=== PATIENT | female | born 1940 | race Caucasian/White ===

== ENCOUNTER → 2017-10-18 13:21 | Outpatient (CLI) | payer MEDICARE, SELFPAY ==
[2017-10-18 15:47] LABS: Absolute Lymphocyte Count 1.57 X10^3/ul (0.83-4.51); Absolute Neutrophil Count 4.6 X10^3/uL (2.0-7.7); Basophil# 0.03 X10^3/uL; Basophil% 0.4 % (0-1); Eosinophil# 0.44 X10^3/uL; Eosinophils% 6.2 % (0-5); Hematocrit 34.7 % (37-47); Hemoglobin 10.8 g/dl (12.0-15.0); Lymphocyte # 1.57 X10^3/ul (4.0); Lymphocyte % 22.2 % (19-41); Mean Corp Hgb Conc 31.1 g/gl (32-36); Mean Corpuscular Hgb 29.8 pg (27.0-32.0); Mean Corpuscular Volume 95.6 fL (81-99); Mean Platelet Vol. 10.7 fl (6.2-12.0); Monocyte# 0.47 X10^3/uL; Monocyte% 6.6 % (0-10); Neutrophil # 4.55 X10^3/uL (2.7-7.7); Neutrophil % 64.5 % (47-70); Platelet Count 325 K/mm3 (150-450); RBC Distribution Width CV 14.5 % (11.6-14.6); RBC Distribution Width SD 48.4 fl (35.1-43.9); Red Blood Count 3.63 M/mm3 (4.2-5.4); White Blood Count 7.1 K/mm3 (4.4-11.0)
[2017-10-18 15:49] LABS: POSITIVE COUNT NO; POSITIVE DIFFERENTIAL NO; POSITIVE MORPHOLOGY NO
[2017-10-18 16:15] LABS: Anion Gap 8 (5-15); BUN 29 mg/dL (7-18); BUN/Creat Ratio 27.9 RATIO (10-20); Calcium,Total 9.3 mg/dL (8.5-10.1); Chloride 104 mmol/L (98-107); Creatinine, Serum 1.04 mg/dL (0.55-1.02); EST Glomerular Filtration Rate 55 mL/min (>60); Est Glom Filt Rate - Afr Amer 66 mL/min (>60); Glucose 129 mg/dL (74-106); Potassium 4.2 mmol/L (3.5-5.1); Sodium Level 141 mmol/L (136-145)
== END ==
PROVIDERS: Family Provider Family Medicine; PCP Family Medicine; Visit Provider Family Medicine
DX: I10 Essential (primary) hypertension (principal); D64.9 Anemia, unspecified
CPT/HCPCS: 36415; 80048; 85025

== ENCOUNTER → 2018-10-01 15:28 | Outpatient (CLI) | payer MEDICARE, SELFPAY ==
[2018-10-01 17:48] LABS: Anion Gap 10 (5-15); BUN 34 mg/dL (7-18); BUN/Creat Ratio 26.8 RATIO (10-20); Calcium,Total 9.2 mg/dL (8.5-10.1); Chloride 105 mmol/L (98-107); Creatinine, Serum 1.27 mg/dL (0.55-1.02); EST Glomerular Filtration Rate 43 mL/min (>60); Est Glom Filt Rate - Afr Amer 53 mL/min (>60); Ferritin 75 ng/mL (8-252); Glucose 204 mg/dL (74-106); Iron 85 ug/dL (50-170); Sodium Level 142 mmol/L (136-145); Thyroid Stim Hormone (TSH) 1.24 uIU/mL (0.358-3.74)
[2018-10-01 18:02] LABS: Absolute Lymphocyte Count 2.43 X10^3/ul (0.83-4.51); Absolute Neutrophil Count 6.2 X10^3/uL (2.0-7.7); Basophil# 0.03 X10^3/uL; Basophil% 0.3 % (0-1); Eosinophil# 0.28 X10^3/uL; Hemoglobin 10.5 g/dl (12.0-15.0); Lymphocyte # 2.43 X10^3/ul (4.0); Lymphocyte % 25.6 % (19-41); Mean Corp Hgb Conc 30.9 g/gl (32-36); Mean Corpuscular Hgb 30.3 pg (27.0-32.0); Mean Platelet Vol. 10.4 fl (6.2-12.0); Monocyte# 0.49 X10^3/uL; Monocyte% 5.2 % (0-10); Neutrophil # 6.23 X10^3/uL (2.7-7.7); Neutrophil % 65.6 % (47-70); Platelet Count 347 K/mm3 (150-450); RBC Distribution Width CV 14.5 % (11.6-14.6); RBC Distribution Width SD 49.3 fl (35.1-43.9); Red Blood Count 3.47 M/mm3 (4.2-5.4); White Blood Count 9.5 K/mm3 (4.4-11.0)
[2018-10-01 18:05] LABS: POSITIVE COUNT NO; POSITIVE DIFFERENTIAL NO; POSITIVE MORPHOLOGY NO
[2018-10-01 18:06] LABS: Vitamin B12 608 pg/mL (211-911)
== END ==
PROVIDERS: Family Provider Family Medicine; PCP Family Medicine; Visit Provider Family Medicine
DX: E11.9 Type 2 diabetes mellitus without complications (principal); E78.5 Hyperlipidemia, unspecified; D64.9 Anemia, unspecified
CPT/HCPCS: 36415; 80048; 82607; 82728; 83540; 84443; 85025

== ENCOUNTER → 2019-08-12 15:19 | Outpatient (CLI) | payer MEDICARE, SELFPAY ==
[2019-08-12 17:23] LABS: Absolute Lymphocyte Count 2.28 X10^3/uL (0.83-4.51); Absolute Neutrophil Count 4.2 X10^3/uL (2.0-7.7); Basophil# 0.03 X10^3/uL; Basophil% 0.4 % (0-1); Eosinophil# 0.38 X10^3/uL; Eosinophils% 5.2 % (0-5); Hematocrit 32.7 % (37-47); Hemoglobin 9.9 g/dL (12.0-15.0); Lymphocyte # 2.28 X10^3/ul (4.0); Lymphocyte % 31.2 % (19-41); Mean Corp Hgb Conc 30.3 g/dL (32-36); Mean Corpuscular Hgb 30.1 pg (27.0-32.0); Mean Corpuscular Volume 99.4 fL (81-99); Mean Platelet Vol. 10.1 fl (6.2-12.0); Monocyte# 0.41 X10^3/uL; Monocyte% 5.6 % (0-10); NRBC Flagged by Analyzer 0 % (0-5); Neutrophil # 4.19 X10^3/uL (2.7-7.7); Neutrophil % 57.3 % (47-70); Platelet Count 322 K/mm3 (150-450); RBC Distribution Width CV 13.9 % (11.6-14.6); RBC Distribution Width SD 50.8 fl (35.1-43.9); Red Blood Count 3.29 M/mm3 (4.2-5.4); White Blood Count 7.3 K/mm3 (4.4-11.0)
[2019-08-12 17:41] LABS: Anion Gap 5 (5-15); BUN 28 mg/dL (7-18); BUN/Creat Ratio 24.6 RATIO (10-20); Calcium,Total 9.4 mg/dL (8.5-10.1); Chloride 107 mmol/L (98-107); Creatinine, Serum 1.14 mg/dL (0.55-1.02); EST Glomerular Filtration Rate 49 mL/min (>60); Est Glom Filt Rate - Afr Amer 59 mL/min (>60); Glucose 95 mg/dL (74-106); Iron 72 ug/dL (50-170); Potassium 4.6 mmol/L (3.5-5.1); Sodium Level 140 mmol/L (136-145); Thyroid Stim Hormone (TSH) 1.52 uIU/mL (0.358-3.74)
== END ==
PROVIDERS: Family Provider Family Medicine; PCP Family Medicine; Visit Provider Family Medicine
DX: D64.9 Anemia, unspecified (principal); I10 Essential (primary) hypertension; E11.9 Type 2 diabetes mellitus without complications
CPT/HCPCS: 36415; 80048; 83540; 84443; 85025

== ENCOUNTER → 2020-09-22 14:05 | Outpatient (CLI) | payer MEDICARE, SELFPAY ==
[2020-09-22 17:04] LABS: Absolute Lymphocyte Count 2.52 X10^3/uL (0.83-4.51); Basophil# 0.06 X10^3/uL; Basophil% 0.8 % (0-1); Eosinophil# 0.51 X10^3/uL; Eosinophils% 6.6 % (0-5); Hemoglobin 10.5 g/dL (12.0-15.0); Lymphocyte # 2.52 X10^3/ul (4.0); Lymphocyte % 32.8 % (19-41); Mean Corp Hgb Conc 31.8 g/dL (32-36); Mean Corpuscular Hgb 30.4 pg (27.0-32.0); Mean Corpuscular Volume 95.7 fL (81-99); Mean Platelet Vol. 10.2 fl (6.2-12.0); Monocyte# 0.56 X10^3/uL; Monocyte% 7.3 % (0-10); NRBC Flagged by Analyzer 0 % (0-5); Neutrophil % 52.1 % (47-70); Platelet Count 339 K/mm3 (150-450); RBC Distribution Width CV 14.6 % (11.6-14.6); RBC Distribution Width SD 51.2 fl (35.1-43.9); Red Blood Count 3.45 M/mm3 (4.2-5.4); White Blood Count 7.7 K/mm3 (4.4-11.0)
[2020-09-22 17:31] LABS: Vitamin B12 1894 pg/mL (211-911)
[2020-09-22 17:36] LABS: ALB/GLOB Ratio 0.9 RATIO (0.9-2.4); AST(SGOT) 14 U/L (15-37); Alanine Aminotransfer ALT/SGPT 14 U/L (13-56); Albumin, Serum 3.7 g/dL (3.2-5.0); Alkaline Phosphatase 76 U/L (45-117); Anion Gap 7 (5-15); BUN 34 mg/dL (7-18); Calcium,Total 9.5 mg/dL (8.5-10.1); Chloride 105 mmol/L (98-107); Creatinine, Serum 1.79 mg/dL (0.55-1.02); EST Glomerular Filtration Rate 29 mL/min (>60); Est Glom Filt Rate - Afr Amer 35 mL/min (>60); Globulin 4.1 g/dL (2.2-4.2); Glucose 98 mg/dL (74-106); Iron 64 ug/dL (50-170); Potassium 4.4 mmol/L (3.5-5.1); Protein, Total 7.8 g/dL (6.4-8.2); Sodium Level 138 mmol/L (136-145); T4 Free Direct 1.17 ng/dL (0.76-1.46); Thyroid Stim Hormone (TSH) 1.59 uIU/mL (0.358-3.74)
== END ==
PROVIDERS: PCP Family Medicine; Visit Provider Family Medicine
DX: I10 Essential (primary) hypertension (principal); E11.9 Type 2 diabetes mellitus without complications; D64.9 Anemia, unspecified
CPT/HCPCS: 36415; 80053; 82607; 83540; 84439; 84443; 85025

== ENCOUNTER → 2020-10-07 13:17 | Outpatient (CLI) | payer MEDICARE, SELFPAY ==
[2020-10-07 15:25] LABS: Anion Gap 5 (5-15); BUN 38 mg/dL (7-18); BUN/Creat Ratio 26.2 RATIO (10-20); Calcium,Total 9.8 mg/dL (8.5-10.1); Chloride 107 mmol/L (98-107); Creatinine, Serum 1.45 mg/dL (0.55-1.02); EST Glomerular Filtration Rate 37 mL/min (>60); Est Glom Filt Rate - Afr Amer 45 mL/min (>60); Glucose 123 mg/dL (74-106); Potassium 4.7 mmol/L (3.5-5.1); Sodium Level 138 mmol/L (136-145)
== END ==
PROVIDERS: PCP Family Medicine; Visit Provider Family Medicine
DX: N18.30 Chronic kidney disease, stage 3 unspecified (principal)
CPT/HCPCS: 36415; 80048

== ENCOUNTER 2021-09-04 10:51 | Inpatient (IN) | payer MEDICARE, SELFPAY ==
[2021-09-04] VITALS (11 sets, daily range): BP systolic 118–174; BP diastolic 53–70; PULSE 71–116; RESP 16–28; TEMP 36.8–37.8; O2SAT 92–100; BMI 50.1; BMI 48.8
--- NOTE | 2021-09-04 11:03 | RAD_ITS ---
STUDY: X-RAY CHEST REASON FOR EXAM: Female, 80 years old. dyspnea TECHNIQUE: Single AP portable view of the chest. COMPARISON: None. FINDINGS: The lungs are clear and expanded. Elevated right hemidiaphragm. Normal size heart. Normal mediastinum and lisa. Normal visualized pulmonary arteries. Normal visualized aortic arch and descending thoracic aorta. Normal visualized thoracic spine. Normal visualized ribs, clavicles, and shoulders. There is no demonstrated abnormality of the visualized soft tissue structures of the upper abdomen. RAD/Chest 1 View (Portable) IMPRESSION: No active disease. Electronically Signed: Lex Luz MD at 11:31 EST Tel , Service support ,
--- NOTE | 2021-09-04 11:03 | EKG12_ITS ---
Test Reason : COUGH Blood Pressure : / mmHG Vent. Rate : 116 BPM Atrial Rate : 125 BPM P-R Int : 000 ms QRS Dur : 076 ms QT Int : 322 ms P-R-T Axes : 000 -56 065 degrees QTc Int : 447 ms Atrial fibrillation Left axis deviation Low voltage QRS Septal infarct , age undetermined Inferior infarct , age undetermined Abnormal ECG Confirmed by MIKE OSWALD, VIC ([id number]), editor dictionary REGIS MURILLO ([id number]) on 09/08/2021 10:02:01 AM Referred By: ROBERTO CARLOS/VIRAJ Confirmed By:VIC MCKEON MD
--- NOTE | 2021-09-04 11:04 | ED.VIS.DYS ---
HPI History of Present Illness Chief Complaint: Cough Detail of Chief Complaint: Cough and shortness of breath Informant: patient Narrative Narrative: Patient presents to the emergency department complaint of cough and shortness of breath. Patient states that she has been coughing for 6 months. Patient states 2 days ago started feeling increasingly short of breath. Coughing up white phlegm. She denies fever at home but was noted to have a temperature on arrival to the emergency department. She complains of some body aches. Patient did have a Covid vaccines but has not had a booster. She denies any chest pain. She denies recent travel or surgery. [facility] Medical History (Updated 09/04/21 @ 12:[address] Virginia Rodriguez, ) Diabetes Hypertension Home Medications aspirin 81 mg PO DAILY 09/04/21 [History Last Taken Unknown] hydrochlorothiazide 25 mg PO DAILY 09/04/21 [History Last Taken Unknown] lisinopril 10 mg PO DAILY 09/04/21 [History Last Taken Unknown] pioglitazone 30 mg PO DAILY 09/04/21 [History Last Taken Unknown] Allergy/AdvReac Type Severity Reaction Status Date / Time No Known Allergies Allergy Verified 09/04/21 10:58 Social History Smoking Status: Former smoker ROS ROS ED Constitutional Constitutional ED: Reports systems reviewed and no addt'l complaints, except as documented; Denies body ache(s), change in weight or chills Eyes Eyes: Denies acute decrease in peripheral vision, change in vision, double vision or loss of vision ENT ENT ED: Reports none; Denies ear pain, lip swelling, loss taste/smell, neck pain, otalgia or sore throat Cardiovascular Cardiovascular: Reports none; Denies abdominal pain, chest pain with activity, leg edema, lightheadedness, palpitations, rapid heart rate or syncope Respiratory/Chest Respiratory/Chest: Reports none, cough and dyspnea; Denies change in mental status, dry cough, hemoptysis, shortness of breath at rest or shortness of breath with exertion Gastrointestinal Gastrointestinal: Reports none; Denies abdominal pain, change in stool character, diarrhea, hematemesis, hematochezia, melena, rectal bleeding or vomiting Genitourinary Genitourinary ED: Reports none; Denies abdominal discomfort, anuria, dysuria, genital pain or polyuria Musculoskeletal Musculoskeletal: Reports none and myalgias; Denies arthralgias, back pain, difficulty walking, extremity pain or muscle weakness Integumentary Reports none; Denies abscess or rash Neurologic Neurologic: Reports none and weakness; Denies abnormal gait, confusion, focal weakness, frequent falls, headache(s), loss of vision, numbness, paresthesias, radicular pain or vertigo Psychiatric Psychiatric: Reports systems reviewed and no addt'l complaints, except as documented and none; Denies behavioral changes, confusion, difficulty concentrating, hallucinations, suicidal ideation, tactile hallucinations or visual hallucinations Endocrine Endocrinology: Denies none, cold intolerance, excessive sweating, fatigue or heat intolerance Hematologic/Lymphatic Hematologic/Lymphatic: Reports none; Denies anemia, easy bleeding or easy bruising Allergic/Immunologic Allergic/Immunologic ED: Denies as per HPI, none, lip swelling, mouth swelling, throat swelling, tongue swelling or hives EXAM Physical Exam Const Vital Signs: 09/04/21 10:52 09/04/21 10:58 09/04/21 12:29 Temperature 100.0 F H Temperature Source Oral Pulse Rate 116 H Respiratory Rate 28 H Respiratory Effort Normal Respiratory Depth Normal Respiratory Pattern Normal Blood Pressure 173/58 H Blood Pressure Mean 96 Pulse Ox 95 Oxygen Delivery Method Room Air Positive well nourished and well developed General Appearance ED: well developed and NAD HEENT Reports TM's clear and moist mucous membranes normocephalic and atraumatic; Negative for trauma or tenderness Tympanic Membrane ED: Yes TM's clear Eyes PERRL and EOMs intact bilaterally General Eye ED: Negative for pale conjunctiva or scleral icterus Neck no lymphadenopathy, supple and no JVD General: Negative for tenderness Chest Wall inspection of chest normal and palpation of chest normal Chest: Negative for tenderness Resp normal respiratory effort and clear to auscultation bilaterally Resp Narrative: Rales noted in the bases with few rhonchi bilaterally. Mild tachypnea. No accessory muscle use or retractions. Effort and Inspection: Negative for respiratory distress or pain with movement Auscultation: rales and rhonchi; Negative for wheezes or diminished lung sounds Cardio regular rate, regular rhythm, S1 normal heart sound, S2 normal heart sound and no murmurs Peripheral Pulses: pulses 2+ throughout GI normal to inspection, nondistended, normoactive bowel sounds, soft to palpation, non-tender, non-distended and no masses Back/Spine no CVA tenderness and no thoracic nor lumbar tenderness Extremity normal to inspection Extremity Narrative: +3 edema both lower extremities General Extremety ED: Yes edema General Extremity: edema Neuro oriented x3, CN's II-XII intact bilaterally, no sensory deficits noted and gait normal Sensorium / Orientation: awake, alert, oriented to person, oriented to place and oriented to time Motor Exam: strength 5/5 throughout and strength abnormal Psych mental status grossly normal Skin no rashes or lesions noted and no wounds MDM MDM MDM Narrative Medical decision making narrative: IV line established on arrival. Patient was given Cardizem 20 mg IV bolus and this slowed her rate down into the 90s. Patient was given Lasix 40 mg IV. Patient has new onset A. fib RVR. Patient I suspect has a component of CHF and is also anemic. Case will be discussed with hospitalist to evaluate patient for admission Lab Data Attestation: I reviewed the patient's lab results. Labs: Laboratory Results - last 24 hr 09/04/21 09/04/21 09/04/21 11:05 11:05 11:05 WBC 8.4 RBC 3.00 L Hgb 8.7 L Hct 27.1 L MCV 90.3 MCH 29.0 MCHC 32.1 RDW Std Deviation 51.4 H RDW Coeff of Karen 15.7 H Plt Count 345 MPV 9.4 Immature Gran % (Auto) 0.800 Neut % (Auto) 90.3 H Lymph % (Auto) 5.7 L [place] % (Auto) 3.0 Eos % (Auto) 0.0 Baso % (Auto) 0.2 Absolute Neuts (auto) 7.6 Absolute Lymphs (auto) 0.48 L Nucleated RBC % 0 D-Dimer Quant (PE/DVT) 1.77 H* Sodium 141 Potassium 3.8 Chloride 106 Carbon Dioxide 25.0 Anion Gap 10 BUN 19 H Creatinine 1.26 H Estim Creat Clear Calc 31.26 Est GFR (MDRD) Af Amer 53 L Est GFR (MDRD) Non-Af 43 L BUN/Creatinine Ratio 15.1 Glucose 157 H Lactic Acid Calcium 9.7 Troponin I High Sens 26 B-Natriuretic Peptide 09/04/21 09/04/21 11:05 11:05 WBC RBC Hgb Hct MCV MCH MCHC RDW Std Deviation RDW Coeff of Karen Plt Count MPV Immature Gran % (Auto) Neut % (Auto) Lymph % (Auto) [place] % (Auto) Eos % (Auto) Baso % (Auto) Absolute Neuts (auto) Absolute Lymphs (auto) Nucleated RBC % D-Dimer Quant (PE/DVT) Sodium Potassium Chloride Carbon Dioxide Anion Gap BUN Creatinine Estim Creat Clear Calc Est GFR (MDRD) Af Amer Est GFR (MDRD) Non-Af BUN/Creatinine Ratio Glucose Lactic Acid 2.5 H* Calcium Troponin I High Sens B-Natriuretic Peptide 424.2 H Radiography Diagnostic Testing: Clinical Impression(s) from Imaging Studies Chest X-Ray 09/04/21 11:03 IMPRESSION: No active disease. Electronically Signed: Lex Luz MD at 11:31 EST Tel , Service support , Chest CTA 09/04/21 11:50 IMPRESSION: 1. No CT evidence of pulmonary embolism. 2. Bilateral noncalcified pulmonary nodules and follow-up CT is recommended in 6 months document stability per Electronically Signed: Lex Luz MD at 12:32 EST Tel , Service support , 1 view chest creatinine interpreted by myself as no acute disease process. Radiology was in agreement. EKG Initial EKG: Attestation: I personally reviewed and interpreted this EKG as follows: Comments: Atrial fibrillation with a rate of 116 bpm with old septal infarct and old inferior infarct noted Prior EKG tracings: not available for review Discharge Plan Triage Chief Complaint: Cough ED Provider: Virginia Rodriguez Dx/Rx/DC Orders Clinical Impression: Atrial fibrillation with rapid ventricular response, CHF (congestive heart failure), Weakness, Exertional dyspnea, Anemia Prescriptions: No Action lisinopril 10 mg tablet 10 mg PO DAILY RF: 0 hydrochlorothiazide 25 mg tablet 25 mg PO DAILY RF: 0 pioglitazone 30 mg tablet 30 mg PO DAILY RF: 0 aspirin 81 mg Capsule 81 mg PO DAILY RF: 0 Primary Care Provider: Tim Cortez Referrals: Tim Cortez MD [Primary Care Provider] - Disposition Disposition: Acute Care Hospital [facility]
--- NOTE | 2021-09-04 11:07 | NURSING ---
NO OLD EKGS
[2021-09-04 11:22] LABS: Absolute Lymphocyte Count 0.48 X10^3/uL (0.83-4.51); Absolute Neutrophil Count 7.6 X10^3/uL (2.0-7.7); Basophil# 0.02 X10^3/uL; Basophil% 0.2 % (0-1); Hematocrit 27.1 % (37-47); Hemoglobin 8.7 g/dL (12.0-15.0); Lymphocyte # 0.48 X10^3/ul (0.83-4.51); Lymphocyte % 5.7 % (19-41); Mean Corp Hgb Conc 32.1 g/dL (32-36); Mean Corpuscular Volume 90.3 fL (81-99); Mean Platelet Vol. 9.4 fl (6.2-12.0); Monocyte# 0.25 X10^3/uL; NRBC Flagged by Analyzer 0 % (0-5); Neutrophil # 7.56 X10^3/uL (2.7-7.7); POSITIVE DIFFERENTIAL YES; Platelet Count 345 K/mm3 (150-450); RBC Distribution Width CV 15.7 % (11.6-14.6); RBC Distribution Width SD 51.4 fl (35.1-43.9); White Blood Count 8.4 K/mm3 (4.4-11.0)
[2021-09-04 11:24] LABS: Differential Indicated SCAN CRITERIA MET; Neutrophil % 90.3 % (47-70)
[2021-09-04 11:36] LABS: D-Dimer Quantitative (DVT/PE) 1.77 FEU/ug/m (0.27-0.49)
[2021-09-04 11:40] LABS: Anion Gap 10 (5-15); BUN 19 mg/dL (7-18); BUN/Creat Ratio 15.1 RATIO (10-20); Calcium,Total 9.7 mg/dL (8.5-10.1); Chloride 106 mmol/L (98-107); Creatinine, Serum 1.26 mg/dL (0.55-1.02); EST Glomerular Filtration Rate 43 mL/min (>60); Est Glom Filt Rate - Afr Amer 53 mL/min (>60); Estimated Creatinine Clearance 31.26 ml/min; Glucose 157 mg/dL (74-106); Potassium 3.8 mmol/L (3.5-5.1); Sodium Level 141 mmol/L (136-145); Troponin-I HS 26 pg/mL (3.0-54.0)
[2021-09-04 11:43] LABS: BNP,B-Type NATRIURETIC PEPTIDE 424.2 pg/mL (0-100)
--- NOTE | 2021-09-04 11:50 | CT_ITS ---
STUDY: CTA CHEST REASON FOR EXAM: Female, 80 years old. dyspnea, elevated d-dimer RADIATION DOSAGE (If Supplied By Facility): CTDIvol = ( 27.96 ) mGy, DLP = ( 698.47 ) mGycm TECHNIQUE: The examination was performed with the intravenous administration of IV 100mL Isovue-370. Post-processing of the angiographic images was performed, with multiplanar reformation and 3D reconstruction. Individualized dose optimization techniques were used for this CT. COMPARISON: X-ray earlier today FINDINGS: Normal enhancement of the main pulmonary artery and right and left pulmonary arteries. Normal enhancement of the bilateral peripheral pulmonary arteries. There is no demonstrated pulmonary embolism. Normal thoracic aorta and visualized great vessels. There is no demonstrated aortic dissection. Normal heart and pericardium. Small hiatal hernia. Normal mediastinum. Normal hilar regions. Normal visualized trachea and bronchi. The lungs are well expanded. 6 mm noncalcified nodule peripherally the right upper lobe the lungs on image 184. Another 6 mm noncalcified nodule the posterior right upper lobe the lungs on image 175. Another 6 mm noncalcified nodule peripherally the lingula left lung on image 126. Another 6 mm nodule in the left lower lobe the lungs on image 97. Some right lower lobe discoid atelectasis or scarring. Normal pleura. Normal chest wall structures. Normal osseous structures. Normal visualized upper abdomen. CT/CTA Chest W/WO Contrast IMPRESSION: 1. No CT evidence of pulmonary embolism. 2. Bilateral noncalcified pulmonary nodules and follow-up CT is recommended in 6 months document stability per Electronically Signed: Lex Luz MD at 12:32 EST Tel , Service support ,
[2021-09-04 11:59] LABS: Lactic Acid 2.5 mmol/L (0.4-1.9)
[2021-09-04] MEDS: dilTIAZem 25 MG/5 ML Vial 20 MG IV BOLUS (12:35)
[2021-09-04] MEDS: Ondansetron 4 MG/2 ML Vial IV (12:35)
--- NOTE | 2021-09-04 12:49 | NURSING ---
HOSPITALIST FOR DR LUCAS
[2021-09-04 12:58] LABS: Bacteria 0 SEEN /hpf (None Seen); Mucous, Urine 0 SEEN /hpf (<or=2+); Red Blood Cells-Urine 0 SEEN /hpf (0-5); Squamous Epithelial Cells - UA 0 SEEN /hpf (5-10); White Blood Cells 0 SEEN /hpf (0-5)
[2021-09-04 12:59] LABS: Color, Urine Yellow (Yellow); Glucose, Dipstick Normal (Normal); Ketone-Dipstick 5 mg/dl (Negative); Leukocyte Esterase-Dipstick Negative /ul (Negative); Nitrite-Dipstick Negative (Negative); Occult Blood-Urine Negative /ul (Negative); Protein-Dipstick 30 mg/dl (Negative); Urine Bilirubin Dipstick Negative (Negative); Urine Clarity Clear (Clear); Urine Urobilinogen 1 mg/dl (Normal)
--- NOTE | 2021-09-04 13:16 | NURSING ---
PCU SHAHID AFIB RVR, ANEMIA, DYSPNEA, CHF
[2021-09-04] MEDS: Furosemide 40 MG/4 ML Vial IV ×2 (13:39→17:45)
--- NOTE | 2021-09-04 13:43 | ECHOCS_ITS ---
Reason For Study: Afib/Flutter Procedure This was a 2D Doppler, Color Flow transthoracic echocardiogram. The study was technically difficult. Contrast injection was performed. Exam performed portable in patient room. Left Ventricle Normal LV size. Left ventricular systolic function is normal. The estimated ejection fraction is 55 %. Unable to assess diastolic dysfunction due to arrhythmia. No regional wall motion abnormalities noted. Right Ventricle Normal RV size. Normal systolic function. Atria Normal left atrium. Normal right atrium. Mitral Valve Normal mitral valve. Tricuspid Valve Normal tricuspid valve. Mild (1+) tricuspid valve insufficiency. Pulmonary artery systolic pressure is 44 mmHg. Aortic Valve Trisinus/trileaflet aortic valve. Pulmonic Valve Normal pulmonic valve. Great Vessels Normal aortic root. The pulmonary artery is normal size. Normal inferior vena cava. Pericardium/Pleural No pericardial effusion. Medication Diluted definity 3ml given slow IV push to enhance endocardial definition. MMode/2D Measurements & Calculations LVIDd: 4.8 cm IVSd: 1.1 cm LA dimension: 4.0 cm LVIDs: 3.0 cm LVPWd: 1.1 cm FS: 37.8 % LAV(MOD-bp): 62.6 ml LA A4 area: 21.1 cm2 RA A4 area: 19.7 cm2 LAV(MOD-bp) Indexed: 27.3 ml/m2 LAV(MOD-sp2): 58.6 ml LAV(MOD-sp4): 65.3 ml Time Measurements MV dec time: 0.21 sec Doppler Measurements & Calculations MV E max tracy: 150.9 cm/sec MV V2 max: 145.5 cm/sec MV P1/2t max tracy: 145.5 cm/sec MV A max tracy: 129.7 cm/sec MV max P.5 mmHg MV P1/2t: 66.9 msec MV E/A: 1.2 MV V2 mean: 82.4 cm/sec MV dec slope: 636.8 cm/sec2 MV mean P.2 mmHg MV V2 VTI: 39.3 cm MVA(P1/2t): 3.3 cm2 Ao V2 max: 163.7 cm/sec LV V1 max: 135.5 cm/sec PA V2 max: 88.8 cm/sec Ao max P.7 mmHg LV V1 max P.3 mmHg TR max tracy: 308.7 cm/sec TR max P.1 mmHg ECHO/Echo Complete W/ Contrast Interpretation Summary Normal LV size. Left ventricular systolic function is normal. The estimated ejection fraction is 55 %. Unable to assess diastolic dysfunction due to arrhythmia. Pulmonary artery systolic pressure is 44 mmHg. Ordering Physician: Timmy Solis Referring Physician: Tim Cortez Performed By: Jesus Guo RCS
--- NOTE | 2021-09-04 13:46 | HP.PCM.HOS_ITS ---
HPI - General HPI Narrative ANKUR AN, is a 80 F who presents for worsening cough and associated exertional dyspnea. She states she has a cough for 6 months but in the past 2 days she has coughed more excessively, coughing all day yesterday, with a white sputum at times. She denies fevers at home. The patient does not have any rece nt contacts with Covid or flu patients. She has worsening edema in the last several weeks and this week did try an [id number] Diurex from [employer] although it does not know that this really helped. She does not take Lasix and does not follow closely with her primary care provider, with her last appointment being in April 2021. She has no recent echo or knowledge of atrial fibrillation. She does live alone right beside her daughter, and ambulates with a walker. Moving around is difficult but she does not have any falls. Per daughter the patient has declined significantly in the last 4 months, and is weaker. Regarding her diabetes she does not check her sugars and is not sure how controlled her diabetes is. She does have constipation and strains sometimes and notices rectal bleeding with the straining. Had colonoscopy long time ago, and cannot remember if she had hemorrhoids described. Upon presentation to the ED the patient was noted to have a heart rate of 116- 120 and significant edema with pitting edema 3+ in her legs. SaO2 95% on RA without any hypoxia noted in ED work-up. BNP was elevated to 424 and her hemoglobin was 8.7, which is slightly down from a chronic anemia of 10. UA clear, no white count. Patient has CTA which was negative for embolism or signs of pneumonia. She was given diltiazem 20 mg and 40 mg IV Lasix. Troponin negative and EKG showed persistent atrial fibrillation. Flu and rapid covid negative. Vaccinated for covid. She does not smoke or drink EtOH. Distant h/o of rare cigarrete use. Family history: she states that her mom also had congestive heart failure [facility] Medical History (Updated 09/04/21 @ 12:[address] Virginia Rodriguez, ) Diabetes Hypertension Home Medications aspirin 81 mg PO DAILY 09/04/21 [History Last Taken Unknown] hydrochlorothiazide 25 mg PO DAILY 09/04/21 [History Last Taken Unknown] lisinopril 10 mg PO DAILY 09/04/21 [History Last Taken Unknown] pioglitazone 30 mg PO DAILY 09/04/21 [History Last Taken Unknown] Allergy/AdvReac Type Severity Reaction Status Date / Time No Known Allergies Allergy Verified 09/04/21 10:58 Social History Smoking Status: Former smoker ROS ROS Narrative No fevers, positive chills. No chest racing sensations or chest pain, positive cough with shortness of breath, no abdominal pain or diarrhea, but she does have constipation, Positive rectal bleeding likely due to hemorrhoids. No trouble seeing hearing or swallowing. Trouble with skin problems or joint issues but does have generalized muscle weakness. No seizures or headaches. Positive lower extremity edema Vital Signs Vital Signs Vital Signs: 09/04/21 10:52 09/04/21 10:58 09/04/21 12:29 Temperature 100.0 F H Temperature Source Oral Pulse Rate 116 H Respiratory Rate 28 H Respiratory Effort Normal Respiratory Depth Normal Respiratory Pattern Normal Blood Pressure 173/58 H Blood Pressure Mean 96 Pulse Ox 95 Oxygen Delivery Method Room Air 09/04/21 13:45 Temperature 98.5 F Temperature Source Oral Pulse Rate 110 H Respiratory Rate 21 H Respiratory Effort Respiratory Depth Respiratory Pattern Blood Pressure 132/53 H Blood Pressure Mean 79 Pulse Ox 95 Oxygen Delivery Method Room Air Weight Weight: 292 lb 5.327 oz Body Mass Index (BMI) 50.1 Physical Exam Const alert Constitutional Narrative: Pleasant and congenial and morbidly obese General Appearance: cooperative HEENT normocephalic, head/scalp atraumatic and moist oral mucous membranes Eyes PERRL and EOMs intact bilaterally Neck no lymphadenopathy Neck Narrative: There is positive mild JVD Resp normal respiratory effort Resp Narrative: Appreciate crackles in the right lower lobe, and the left lobe is clear and I do not hear wheezes Cardio S1 normal heart sound, S2 normal heart sound and no murmurs Cardio Narrative: Irregular rhythm, tachycardic GI normal to inspection, nondistended, normoactive bowel sounds, non-tender and non-distended Extremity Extremity Narrative: 3+ pitting edema to knees with venous stasis changes, increase fluid to thights, however not pitting here Skin no jaundice Neuro Sensorium / Orientation: awake and alert Speech: speech normal Psych affect normal Results Lab / Micro Data Result Diagrams: 09/04/21 11:05 09/04/21 11:05 Labs: Laboratory Results - last 24 hr 09/04/21 11:05: WBC 8.4, RBC 3.00 L, Hgb 8.7 L, Hct 27.1 L, MCV 90.3, MCH 29.0, MCHC 32.1, RDW Std Deviation 51.4 H, RDW Coeff of Karen 15.7 H, Plt Count 345, MPV 9.4, Immature Gran % (Auto) 0.800, Neut % (Auto) 90.3 H, Lymph % (Auto) 5.7 L, [place] % (Auto) 3.0, Eos % (Auto) 0.0, Baso % (Auto) 0.2, Absolute Neuts (auto) 7.6, Absolute Lymphs (auto) 0.48 L, Nucleated RBC % 0 09/04/21 11:05: D-Dimer Quant (PE/DVT) 1.77 H* 09/04/21 11:05: Sodium 141, Potassium 3.8, Chloride 106, Carbon Dioxide 25.0, Anion Gap 10, BUN 19 H, Creatinine 1.26 H, Estim Creat Clear Calc 31.26, Est GFR (MDRD) Af Amer 53 L, Est GFR (MDRD) Non-Af 43 L, BUN/Creatinine Ratio 15.1, Glucose 157 H, Calcium 9.7, Troponin I High Sens 26 09/04/21 11:05: Lactic Acid 2.5 H* 09/04/21 11:05: B-Natriuretic Peptide 424.2 H 09/04/21 12:50: Urine Color Yellow, Urine Clarity Clear, Urine pH 5.0, Ur Specific [place] 1.020, Urine Protein 30 H, Urine Glucose (UA) Normal, Urine Ketones 5 H, Urine Occult Blood Negative, Urine Nitrite Negative, Urine Bilirubin Negative, Urine Urobilinogen 1 H, Ur Leukocyte Esterase Negative, Urine RBC 0 SEEN, Urine WBC 0 SEEN, Ur Squamous Epith Cells 0 SEEN, Urine Bacteria 0 SEEN, Urine Mucus 0 SEEN Micro: Microbiology 09/04/21 10:55 Nasal Secretion SARS-CoV-2 Antigen (Rapid) - Final 09/04/21 11:10 Mucosa - Nasopharyngeal Influenza Types A,B Direct FA (ANGELICA) - Final Radiology Impression Chest X-Ray 09/04/21 11:03 IMPRESSION: No active disease. Electronically Signed: Lex Luz MD at 11:31 EST Tel , Service support , Chest CTA 09/04/21 11:50 IMPRESSION: 1. No CT evidence of pulmonary embolism. 2. Bilateral noncalcified pulmonary nodules and follow-up CT is recommended in 6 months document stability per Electronically Signed: Lex Luz MD at 12:32 EST Tel , Service support , Assessment & Plan Assessment/Plan (1) CHF (congestive heart failure): (2) Anemia: (3) Exertional dyspnea: (4) Atrial fibrillation with rapid ventricular response: (5) Weakness: PLAN: Congestive heart failure Atrial fibrillation, persistent -Symptoms of white sputum with ongoing cough and worsening edema make congestive heart failure the most likely etiology -Do not suspect infectious etiology at this time, normal WBC. Temp 100.0, not true fever. Follow blood cultures obtained in ED. -Continue strict I's and O's with fluid restriction of 1250 mils per day, daily weights, and low-sodium diet -40 IV Lasix given this morning in ED and will continue twice daily for intensive diuresis -2D echo check TSH and magnesium -We will check A1c and lipids given poor follow-up with the primary care provider -We will start Lopressor 12.5 mg twice daily for A. fib, and anticoagulate with twice daily full therapeutic Lovenox given concerns for bleeding and anemia. Will check iron studies/ferritin prior to decision on long-term Eliquis. -Physical therapy and Occupational Therapy -Consult nutrition, needs education on low-sodium/ fluid restriction Anemia, normocytic -Do iron studies and ferritin and monitor -This is likely anemia of chronic disease -On history the bleeding with straining is most likely due to hemorrhoids Exertional dyspnea -Will give albuterol as needed and diurese, incentive spirometry -Continue Robitussin for cough Essential HTN - Resume HCTZ, 10 mg lisinopril Diabetes type 2 Mild chronic kidney disease -Routine glucose checks with sliding scale insulin, and I will hold pioglitazone indefinitely given increased risk of heart failure -Does not check sugars at home -Continue carb consistent diet -Presume mild CKD is due to diabetes DVT prophylaxis with Lovenox, continue carb consistent low-sodium diet We did discuss CODE STATUS in detail and the patient would be DNR DNI per her wishes, and would do pressors and cardioversion but would not do CPR/mechanical invasive ventilation Timmy Solis MD Charges/Coding Visit Charges Inpatient E&M: 63969 Init Hosp L3
[2021-09-04 14:10] LABS: Iron 65 ug/dL (50-170)
[2021-09-04 14:13] LABS: Ferritin 17 ng/mL (8-252); Iron Binding Capacity,Total 391 ug/dL (250-450)
--- NOTE | 2021-09-04 14:49 | PCS.PANDOC ---
PANDEMIC DOCUMENTATION INITIATED: Date: 04/19/2021 Time: 190
[2021-09-04 14:54] LABS: Hemoglobin A1c 5.7 % (3.8-5.6)
[2021-09-04 15:13] LABS: Reflex Lactate? Y
[2021-09-04] MEDS: Metoprolol Tartrate 25 MG Tablet 12.5 MG PO ×2 (15:52→20:33)
[2021-09-04] MEDS: Lisinopril 10 MG Tablet PO (15:52)
[2021-09-04] MEDS: Aspirin 81 MG TAB.CHEW PO (15:52)
[2021-09-04] MEDS: hydroCHLOROthiazide 25 MG Tablet PO (15:52)
[2021-09-04] MEDS: guaiFENesin 10 ML UDC (200MG/10ML) PO (15:53)
[2021-09-04 15:56] LABS: Thyroid Stim Hormone (TSH) 1.14 uIU/mL (0.358-3.74)
[2021-09-04 16:06] LABS: Lactic Acid 1.6 mmol/L (0.4-1.9)
--- NOTE | 2021-09-04 16:22 | PCM.HOSP.N ---
Hospitalist Note Patient was examined with digital rectal exam for hemorrhoids. Does have external hemorrhoids and small internal hemorrhoid suspected, which are likely source of intermittent bleeding with constipation/straining that the patient gives on history. Iron studies have been normal, and ferritin not excessively elevated. We will check haptoglobin and LDH in the morning, and at this point start Eliquis 5 mg twice daily. GFR is noted to be 43. Give daily Metamucil for soft stools. Monitor for anemia and CBC or signs of bleeding and hold anticoagulation if indicated in future Timmy Solis MD
[2021-09-04 16:30] LABS: Bedside Glucose 157 mg/dL (70-110)
[2021-09-04] MEDS: Insulin Lispro 100 UNIT/ML INSULN.PEN SC (16:49)
[2021-09-04] MEDS: Acetaminophen 325 MG Tablet 650 MG PO (16:50)
[2021-09-04] MEDS: 0.9% Saline Lock 10 ML Syringe IV (17:44)
[2021-09-04] MEDS: Atorvastatin Calcium 40 MG Tablet PO (20:33)
[2021-09-04] MEDS: APIXABAN 5 MG TABLET PO (20:34)
[2021-09-04 20:50] LABS: Bedside Glucose 130 mg/dL (70-110)
[2021-09-05] VITALS (13 sets, daily range): BP systolic 118–162; BP diastolic 46–96; PULSE 62–77; RESP 16–20; TEMP 36.3–36.9; O2SAT 94–100
[2021-09-05 06:27] LABS: Absolute Lymphocyte Count 1.27 X10^3/uL (0.83-4.51); Absolute Neutrophil Count 3.9 X10^3/uL (2.0-7.7); Basophil# 0.03 X10^3/uL; Basophil% 0.5 % (0-1); Eosinophil# 0.14 X10^3/uL; Eosinophils% 2.2 % (0-5); Hematocrit 25.2 % (37-47); Hemoglobin 7.6 g/dL (12.0-15.0); Lymphocyte # 1.27 X10^3/ul (0.83-4.51); Lymphocyte % 20.4 % (19-41); Mean Corp Hgb Conc 30.2 g/dL (32-36); Mean Corpuscular Hgb 28.6 pg (27.0-32.0); Mean Corpuscular Volume 94.7 fL (81-99); Mean Platelet Vol. 9.7 fl (6.2-12.0); Monocyte# 0.79 X10^3/uL; Monocyte% 12.7 % (0-10); NRBC Flagged by Analyzer 0 % (0-5); Neutrophil # 3.94 X10^3/uL (2.7-7.7); Neutrophil % 63.2 % (47-70); Platelet Count 309 K/mm3 (150-450); RBC Distribution Width CV 16.2 % (11.6-14.6); RBC Distribution Width SD 56.3 fl (35.1-43.9); Red Blood Count 2.66 M/mm3 (4.2-5.4); White Blood Count 6.2 K/mm3 (4.4-11.0)
[2021-09-05 06:45] LABS: Bedside Glucose 94 mg/dL (70-110)
[2021-09-05 06:59] LABS: Anion Gap 7 (5-15); BUN 22 mg/dL (7-18); BUN/Creat Ratio 14.6 RATIO (10-20); Calcium,Total 9.3 mg/dL (8.5-10.1); Chloride 105 mmol/L (98-107); Creatinine, Serum 1.51 mg/dL (0.55-1.02); EST Glomerular Filtration Rate 35 mL/min (>60); Est Glom Filt Rate - Afr Amer 43 mL/min (>60); Estimated Creatinine Clearance 26.09 ml/min; Glucose 105 mg/dL (74-106); Potassium 3.9 mmol/L (3.5-5.1); Sodium Level 140 mmol/L (136-145); T4 Free Direct 1.25 ng/dL (0.76-1.46)
[2021-09-05 07:07] LABS: International Normalized Ratio 1.3; Prothrombin Time (Protime)PT. 15.8 SECONDS (11.7-14.9)
[2021-09-05 07:15] LABS: Cholesterol 101 mg/dL (200); High Density Lipoprotein 74 mg/dL; LDH 159 U/L (84-246); Triglycerides 71 mg/dL; Very Low Density Lipoprotein 14 mg/dL (5-40)
[2021-09-05] MEDS: Psyllium 1 PACKET PO (08:25)
[2021-09-05] MEDS: Metoprolol Tartrate 25 MG Tablet 12.5 MG PO ×2 (08:25→20:47)
[2021-09-05] MEDS: 0.9% Saline Lock 10 ML Syringe IV (08:25)
[2021-09-05] MEDS: Lisinopril 10 MG Tablet PO (08:25)
[2021-09-05] MEDS: Nystatin Powder 15gm Bottle 1 APPLIC TOPICAL ×2 (08:25→20:47)
[2021-09-05] MEDS: hydroCHLOROthiazide 25 MG Tablet PO (08:25)
[2021-09-05] MEDS: APIXABAN 5 MG TABLET PO (08:25)
[2021-09-05] MEDS: Aspirin 81 MG TAB.CHEW PO (08:25)
[2021-09-05] MEDS: Furosemide 40 MG/4 ML Vial IV ×2 (08:26→17:26)
[2021-09-05] MEDS: guaiFENesin 10 ML UDC (200MG/10ML) PO ×2 (08:33→16:23)
--- NOTE | 2021-09-05 10:54 | PN.HOSP_ITS ---
Documented by User: Kerry Brady NP-Kota 09/05/21 11:02 Subjective Subjective Patient seen and examined. Patient sitting in chair no distress noted. Patient states that her cough has improved from admission however she continues to have a cough whenever she is exertional. Patient otherwise denies complaints. Objective Data Objective Data Vital Signs: Vital Signs Temp Pulse Resp BP Pulse Ox 97.6 F L 77 16 141/65 H 98 09/05/21 08:24 09/05/21 08:25 09/05/21 08:24 09/05/21 08:24 09/05/21 08:24 Oxygen Delivery Method Room Air Weight: 288 lb 2.307 oz Body Mass Index (BMI) 48.8 Intake & Output: Intake and Output for Last 24 Hours 09/03/21 09/04/21 09/05/21 23:59 23:59 23:59 Intake Total 120 / 120 Output Total 575 / 575 Balance 120 / 120 -575 / -575 Lab / Micro Data Result Diagrams: 09/05/21 05:32 09/05/21 05:32 Labs: Laboratory Results - last 24 hr 09/04/21 11:00: Hemoglobin A1c 5.7 H 09/04/21 11:05: WBC 8.4, RBC 3.00 L, Hgb 8.7 L, Hct 27.1 L, MCV 90.3, MCH 29.0, MCHC 32.1, RDW Std Deviation 51.4 H, RDW Coeff of Karen 15.7 H, Plt Count 345, MPV 9.4, Immature Gran % (Auto) 0.800, Neut % (Auto) 90.3 H, Lymph % (Auto) 5.7 L, [place] % (Auto) 3.0, Eos % (Auto) 0.0, Baso % (Auto) 0.2, Absolute Neuts (auto) 7.6, Absolute Lymphs (auto) 0.48 L, Nucleated RBC % 0 09/04/21 11:05: D-Dimer Quant (PE/DVT) 1.77 H* 09/04/21 11:05: Sodium 141, Potassium 3.8, Chloride 106, Carbon Dioxide 25.0, Anion Gap 10, BUN 19 H, Creatinine 1.26 H, Estim Creat Clear Calc 31.26, Est GFR (MDRD) Af Amer 53 L, Est GFR (MDRD) Non-Af 43 L, BUN/Creatinine Ratio 15.1, Glucose 157 H, Calcium 9.7, Troponin I High Sens 26 09/04/21 11:05: Lactic Acid 2.5 H* 09/04/21 11:05: B-Natriuretic Peptide 424.2 H 09/04/21 11:05: Iron 65 09/04/21 11:05: TIBC 391, Ferritin 17 09/04/21 11:05: TSH 1.14 09/04/21 11:05: Folate 12.00 09/04/21 12:50: Urine Color Yellow, Urine Clarity Clear, Urine pH 5.0, Ur Specific [place] 1.020, Urine Protein 30 H, Urine Glucose (UA) Normal, Urine Ketones 5 H, Urine Occult Blood Negative, Urine Nitrite Negative, Urine Bilirubin Negative, Urine Urobilinogen 1 H, Ur Leukocyte Esterase Negative, Urine RBC 0 SEEN, Urine WBC 0 SEEN, Ur Squamous Epith Cells 0 SEEN, Urine Bacteria 0 SEEN, Urine Mucus 0 SEEN 09/04/21 15:30: Lactic Acid 1.6 09/04/21 16:25: POC Glucose 157 H 09/04/21 20:31: POC Glucose 130 H 09/05/21 05:32: WBC 6.2, RBC 2.66 L, Hgb 7.6 L, Hct 25.2 L, MCV 94.7, MCH 28.6, MCHC 30.2 L D, RDW Std Deviation 56.3 H, RDW Coeff of Karen 16.2 H, Plt Count 309, MPV 9.7, Immature Gran % (Auto) 1.000 H, Neut % (Auto) 63.2, Lymph % (Auto) 20.4, [place] % (Auto) 12.7 H, Eos % (Auto) 2.2, Baso % (Auto) 0.5, Absolute Neuts (auto) 3.9, Absolute Lymphs (auto) 1.27, Nucleated RBC % 0 09/05/21 05:32: Sodium 140, Potassium 3.9, Chloride 105, Carbon Dioxide 28.0, Anion Gap 7, BUN 22 H, Creatinine 1.51 H, Estim Creat Clear Calc 26.09, Est GFR (MDRD) Af Amer 43 L, Est GFR (MDRD) Non-Af 35 L, BUN/Creatinine Ratio 14.6, Glucose 105, Calcium 9.3, Magnesium 2.0, Free T4 1.25 09/05/21 05:32: Lactate Dehydrogenase 159, Triglycerides 71, Cholesterol 101, LDL Cholesterol 13, VLDL Cholesterol 14, HDL Cholesterol 74, Folate 10.60 09/05/21 05:32: PT 15.8 H, INR 1.3 09/05/21 06:36: POC Glucose 94 Micro: Microbiology 09/04/21 10:55 Nasal Secretion SARS-CoV-2 Antigen (Rapid) - Final 09/04/21 11:10 Mucosa - Nasopharyngeal Influenza Types A,B Direct FA (ANGELICA) - Final Radiography Diagnostic Testing: Radiology Impression Chest X-Ray 09/04/21 11:03 IMPRESSION: No active disease. Electronically Signed: Lex Luz MD at 11:31 EST Tel , Service support , Chest CTA 09/04/21 11:50 IMPRESSION: 1. No CT evidence of pulmonary embolism. 2. Bilateral noncalcified pulmonary nodules and follow-up CT is recommended in 6 months document stability per Electronically Signed: Lex Luz MD at 12:32 EST Tel , Service support , Physical Exam Const alert, oriented x3 and no apparent distress HEENT head/scalp atraumatic and moist oral mucous membranes Head and Scalp: normocephalic Eyes conjunctivae normal and no scleral icterus Neck full ROM and supple General: trachea midline Resp normal respiratory effort and normal air movement Effort and Inspection: able to speak in complete sentences and symmetric chest movement Auscultation: diminished lung sounds Cardio regular rate, regular rhythm, S1 normal heart sound and S2 normal heart sound GI normal to inspection, nondistended, normoactive bowel sounds, soft to palpation and non-tender Extremity normal to inspection and full ROM General Extremity: edema bilateral lower extremity Details: moderate Peripheral Pulses: Yes pulses 2+ throughout Neuro oriented x3, moves all extremities, no focal motor deficits and no sensory deficits noted Sensorium / Orientation: awake and alert Speech: speech normal Psych affect normal Assessment & Plan Assessment/Plan (1) Atrial fibrillation with rapid ventricular response: (2) Exertional dyspnea: PLAN: 1. Atrial fibrillation with rapid ventricular response -Patient currently sinus rhythm with first-degree AV block -Continue Eliquis and metoprolol -Continue cardiac monitoring -Echo ordered 2. Anemia -Iron studies within normal limits -Hemoglobin decreased from 8.7-7.6 -CBC ordered daily DVT prophylaxis-we will hold Lovenox at this time due to decreased hemoglobin This patient was seen by Kerry Brady, OSMIN-C under the supervision of Dr. Cantu. Documented by User: Dr. Tomás Cantu, 09/05/21 20:30 Objective Data Lab / Micro Data Result Diagrams: 09/05/21 05:32 09/05/21 05:32 Charges/Coding Addendum Addendum: Patient was seen and examined independently of Mireille Brady, patient converted to normal sinus rhythm from A. fib, there is no evidence for CHF on the patient's chest x-ray, she is on room air. Patient has marked lower leg edema. On examination she appeared in good health and spirits, she does not appear to be in any distress. Vital signs as documented. Skin warm and dry and without overt rashes. Neck without JVD, thyroid appears normal, trachea is midline, neck is supple. Lungs clear, normal air movement was noted. Heart exam notable for regular rhythm, normal sounds and absence of murmurs, rubs or gallops. Abdomen unremarkable and without evidence of organomegaly, masses, or abdominal aortic enlargement, bowel sounds are present in all 4 quadrants, no abdominal tenderness was noted. Extremities-Marked lower leg edema is noted bilaterally, no cyanosis was noted, no clubbing was noted. Neuro: Cranial nerves II through XII are grossly intact, no focal motor deficits were noted, sensation to light touch and pinprick is intact, motor exam 5/5 throughout. Psych: Patient is alert and oriented x3, she does not appear anxious or depressed, she does not appear agitated. Assessment #1 new onset atrial fibrillation with rapid ventricular response- patient was placed on rate limiting medications, she converted to sinus rhythm, she was placed on anticoagulation with Eliquis, she will need an echocardiogram performed. #2 anasarca-patient will be placed on IV Lasix, electrolytes will need monitored #3 essential hypertension-patient will remain on her current medications #4 anemia-etiology unclear, blood counts will be monitored, I will transfuse the patient 1 unit of packed red blood cells today #5 chronic kidney disease stage IIIb probably secondary to type 2 diabetes-labs will need to be monitored, blood sugars need to be under tight control to prevent further kidney damage #6 type 2 diabetes-patient is on pioglitazone as an outpatient, blood sugars will be monitored, sliding scale insulin will be used if needed I do not believe the patient has congestive heart failure I have reviewed Mireille Brady's history and physical including her medical assessment and plan of care and with the above additions endorse it. Visit Charges Inpatient E&M: 83293 Subs Hosp L2
[2021-09-05 11:30] LABS: Bedside Glucose 117 mg/dL (70-110)
[2021-09-05] MEDS: Acetaminophen 325 MG Tablet 650 MG PO (13:16)
[2021-09-05 16:26] LABS: Bedside Glucose 105 mg/dL (70-110)
[2021-09-05] MEDS: Ondansetron 4 MG/2 ML Vial IV (17:26)
[2021-09-05] MEDS: Atorvastatin Calcium 40 MG Tablet PO (20:47)
[2021-09-05 22:11] LABS: Bedside Glucose 106 mg/dL (70-110)
[2021-09-06] VITALS (13 sets, daily range): BP systolic 101–173; BP diastolic 64–99; PULSE 66–95; RESP 16–20; TEMP 36–36.6; O2SAT 95–100
[2021-09-06 06:17] LABS: Absolute Lymphocyte Count 1.34 X10^3/uL (0.83-4.51); Absolute Neutrophil Count 4.7 X10^3/uL (2.0-7.7); Basophil# 0.03 X10^3/uL; Basophil% 0.4 % (0-1); Eosinophil# 0.47 X10^3/uL; Eosinophils% 6.3 % (0-5); Hematocrit 26.9 % (37-47); Hemoglobin 8.5 g/dL (12.0-15.0); Lymphocyte # 1.34 X10^3/ul (0.83-4.51); Lymphocyte % 18.1 % (19-41); Mean Corp Hgb Conc 31.6 g/dL (32-36); Mean Corpuscular Hgb 29.3 pg (27.0-32.0); Mean Corpuscular Volume 92.8 fL (81-99); Mean Platelet Vol. 9.5 fl (6.2-12.0); Monocyte# 0.83 X10^3/uL; Monocyte% 11.2 % (0-10); NRBC Flagged by Analyzer 0 % (0-5); Neutrophil # 4.68 X10^3/uL (2.7-7.7); Neutrophil % 63.2 % (47-70); Platelet Count 290 K/mm3 (150-450); RBC Distribution Width CV 16.1 % (11.6-14.6); RBC Distribution Width SD 54.8 fl (35.1-43.9); White Blood Count 7.4 K/mm3 (4.4-11.0)
[2021-09-06 06:43] LABS: Anion Gap 9 (5-15); BUN 28 mg/dL (7-18); BUN/Creat Ratio 18.1 RATIO (10-20); Calcium,Total 9.6 mg/dL (8.5-10.1); Chloride 104 mmol/L (98-107); Creatinine, Serum 1.55 mg/dL (0.55-1.02); EST Glomerular Filtration Rate 34 mL/min (>60); Est Glom Filt Rate - Afr Amer 41 mL/min (>60); Estimated Creatinine Clearance 25.41 ml/min; Glucose 89 mg/dL (74-106); Magnesium 2.2 mg/dL (1.6-2.6); Potassium 3.4 mmol/L (3.5-5.1); Sodium Level 140 mmol/L (136-145)
[2021-09-06 07:01] LABS: Bedside Glucose 88 mg/dL (70-110)
[2021-09-06] MEDS: Aspirin 81 MG TAB.CHEW PO (07:57)
[2021-09-06] MEDS: hydroCHLOROthiazide 25 MG Tablet PO (07:57)
[2021-09-06] MEDS: Furosemide 40 MG/4 ML Vial IV ×2 (07:57→18:09)
[2021-09-06] MEDS: Nystatin Powder 15gm Bottle 1 APPLIC TOPICAL ×2 (07:57→22:05)
[2021-09-06] MEDS: Metoprolol Tartrate 25 MG Tablet 12.5 MG PO ×2 (07:57→22:06)
[2021-09-06] MEDS: Lisinopril 10 MG Tablet PO (07:57)
[2021-09-06] MEDS: 0.9% Saline Lock 10 ML Syringe IV ×2 (07:58→18:09)
[2021-09-06 09:09] LABS: Vitamin B12 1841 pg/mL (211-911)
[2021-09-06 11:00] LABS: Bedside Glucose 116 mg/dL (70-110)
--- NOTE | 2021-09-06 11:40 | PN.HOSP_ITS ---
Subjective Subjective Well, her hemoglobin did drop overnight was given a unit of blood. This morning at 8.5. She has had some issues with sneezing and coughing up blood. The previous team had talked to her about potentially needing endoscopy which she has refused Objective Data Objective Data Vital Signs: Vital Signs Temp Pulse Resp BP Pulse Ox 97.8 F 74 16 142/75 H 96 09/06/21 09:00 09/06/21 11:00 09/06/21 09:00 09/06/21 09:00 09/06/21 09:00 Oxygen Delivery Method Room Air Weight: 288 lb 2.307 oz Body Mass Index (BMI) 48.8 Intake & Output: Intake and Output for Last 24 Hours 09/05/21 09/06/21 09/07/21 03:59 03:59 03:59 Intake Total 120 / 120 840 / 840 0 / 0 Output Total 575 / 575 650 / 650 Balance 120 / 120 265 / 265 -650 / -650 Lab / Micro Data Result Diagrams: 09/06/21 05:22 09/06/21 05:22 Labs: Laboratory Results - last 24 hr 09/05/21 05:32: Vitamin B12 1841 H 09/05/21 16:19: POC Glucose 105 09/05/21 20:45: POC Glucose 106 09/05/21 21:36: Blood Type O NEGATIVE, Antibody Screen NEGATIVE, Crossmatch See Detail 09/06/21 05:22: WBC 7.4, RBC 2.90 L, Hgb 8.5 L, Hct 26.9 L, MCV 92.8, MCH 29.3, MCHC 31.6 L, RDW Std Deviation 54.8 H, RDW Coeff of Karen 16.1 H, Plt Count 290, MPV 9.5, Immature Gran % (Auto) 0.800, Neut % (Auto) 63.2, Lymph % (Auto) 18.1 L , [place] % (Auto) 11.2 H, Eos % (Auto) 6.3 H, Baso % (Auto) 0.4, Absolute Neuts (auto) 4.7, Absolute Lymphs (auto) 1.34, Nucleated RBC % 0 09/06/21 05:22: Sodium 140, Potassium 3.4 L, Chloride 104, Carbon Dioxide 27.0, Anion Gap 9, BUN 28 H, Creatinine 1.55 H, Estim Creat Clear Calc 25.41, Est GFR (MDRD) Af Amer 41 L, Est GFR (MDRD) Non-Af 34 L, BUN/Creatinine Ratio 18.1, Glucose 89, Calcium 9.6, Magnesium 2.2 09/06/21 06:58: POC Glucose 88 09/06/21 10:57: POC Glucose 116 H Micro: Microbiology 09/04/21 11:26 Blood Culture (Wb) - Anticubital Right Blood Culture - Preliminary No growth in 48 hours. 09/04/21 11:05 Blood Culture (Wb) - Anticubital Left Blood Culture - Preliminary No growth in 48 hours. 09/04/21 10:55 Nasal Secretion SARS-CoV-2 Antigen (Rapid) - Final 09/04/21 11:10 Mucosa - Nasopharyngeal Influenza Types A,B Direct FA (ANGELICA) - Final Radiography Diagnostic Testing: Radiology Impression Echocardiogram 09/04/21 13:43 Interpretation Summary Normal LV size. Left ventricular systolic function is normal. The estimated ejection fraction is 55 %. Unable to assess diastolic dysfunction due to arrhythmia. Pulmonary artery systolic pressure is 44 mmHg. Ordering Physician: Timmy Solis Referring Physician: Tim Cortez Performed By: Jesus Guo RCS Physical Exam Const alert, oriented x3 and no apparent distress General Appearance: cooperative HEENT normocephalic and moist oral mucous membranes Eyes PERRL, EOMs intact bilaterally and conjunctivae normal Neck supple and no JVD Resp normal respiratory effort, no retractions and no use of accessory muscles Auscultation: diminished lung sounds; Negative for crackles, rales, rhonchi or wheezes Cardio regular rate, regular rhythm, S1 normal heart sound, S2 normal heart sound and no murmurs GI soft to palpation, non-tender and non-distended; Negative for hepatosplenomegaly Extremity General Extremity: edema; Negative for clubbing or cyanosis Skin Skin Narrative: Chronic venous stasis changes Neuro no focal motor deficits and no sensory deficits noted Psych affect normal Appearance: appropriate Assessment & Plan Assessment/Plan (1) Atrial fibrillation with rapid ventricular response: (2) Exertional dyspnea: PLAN: 1. Atrial fibrillation with rapid ventricular response/CKD 3B/HTN/HLD/morbid obesity -Patient currently sinus rhythm with first-degree AV block -We will Eliquis secondary to anemia -Continue cardiac monitoring -Echo with an EF of 55% and a pulmonary artery systolic pressure of 44 mmHg ?Continue with IV Lasix and monitor renal function ?Continue with Lipitor, will discontinue her hydrochlorothiazide given her renal function and continue with her lisinopril and her metoprolol 2. DM2 ?Hold Actos and given her edema may likely need to discontinue this ?Continue with sliding scale insulin Accu-Cheks AC at bedtime ?We will make adjustments as necessary 3. Anemia possibly of chronic disease versus bleed -Iron studies within normal limits -Hemoglobin decreased from 8.7 to 7.6, she was transfused and is currently 8.5 ?She has refused endoscopy, currently awaiting fecal occult testing -CBC ordered daily DVT: SCDs Charges/Coding Visit Charges Inpatient E&M: 49907 Subs Hosp L2
--- NOTE | 2021-09-06 12:16 | WOUNDNOTE ---
skin photo: bilateral lower legs
--- NOTE | 2021-09-06 12:45 | CASEMGMT ---
RN CM Face to Face with patient for initial transition planning/care coordination assessment. RN CM introduced self and role at [facility]. Patient lying in bed, alert and oriented, daughter at bedside. Patient willing to participate in assessment and is able to answer all questions appropriately. Care providers, pharmacy, and demographics verified. Patient wishes to discharge home with possible HHC, but willing to go to SNF if needed. Patient states she has no further needs or concerns at this time. CM to follow for discharge planning needs that may arise. PCP: Dana Specialists: none Preferred Pharmacy: [facility] Insurance: [employer] Prescription Benefit: yes Living Will/HPOA: yes, daughter Sharon Negron LNOK: daughter Living Arrangements: Patient lives with daughter in a 2 story home with patient staying on main level of home. No steps to enter the home. Patient states she was independent prior Transportation: daughter DME/HHC: Patient states she has shower chair, raised toilet, rollator, lift chair, and grab bars at home. Patient denies previous HHC or SNF. Disposition Plan: SNF vs HHC pending progress with therapy. Yojana SY, RN, CM
--- NOTE | 2021-09-06 12:59 | WOUNDNOTE ---
Was asked to see patient for redness to bilateral lower legs. there are no open areas noted. there are two patchy reddened areas noted. moderate edema. patient states that she had applied some lotion at home and felt she may have been allergic to it. patient denies much itching at this time. denies pain in the legs. patient states she prefers this nurse not wrap legs in case it irritates them more. washed legs and feet with soap and water. pat dry. will monitor. see skin photo.
--- NOTE | 2021-09-06 13:44 | CASEMGMT ---
Patient was provided a list of HHC and SNF providers including quality and resource use data and consistent with the patient?s preferred geographic region, medical needs, and insurance network. Pt also provided with list of private duty. Gia SO CM
--- NOTE | 2021-09-06 13:58 | CASEMGMT ---
Social Work Consult: snf placement Referral source: Dr. Rangel/RN CM Met with patient and patient daughter, Sharon in room. Introduced self and socially responsible investment adviser role. Patient agreeable to speak with this socially responsible investment adviser and provided verbal permission for this socially responsible investment adviser to speak openly with Sharon present. This socially responsible investment adviser broached topic of care home placement. Patient provided with list of in-network fdc facilities that are local to patient geographical region. Patient request for referral to be sent to [facility]. Telephone call to [facility], [place]. Able to accept patient. Updated Dr. Rangel on above information. Transfer to extended care form initiated. PLAN: [facility] when medically cleared. Will continue to follow. Cherrie MONTANEZ, DREAS
[2021-09-06] MEDS: guaiFENesin 10 ML UDC (200MG/10ML) PO (14:52)
[2021-09-06 16:36] LABS: Bedside Glucose 123 mg/dL (70-110)
[2021-09-06] MEDS: Atorvastatin Calcium 40 MG Tablet PO (22:06)
[2021-09-06 22:10] LABS: Bedside Glucose 104 mg/dL (70-110)
[2021-09-07] VITALS (10 sets, daily range): BP systolic 95–154; BP diastolic 63–82; PULSE 60–93; RESP 16–18; TEMP 36.8–37; O2SAT 94–97
[2021-09-07 06:26] LABS: Absolute Lymphocyte Count 1.46 X10^3/uL (0.83-4.51); Absolute Neutrophil Count 5.6 X10^3/uL (2.0-7.7); Basophil# 0.04 X10^3/uL; Basophil% 0.4 % (0-1); Eosinophil# 0.74 X10^3/uL; Eosinophils% 8.3 % (0-5); Hematocrit 28.1 % (37-47); Lymphocyte # 1.46 X10^3/ul (0.83-4.51); Lymphocyte % 16.3 % (19-41); Mean Corpuscular Hgb 29.7 pg (27.0-32.0); Mean Corpuscular Volume 92.7 fL (81-99); Mean Platelet Vol. 9.5 fl (6.2-12.0); Monocyte# 1.02 X10^3/uL; Monocyte% 11.4 % (0-10); NRBC Flagged by Analyzer 0 % (0-5); Neutrophil # 5.61 X10^3/uL (2.7-7.7); Neutrophil % 62.9 % (47-70); Platelet Count 322 K/mm3 (150-450); RBC Distribution Width CV 16.1 % (11.6-14.6); RBC Distribution Width SD 54.4 fl (35.1-43.9); Red Blood Count 3.03 M/mm3 (4.2-5.4); White Blood Count 8.9 K/mm3 (4.4-11.0)
[2021-09-07 06:57] LABS: Anion Gap 8 (5-15); BUN 31 mg/dL (7-18); BUN/Creat Ratio 18.8 RATIO (10-20); Calcium,Total 9.5 mg/dL (8.5-10.1); Chloride 103 mmol/L (98-107); Creatinine, Serum 1.65 mg/dL (0.55-1.02); EST Glomerular Filtration Rate 32 mL/min (>60); Est Glom Filt Rate - Afr Amer 39 mL/min (>60); Estimated Creatinine Clearance 23.87 ml/min; Glucose 79 mg/dL (74-106); Magnesium 2.2 mg/dL (1.6-2.6); Potassium 3.5 mmol/L (3.5-5.1); Sodium Level 140 mmol/L (136-145)
[2021-09-07 07:01] LABS: Bedside Glucose 91 mg/dL (70-110)
[2021-09-07] MEDS: Aspirin 81 MG TAB.CHEW PO (09:51)
[2021-09-07] MEDS: Nystatin Powder 15gm Bottle 1 APPLIC TOPICAL (09:53)
[2021-09-07] MEDS: Metoprolol Tartrate 25 MG Tablet 12.5 MG PO (11:18)
[2021-09-07] MEDS: Lisinopril 10 MG Tablet PO (11:18)
[2021-09-07 12:06] LABS: Bedside Glucose 132 mg/dL (70-110)
--- NOTE | 2021-09-07 13:37 | PCM.TXEXTCAR ---
Diet 09/04/21 14:37 Diet: Cardiac - Heart Healthy Food consistency:: Regular Liquid Consistency:: Regular/Thin Dietary Modifications:: No Added Salt Consistent Carbohydrate Fluid restriction:: 1250 mL Routine Orders/Code Status Routine Lab Work: CBC and BMP Code Status: DNRCC-A Therapies Physical Therapy: Eval and Treat Occupational Therapy: Eval and Treat Problem/Diagnosis (1) Atrial fibrillation with rapid ventricular response: Status: Acute (2) Exertional dyspnea: Status: Acute Allergies/Procedures Done in Hospital Allergies No Known Allergies Allergy (Verified 09/04/21 10:58) Procedures: 2-D Echocardiogram Type of Care/Length of Stay Estimated LOS: Convalescent Care Less Than 30 days Type of Care Needed: Skilled Rehab Potential: Good Prognosis: Good Additional Orders/Day of Discharge Day of Discharge: 09/07/21 Dietary and Speech Recommendations Dietitian Recommendations/Changes: Rec continue diet as ordered - consider liberalize fluid restriction as fluid status improves (ie 1500 ml/day) Discharge Plan Admission Admit Date/Time: 09/04/21 13:28 Attending Provider: Alfonzo Rangel Primary Care Provider: Tim Cortez Discharge Orders/Prescriptions Prescriptions: New atorvastatin 40 mg Tablet 40 mg PO QHS Qty: 30 RF: 0 metoprolol tartrate 25 mg Tablet 12.5 mg PO BID Qty: 0 RF: 0 furosemide [Lasix] 20 mg tablet 20 mg PO DAILY Qty: 30 RF: 0 Continued lisinopril 10 mg tablet 10 mg PO DAILY RF: 0 pioglitazone 30 mg tablet 30 mg PO DAILY RF: 0 aspirin 81 mg Capsule 81 mg PO DAILY RF: 0 Discontinued hydrochlorothiazide 25 mg tablet 25 mg PO DAILY RF: 0 Referrals / Follow Up: Tim Cortez MD [Primary Care Provider] - Within 1 Month Disposition Disposition (needs filled in before D/C Order can be placed): [facility]
--- NOTE | 2021-09-07 13:41 | PCM.DC.SUM ---
Providers Date of Admission: 09/04/21 Primary Care Physician: Dr. 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: Reason for Consult:: venous stasis problems & skin disruption legs Reason For Visit: CONGESTIVE HEART FAILURE Diagnosis Discharge Diagnosis (1) Atrial fibrillation with rapid ventricular response: Status: Acute Code(s): I48.91 - Unspecified atrial fibrillation (2) Exertional dyspnea: Status: Acute Code(s): R06.00 - Dyspnea, unspecified Medications at Discharge Home Medications aspirin 81 mg PO DAILY 09/04/21 lisinopril 10 mg PO DAILY 09/04/21 pioglitazone 30 mg PO DAILY 09/04/21 atorvastatin 40 mg PO QHS #30 tab 09/07/21 furosemide [Lasix] 20 mg PO DAILY #30 tab 09/07/21 metoprolol tartrate 12.5 mg PO BID #0 tab 09/07/21 Hospital Course Operations None Procedures 2-D Echocardiogram Summary of Care Provided Minutes Spent on Discharge: 41 Hospital Course: Per HPI: ANKUR AN, is a 80 F who presents for worsening cough and associated exertional dyspnea. She states she has a cough for 6 months but in the past 2 days she has coughed more excessively, coughing all day yesterday, with a white sputum at times. She denies fevers at home. The patient does not have any recent contacts with Covid or flu patients. She has worsening edema in the last several weeks and this week did try an [id number] Diurex from [employer] although it does not know that this really helped. She does not take Lasix and does not follow closely with her primary care provider, with her last appointment being in April 2021. She has no recent echo or knowledge of atrial fibrillation. She does live alone right beside her daughter, and ambulates with a walker. Moving around is difficult but she does not have any falls. Per daughter the patient has declined significantly in the last 4 months, and is weaker. Regarding her diabetes she does not check her sugars and is not sure how controlled her diabetes is. She does have constipation and strains sometimes and notices rectal bleeding with the straining. Had colonoscopy long time ago, and cannot remember if she had hemorrhoids described. Upon presentation to the ED the patient was noted to have a heart rate of 116-120 and significant edema with pitting edema 3+ in her legs. SaO2 95% on RA without any hypoxia noted in ED work-up. BNP was elevated to 424 and her hemoglobin was 8.7, which is slightly down from a chronic anemia of 10. UA clear, no white count. Patient has CTA which was negative for embolism or signs of pneumonia. She was given diltiazem 20 mg and 40 mg IV Lasix. Troponin negative and EKG showed persistent atrial fibrillation. Flu and rapid covid negative. Vaccinated for covid. She does not smoke or drink EtOH. Distant h/o of rare cigarrete use. Family history: she states that her mom also had congestive heart failure Hospital Course: 1. Atrial fibrillation with rapid ventricular response/CKD 3B/HTN/HLD/morbid obesity -Patient currently sinus rhythm with first-degree AV block -We will Eliquis secondary to anemia -Continue cardiac monitoring -Echo with an EF of 55% and a pulmonary artery systolic pressure of 44 mmHg ?Continue with IV Lasix and monitor renal function ?Continue with Lipitor, will discontinue her hydrochlorothiazide given her renal function and continue with her lisinopril and her metoprolol 09/07/2021: Doing well today, she did have an increase in her renal function so we will plan for discharge today with outpatient follow-up of her renal function at the assisted. I did discontinue her hydrochlorothiazide, and I did discharge her on Lasix 20 mg p.o. daily secondary to her pulmonary hypertension as evidenced on her echo. I do recommend starting her Lasix in 2 to 3 days from now after rechecking her BMP in the SNF. I do also recommend having a fluid restriction of around 1500cc and monitoring her weight as well as edema. I discussed with her the plan for discharge and she expressed understanding the risk and benefits of going to the assisted and would like to go today. 2. DM2 ?Hold Actos and given her edema may likely need to discontinue this ?Continue with sliding scale insulin Accu-Cheks AC at bedtime ?We will make adjustments as necessary 3. Anemia possibly of chronic disease versus bleed -Iron studies within normal limits -Hemoglobin decreased from 8.7 to 7.6, she was transfused and went from 8.5 yesterday to 9.0 today ?She is denying any bleeding from her nares the day of discharge ?She has refused endoscopy, currently awaiting fecal occult testing -CBC ordered daily Physical Exam Const alert, oriented x3 and no apparent distress General Appearance: cooperative HEENT normocephalic and moist oral mucous membranes Eyes PERRL, EOMs intact bilaterally and conjunctivae normal Neck supple and no JVD Resp normal respiratory effort, no retractions and no use of accessory muscles Auscultation: diminished lung sounds; Negative for crackles, rales, rhonchi or wheezes Cardio regular rate, regular rhythm, S1 normal heart sound, S2 normal heart sound and no murmurs GI soft to palpation, non-tender and non-distended; Negative for hepatosplenomegaly Extremity General Extremity: edema bilateral lower extremity Details: moderate; Negative for clubbing or cyanosis Skin Skin Narrative: Chronic venous stasis changes Neuro no focal motor deficits and no sensory deficits noted Psych affect normal Appearance: appropriate Weight / BMI Weight Weight: 279 lb 1.683 oz Body Mass Index (BMI) 48.8 ABG / Lab / Microbiology Data Result Diagrams: 09/07/21 05:08 09/07/21 05:08 Laboratory: Laboratory Results - last 24 hr 09/06/21 16:26: POC Glucose 123 H 09/06/21 22:04: POC Glucose 104 09/07/21 05:08: WBC 8.9, RBC 3.03 L, Hgb 9.0 L, Hct 28.1 L, MCV 92.7, MCH 29.7, MCHC 32.0, RDW Std Deviation 54.4 H, RDW Coeff of Karen 16.1 H, Plt Count 322, MPV 9.5, Immature Gran % (Auto) 0.700, Neut % (Auto) 62.9, Lymph % (Auto) 16.3 L, Hinds % (Auto) 11.4 H, Eos % (Auto) 8.3 H, Baso % (Auto) 0.4, Absolute Neuts (auto) 5.6, Absolute Lymphs (auto) 1.46, Nucleated RBC % 0 09/07/21 05:08: Sodium 140, Potassium 3.5, Chloride 103, Carbon Dioxide 29.0, Anion Gap 8, BUN 31 H, Creatinine 1.65 H, Estim Creat Clear Calc 23.87, Est GFR (MDRD) Af Amer 39 L, Est GFR (MDRD) Non-Af 32 L, BUN/Creatinine Ratio 18.8, Glucose 79, Calcium 9.5, Magnesium 2.2 09/07/21 06:53: POC Glucose 91 09/07/21 11:20: POC Glucose 132 H Microbiology: Microbiology 09/04/21 11:26 Blood Culture (Wb) - Anticubital Right Blood Culture - Preliminary No growth in 48 hours. 09/04/21 11:05 Blood Culture (Wb) - Anticubital Left Blood Culture - Preliminary No growth in 48 hours. 09/04/21 10:55 Nasal Secretion SARS-CoV-2 Antigen (Rapid) - Final 09/04/21 11:10 Mucosa - Nasopharyngeal Influenza Types A,B Direct FA (ANGELICA) - Final Meaningful Use Info Meaningful Use Diagnoses (Choose all that apply): None applicable Discharge Plan Admission Admit Date/Time: 09/04/21 13:28 Attending Provider: Alfonzo Rangel Primary Care Provider: Tim Cortez Instructions Additional Instructions / Restrictions: Fluid restriction of 1500 cc daily Discharge Orders/Prescriptions Prescriptions: New atorvastatin 40 mg Tablet 40 mg PO QHS Qty: 30 RF: 0 metoprolol tartrate 25 mg Tablet 12.5 mg PO BID Qty: 0 RF: 0 furosemide [Lasix] 20 mg tablet 20 mg PO DAILY Qty: 30 RF: 0 Continued lisinopril 10 mg tablet 10 mg PO DAILY RF: 0 pioglitazone 30 mg tablet 30 mg PO DAILY RF: 0 aspirin 81 mg Capsule 81 mg PO DAILY RF: 0 Discontinued hydrochlorothiazide 25 mg tablet 25 mg PO DAILY RF: 0 Referrals / Follow Up: Tim Cortez MD [Primary Care Provider] - Within 1 Month Disposition Disposition (needs filled in before D/C Order can be placed): Long-Term Facility Charges/Coding Visit Charges Inpatient E&M: 22273 Disch Hosp
--- NOTE | 2021-09-07 15:33 | CASEMGMT ---
Patient is ready for discharge to [facility] TCU. SW spoke with patient and she is aware. SW offered to call her daughter, but patient declined stating patient will be at [facility] a little after 4p. Plan: d/c to [facility] TCU Triny GARCIA
--- NOTE | 2021-09-07 15:41 | NURSING ---
Report called TCU to nurse Childers. Pt going to room 22.
[2021-09-07 15:55] LABS: Bedside Glucose 114 mg/dL (70-110)
[2021-09-07 17:56] LABS: Haptoglobin 120 mg/dL (42-346)
== END 2021-09-07 16:21 | disposition skilled nursing facility (03) | DRG 309 ==
LOC: ED 13:17 → PCU 13:56
PROVIDERS: Admitting Provider Hospitalist; Emergency Provider Emergency Medicine; PCP Family Medicine; Visit Provider Family Medicine
DX: I48.19 Other persistent atrial fibrillation (principal); R04.2 Hemoptysis; Z68.43 Body mass index [BMI] 50.0-59.9, adult; R06.09 Other forms of dyspnea; D64.9 Anemia, unspecified; E11.22 Type 2 diabetes mellitus with diabetic chronic kidney disease; R05.9 Cough, unspecified; K64.4 Residual hemorrhoidal skin tags; K64.8 Other hemorrhoids; I44.0 Atrioventricular block, first degree; N18.32 Chronic kidney disease, stage 3b; E66.01 Morbid (severe) obesity due to excess calories; I27.20 Pulmonary hypertension, unspecified; Z87.891 Personal history of nicotine dependence; Z82.49 Family history of ischemic heart disease and other diseases of the circulatory system; I12.9 Hypertensive chronic kidney disease with stage 1 through stage 4 chronic kidney disease, or unspecified chronic kidney disease; K59.00 Constipation, unspecified; I25.2 Old myocardial infarction; Z66 Do not resuscitate; Z79.01 Long term (current) use of anticoagulants; Z79.84 Long term (current) use of oral hypoglycemic drugs; Z83.3 Family history of diabetes mellitus
CPT/HCPCS: 36415; 71045; 71275; 80048; 80061; 81001; 82607; 82728; 82746; 82962; 83010; 83036; 83540; 83550; 83605; 83615; 83735; 83880; 84439; 84443; 84484; 85025; 85379; 85610; 86644; 86850; 86900; 86901; 86920; 86922; 87040; 87426; 87804; 93005; 93306; 97110; 97162; 97166; 97530; 97535; 97802; 99285; J7040; P9016; Q9957; Q9967; A4216; C8929; J1940; J2405

== ENCOUNTER 2021-09-07 16:25 | Inpatient (IN) | payer MEDICARE, SELFPAY ==
[2021-09-07 16:34] VITALS: BP 166/64; PULSE 84; RESP 18; TEMP 36.7; O2SAT 94
[2021-09-07 16:36] VITALS: BMI 47.4
--- NOTE | 2021-09-07 19:00 | HP.PCM_ITS ---
HPI - General General Date of Admission: 09/07/21 HPI Narrative 09/04/2021 ANKUR AN, is a 80 Female who presents to [facility] Emergency Department with cough, shortness of breath. Coughing x 6 months, increasing shortness of breath x 2 days, coughing white sputum. Fever, body aches, CTA chest negative pulmonary embolus. Cardizem IV given for atrial fibrillation with rapid ventricular response, Troponin negative. Lasix IV for congestive heart failure. 09/04/2021 Admit to Hospital. Lasix 40mg IV twice daily for congestive heart failure. Lopressor 12.5mg bid, Lovenox bid for atrial fibrillation with rapid ventricular response. Check iron studies for anemia. 09/04/2021 Eliquis 5mg twice daily for atrial fibrillation. 09/04/2021 Echo Normal LV size. LVSF normal. EF 55%. PASP 44mm Hg. 09/05/2021 Cough improved, sitting in chair. Atrial fibrillation converted to normal sinus rhythm. Transfuse 1 unit PRBC for hemoglobin 7.6. 09/06/2021 Refused colonoscopy. Consider holding pioglitazone due to edema. Hemoglobin 8.5. 09/07/2021 Hemoglobin 9.0. 09/07/2021 Admit to TCU with debility, here for rehabilitation, strengthening, prior to discharge home with daughter. [facility] Medical History (Updated 09/07/21 @ 19:[address] Erasmo El MD) Diabetes Hypertension Home Medications aspirin 81 mg PO DAILY 09/04/21 [History Last Taken 09/03/21] lisinopril 10 mg PO DAILY 09/04/21 [History Last Taken 09/03/21] pioglitazone 30 mg PO DAILY 09/04/21 [History Last Taken 09/03/21] atorvastatin 40 mg PO QHS 09/07/21 [History Last Taken Unknown] furosemide [Lasix] 20 mg PO DAILY 09/07/21 [History Last Taken Unknown] metoprolol tartrate 12.5 mg PO BID 09/07/21 [History Last Taken Unknown] Allergy/AdvReac Type Severity Reaction Status Date / Time No Known Allergies Allergy Verified 09/04/21 10:58 Surgical History (Updated 09/07/21 @ 19:[address] Erasmo El MD) History of cystoscopy Social History (Updated 01/04/22 @ 19:[address] Erasmo El MD) household members: children Smoking Status: Former smoker alcohol intake: never substance use type: does not use ROS Constitutional Constitutional: Denies chills, fever(s) or weight gain ENT HEENT: Denies headache(s), nasal congestion or nasal discharge Cardiovascular Cardiovascular: Denies chest pain or palpitations Respiratory/Chest Respiratory/Chest: Reports cough and shortness of breath with exertion; Denies excessive phlegm production Gastrointestinal Gastrointestinal: Denies abdominal pain, nausea or vomiting Genitourinary Genitourinary: Denies dysuria Musculoskeletal Musculoskeletal: Denies joint pain or joint swelling Integumentary Integumentary: Denies rash or wounds Neurologic Neurologic: Denies focal weakness, numbness or tingling Psychiatric Psychiatric: Denies anxiety, auditory hallucinations, depression, homicidal ideation or suicidal ideation Vital Signs Vital Signs Vital Signs: Weight Weight: 125.328 kg Body Mass Index (BMI) 47.4 Physical Exam Const alert and oriented x3 General Appearance: cooperative HEENT normocephalic Eyes PERRL and EOMs intact bilaterally Neck supple, no JVD and no carotid bruits Resp normal respiratory effort, normal air movement and clear to auscultation bilater ally Cardio regular rate and regular rhythm GI normal to inspection, nondistended, normoactive bowel sounds, non-tender and non-distended Extremity normal capillary refill General Extremity: Negative for edema Skin no rashes or lesions noted General Skin Exam: no breakdown Psych affect normal Appearance: appropriate Assessment & Plan Assessment/Plan (1) Debility: (2) Shortness of breath: (3) Atrial fibrillation with rapid ventricular response: (4) Anemia: (5) Acute diastolic congestive heart failure: (6) Diabetes mellitus: (7) Hypertension: PLAN: 80 year old female with below past medical history hospitalized for shortness of breath secondary to acute diastolic congestive heart failure, atrial fibrillation with rapid ventricular response, anemia, admitted to TCU with debility, here for rehabilitation, strengthening, prior to discharge home with daughter. * Debility - PT/OT. * Pain - Tylenol 1000mg q6h prn pain (1-10). * Bowel - Miralax 17gm daily, senna/colace 1 tablet bid, Dulcolax 10mg daily prn. * Adult immunization - Administer prevnar 13, pneumovax 23, fluzone, covid19 az ccine as appropriate. * DVT prophylaxis - Hold, anemia. * CV prophylaxis - Aspirin 81mg daily. * Hyperlipidemia - Atorvastatin 40mg qhs. * Acute diastolic heart failure - Metoprolol 12.5mg bid, Lisinopril 10mg daily, Lasix 20mg daily if kidney function stable. * Acute kidney injury - Cr 1.65, monitor BMP. * Cough - needs PFT, probable asthma/copd, Medrol dosepak, Duoneb 3ml [id number]. * Diabetes Mellitus II - Pioglitazone 30mg daily, insulin as needed with addition of steroid. * Anemia - resident declined colonoscopy, monitor.
[2021-09-07] MEDS: Ipratropium/Albuterol Sulfate 3 ML AMPUL.NEB INHALATION (19:52)
[2021-09-07 19:54] VITALS: PULSE 96; RESP 18; O2SAT 92
[2021-09-07 21:31] VITALS: BP 166/64; PULSE 84
[2021-09-07] MEDS: Metoprolol Tartrate 25 MG Tablet 12.5 MG PO (21:31)
[2021-09-07] MEDS: Atorvastatin Calcium 40 MG Tablet PO (21:31)
[2021-09-07] MEDS: Senna/Docusate Sodium 1 Tablet PO (21:32)
[2021-09-07] MEDS: MethylPREDNISolone DosePak 4 MG BOX PO (22:27)
[2021-09-08 05:52] LABS: Absolute Lymphocyte Count 0.99 X10^3/uL (0.83-4.51); Absolute Neutrophil Count 5.4 X10^3/uL (2.0-7.7); Basophil# 0.01 X10^3/uL; Basophil% 0.2 % (0-1); Eosinophil# 0.02 X10^3/uL; Eosinophils% 0.3 % (0-5); Hematocrit 29.9 % (37-47); Hemoglobin 9.3 g/dL (12.0-15.0); Lymphocyte # 0.99 X10^3/ul (0.83-4.51); Lymphocyte % 15.2 % (19-41); Mean Corp Hgb Conc 31.1 g/dL (32-36); Mean Corpuscular Hgb 29.2 pg (27.0-32.0); Mean Corpuscular Volume 93.7 fL (81-99); Mean Platelet Vol. 9.6 fl (6.2-12.0); Monocyte# 0.09 X10^3/uL; Monocyte% 1.4 % (0-10); NRBC Flagged by Analyzer 0 % (0-5); Neutrophil # 5.36 X10^3/uL (2.7-7.7); Neutrophil % 82.4 % (47-70); POSITIVE MORPHOLOGY YES; Platelet Count 335 K/mm3 (150-450); RBC Distribution Width CV 15.9 % (11.6-14.6); RBC Distribution Width SD 54.7 fl (35.1-43.9); Red Blood Count 3.19 M/mm3 (4.2-5.4); White Blood Count 6.5 K/mm3 (4.4-11.0)
[2021-09-08 05:54] LABS: Differential Indicated SCAN CRITERIA MET
[2021-09-08 06:07] LABS: Anisocytosis RARE; Differential Comment SCANNED; Hypochromasia 1+; Macrocytosis RARE
[2021-09-08 06:15] LABS: Anion Gap 9 (5-15); BUN 31 mg/dL (7-18); BUN/Creat Ratio 19.1 RATIO (10-20); Calcium,Total 9.4 mg/dL (8.5-10.1); Chloride 100 mmol/L (98-107); Creatinine, Serum 1.62 mg/dL (0.55-1.02); EST Glomerular Filtration Rate 33 mL/min (>60); Est Glom Filt Rate - Afr Amer 39 mL/min (>60); Estimated Creatinine Clearance 24.32 ml/min; Glucose 125 mg/dL (74-106); Potassium 4.3 mmol/L (3.5-5.1); Sodium Level 139 mmol/L (136-145)
[2021-09-08 06:22] VITALS: BP 147/55; PULSE 78
[2021-09-08] MEDS: Senna/Docusate Sodium 1 Tablet PO ×2 (06:22→17:28)
[2021-09-08] MEDS: Pioglitazone Hydrochloride 30 MG Tablet PO (06:22)
[2021-09-08] MEDS: Metoprolol Tartrate 25 MG Tablet 12.5 MG PO ×2 (06:22→17:27)
[2021-09-08] MEDS: Lisinopril 10 MG Tablet PO (06:22)
[2021-09-08 06:44] VITALS: PULSE 75; RESP 16; O2SAT 94
[2021-09-08] MEDS: Ipratropium/Albuterol Sulfate 3 ML AMPUL.NEB INHALATION ×3 (06:44→20:00)
[2021-09-08] MEDS: Aspirin 81 MG TAB.CHEW PO (08:18)
[2021-09-08] MEDS: MethylPREDNISolone DosePak 4 MG BOX PO ×4 (08:18→20:47)
[2021-09-08 12:05] VITALS: PULSE 77; RESP 16
[2021-09-08] MEDS: Tuberculin,Purif.prot.deriv. 50 TU/ML Vial 0.1 ML ID (12:05)
--- NOTE | 2021-09-08 12:08 | NURSING ---
Lt AC puncture site from previous IV. Area with bruising but no redness or pus noted at this time. Area appears to be drying and scabbing over. Will continue to monitor. Bandaide in place. States she is diet controlled diabetes but does not check her blood sugar at home. Informed her because she was on Medrol dose pack her blood sugars might increase. She states 'I will probably be ok.
--- NOTE | 2021-09-08 14:19 | NURSING ---
Resident notified of three staff members testing positive for COVID. Daughter, Sharon, does not have a voicemail that is set up.
[2021-09-08 14:22] VITALS: BP 147/67; PULSE 94; RESP 18; TEMP 36.3; O2SAT 18
--- NOTE | 2021-09-08 15:22 | PCM.PN.RX ---
Progress Note - Pharmacy Subjective: TCU Admission Objective: Allergies No Known Allergies Allergy (Verified 09/04/21 10:58) Current Medications Generic Name Dose Route Start Last Admin Trade Name Freq PRN Reason Stop Dose Admin Acetaminophen 1,000 mg 09/07/21 19:15 Acetaminophen 500 Mg Tablet PO Q6H PRN PRN Pain Score 1-10 Albuterol/Ipratropium 3 ml 09/07/21 17:30 09/08/21 12:05 Ipratropium/Albuterol Sulfate 3 Ml Ampul.Neb INHALATION 3 ml Q6HWA.RT JOAN Administration Aspirin 81 mg 09/08/21 08:00 09/08/21 08:18 Aspirin 81 Mg Tab.Chew PO 81 mg DAILYCM JOAN Administration Atorvastatin Calcium 40 mg 09/07/21 22:00 09/07/21 21:31 Atorvastatin Calcium 40 Mg Tablet PO 40 mg QHS JOAN Administration Bisacodyl 10 mg 09/07/21 19:15 Bisacodyl 5 Mg Tablet PO DAILY PRN Constipation Lisinopril 10 mg 09/08/21 06:00 09/08/21 06:22 Lisinopril 10 Mg Tablet PO 10 mg DAILY JOAN Administration Methylprednisolone 4 mg 09/07/21 22:00 09/08/21 12:06 Methylprednisolone Dosepak 4 Mg Box PO 09/12/21 08:59 4 mg 0800,1200,1700 JOAN Administration Taper Metoprolol Tartrate 12.5 mg 09/07/21 18:00 09/08/21 06:22 Metoprolol Tartrate 25 Mg Tablet PO 12.5 mg BID JOAN Administration Pioglitazone HCl 30 mg 09/08/21 06:00 09/08/21 06:22 Pioglitazone Hydrochloride 30 Mg Tablet PO 30 mg DAILY JOAN Administration Polyethylene Glycol 17 gm 09/08/21 06:00 09/08/21 06:22 Polyethylene Glycol 3350 17 Gm Packet PO Not Given DAILY JOAN Senna/Docusate Sodium 1 tablet 09/07/21 19:30 09/08/21 06:22 Senna/Docusate Sodium 1 Tablet PO 1 tablet BID JOAN Administration Tuberculin PPD 0.1 ml 09/15/21 10:00 Tuberculin,Purif.Prot.Deriv. 50 Tu/Ml Vial ID 09/15/21 10:01 X1 ONE Problem List (Last Reviewed 09/07/21 @ 19:[address] Erasmo El MD) Hypertension (Chronic) Diabetes mellitus (Acute) Acute diastolic congestive heart failure (Acute) Shortness of breath (Acute) Debility (Acute) Atrial fibrillation with rapid ventricular response (Acute) Anemia (Acute) Vital Signs Temp Pulse Resp BP Pulse Ox 97.3 F L 94 18 147/67 H 18 09/08/21 14:22 09/08/21 14:22 09/08/21 14:22 09/08/21 14:22 09/08/21 14:22 Oxygen Flow Rate (L/min) 94 Oxygen Delivery Method Room Air Weight: 125.872 kg Body Mass Index (BMI) 47.4 Sodium 139 mmol/L (136-145) 09/08/21 05:20 Potassium 4.3 mmol/L (3.5-5.1) 09/08/21 05:20 Chloride 100 mmol/L (98-107) 09/08/21 05:20 Carbon Dioxide 30.0 mmol/L (21.0-32.0) 09/08/21 05:20 Anion Gap 9 (5-15) 09/08/21 05:20 BUN 31 mg/dL (7-18) H 09/08/21 05:20 Creatinine 1.62 mg/dL (0.55-1.02) H 09/08/21 05:20 Est GFR (MDRD) Af Amer 39 mL/min (>60) L 09/08/21 05:20 Est GFR (MDRD) Non-Af 33 mL/min (>60) L 09/08/21 05:20 BUN/Creatinine Ratio 19.1 RATIO (10-20) 09/08/21 05:20 Glucose 125 mg/dL (74-106) H 09/08/21 05:20 Assessment/Plan: 1. Pain: acetaminophen 1000mg PO Q6H PRN pain 1-06/13. Please continue to monitor for pain and PRN usage. 2. CV prophylaxis: aspirin 81mg PO DALYCM. Please continue to monitor for S/S of bleeding and hemoglobin (last 9.3g/dL). 3. Acute diastolic heart failure: metoprolol tartrate 12.5mg PO BID and lisinopril 10mg PO daily. Please continue to monitor BP (last 147/67), HR (last 94), renal function, potassium (last 4.3mmol/L) and cough. 4. Hyperlipidemia: atorvastatin 40mg PO QHS. Please continue to monitor lipid panel (last 09/05/21) and muscle pain. *5. Diabetes mellitus II: pioglitazone 30mg PO daily. Pioglitazone has a blackbox warning and is on the BEERs list for heart failure exacerbations. Please consider using an alternative agent for diabetes to prevent fluid retention when pioglitazone is used in heart failure patients. Thanks. Please continue to monitor hemoglobin A1c (last 5.7% 09/04/21) and glucose (last 125mg/dL). 6. Cough: Duoneb 3mL inhalation Q6HWA.RT and Medrol dose pack. Please continue to monitor for increased hunger, insomnia, upset stomach, glucose and HR. Psychotropic Medications: None Unnecessary Medications: None Bowel Regimen: Miralax 17gm PO daily, senna/docusate 1T PO BID and bisacodyl 10mg PO daily PRN constipation. Please continue to monitor for constipation and PRN usage. Date of Note:: 09/08/21
[2021-09-08 17:27] VITALS: PULSE 94
[2021-09-08 20:00] VITALS: PULSE 75; RESP 18
[2021-09-08] MEDS: Atorvastatin Calcium 40 MG Tablet PO (20:48)
[2021-09-09 06:16] VITALS: BP 128/59; PULSE 79
[2021-09-09] MEDS: Senna/Docusate Sodium 1 Tablet PO ×2 (06:16→18:29)
[2021-09-09] MEDS: Metoprolol Tartrate 25 MG Tablet 12.5 MG PO ×2 (06:16→18:28)
[2021-09-09] MEDS: Lisinopril 10 MG Tablet PO (06:16)
[2021-09-09] MEDS: Nystatin Powder 15gm Bottle 1 APPLIC TOPICAL ×2 (06:17→18:29)
[2021-09-09] MEDS: Pioglitazone Hydrochloride 30 MG Tablet PO (06:17)
[2021-09-09 06:34] VITALS: PULSE 72; RESP 16; O2SAT 95
[2021-09-09] MEDS: Ipratropium/Albuterol Sulfate 3 ML AMPUL.NEB INHALATION (06:34)
[2021-09-09 06:35] LABS: Bedside Glucose 172 mg/dL (70-110)
[2021-09-09] MEDS: MethylPREDNISolone DosePak 4 MG BOX PO ×4 (07:58→22:12)
[2021-09-09] MEDS: Aspirin 81 MG TAB.CHEW PO (07:58)
[2021-09-09 08:01] VITALS: RESP 18
--- NOTE | 2021-09-09 13:55 | CASEMGMT ---
Social Work Met with pt for psychosocial assessment. Discussed code status and MOLST form. Pt wishes to be DNR-CCA, no intubation. MOLST form communicated to dr and placed in chart. Explained [facility] insurance and continued stay is not guaranteed with each review date. The goal is for pt to return home with MIL suite connected to dtr's home. Dtr does work. Pt has 1 step to main set up. Pt was independent prior. SW to continue to follow for DC planning. Silvia Lizama, MATERIAL PREPARATION WORKER COMMAND AND CONTROL SYSTEMS INTEGRATOR
--- NOTE | 2021-09-09 15:02 | NURSING ---
Small area to L knee was draining clear fluid (+2 Pitted) ABD applied wrapped with kerlix. You wraps applied to bilat lower legs and encouraged to elevate legs. Pt was reluctant to elevate stating my feet and legs are getting better and I dont like to have them up) Skin discolored to bilat LE
[2021-09-09 15:17] VITALS: BP 148/75; PULSE 80; RESP 16; TEMP 36.7; O2SAT 98
[2021-09-09 18:28] VITALS: PULSE 80
[2021-09-09] MEDS: Atorvastatin Calcium 40 MG Tablet PO (22:13)
[2021-09-09] MEDS: Acetaminophen 500 MG Tablet 1000 MG PO (22:13)
[2021-09-09] MEDS: Bisacodyl 5 MG Tablet 10 MG PO (22:17)
[2021-09-10 04:29] VITALS: BP 149/66; PULSE 77
[2021-09-10] MEDS: Polyethylene Glycol 3350 17 GM PACKET PO (04:29)
[2021-09-10] MEDS: Senna/Docusate Sodium 1 Tablet PO ×2 (04:29→18:24)
[2021-09-10] MEDS: Lisinopril 10 MG Tablet PO ×2 (04:29)
[2021-09-10] MEDS: Metoprolol Tartrate 25 MG Tablet 12.5 MG PO ×2 (04:29→18:23)
[2021-09-10] MEDS: Nystatin Powder 15gm Bottle 1 APPLIC TOPICAL (04:30)
[2021-09-10] MEDS: Pioglitazone Hydrochloride 30 MG Tablet PO (04:30)
--- NOTE | 2021-09-10 04:35 | NURSING ---
Addendum entered by Shara Alfaro 09/10/21 06:10: Patient states she had a decent size bowel movement at this time. Patient flushed toiled before staff could see. Original Note: Patient is day 6 no BM. She was given One Dulcolax at HS last night (09/09/2021) Patient was also given Miralax and Senna this morning with Medications. Patient does not want any aggressive measures done. I am too old for that. Message left for Dr. El
[2021-09-10 06:20] LABS: Bedside Glucose 183 mg/dL (70-110)
[2021-09-10] MEDS: MethylPREDNISolone DosePak 4 MG BOX PO ×3 (08:40→20:37)
[2021-09-10] MEDS: Aspirin 81 MG TAB.CHEW PO (08:40)
[2021-09-10] MEDS: Magnesium Citrate 300 ML 150 ML PO (08:55)
--- NOTE | 2021-09-10 09:39 | NURSING ---
Bright red blood noted to be in toilet , pt states it happens often, no pain or concerns voiced
--- NOTE | 2021-09-10 12:34 | NURSING ---
Resident notified of a resident testing positive for COVID on the unit. Daughter, Sharon does not have a voicemail.
--- NOTE | 2021-09-10 13:09 | NURSING ---
Pt Bladder scanned post void d/t c/o of not voiding. Bladder scanned for 590mlof urine. Dr. El updated new order to insert Gutierres and Start Tamsulosin 0.4mg daily and remove Gutierres on Monday09/13/21. Gutierres Cath Inserted using Sterile Technique no c/o of pain or discomfort upon insertion. Balloon inflated with 10ml of sterile water. Gutierres draining Clear Elizabeth colored urine normal odor noted Emptied 450ml. Will continue to monitor call light within reach.
[2021-09-10 14:57] VITALS: BP 144/55; PULSE 79; RESP 16; TEMP 36.3; O2SAT 93
[2021-09-10 18:23] VITALS: BP 144/55; PULSE 79
[2021-09-10] MEDS: Tamsulosin HCl 0.4 MG Capsule PO (18:25)
[2021-09-10] MEDS: Atorvastatin Calcium 40 MG Tablet PO (20:34)
[2021-09-10 20:42] VITALS: PULSE 76; RESP 16
[2021-09-11 06:19] VITALS: BP 133/82; PULSE 76
[2021-09-11] MEDS: Nystatin Powder 15gm Bottle 1 APPLIC TOPICAL ×2 (06:19→17:37)
[2021-09-11] MEDS: Metoprolol Tartrate 25 MG Tablet 12.5 MG PO ×2 (06:19→17:37)
[2021-09-11] MEDS: Pioglitazone Hydrochloride 30 MG Tablet PO (06:20)
[2021-09-11] MEDS: MethylPREDNISolone DosePak 4 MG BOX PO ×2 (07:30→19:51)
[2021-09-11] MEDS: Aspirin 81 MG TAB.CHEW PO (07:30)
[2021-09-11 14:13] VITALS: BP 142/62; PULSE 65; TEMP 35.7; O2SAT 98
[2021-09-11 17:37] VITALS: PULSE 65
[2021-09-11] MEDS: Senna/Docusate Sodium 1 Tablet PO (17:37)
[2021-09-11] MEDS: Tamsulosin HCl 0.4 MG Capsule PO (17:37)
[2021-09-11] MEDS: Atorvastatin Calcium 40 MG Tablet PO (19:50)
--- NOTE | 2021-09-11 21:09 | NURSING ---
Patient has dark red urine in pearson bag, some clots present. Updated Dr. El, order for UA and culture.
[2021-09-11 22:48] VITALS: PULSE 78; RESP 14
[2021-09-12] MEDS: Polyethylene Glycol 3350 17 GM PACKET PO (05:04)
[2021-09-12] MEDS: Senna/Docusate Sodium 1 Tablet PO ×2 (05:04→18:24)
[2021-09-12] MEDS: Pioglitazone Hydrochloride 30 MG Tablet PO (05:04)
[2021-09-12 05:05] VITALS: BP 164/78; PULSE 82
[2021-09-12] MEDS: Metoprolol Tartrate 25 MG Tablet 12.5 MG PO ×2 (05:05→18:24)
[2021-09-12] MEDS: Nystatin Powder 15gm Bottle 1 APPLIC TOPICAL (05:11)
[2021-09-12] MEDS: Lisinopril 10 MG Tablet PO (05:12)
[2021-09-12 07:15] LABS: Bedside Glucose 117 mg/dL (70-110)
[2021-09-12 07:26] LABS: Bacteria 0 SEEN /hpf (None Seen); Mucous, Urine 0 SEEN /hpf (<or=2+); Squamous Epithelial Cells - UA 0 SEEN /hpf (5-10)
[2021-09-12 07:31] LABS: Color, Urine Yellow (Yellow); Glucose, Dipstick Normal (Normal); Ketone-Dipstick Negative (Negative); Leukocyte Esterase-Dipstick 25 /ul (Negative); Nitrite-Dipstick Negative (Negative); Occult Blood-Urine 250 /ul (Negative); Protein-Dipstick 30 mg/dl (Negative); Specific Gravity, Urine 1.015 (1.002-1.030); Urine Bilirubin Dipstick Negative (Negative); Urine Clarity Sl. Cloudy (Clear); Urine Urobilinogen Normal (Normal)
[2021-09-12 07:49] LABS: Red Blood Cells-Urine > 100 SEEN /hpf (0-5); White Blood Cells 0-5 SEEN /hpf (0-5)
[2021-09-12] MEDS: Aspirin 81 MG TAB.CHEW PO (08:22)
[2021-09-12] MEDS: MethylPREDNISolone DosePak 4 MG BOX PO (08:22)
[2021-09-12 12:21] VITALS: PULSE 73; RESP 18
[2021-09-12 15:32] VITALS: BP 130/57; PULSE 76; RESP 18; TEMP 36.7; O2SAT 93
[2021-09-12 18:24] VITALS: BP 130/57; PULSE 76
[2021-09-12] MEDS: Tamsulosin HCl 0.4 MG Capsule PO (18:24)
[2021-09-12] MEDS: Acetaminophen 500 MG Tablet 1000 MG PO (20:30)
[2021-09-12] MEDS: Atorvastatin Calcium 40 MG Tablet PO (20:30)
[2021-09-13 06:31] LABS: Bedside Glucose 112 mg/dL (70-110)
[2021-09-13] MEDS: Polyethylene Glycol 3350 17 GM PACKET PO (06:33)
[2021-09-13] MEDS: Nystatin Powder 15gm Bottle 1 APPLIC TOPICAL ×2 (06:33→21:08)
[2021-09-13] MEDS: Senna/Docusate Sodium 1 Tablet PO ×2 (06:33→18:07)
[2021-09-13] MEDS: Pioglitazone Hydrochloride 30 MG Tablet PO (06:33)
[2021-09-13 06:35] VITALS: BP 128/41; PULSE 76
[2021-09-13] MEDS: Aspirin 81 MG TAB.CHEW PO (08:48)
[2021-09-13 14:03] VITALS: BP 125/52; PULSE 81; RESP 18; TEMP 36.8; O2SAT 96
[2021-09-13 16:34] VITALS: BP 144/47; PULSE 85
[2021-09-13] MEDS: Acetaminophen 500 MG Tablet 1000 MG PO (16:39)
[2021-09-13 18:06] VITALS: BP 142/49; PULSE 85
[2021-09-13] MEDS: Metoprolol Tartrate 25 MG Tablet 12.5 MG PO (18:06)
[2021-09-13] MEDS: Tamsulosin HCl 0.4 MG Capsule PO (18:06)
[2021-09-13] MEDS: Atorvastatin Calcium 40 MG Tablet PO (21:08)
[2021-09-14] MEDS: Polyethylene Glycol 3350 17 GM PACKET PO (05:39)
[2021-09-14] MEDS: Pioglitazone Hydrochloride 30 MG Tablet PO (05:40)
[2021-09-14] MEDS: Lisinopril 10 MG Tablet PO (05:40)
[2021-09-14] MEDS: Senna/Docusate Sodium 1 Tablet PO ×2 (05:40→16:42)
[2021-09-14 05:41] VITALS: BP 114/41; PULSE 79
[2021-09-14] MEDS: Metoprolol Tartrate 25 MG Tablet 12.5 MG PO ×2 (05:41→16:42)
[2021-09-14] MEDS: Nystatin Powder 15gm Bottle 1 APPLIC TOPICAL ×2 (05:42→20:28)
[2021-09-14 06:56] LABS: Bedside Glucose 96 mg/dL (70-110)
[2021-09-14] MEDS: Aspirin 81 MG TAB.CHEW PO (08:29)
[2021-09-14 08:37] VITALS: PULSE 77; RESP 16; O2SAT 98
--- NOTE | 2021-09-14 08:45 | NURSING ---
Offered patient PRN dulcolax x3 attempts due to last recorded BM 09/10/21, patient declined at this time despite education, stating I think I'm going to move my bowels later this morning, I can feel it, if not I might take it later. Pt. encouraged to accept PRN Dulcolax if no BM this AM.
--- NOTE | 2021-09-14 12:49 | NURSING ---
Resident and daughter, Sharon, notified of staff member testing positive for COVID.
[2021-09-14 14:23] VITALS: BP 138/57; PULSE 73; RESP 16; TEMP 36.4; O2SAT 98
[2021-09-14] MEDS: COVID-19 VACC, MRNA(PFIZER)/PF 30 MCG/0.3 ML SYRINGE IM (14:47)
[2021-09-14 16:42] VITALS: PULSE 73
[2021-09-14] MEDS: Tamsulosin HCl 0.4 MG Capsule PO (16:42)
[2021-09-14] MEDS: Bisacodyl 5 MG Tablet 10 MG PO (16:44)
[2021-09-14] MEDS: Atorvastatin Calcium 40 MG Tablet PO (20:22)
--- NOTE | 2021-09-15 03:29 | NURSING ---
Patient voiding without difficulty, last bladder scan result 81mL post-void. Patient denies dysuria or feeling of urinary retention. No BM at this time.
[2021-09-15] MEDS: Polyethylene Glycol 3350 17 GM PACKET PO (05:08)
[2021-09-15 05:09] VITALS: BP 133/50; PULSE 99
[2021-09-15] MEDS: Pioglitazone Hydrochloride 30 MG Tablet PO (05:09)
[2021-09-15] MEDS: Senna/Docusate Sodium 1 Tablet PO ×2 (05:09→17:20)
[2021-09-15] MEDS: Lisinopril 10 MG Tablet PO (05:09)
[2021-09-15] MEDS: Metoprolol Tartrate 25 MG Tablet 12.5 MG PO ×2 (05:09→17:20)
[2021-09-15 05:56] LABS: Absolute Lymphocyte Count 1.59 X10^3/uL (0.83-4.51); Basophil# 0.03 X10^3/uL; Basophil% 0.3 % (0-1); Eosinophil# 0.77 X10^3/uL; Eosinophils% 8.1 % (0-5); Hematocrit 25.4 % (37-47); Hemoglobin 7.7 g/dL (12.0-15.0); Lymphocyte # 1.59 X10^3/ul (0.83-4.51); Lymphocyte % 16.8 % (19-41); Mean Corp Hgb Conc 30.3 g/dL (32-36); Mean Corpuscular Hgb 28.7 pg (27.0-32.0); Mean Corpuscular Volume 94.8 fL (81-99); Mean Platelet Vol. 9.7 fl (6.2-12.0); Monocyte# 0.98 X10^3/uL; Monocyte% 10.4 % (0-10); NRBC Flagged by Analyzer 0 % (0-5); Neutrophil % 63.4 % (47-70); Platelet Count 324 K/mm3 (150-450); RBC Distribution Width CV 15.9 % (11.6-14.6); RBC Distribution Width SD 55.1 fl (35.1-43.9); Red Blood Count 2.68 M/mm3 (4.2-5.4); White Blood Count 9.5 K/mm3 (4.4-11.0)
[2021-09-15 06:32] LABS: Anion Gap 8 (5-15); BUN 38 mg/dL (7-18); BUN/Creat Ratio 27.5 RATIO (10-20); Calcium,Total 9.1 mg/dL (8.5-10.1); Chloride 103 mmol/L (98-107); Creatinine, Serum 1.38 mg/dL (0.55-1.02); EST Glomerular Filtration Rate 39 mL/min (>60); Est Glom Filt Rate - Afr Amer 47 mL/min (>60); Estimated Creatinine Clearance 28.54 ml/min; Glucose 111 mg/dL (74-106); Potassium 3.9 mmol/L (3.5-5.1); Sodium Level 142 mmol/L (136-145)
[2021-09-15 06:41] LABS: Bedside Glucose 133 mg/dL (70-110)
[2021-09-15] MEDS: Aspirin 81 MG TAB.CHEW PO (08:11)
[2021-09-15] MEDS: Iron Polysaccharide Complex 150 MG CAPSULE PO (11:41)
[2021-09-15] MEDS: Tuberculin,Purif.prot.deriv. 50 TU/ML Vial 0.1 ML ID (13:14)
--- NOTE | 2021-09-15 13:17 | NURSING ---
Resident reports having a large BM this AM and no longer has a need for the enema.
--- NOTE | 2021-09-15 15:34 | CASEMGMT ---
Social Work IDT met with patient and dtr for care plan meeting. Discussed patient's progress in PT/OT and nursing. [facility] and EDC 09/20 - provided care plan. Pt needs to be independent with toileting, ambulation and transfers to return home to MIL suite with dtr. Dtr works and pt is essentially alone. Pt requesting [facility] PT/OT/SN and a referral to [facility] at [place]. to coordinate. Will continue to follow. Silvia Lizama ,SECURITY ROVER SIGN PAINTER APPRENTICE
[2021-09-15 15:40] VITALS: BP 133/49; PULSE 59; RESP 16; TEMP 36.4; O2SAT 96
[2021-09-15 17:20] VITALS: PULSE 84
[2021-09-15] MEDS: Nystatin Powder 15gm Bottle 1 APPLIC TOPICAL (17:20)
[2021-09-15] MEDS: Tamsulosin HCl 0.4 MG Capsule PO (17:20)
[2021-09-15] MEDS: Albuterol Sulfate 8 gm Inhaler (60 puffs) 2 PUFF INHALATION (17:23)
[2021-09-15] MEDS: Benzonatate 100 MG Capsule PO ×2 (18:43→23:07)
[2021-09-15 20:00] VITALS: BP 126/57; PULSE 72; RESP 20; TEMP 37.2; O2SAT 97
[2021-09-15] MEDS: Ammonium Lactate 225 gm Bottle 1 APPLIC TOPICAL (20:26)
[2021-09-15] MEDS: Acetaminophen 500 MG Tablet 1000 MG PO (20:26)
[2021-09-15] MEDS: Atorvastatin Calcium 40 MG Tablet PO (20:28)
[2021-09-16 05:40] LABS: Hematocrit 22.1 % (37-47); Hemoglobin 6.8 g/dL (12.0-15.0)
[2021-09-16 06:31] LABS: Bedside Glucose 111 mg/dL (70-110)
[2021-09-16 06:44] VITALS: BP 143/52; PULSE 81
[2021-09-16 06:48] VITALS: BP 143/52; PULSE 81
[2021-09-16] MEDS: Pioglitazone Hydrochloride 30 MG Tablet PO (06:48)
[2021-09-16] MEDS: Metoprolol Tartrate 25 MG Tablet 12.5 MG PO ×2 (06:48→17:59)
[2021-09-16] MEDS: Senna/Docusate Sodium 1 Tablet PO ×2 (06:49→17:55)
[2021-09-16] MEDS: Benzonatate 100 MG Capsule PO ×3 (06:50→20:55)
[2021-09-16] MEDS: Nystatin Powder 15gm Bottle 1 APPLIC TOPICAL ×2 (06:50→17:55)
[2021-09-16] MEDS: Lisinopril 10 MG Tablet PO (06:50)
[2021-09-16] MEDS: Ammonium Lactate 225 gm Bottle 1 APPLIC TOPICAL ×2 (06:51→17:59)
[2021-09-16] MEDS: Aspirin 81 MG TAB.CHEW PO (08:00)
[2021-09-16] MEDS: Iron Polysaccharide Complex 150 MG CAPSULE PO (08:00)
[2021-09-16 16:01] VITALS: BP 107/55; PULSE 82; RESP 18; TEMP 36.6; O2SAT 90
[2021-09-16 16:02] VITALS: PULSE 82; RESP 18; O2SAT 90
[2021-09-16] MEDS: Albuterol Sulfate 8 gm Inhaler (60 puffs) 2 PUFF INHALATION (17:53)
[2021-09-16] MEDS: Tamsulosin HCl 0.4 MG Capsule PO (17:54)
[2021-09-16 17:59] VITALS: BP 147/68; PULSE 98
[2021-09-16] MEDS: Atorvastatin Calcium 40 MG Tablet PO (20:55)
[2021-09-16 21:00] VITALS: PULSE 85; RESP 22; O2SAT 94
[2021-09-16] MEDS: Acetaminophen 500 MG Tablet 1000 MG PO (22:08)
--- NOTE | 2021-09-16 23:19 | NURSING ---
2200 pt had been coughing and requested to have a breathing tx or some oxygen. unable to given MDI d/t it wasn't time, 02 at 2l/m placed on for comfort and pt reports that this was better. pt given tylenol for chest and abd discomfort from coughing . rn aware of 02 being placed on pt for comfort. 2320 pt resting quietly at this time, 02 remains intact and SPO2 is 99%
--- NOTE | 2021-09-17 04:05 | NURSING ---
Addendum entered by Chana Newman 09/17/21 11:45: overnight trending pulse ox reading order. RN aware. Original Note: pt up to the br and returned to bed. foreign banknote teller states the pt became winded upon returning the bed. staff to check pt and had O2 and resting quietly. pt reports i actually slept and feel so much better in this morning . coughing not noted during hs , lungs sound cta and spo2 was 99% on the 2l/m. bp was 110\44 pulse was 83, with respirations were at 20. pt was very pleased on how she felt this am. pt informed that she would probably be weaned off today and encouraged to use her IS as well. rn made aware of pt statement.
[2021-09-17 04:54] VITALS: BP 110/44; PULSE 88; RESP 20; TEMP 36.8; O2SAT 99
[2021-09-17] MEDS: Ammonium Lactate 225 gm Bottle 1 APPLIC TOPICAL ×2 (05:33→17:18)
[2021-09-17] MEDS: Nystatin Powder 15gm Bottle 1 APPLIC TOPICAL ×2 (05:33→17:16)
[2021-09-17 05:34] VITALS: BP 110/44; PULSE 83
[2021-09-17] MEDS: Metoprolol Tartrate 25 MG Tablet 12.5 MG PO ×2 (05:34→17:16)
[2021-09-17] MEDS: Lisinopril 10 MG Tablet PO (05:34)
[2021-09-17] MEDS: Benzonatate 100 MG Capsule PO ×3 (05:34→21:33)
[2021-09-17] MEDS: Pioglitazone Hydrochloride 30 MG Tablet PO (05:35)
[2021-09-17 06:15] LABS: Bedside Glucose 95 mg/dL (70-110)
[2021-09-17] MEDS: Aspirin 81 MG TAB.CHEW PO (07:44)
[2021-09-17] MEDS: Iron Polysaccharide Complex 150 MG CAPSULE PO (07:44)
[2021-09-17 10:00] VITALS: PULSE 89; O2SAT 98
--- NOTE | 2021-09-17 11:46 | NURSING ---
Addendum entered by Chana Newman 09/17/21 14:48: pt returned to unit from transfusion at 14:48pm. BP 139/59 RT FA HR irreg. at 86 Spo2 at 98% room air. Temp 98.7. resting in bed at this time. Original Note: Pt off unit for blood transfusion at 0850 am.
--- NOTE | 2021-09-17 14:01 | CASEMGMT ---
Social Work Insurance issued LCD 09/19, DC 09/20. Pt is at blood transfusion and not on the floor. Spoke with dtr about DC date and inquired about plan. Dtr requesting [facility] referral and [facility] PT/OT/SN. Referrals made. Pt did use O2 last night which is new. Order entered for overnight trending pulse ox to determine need for O2. SW to follow up if O2 is needed ordered through [facility]. No other DME needs. Dtr to transport after work. Plan: DC home 09/20, [facility] PT/OT/SN Silvia Lizama, TARIK SWEENEYW
--- NOTE | 2021-09-17 14:18 | DS.PCM_ITS ---
Providers Date of Admission: 09/07/21 Primary Care Physician: Dr. Tim Cortez MD Reason For Visit: CONGESTIVE HEART FAILURE Diagnosis Discharge Diagnosis (1) Debility: Status: Acute Code(s): R53.81 - Other malaise (2) Shortness of breath: Status: Acute Code(s): R06.02 - Shortness of breath (3) Atrial fibrillation with rapid ventricular response: Code(s): I48.91 - Unspecified atrial fibrillation (4) Anemia: Code(s): D64.9 - Anemia, unspecified (5) Acute diastolic congestive heart failure: Status: Acute Code(s): I50.31 - Acute diastolic (congestive) heart failure (6) Diabetes mellitus: Status: Acute Code(s): E11.9 - Type 2 diabetes mellitus without complications (7) Hypertension: Status: Chronic Code(s): I10 - Essential (primary) hypertension Medications at Discharge Home Medications aspirin 81 mg PO DAILY 09/04/21 lisinopril 10 mg PO DAILY 09/04/21 pioglitazone 30 mg PO DAILY 09/04/21 albuterol sulfate [Ventolin HFA] 2 puff INHALATION Q6H PRN PRN 30 Days #16 g 09/17/21 atorvastatin 40 mg PO QHS 30 Days #30 tab 09/17/21 metoprolol tartrate 12.5 mg PO BID 30 Days #60 tab 09/17/21 polysaccharide iron complex [Ferrex 150] 150 mg PO DAILYCM 30 Days #30 cap 09/17/21 tamsulosin 0.4 mg PO DAILY@1730 30 Days #30 cap 09/17/21 Hospital Course Operations None Procedures None Summary of Care Provided Minutes Spent on Discharge: 35 Hospital Course: 80 year old female with below past medical history hospita liz for shortness of breath secondary to acute diastolic congestive heart failure, atrial fibrillation with rapid ventricular response, anemia, admitted to TCU with debility, here for rehabilitation, strengthening, prior to discharge home with daughter. Discharge home with daughter 09/20/2021, [facility] PT/OT/SN, [facility]. Physical Exam Const alert and oriented x3 General Appearance: cooperative HEENT normocephalic Eyes PERRL and EOMs intact bilaterally Neck supple, no JVD and no carotid bruits Resp normal respiratory effort, normal air movement and clear to auscultation bilat erally Cardio regular rate and regular rhythm GI normal to inspection, nondistended, normoactive bowel sounds, non-tender and non-distended Extremity normal capillary refill General Extremity: Negative for edema Skin no rashes or lesions noted General Skin Exam: no breakdown Psych affect normal Appearance: appropriate Weight / BMI Weight Weight: 124.965 kg Body Mass Index (BMI) 47.4 ABG / Lab / Microbiology Data Result Diagrams: 09/16/21 05:15 09/15/21 05:20 Laboratory: Laboratory Results - last 24 hr 09/16/21 08:18: Blood Type Cancelled, Antibody Screen Cancelled, Crossmatch See Detail 09/17/21 06:11: POC Glucose 95 Microbiology: Microbiology 09/16/21 16:05 Nasal Secretion SARS-CoV-2 Antigen (Rapid) - Final 09/12/21 01:45 Urine Catheter - Gutierres Urine Culture - Final Culture exhibits no growth. 09/09/21 10:46 Nasal Secretion SARS-CoV-2 Antigen (Rapid) - Final D/C Instructions Discharge Diet: No restrictions Discharge Activity: Return to Normal Activity, May Shower and Use Walker Weight Bearing Status: Weight bearing as tolerated Call your doctor if you observe: Fever of 101 or Higher, Inability to urinate, Inability to have a bowel movement, Shortness of breath, Dizziness, Fainting spells, Swelling in the ankles, Chest pain and Uncontrolled pain Additional Instructions: Discharge home with daughter 09/20/2021, [facility] PT/OT/SN. Please Follow Up With: Tim Cortez MD When: 1 week. Meaningful Use Info Meaningful Use Diagnoses (Choose all that apply): CHF CHF MAHOGANY/ARB ordered at discharge?: Yes Documented LVEF (%): 55 Discharge Plan Admission Admit Date/Time: 09/07/21 16:25 Primary Reason for Your Visit: Debility. Attending Provider: Erasmo El Chi Primary Care Provider: Tim Cortez Instructions Additional Instructions / Restrictions: Discharge home with daughter 09/20/2021, [facility] PT/OT/SN, [facility]. Discharge Orders/Prescriptions Prescriptions: New albuterol sulfate [Ventolin HFA] 90 mcg/actuation Hfa Aerosol Inhaler 2 puff inhalation Q6H PRN PRN (Reason: Wheezing) 30 Days Qty: 16 RF: 0 polysaccharide iron complex [Ferrex 150] 150 mg iron Capsule 150 mg PO DAILYCM 30 Days Qty: 30 RF: 0 tamsulosin 0.4 mg Capsule 0.4 mg PO DAILY@1730 30 Days Qty: 30 RF: 0 Continued lisinopril 10 mg tablet 10 mg PO DAILY RF: 0 pioglitazone 30 mg tablet 30 mg PO DAILY RF: 0 aspirin 81 mg Capsule 81 mg PO DAILY RF: 0 atorvastatin 40 mg tablet 40 mg PO QHS 30 Days Qty: 30 RF: 0 metoprolol tartrate 25 mg tablet 12.5 mg PO BID 30 Days Qty: 60 RF: 0 Discontinued furosemide [Lasix] 20 mg tablet 20 mg PO DAILY RF: 0 Referrals / Follow Up: Tim Cortez MD [Primary Care Provider] - Disposition Disposition (needs filled in before D/C Order can be placed): Home Health Service
[2021-09-17 15:45] VITALS: BP 139/59; PULSE 89; RESP 18; TEMP 37.1; O2SAT 98
--- NOTE | 2021-09-17 15:57 | NURSING ---
Pt states she updated family.
[2021-09-17] MEDS: Tamsulosin HCl 0.4 MG Capsule PO (17:15)
[2021-09-17 17:16] VITALS: BP 138/53; PULSE 78
[2021-09-17] MEDS: Atorvastatin Calcium 40 MG Tablet PO (21:34)
[2021-09-17 21:51] VITALS: PULSE 67; O2SAT 95
[2021-09-18 06:22] LABS: Hematocrit 29.3 % (37-47); Hemoglobin 9.2 g/dL (12.0-15.0)
[2021-09-18 06:56] LABS: Bedside Glucose 80 mg/dL (70-110)
[2021-09-18] MEDS: Pioglitazone Hydrochloride 30 MG Tablet PO (07:13)
[2021-09-18] MEDS: Benzonatate 100 MG Capsule PO ×3 (07:13→21:37)
[2021-09-18] MEDS: Ammonium Lactate 225 gm Bottle 1 APPLIC TOPICAL ×2 (07:15→21:41)
[2021-09-18 07:17] VITALS: BP 113/39; PULSE 76
[2021-09-18] MEDS: Nystatin Powder 15gm Bottle 1 APPLIC TOPICAL (07:18)
[2021-09-18] MEDS: Iron Polysaccharide Complex 150 MG CAPSULE PO (08:29)
[2021-09-18] MEDS: Aspirin 81 MG TAB.CHEW PO (08:29)
[2021-09-18 14:55] VITALS: BP 104/47; PULSE 64; RESP 18; TEMP 36.3; O2SAT 95
[2021-09-18 17:23] VITALS: PULSE 64
[2021-09-18] MEDS: Metoprolol Tartrate 25 MG Tablet 12.5 MG PO (17:23)
[2021-09-18] MEDS: Tamsulosin HCl 0.4 MG Capsule PO (17:23)
[2021-09-18] MEDS: Atorvastatin Calcium 40 MG Tablet PO (21:37)
[2021-09-18] MEDS: 0.9% Saline Lock 10 ML Syringe IV (21:57)
[2021-09-19] MEDS: Ammonium Lactate 225 gm Bottle 1 APPLIC TOPICAL ×2 (05:14→16:42)
[2021-09-19] MEDS: Benzonatate 100 MG Capsule PO ×3 (05:17→20:58)
[2021-09-19] MEDS: Senna/Docusate Sodium 1 Tablet PO (05:17)
--- NOTE | 2021-09-19 07:39 | NURSING ---
Monique held this am d/t pt being fasting and Zestril held d/t low bp.
[2021-09-19 07:41] VITALS: BP 112/42; PULSE 91
[2021-09-19] MEDS: Iron Polysaccharide Complex 150 MG CAPSULE PO (08:45)
[2021-09-19] MEDS: Aspirin 81 MG TAB.CHEW PO (08:45)
[2021-09-19 08:46] VITALS: BP 127/46; PULSE 85
[2021-09-19] MEDS: Pioglitazone Hydrochloride 30 MG Tablet PO (08:49)
[2021-09-19 14:10] VITALS: O2SAT 96
[2021-09-19 14:46] VITALS: BP 119/38; PULSE 72; RESP 17; TEMP 35.9; O2SAT 99
[2021-09-19] MEDS: Bisacodyl 5 MG Tablet 10 MG PO (14:53)
[2021-09-19 15:50] LABS: Bedside Glucose 82 mg/dL (70-110)
[2021-09-19] MEDS: Tamsulosin HCl 0.4 MG Capsule PO (16:43)
[2021-09-19 16:45] VITALS: BP 116/47; PULSE 76
[2021-09-19] MEDS: Metoprolol Tartrate 25 MG Tablet 12.5 MG PO (16:45)
[2021-09-19 20:45] VITALS: O2SAT 97
[2021-09-19] MEDS: Atorvastatin Calcium 40 MG Tablet PO (20:58)
--- NOTE | 2021-09-19 21:50 | NURSING ---
notified via telephone of patient c/o drowsiness and stuffy nose and questioning if new order for Flomax related. New order to discontinue Flomax
[2021-09-20 05:52] VITALS: BP 128/56; PULSE 89
[2021-09-20] MEDS: Benzonatate 100 MG Capsule PO ×2 (05:52→15:09)
[2021-09-20] MEDS: Metoprolol Tartrate 25 MG Tablet 12.5 MG PO (05:52)
[2021-09-20] MEDS: Lisinopril 10 MG Tablet PO (05:52)
[2021-09-20] MEDS: Ammonium Lactate 225 gm Bottle 1 APPLIC TOPICAL (05:54)
--- NOTE | 2021-09-20 05:54 | NURSING ---
AM dose of Actos held at this time as pt's blood sugar level has not been checked.
[2021-09-20 06:31] LABS: Bedside Glucose 84 mg/dL (70-110)
[2021-09-20] MEDS: Aspirin 81 MG TAB.CHEW PO (08:20)
[2021-09-20] MEDS: Iron Polysaccharide Complex 150 MG CAPSULE PO (08:20)
[2021-09-20] MEDS: Pioglitazone Hydrochloride 30 MG Tablet PO (08:23)
--- NOTE | 2021-09-20 09:17 | MDS.RN ---
Information for the mds was obtained from review of the clinical record, interview of resident, staff, and direct observation of resident's care.
--- NOTE | 2021-09-20 09:25 | CASEMGMT ---
Social Work Overnight trending pulse ox completed over the weekend and showed pt needs O2 at night. [place] and [place] [facility] Rosa from [facility] stated they do not have any portable O2 tanks currently, but they do have concentrators. Instructed pt to call [facility] once she arrives at [place] for them to deliver the concentrator. Pt expressed understanding. Silvia Lizama, IMPLEMENTATION LEAD AUDIO TAPE LIBRARIAN
[2021-09-20 10:00] VITALS: PULSE 66; RESP 16; O2SAT 99
[2021-09-20 13:31] VITALS: BP 131/55; PULSE 88; RESP 18; TEMP 36.4; O2SAT 98
== END 2021-09-20 16:15 | disposition home health service (06) | DRG 291 ==
PROVIDERS: Admitting Provider Family Medicine Geriatric Medicine; PCP Family Medicine; Visit Provider Family Medicine Geriatric Medicine
DX: I11.0 Hypertensive heart disease with heart failure (principal); I50.31 Acute diastolic (congestive) heart failure; D64.9 Anemia, unspecified; E11.9 Type 2 diabetes mellitus without complications; I48.91 Unspecified atrial fibrillation; E78.5 Hyperlipidemia, unspecified; Z79.82 Long term (current) use of aspirin; Z87.891 Personal history of nicotine dependence; Z79.84 Long term (current) use of oral hypoglycemic drugs; Z79.899 Other long term (current) drug therapy; Z23 Encounter for immunization
CPT/HCPCS: 0004A; 36415; 80048; 81001; 82962; 85014; 85018; 85025; 86850; 86900; 86901; 86920; 86922; 87086; 87426; 91300; 94640; 94762; 97110; 97116; 97162; 97166; 97530; 97535; 97802; G0009; 90670; A4216

== ENCOUNTER 2021-09-17 09:02 | Outpatient (CLI) | payer MEDICARE, SELFPAY ==
[2021-09-17] VITALS (8 sets, daily range): BP systolic 115–137; BP diastolic 36–59; PULSE 77–92; RESP 16–18; TEMP 36.3–37.1; O2SAT 95–100; BMI 46.8
[2021-09-17] MEDS: 0.9% NaCl Peripheral Flush Adult/Peds IV (09:14)
[2021-09-17] MEDS: Furosemide 20 MG/2 ML VIAL IV (11:57)
== END 2021-09-17 23:59 | disposition short-term general hospital (02) ==
PROVIDERS: PCP Family Medicine; Referring Provider Family Medicine Geriatric Medicine; Visit Provider Family Medicine Geriatric Medicine
DX: D64.9 Anemia, unspecified (principal)
CPT/HCPCS: 36415; 36430; 86850; 86900; 86901; 86920; 86922; J7040; P9016; A4216; J1940

== ENCOUNTER 2021-10-02 08:53 | Emergency (ER) | payer MEDICARE, SELFPAY ==
--- NOTE | 2021-10-02 09:28 | EKG12_ITS ---
Test Reason : CP Blood Pressure : / mmHG Vent. Rate : 082 BPM Atrial Rate : 082 BPM P-R Int : 220 ms QRS Dur : 084 ms QT Int : 370 ms P-R-T Axes : -02 -32 029 degrees QTc Int : 432 ms Sinus rhythm with 1st degree A-V block with Premature atrial complexes Left axis deviation Low voltage QRS Inferior infarct , age undetermined Abnormal ECG Confirmed by VAIBHAV OSWALD, TANGELA ([id number]), legal editor DELVIS CASTLE ([id number]) on 10/04/2021 10:17:17 AM Referred By: RADHA Confirmed By:TANGELA ESPOSITO MD
--- NOTE | 2021-10-02 09:30 | RAD_ITS ---
STUDY: X-RAY CHEST REASON FOR EXAM: Female, 80 years old. BILATERAL LOWER LEG EDEMA, CHEST PAIN TECHNIQUE: Single AP portable view of the chest. COMPARISON: 09/04/2021. FINDINGS: Mild elevation of the right hemidiaphragm. No focal infiltrate is seen. There is no demonstrated pleural abnormality. Normal size heart. Normal mediastinum and lisa. Prominence of the pulmonary vasculature. There is atherosclerotic calcification of the aortic arch with tortuosity. Stable osseous structures. There is no demonstrated abnormality of the visualized soft tissue structures of the upper abdomen. RAD/Chest 1 View (Portable) IMPRESSION: Mild pulmonary venous congestion. Electronically Signed: Fidel Levin, at 9:54 EST ,
--- NOTE | 2021-10-02 11:55 | EDS_ITS ---
DATE OF SERVICE 10/02/21 CHIEF COMPLAINT: Leg pain and swelling. HISTORY OF PRESENT ILLNESS: The patient is a 80-year-old female with a history of CHF. She complains of bilateral leg swelling, left greater than right times the past several weeks. She was seen by her PCP yesterday and was to increase her Lasix today. The patient is concerned because she feels like she has decreased urine output and she is afraid that it was backing up. She was afraid to change her Lasix dose. She does report having some intermittent chest pain last evening in the left axilla. She denies any chest pain currently. PHYSICAL EXAMINATION: GENERAL: The patient is an obese female sitting upright in bed in no acute distress. She is speaking in full sentences. VITAL SIGNS: Blood pressure 153/57, temperature 98.4, heart rate 91, respiratory rate 17, pulse ox 100% on room air. HEENT: Unremarkable. NECK: Unremarkable. LUNGS: Clear. HEART: Regular rate and rhythm. ABDOMEN: Soft and nontender. EXTREMITIES: Lower extremity examination shows 3-4+ bilateral lower extremity edema. No wounds noted. DIAGNOSTIC DATA: EKG is sinus at 82 with no acute ischemia. CBC and chemistry studies are significantly only for a platelet count of 135,000. BUN 45, creatinine 1.69. Urinalysis shows infection with positive nitrite, greater than 100 white cells, 2+ bacteria. Troponin is normal at 16. Chest x-ray reveals chronic changes with poor inspiration. Mild pulmonary vascular congestion noted. EMERGENCY DEPARTMENT COURSE AND MEDICAL DECISION MAKING: The test results were discussed with the patient and daughter at bedside. The patient will be treated with a course of Macrobid, first dose given here. I did reassure her that it was safe to increase her Lasix dose. You wraps will be applied to her legs today. She was instructed on proper leg elevation. IMPRESSION: Congestive heart failure. Lower extremity edema. DISPOSITION: Discharge.
[2021-10-02 20:06] LABS: Mucous, Urine 0 SEEN /hpf (<or=2+); Red Blood Cells-Urine 0 SEEN /hpf (0-5); Squamous Epithelial Cells - UA 0 SEEN /hpf (5-10)
[2021-10-02 23:23] LABS: Absolute Lymphocyte Count 0.73 X10^3/uL (0.83-4.51); Absolute Neutrophil Count 2.9 X10^3/uL (2.0-7.7); Basophil# 0.02 X10^3/uL; Basophil% 0.4 % (0-1); Differential Indicated SCAN CRITERIA MET; Eosinophil# 0.48 X10^3/uL; Eosinophils% 10.8 % (0-5); Hematocrit 50.7 % (37-47); Hemoglobin 16.1 g/dL (12.0-15.0); Lymphocyte # 0.73 X10^3/ul (0.83-4.51); Lymphocyte % 16.4 % (19-41); Mean Corp Hgb Conc 31.8 g/dL (32-36); Mean Corpuscular Hgb 29.7 pg (27.0-32.0); Mean Corpuscular Volume 93.5 fL (81-99); Mean Platelet Vol. 9.9 fl (6.2-12.0); Monocyte# 0.29 X10^3/uL; Monocyte% 6.5 % (0-10); NRBC Flagged by Analyzer 0 % (0-5); Neutrophil # 2.91 X10^3/uL (2.7-7.7); Neutrophil % 65.5 % (47-70); POSITIVE COUNT YES; Platelet Count 135 K/mm3 (150-450); RBC Distribution Width CV 17.7 % (11.6-14.6); Red Blood Count 5.42 M/mm3 (4.2-5.4); White Blood Count 4.5 K/mm3 (4.4-11.0)
[2021-10-02 23:24] LABS: Differential Comment SCANNED
[2021-10-03 00:58] LABS: Anion Gap 7 (5-15); BUN 45 mg/dL (7-18); BUN/Creat Ratio 26.6 RATIO (10-20); Calcium,Total 9.2 mg/dL (8.5-10.1); Chloride 104 mmol/L (98-107); Creatinine, Serum 1.69 mg/dL (0.55-1.02); EST Glomerular Filtration Rate 31 mL/min (>60); Est Glom Filt Rate - Afr Amer 37 mL/min (>60); Glucose 106 mg/dL (74-106); Potassium 4.8 mmol/L (3.5-5.1); Sodium Level 138 mmol/L (136-145); Troponin-I HS 16 pg/mL (3.0-54.0)
[2021-10-03 09:07] LABS: Bacteria 2+ /hpf (None Seen); Color, Urine Yellow (Yellow); Glucose, Dipstick NEGATIVE (Normal); Ketone-Dipstick Negative (Negative); Leukocyte Esterase-Dipstick 500 /ul (Negative); Nitrite-Dipstick Positive (Negative); Occult Blood-Urine 50 /ul (Negative); Protein-Dipstick 30 mg/dl (Negative); Specific Gravity, Urine 1.015 (1.002-1.030); Urine Bilirubin Dipstick Negative (Negative); Urine Clarity Cloudy (Clear); Urine Urobilinogen Normal (Normal); White Blood Cells >100 SEEN /hpf (0-5)
== END 2021-10-02 12:07 | disposition home or self-care (01) ==
LOC: ED 10-04 13:50
PROVIDERS: Emergency Provider Emergency Medicine; PCP Family Medicine; Visit Provider Emergency Medicine
DX: I50.9 Heart failure, unspecified (principal); E66.9 Obesity, unspecified; R60.0 Localized edema
CPT/HCPCS: 71045; 80048; 81001; 84484; 85025; 93005; 99285

== ENCOUNTER 2021-10-05 17:58 | Outpatient (RCR) | payer MEDICARE, SELFPAY ==
[2021-10-05 18:28] LABS: ALB/GLOB Ratio 0.7 RATIO (0.9-2.4); AST(SGOT) 22 U/L (15-37); Alanine Aminotransfer ALT/SGPT 16 U/L (13-56); Alkaline Phosphatase 133 U/L (45-117); Anion Gap 7 (5-15); BUN 45 mg/dL (7-18); BUN/Creat Ratio 26.3 RATIO (10-20); Calcium,Total 9.2 mg/dL (8.5-10.1); Chloride 104 mmol/L (98-107); Creatinine, Serum 1.71 mg/dL (0.55-1.02); EST Glomerular Filtration Rate 31 mL/min (>60); Est Glom Filt Rate - Afr Amer 37 mL/min (>60); Globulin 4.1 g/dL (2.2-4.2); Glucose 122 mg/dL (74-106); Potassium 4.8 mmol/L (3.5-5.1); Protein, Total 7.1 g/dL (6.4-8.2); Sodium Level 137 mmol/L (136-145)
== END 2021-11-01 23:59 | disposition home or self-care (01) ==
LOC: HHLAB 17:58
PROVIDERS: PCP Family Medicine; Visit Provider Family Medicine
DX: I13.0 Hypertensive heart and chronic kidney disease with heart failure and stage 1 through stage 4 chronic kidney disease, or unspecified chronic kidney disease (principal); I50.31 Acute diastolic (congestive) heart failure; E11.22 Type 2 diabetes mellitus with diabetic chronic kidney disease; N18.9 Chronic kidney disease, unspecified
CPT/HCPCS: 80053

== ENCOUNTER 2021-10-14 14:14 | Outpatient (CLI) | payer MEDICARE, SELFPAY ==
[2021-10-14 15:09] LABS: Color, Urine Yellow (Yellow); Glucose, Dipstick Normal (Normal); Ketone-Dipstick 5 mg/dl (Negative); Leukocyte Esterase-Dipstick 500 /ul (Negative); Nitrite-Dipstick Negative (Negative); Occult Blood-Urine 25 /ul (Negative); Protein-Dipstick 30 mg/dl (Negative); Specific Gravity, Urine 1.015 (1.002-1.030); Urine Bilirubin Dipstick Negative (Negative); Urine Clarity Cloudy (Clear); Urine Urobilinogen Normal (Normal)
== END 2021-10-14 23:59 | disposition home or self-care (01) ==
LOC: LABSPEC 14:15
PROVIDERS: PCP Family Medicine; Visit Provider Family Medicine
DX: R82.90 Unspecified abnormal findings in urine (principal)
CPT/HCPCS: 81002; 87077; 87086; 87088; 87186

== ENCOUNTER 2021-12-20 13:03 | Outpatient (CLI) | payer MEDICARE, SELFPAY ==
[2021-12-20 14:06] LABS: Anion Gap 9 (5-15); BUN 54 mg/dL (7-18); BUN/Creat Ratio 18.6 RATIO (10-20); Calcium,Total 10.1 mg/dL (8.5-10.1); Chloride 97 mmol/L (98-107); Creatinine, Serum 2.91 mg/dL (0.55-1.02); EST Glomerular Filtration Rate 17 mL/min (>60); Est Glom Filt Rate - Afr Amer 20 mL/min (>60); Glucose 95 mg/dL (74-106); Potassium 4.9 mmol/L (3.5-5.1); Sodium Level 135 mmol/L (136-145)
== END 2021-12-20 23:59 | disposition home or self-care (01) ==
LOC: LAB 13:04
PROVIDERS: PCP Family Medicine; Referring Provider Physician Assistant Medical; Visit Provider Physician Assistant Medical
DX: I50.30 Unspecified diastolic (congestive) heart failure (principal)
CPT/HCPCS: 36415; 80048

== ENCOUNTER → 2021-12-27 | Outpatient (CLI) | payer MEDICARE, SELFPAY ==
[2021-12-27 16:09] LABS: Anion Gap 8 (5-15); BUN 51 mg/dL (7-18); BUN/Creat Ratio 18.7 RATIO (10-20); Calcium,Total 10.4 mg/dL (8.5-10.1); Chloride 103 mmol/L (98-107); Creatinine, Serum 2.73 mg/dL (0.55-1.02); EST Glomerular Filtration Rate 18 mL/min (>60); Est Glom Filt Rate - Afr Amer 22 mL/min (>60); Glucose 87 mg/dL (74-106); Potassium 5.1 mmol/L (3.5-5.1); Sodium Level 137 mmol/L (136-145)
== END | disposition home or self-care (01) ==
LOC: LAB 14:55
PROVIDERS: PCP Family Medicine; Visit Provider Physician Assistant Medical
DX: N18.30 Chronic kidney disease, stage 3 unspecified (principal)
CPT/HCPCS: 36415; 80048

== ENCOUNTER → 2022-02-05 | Outpatient (CLI) | payer MEDICARE, SELFPAY ==
[2022-02-05 10:30] LABS: Absolute Lymphocyte Count 2.38 X10^3/uL (0.83-4.51); Absolute Neutrophil Count 2.6 X10^3/uL (2.0-7.7); Basophil# 0.04 X10^3/uL; Basophil% 0.6 % (0-1); Eosinophil# 0.64 X10^3/uL; Eosinophils% 10.1 % (0-5); Hematocrit 29.2 % (37-47); Hemoglobin 9.4 g/dL (12.0-15.0); Lymphocyte # 2.38 X10^3/ul (0.83-4.51); Lymphocyte % 37.5 % (19-41); Mean Corp Hgb Conc 32.2 g/dL (32-36); Mean Corpuscular Hgb 30.5 pg (27.0-32.0); Mean Corpuscular Volume 94.8 fL (81-99); Mean Platelet Vol. 9.3 fl (6.2-12.0); Monocyte# 0.66 X10^3/uL; Monocyte% 10.4 % (0-10); NRBC Flagged by Analyzer 0 % (0-5); Neutrophil # 2.62 X10^3/uL (2.7-7.7); Neutrophil % 41.2 % (47-70); Platelet Count 289 K/mm3 (150-450); RBC Distribution Width CV 13.2 % (11.6-14.6); RBC Distribution Width SD 45.3 fl (35.1-43.9); Red Blood Count 3.08 M/mm3 (4.2-5.4); White Blood Count 6.4 K/mm3 (4.4-11.0)
--- NOTE | 2022-02-05 10:34 | RAD_ITS ---
STUDY: X-RAY - PELVIS REASON FOR EXAM: Female, 81 years old. L HIP PAIN TECHNIQUE: One view of the pelvis was obtained. COMPARISON: None. FINDINGS: There is a non-specific bowel gas pattern. Normal visualized soft tissue structures. There is narrowing with cortical sclerosis and osteophyte formation of the sacroiliac joint consistent with degenerative osteoarthritic changes. Normal visualized bilateral superior and inferior pubic rami. Normal pubic symphysis. Normal ischial tuberosities. Normal visualized right femoral head. Normal right acetabulum. There is mild articular joint space narrowing of the right hip. There is a osteopenic appearance of the left greater than right femoral neck. Normal left acetabulum. There is mild articular joint space narrowing of the left hip. RAD/Pelvis 1 or 2 Views IMPRESSION: Degenerative change. No visualized acute fracture. Electronically Signed: Sharon Reddy MD at 11:49 EDT ,
--- NOTE | 2022-02-05 10:34 | RAD_ITS ---
STUDY: X-RAY - LEFT FEMUR REASON FOR STUDY: Female, 81 years old. L HIP PAIN TECHNIQUE: 5 view(s) of the femur. COMPARISON: Left pelvis x-ray FINDINGS: There is diffuse demineralization of the femur. The visualized vascular calcifications of the left lower extremity. RAD/Femur Min 2 Views IMPRESSION: Bony osteopenia. No visualized acute fracture. Electronically Signed: Sharon Reddy MD at 11:50 EDT ,
[2022-02-05 11:05] LABS: Anion Gap 6 (5-15); BUN 57 mg/dL (7-18); BUN/Creat Ratio 25.1 RATIO (10-20); Calcium,Total 10.8 mg/dL (8.5-10.1); Chloride 101 mmol/L (98-107); Creatinine, Serum 2.27 mg/dL (0.55-1.02); EST Glomerular Filtration Rate 22 mL/min (>60); Est Glom Filt Rate - Afr Amer 27 mL/min (>60); Ferritin 94 ng/mL (8-252); Glucose 126 mg/dL (74-106); Iron 42 ug/dL (50-170); Potassium 4.6 mmol/L (3.5-5.1); Sodium Level 135 mmol/L (136-145)
== END | disposition home or self-care (01) ==
LOC: RAD 09:53
PROVIDERS: PCP Family Medicine; Referring Provider Family Medicine; Visit Provider Family Medicine
DX: M25.562 Pain in left knee (principal); I50.30 Unspecified diastolic (congestive) heart failure; N18.30 Chronic kidney disease, stage 3 unspecified; D50.9 Iron deficiency anemia, unspecified
CPT/HCPCS: 36415; 72170; 73552; 80048; 82728; 83540; 85025

== ENCOUNTER → 2022-04-11 | Outpatient (CLI) | payer MEDICARE, SELFPAY ==
[2022-04-11 16:59] LABS: Absolute Lymphocyte Count 2.59 X10^3/uL (0.83-4.51); Absolute Neutrophil Count 4.6 X10^3/uL (2.0-7.7); Basophil# 0.08 X10^3/uL; Basophil% 0.9 % (0-1); Eosinophil# 0.67 X10^3/uL; Eosinophils% 7.7 % (0-5); Hematocrit 35.6 % (37-47); Hemoglobin 11.4 g/dL (12.0-15.0); Lymphocyte # 2.59 X10^3/ul (0.83-4.51); Lymphocyte % 29.7 % (19-41); Mean Corpuscular Hgb 29.8 pg (27.0-32.0); Mean Corpuscular Volume 93.2 fL (81-99); Mean Platelet Vol. 9.5 fl (6.2-12.0); Monocyte# 0.74 X10^3/uL; Monocyte% 8.5 % (0-10); NRBC Flagged by Analyzer 0 % (0-5); Neutrophil # 4.61 X10^3/uL (2.7-7.7); Neutrophil % 52.9 % (47-70); Platelet Count 320 K/mm3 (150-450); RBC Distribution Width CV 13.6 % (11.6-14.6); RBC Distribution Width SD 46.4 fl (35.1-43.9); Red Blood Count 3.82 M/mm3 (4.2-5.4); White Blood Count 8.7 K/mm3 (4.4-11.0)
[2022-04-11 17:17] LABS: Anion Gap 5 (5-15); BUN 41 mg/dL (7-18); BUN/Creat Ratio 17.7 RATIO (10-20); Calcium,Total 12.1 mg/dL (8.5-10.1); Chloride 102 mmol/L (98-107); Creatinine, Serum 2.32 mg/dL (0.55-1.02); EST Glomerular Filtration Rate 21 mL/min (>60); Est Glom Filt Rate - Afr Amer 26 mL/min (>60); Glucose 106 mg/dL (74-106); Sodium Level 138 mmol/L (136-145)
== END | disposition home or self-care (01) ==
LOC: LAB 16:46
PROVIDERS: PCP Family Medicine; Referring Provider Nurse Practitioner Gerontology; Visit Provider Nurse Practitioner Gerontology
DX: R53.83 Other fatigue (principal); R42 Dizziness and giddiness
CPT/HCPCS: 36415; 80048; 85025

== ENCOUNTER → 2022-04-29 | Outpatient (CLI) | payer MEDICARE, SELFPAY ==
[2022-04-29 17:25] LABS: Absolute Lymphocyte Count 2.33 X10^3/uL (0.83-4.51); Absolute Neutrophil Count 3.5 X10^3/uL (2.0-7.7); Basophil# 0.04 X10^3/uL; Basophil% 0.6 % (0-1); Eosinophil# 0.59 X10^3/uL; Eosinophils% 8.1 % (0-5); Hematocrit 32.6 % (37-47); Hemoglobin 10.8 g/dL (12.0-15.0); Lymphocyte # 2.33 X10^3/ul (0.83-4.51); Lymphocyte % 32.2 % (19-41); Mean Corp Hgb Conc 33.1 g/dL (32-36); Mean Corpuscular Hgb 31.1 pg (27.0-32.0); Mean Corpuscular Volume 93.9 fL (81-99); Mean Platelet Vol. 10.5 fl (6.2-12.0); Monocyte# 0.72 X10^3/uL; Monocyte% 9.9 % (0-10); NRBC Flagged by Analyzer 0 % (0-5); Neutrophil # 3.53 X10^3/uL (2.7-7.7); Neutrophil % 48.8 % (47-70); Platelet Count 322 K/mm3 (150-450); RBC Distribution Width CV 13.4 % (11.6-14.6); RBC Distribution Width SD 46.1 fl (35.1-43.9); Red Blood Count 3.47 M/mm3 (4.2-5.4); White Blood Count 7.2 K/mm3 (4.4-11.0)
== END | disposition home or self-care (01) ==
LOC: LAB 16:20
PROVIDERS: PCP Family Medicine; Referring Provider Nurse Practitioner Gerontology; Visit Provider Nurse Practitioner Gerontology
DX: I48.0 Paroxysmal atrial fibrillation (principal)
CPT/HCPCS: 36415; 85025

== ENCOUNTER → 2023-02-04 | Outpatient (CLI) | payer MEDICARE, SELFPAY ==
[2023-02-04 11:17] LABS: Absolute Lymphocyte Count 3.13 X10^3/uL (0.83-4.51); Absolute Neutrophil Count 4.2 X10^3/uL (2.0-7.7); Basophil# 0.04 X10^3/uL; Basophil% 0.5 % (0-1); Eosinophil# 0.66 X10^3/uL; Eosinophils% 7.6 % (0-5); Hematocrit 31.7 % (37-47); Hemoglobin 10.1 g/dL (12.0-15.0); Lymphocyte # 3.13 X10^3/ul (0.83-4.51); Lymphocyte % 36.2 % (19-41); Mean Corp Hgb Conc 31.9 g/dL (32-36); Mean Corpuscular Volume 94.1 fL (81-99); Mean Platelet Vol. 10.6 fl (6.2-12.0); Monocyte# 0.63 X10^3/uL; Monocyte% 7.3 % (0-10); NRBC Flagged by Analyzer 0 % (0-5); Neutrophil # 4.18 X10^3/uL (2.7-7.7); Neutrophil % 48.3 % (47-70); Platelet Count 260 K/mm3 (150-450); RBC Distribution Width CV 13.2 % (11.6-14.6); RBC Distribution Width SD 45.5 fl (35.1-43.9); Red Blood Count 3.37 M/mm3 (4.2-5.4); White Blood Count 8.7 K/mm3 (4.4-11.0)
[2023-02-04 11:46] LABS: AST(SGOT) 22 U/L (15-37); Alanine Aminotransfer ALT/SGPT 15 U/L (13-56); Albumin, Serum 3.3 g/dL (3.2-5.0); Alkaline Phosphatase 92 U/L (45-117); Anion Gap 6 (5-15); BUN 28 mg/dL (7-18); BUN/Creat Ratio 20.9 RATIO (10-20); Bilirubin, Direct 0.18 mg/dL (0.00-0.30); Calcium,Total 9.7 mg/dL (8.5-10.1); Chloride 105 mmol/L (98-107); Cholesterol 106 mg/dL (200); Creatinine, Serum 1.34 mg/dL (0.55-1.02); EST Glomerular Filtration Rate 40 mL/min (>60); Est Glom Filt Rate - Afr Amer 49 mL/min (>60); Globulin 3.7 g/dL (2.2-4.2); Glucose 89 mg/dL (74-106); High Density Lipoprotein 74 mg/dL; Potassium 4.1 mmol/L (3.5-5.1); Sodium Level 141 mmol/L (136-145); Triglycerides 106 mg/dL; Very Low Density Lipoprotein 21 mg/dL (5-40)
== END | disposition home or self-care (01) ==
LOC: LAB 10:29
PROVIDERS: Referring Provider Nurse Practitioner Gerontology; Visit Provider Nurse Practitioner Gerontology
DX: E78.5 Hyperlipidemia, unspecified (principal); R53.83 Other fatigue
CPT/HCPCS: 36415; 80048; 80061; 80076; 85025

== ENCOUNTER → 2023-05-03 | Outpatient (CLI) | payer MEDICARE, SELFPAY ==
[2023-05-03 15:54] LABS: Basophil# 0.05 X10^3/uL; Basophil% 0.6 % (0-1); Eosinophil# 0.49 X10^3/uL; Eosinophils% 5.8 % (0-5); Hematocrit 32.8 % (37-47); Hemoglobin 10.6 g/dL (12.0-15.0); Lymphocyte % 38.2 % (19-41); Mean Corp Hgb Conc 32.3 g/dL (32-36); Mean Corpuscular Hgb 30.4 pg (27.0-32.0); Mean Platelet Vol. 10.5 fl (6.2-12.0); Monocyte# 0.62 X10^3/uL; Monocyte% 7.4 % (0-10); NRBC Flagged by Analyzer 0 % (0-5); Neutrophil % 47.8 % (47-70); Platelet Count 281 K/mm3 (150-450); RBC Distribution Width CV 12.9 % (11.6-14.6); RBC Distribution Width SD 44.4 fl (35.1-43.9); Red Blood Count 3.49 M/mm3 (4.2-5.4); White Blood Count 8.4 K/mm3 (4.4-11.0)
[2023-05-03 16:29] LABS: Iron 71 ug/dL (50-170); Thyroid Stim Hormone (TSH) 1.16 uIU/mL (0.358-3.74)
== END | disposition home or self-care (01) ==
LOC: LAB 15:14
PROVIDERS: PCP Nurse Practitioner Family; Referring Provider Nurse Practitioner Gerontology; Visit Provider Nurse Practitioner Gerontology
DX: R53.83 Other fatigue (principal); E11.9 Type 2 diabetes mellitus without complications
CPT/HCPCS: 36415; 83540; 84443; 85025

== ENCOUNTER 2023-06-16 14:30 | Emergency (ER) | payer MEDICARE, SELFPAY ==
[2023-06-16 14:33] VITALS: PULSE 80; TEMP 36.6; O2SAT 100
[2023-06-16 14:39] VITALS: BP 183/68
[2023-06-16 14:49] VITALS: BMI 34.4
--- NOTE | 2023-06-16 15:11 | RAD_ITS ---
STUDY: X-RAY - RIGHT KNEE REASON FOR EXAM: Female, 82 years old. Injury/Pain TECHNIQUE: 4 view(s) of the knee. COMPARISON: None. FINDINGS: There is demineralization of the visualized distal femur. There is demineralization of the tibia and fibula. Normal proximal tibiofibular articulation. There is no demonstrated fracture. There is moderate degenerative arthrosis of the medial femorotibial compartment with moderate joint space narrowing. Normal lateral femorotibial compartment. There is severe degenerative arthrosis of the patellofemoral articulation. There is no demonstrated joint effusion. The soft tissue structures are unremarkable. RAD/Knee 4 or More Views IMPRESSION: Degenerative arthrosis. Electronically Signed: Antonio Burns MD at 15:36 EDT ,
[2023-06-16] MEDS: HYDROcodone Bitartrate/Apap 5/325 Tablet PO (15:17)
--- NOTE | 2023-06-16 15:23 | EX.ED.DYSGE1 ---
HPI History of Present Illness Chief Complaint: General Illness Detail of Chief Complaint: Initially right leg pain now complains of knee pain and thigh pain Informant: patient and family Onset/Context/Timing Onset: Days Context: Sudden Onset Timing: Continuous and Waxes and wanes Quality: Pain Location: Initially anterior right leg. Presently right knee and intermittently late Current Severity: Mild Maximum Severity: Moderate Worsened by: Movement and weightbearing Relieved by: Nothing Associated Symptoms Associated Symptoms: Nothing Narrative Narrative: Patient is an 82-year-old woman with history of paroxysmal atrial fibrillation on long-term anticoagulant, diastolic congestive heart failure, secondary pulmonary arterial hypertension, essential primary hypertension, hyperlipidemia, chronic kidney disease (stage III) and diabetes mellitus. [facility] Medical History Anemia Atrial fibrillation with rapid ventricular response (09/04/21) Chronic kidney disease, stage 3 Debility Diabetes Diastolic congestive heart failure Hyperlipidemia Hypertension Morbid obesity Osteoarthritis Paroxysmal atrial fibrillation Secondary pulmonary arterial hypertension Weakness Home Medications albuterol sulfate 90 mcg/actuation aerosol inhaler (Ventolin HFA) 2 puff inhalation Q6H PRN PRN Wheezing 30 days #16 grams 09/17/21 [Rx Last Taken Unknown] atorvastatin 40 mg tablet 40 mg PO QHS Cholesterol 30 days #30 tabs 09/17/21 [Rx Last Taken Unknown] metoprolol tartrate 25 mg tablet 12.5 mg (1/2 x 25 mg) PO BID blood pressure 30 days #60 tabs 09/17/21 [Rx Last Taken Unknown] multivitamin 1 tab PO DAILY 12/09/21 [History Last Taken Unknown] polysaccharide iron complex 150 mg iron capsule (iFerex 150) 150 mg PO DAILY 12/09/21 [History Last Taken Unknown] tamsulosin 0.4 mg capsule 0.4 mg PO DAILY 12/09/21 [History Last Taken Unknown] apixaban 2.5 mg tablet (Eliquis) 2.5 mg PO BID #180 tabs 12/19/22 [Rx Last Taken Unknown] furosemide 40 mg tablet 40 mg PO DAILY #90 tabs 12/19/22 [Rx Last Taken Unknown] hydrocodone-acetaminophen 5-325mg 5mg-325mg 1 tab PO Q6H PRN PRN Pain 3 days #10 TABLETS 06/16/23 [Rx Last Taken Unknown] Allergy/AdvReac Type Severity Reaction Status Date / Time No Known Allergies Allergy Verified 05/03/23 14:51 Family History Mother Diabetes Father Diabetes CAD (coronary artery disease) Sister Diabetes Surgical History History of cystoscopy (2004) Social History household members: children Smoking Status: Former smoker how long ago did patient quit smokin alcohol intake: never substance use type: does not use caffeine: Yes Type: carbonated beverages Number of servings: 1 ROS ROS ED Constitutional Constitutional ED: Reports fever(s) and subjective; Denies chills, sweats or weight loss Eyes Eyes: Denies blurry vision, change in vision or diplopia ENT ENT ED: Denies ear pain, rhinorrhea or sore throat Cardiovascular Cardiovascular: Denies chest pain, palpitations or racing heartbeat Respiratory/Chest Respiratory/Chest: Denies cough, dyspnea or dyspnea on exertion Gastrointestinal Gastrointestinal: Denies nausea or vomiting Musculoskeletal Musculoskeletal: Reports other Details: HPI narrative otherwise negative Integumentary Denies Abrasions or rash Neurologic Neurologic: Denies headache(s), paresthesias or weakness Endocrine Endocrinology: Denies cold intolerance or heat intolerance EXAM Physical Exam Const Vital Signs: 06/16/23 14:33 06/16/23 14:39 06/16/23 14:49 Temperature 97.8 F Temperature Source Temporal Pulse Rate 80 Respiratory Pattern Normal Blood Pressure 183/68 H Blood Pressure Mean 106 Pulse Ox 100 Oxygen Delivery Method Room Air Positive well nourished, well developed and obese General Appearance ED: well developed and NAD; Negative for cyanotic, diaphoretic or pallor Nutritional Appearance: obese HEENT Reports moist mucous membranes HEENT Narrative: Is atraumatic and normocephalic. Pupils are equal round reactive to light. Extraocular muscles are intact. There is no nystagmus. Conjunctive is pink. Mucosa is moist. Posterior pharynx is normal. Eyes PERRL and EOMs intact bilaterally General Eye ED: Negative for pale conjunctiva or scleral icterus Chest Wall inspection of chest normal and palpation of chest normal Resp normal respiratory effort and clear to auscultation bilaterally Cardio regular rate, regular rhythm, S1 normal heart sound, S2 normal heart sound and no murmurs GI normal to inspection, nondistended, normoactive bowel sounds, non-tender, non-distended and no masses; Negative for hepatosplenomegaly Back/Spine no CVA tenderness Extremity Extremity Narrative: No asymmetry, discoloration or leg vein distention. There is no palpable cords or tenderness on the distribution deep venous system. The patella is not ballotable and there is no effusion. Patient is able to extend to 180 degrees and flex to approximately 90 degrees. There is no pain or mass noted in the popliteal fossa. Varus valgus stress testing causes discomfort medially. There is no laxity. Prem's test was negative but limited due to body habitus. Modified Lee's test was negative. There are no skin lesions noted. Patient does have a palpable PT pulse. The pulses symmetric. Neuro oriented x3, CN's II-XII intact bilaterally and no sensory deficits noted Sensorium / Orientation: alert Motor Exam: strength 5/5 throughout Psych mental status grossly normal Skin no rashes or lesions noted, no wounds and skin turgor normal General Skin Exam: Negative for jaundice or pallor MDM MDM MDM Narrative Medical decision making narrative: Attic pain need to consider pyogenic versus crystal induced arthritis versus osteoarthritis. X-rays were obtained which revealed asymmetric joint with arthritic changes consistent with osteoarthritis. White count is elevated with normal differential. ESR was normal. Patient was told she has osteoarthritis and this is a chronic condition Lab Data Attestation: I reviewed the patient's lab results. Lab results narrative: Platelet elevated with no shift. H&H is 10.9 and 34.7 with normal indices. Patient has chronic Yuliya. Basic metabolic panel reveals a BUN and creatinine at 21 and 1.37 which is patient's baseline. GFR is 39 ESR is normal. Labs: Laboratory Results - last 24 hr 06/16/23 15:22 WBC 11.3 H RBC 3.67 L Hgb 10.9 L Hct 34.7 L MCV 94.6 MCH 29.7 MCHC 31.4 L RDW Std Deviation 46.9 H RDW Coeff of Karen 13.3 Plt Count 301 MPV 10.3 Immature Gran % (Auto) 0.400 Neut % (Auto) 65.5 Lymph % (Auto) 25.7 [place]ecos % (Auto) 7.3 Eos % (Auto) 0.7 Baso % (Auto) 0.4 Absolute Neuts (auto) 7.4 Absolute Lymphs (auto) 2.91 Nucleated RBC % 0 ESR 4 Sodium 142 Potassium 4.2 Chloride 108 H Carbon Dioxide 30.0 Anion Gap 4 L BUN 21 H Creatinine 1.37 H Estim Creat Clear Calc 27.81 Est GFR (MDRD) Af Amer 48 L Est GFR (MDRD) Non-Af 39 L BUN/Creatinine Ratio 15.3 Glucose 102 Calcium 10.1 Total Bilirubin 0.80 AST 20 ALT 15 Alkaline Phosphatase 65 Total Protein 7.3 Albumin 3.6 Globulin 3.7 Albumin/Globulin Ratio 1.0 Radiography Chest X-Ray - ED: Read by ED Physician (4 view x-ray of the knee reveals asymmetry with mild degenerative changes. There is no effusion. There is no fracture, subluxation or dislocation. There is independent reviewed interpreted by me at 1526) Diagnostic Testing: Clinical Impression(s) from Imaging Studies Knee X-Ray 06/16/23 15:11 IMPRESSION: Degenerative arthrosis. Electronically Signed: Antonio Burns MD at 15:36 EDT Reading Location ID and State: [facility] / [place] , Service support , Treatment and Re-Evaluation :: Was reassessed at 1611. She does report improvement. Patient was informed her pain is due to osteoarthritis. Discharge Plan Triage Chief Complaint: General Illness ED Provider: Jack Nunez Dx/Rx/DC Orders Clinical Impression: Osteoarthritis of right knee, Diabetes mellitus, Chronic kidney disease, stage 3, Essential (primary) hypertension, Pain in right thigh, Anterior leg pain Instructions: ED Osteoarthritis Prescriptions: New hydrocodone-acetaminophen [hydrocodone-acetaminophen] 5-325 mg tablet 1 tab PO Q6H PRN PRN (Reason: Pain) 3 Days Qty: 10 0RF No Action polysaccharide iron complex [iFerex 150] 150 mg iron capsule 150 mg PO DAILY tamsulosin 0.4 mg capsule 0.4 mg PO DAILY multivitamin Tablet 1 tab PO DAILY albuterol sulfate [Ventolin HFA] 90 mcg/actuation Hfa Aerosol Inhaler 2 puff inhalation Q6H PRN PRN (Reason: Wheezing) 30 Days Qty: 16 0RF atorvastatin 40 mg tablet 40 mg PO QHS 30 Days Qty: 30 0RF metoprolol tartrate 25 mg tablet 12.5 mg PO BID 30 Days Qty: 60 0RF Eliquis 2.5 mg tablet 2.5 mg PO BID Qty: 180 3RF furosemide 40 mg tablet 40 mg PO DAILY Qty: 90 3RF Primary Care Provider: Diann Bethea Referrals: Diann Bethea, [facility] [Primary Care Provider] - 1-2 Weeks Activity Restrictions/Additional Instructions: You have stage III kidney disease you should not take ibuprofen. This may result in worsening of your renal failure. Disposition Disposition: Home, Self Care
[2023-06-16 15:45] LABS: Absolute Lymphocyte Count 2.91 X10^3/uL (0.83-4.51); Absolute Neutrophil Count 7.4 X10^3/uL (2.0-7.7); Basophil# 0.05 X10^3/uL; Basophil% 0.4 % (0-1); Eosinophil# 0.08 X10^3/uL; Eosinophils% 0.7 % (0-5); Hematocrit 34.7 % (37-47); Hemoglobin 10.9 g/dL (12.0-15.0); Lymphocyte # 2.91 X10^3/ul (0.83-4.51); Lymphocyte % 25.7 % (19-41); Mean Corp Hgb Conc 31.4 g/dL (32-36); Mean Corpuscular Hgb 29.7 pg (27.0-32.0); Mean Corpuscular Volume 94.6 fL (81-99); Mean Platelet Vol. 10.3 fl (6.2-12.0); Monocyte# 0.82 X10^3/uL; Monocyte% 7.3 % (0-10); NRBC Flagged by Analyzer 0 % (0-5); Neutrophil # 7.41 X10^3/uL (2.7-7.7); Neutrophil % 65.5 % (47-70); Platelet Count 301 K/mm3 (150-450); RBC Distribution Width CV 13.3 % (11.6-14.6); RBC Distribution Width SD 46.9 fl (35.1-43.9); Red Blood Count 3.67 M/mm3 (4.2-5.4); White Blood Count 11.3 K/mm3 (4.4-11.0)
[2023-06-16 15:59] LABS: AST(SGOT) 20 U/L (15-37); Alanine Aminotransfer ALT/SGPT 15 U/L (13-56); Albumin, Serum 3.6 g/dL (3.2-5.0); Alkaline Phosphatase 65 U/L (45-117); Anion Gap 4 (5-15); BUN 21 mg/dL (7-18); BUN/Creat Ratio 15.3 RATIO (10-20); Calcium,Total 10.1 mg/dL (8.5-10.1); Chloride 108 mmol/L (98-107); Creatinine, Serum 1.37 mg/dL (0.55-1.02); EST Glomerular Filtration Rate 39 mL/min (>60); Est Glom Filt Rate - Afr Amer 48 mL/min (>60); Estimated Creatinine Clearance 27.81 ml/min; Globulin 3.7 g/dL (2.2-4.2); Glucose 102 mg/dL (74-106); Potassium 4.2 mmol/L (3.5-5.1); Protein, Total 7.3 g/dL (6.4-8.2); Sodium Level 142 mmol/L (136-145)
[2023-06-16 16:08] LABS: Erythrocyte Sedimentation Rate 4 mm/hr (0-30)
== END 2023-06-16 16:34 | disposition home or self-care (01) ==
PROVIDERS: Emergency Provider Emergency Medicine; PCP Nurse Practitioner Family; Visit Provider Emergency Medicine
DX: M17.11 Unilateral primary osteoarthritis, right knee (principal); I13.0 Hypertensive heart and chronic kidney disease with heart failure and stage 1 through stage 4 chronic kidney disease, or unspecified chronic kidney disease; I50.32 Chronic diastolic (congestive) heart failure; E11.22 Type 2 diabetes mellitus with diabetic chronic kidney disease; I48.0 Paroxysmal atrial fibrillation; N18.30 Chronic kidney disease, stage 3 unspecified; M79.651 Pain in right thigh; E78.5 Hyperlipidemia, unspecified; Z87.891 Personal history of nicotine dependence; M79.604 Pain in right leg; Z79.01 Long term (current) use of anticoagulants; Z79.899 Other long term (current) drug therapy
CPT/HCPCS: 73564; 80053; 85025; 85652; 99282

== ENCOUNTER → 2023-06-23 | Outpatient (CLI) | payer MEDICARE, SELFPAY ==
[2023-06-23 15:08] LABS: Absolute Lymphocyte Count 2.67 X10^3/uL (0.83-4.51); Absolute Neutrophil Count 9.8 X10^3/uL (2.0-7.7); Basophil# 0.05 X10^3/uL; Basophil% 0.4 % (0-1); Eosinophil# 0.04 X10^3/uL; Eosinophils% 0.3 % (0-5); Hematocrit 35.2 % (37-47); Hemoglobin 11.1 g/dL (12.0-15.0); Lymphocyte # 2.67 X10^3/ul (0.83-4.51); Lymphocyte % 20.3 % (19-41); Mean Corp Hgb Conc 31.5 g/dL (32-36); Mean Corpuscular Volume 95.1 fL (81-99); Mean Platelet Vol. 10.5 fl (6.2-12.0); Monocyte# 0.54 X10^3/uL; Monocyte% 4.1 % (0-10); NRBC Flagged by Analyzer 0 % (0-5); Neutrophil # 9.75 X10^3/uL (2.7-7.7); Neutrophil % 74.3 % (47-70); Platelet Count 383 K/mm3 (150-450); RBC Distribution Width CV 15.1 % (11.6-14.6); RBC Distribution Width SD 51.8 fl (35.1-43.9); White Blood Count 13.1 K/mm3 (4.4-11.0)
[2023-06-23 16:36] LABS: ALB/GLOB Ratio 0.9 RATIO (0.9-2.4); AST(SGOT) 26 U/L (15-37); Alanine Aminotransfer ALT/SGPT 28 U/L (13-56); Albumin, Serum 3.5 g/dL (3.2-5.0); Alkaline Phosphatase 70 U/L (45-117); Anion Gap 14 (5-15); BUN 48 mg/dL (7-18); BUN/Creat Ratio 20.9 RATIO (10-20); Calcium,Total 9.5 mg/dL (8.5-10.1); Chloride 105 mmol/L (98-107); EST Glomerular Filtration Rate 22 mL/min (>60); Est Glom Filt Rate - Afr Amer 26 mL/min (>60); Globulin 3.7 g/dL (2.2-4.2); Glucose 108 mg/dL (74-106); Potassium 3.9 mmol/L (3.5-5.1); Protein, Total 7.2 g/dL (6.4-8.2); Sodium Level 139 mmol/L (136-145)
[2023-06-23 17:58] LABS: Hemoglobin A1c 5.4 % (3.8-5.6)
[2023-06-23 18:01] LABS: Microalbumin,Random Urine 31.1 mg/L (NO RANGE EST.); Microalbumin:Creatinine Ratio 25.3 mg/g CRE (<30 mg/g CRE)
== END | disposition home or self-care (01) ==
LOC: BFHLAB 12:11
PROVIDERS: PCP Nurse Practitioner Family; Visit Provider Nurse Practitioner Family
DX: I12.9 Hypertensive chronic kidney disease with stage 1 through stage 4 chronic kidney disease, or unspecified chronic kidney disease (principal); E11.22 Type 2 diabetes mellitus with diabetic chronic kidney disease; N18.4 Chronic kidney disease, stage 4 (severe)
CPT/HCPCS: 36415; 80053; 82043; 82570; 83036; 85025

== ENCOUNTER 2023-06-24 02:45 | Observation (INO) | payer MEDICARE, SELFPAY ==
[2023-06-24] VITALS (10 sets, daily range): BP systolic 104–153; BP diastolic 51–70; PULSE 73–85; RESP 16–18; TEMP 35.8–36.9; O2SAT 96–100; BMI 36.5; BMI 32.1
--- NOTE | 2023-06-24 03:21 | RAD_ITS ---
INDICATION: pain EXAMINATION/TECHNIQUE: X-RAY - RIGHT XR Knee 3 Views 3 VIEWS COMPARISON: No relevant prior comparison study available FINDINGS: SOFT TISSUES: No soft tissue swelling or gas. No radiopaque foreign body. Vascular calcifications are present. BONES/JOINTS: No acute fracture or subluxation.. Normal alignment. There is moderate to severe medial compartment joint space narrowing. Tricompartmental marginal osteophytes. No joint effusion.. No sclerotic or destructive changes observed. RAD/Knee 3 Views IMPRESSION: No fracture or malalignment. Moderate tricompartmental degenerative changes. Electronically Signed: Raymond Ray MD at 4:15 EDT ,
--- NOTE | 2023-06-24 03:21 | RAD_ITS ---
INDICATION: pain EXAMINATION/TECHNIQUE: X-RAY - XR Hip Unilateral with Pelvis when performed; 2-3 Views COMPARISON: No relevant prior comparison study available FINDINGS: There is no fracture or dislocation. The hips are well aligned. Mild degenerative changes of the hips with subchondral sclerosis. The pelvic rim is intact. The sacroiliac joints and pubic symphysis are intact. Normal bowel gas pattern. Vascular calcifications noted. RAD/HIP, UNI W/ Pelvis 2-3 Views IMPRESSION: No evidence of displaced pelvic or hip fracture. Mild degenerative changes. Electronically Signed: Raymond Ray MD at 4:16 EDT ,
--- NOTE | 2023-06-24 03:21 | CT_ITS ---
INDICATION: head injury EXAMINATION: CT BRAIN - CT Head or Brain W/O Contrast Injection TECHNIQUE: Multiple axial images were obtained of the head without intravenous contrast. A radiation dose optimization technique was used for this scan. IV Contrast dosage and agent: None. RADIATION DOSAGE (If Supplied By Facility): CTDIvol = ( 44.99 ) mGy, DLP = ( 796.11 ) mGycm COMPARISON: No relevant prior comparison study available FINDINGS: BRAIN PARENCHYMA: No intra- or extra-axial hemorrhage. No evidence of acute infarct. No intracranial mass or mass effect. There is preservation of the greene/white matter interface. Posterior fossa structures are unremarkable. Patchy periventricular and deep white matter hypoattenuation is consistent with mild small vessel ischemic change. CSF SPACES: Proportional prominence of the ventricles and sulcal spaces is consistent with mild cerebral volume loss. No hydrocephalus. Basal cisterns are patent. CALVARIUM, SKULL BASE, PARANASAL SINUSES AND MASTOID AIR CELLS: The mastoid air cells and visualized paranasal sinuses are well aerated. The calvarium is intact. No discrete lytic or blastic abnormalities. ORBITS: Both globes, extraocular muscles, optic nerves and retrobulbar fat appear unremarkable. CT/Brain/Head without Contrast IMPRESSION: No acute intracranial finding. Electronically Signed: Raymond Ray MD at 4:36 EDT ,
--- NOTE | 2023-06-24 03:55 | RAD_ITS ---
INDICATION: pain EXAMINATION/TECHNIQUE: X-RAY - XR Spine Thoracic 3 Views COMPARISON: Prior study dated: CT from 09/04/2021 FINDINGS: VERTEBRAE: Preserved vertebral body height. No fracture. No spondylolisthesis. Preservation of the normal thoracic kyphosis. Mild facet arthropathy throughout. DISCS: Disc spaces are narrowed throughout with endplate osteophytes present.. INCLUDED CHEST/ABDOMEN: No acute abnormalities. RAD/Thoracic Spine 3 Views IMPRESSION: No evidence of thoracic spinal fracture or spondylolisthesis. Mild to moderate degenerative change throughout the thoracic spine, similar to prior CT . Electronically Signed: Raymond Ray MD at 4:24 EDT ,
[2023-06-24] MEDS: 0.9% Normal Saline (500mL Bag) 500 ML 999 ML IV (04:12)
[2023-06-24] MEDS: Ondansetron ODT 4 MG Tablet PO (04:12)
[2023-06-24] MEDS: fentaNYL 100 MCG/2 ML Ampul 25 MCG IM (04:13)
--- NOTE | 2023-06-24 05:27 | EDS_ITS ---
HPI History of Present Illness Chief Complaint: Fall Informant: patient and family Narrative Narrative: Patient is an 82-year-old female with past medical history of paroxysmal atrial fibrillation currently on Eliquis as well as chronic kidney disease hypertension hyperlipidemia and diabetes. She states she walks with a rollator. She states this evening around 2 AM she had gotten up to go to the bathroom and after doing so was walking back to her bed with a rollator when she lost her balance and fell. She states she landed on her right side and she denies striking her head or any loss of consciousness. She lives with her daughter and daughter heard the fall and was trying to help her up but was unable to do so and secondary to this EMS was called. Patient reports pain in her right knee and right hip at this time. [facility] Medical History Anemia Atrial fibrillation with rapid ventricular response (09/04/21) Chronic kidney disease, stage 3 Debility Diabetes Diastolic congestive heart failure Hyperlipidemia Hypertension Morbid obesity Osteoarthritis Paroxysmal atrial fibrillation Secondary pulmonary arterial hypertension Weakness Home Medications albuterol sulfate 90 mcg/actuation aerosol inhaler (Ventolin HFA) 2 puff inhalation Q6H PRN PRN Wheezing 30 days #16 grams 09/17/21 [Rx Last Taken Unknown] atorvastatin 40 mg tablet 40 mg PO QHS Cholesterol 30 days #30 tabs 09/17/21 [Rx Last Taken Unknown] metoprolol tartrate 25 mg tablet 12.5 mg (1/2 x 25 mg) PO BID blood pressure 30 days #60 tabs 09/17/21 [Rx Last Taken Unknown] multivitamin 1 tab PO DAILY 12/09/21 [History Last Taken Unknown] polysaccharide iron complex 150 mg iron capsule (iFerex 150) 150 mg PO DAILY 12/09/21 [History Last Taken Unknown] tamsulosin 0.4 mg capsule 0.4 mg PO DAILY 12/09/21 [History Last Taken Unknown] apixaban 2.5 mg tablet (Eliquis) 2.5 mg PO BID #180 tabs 12/19/22 [Rx Last Taken Unknown] furosemide 40 mg tablet 40 mg PO DAILY #90 tabs 12/19/22 [Rx Last Taken Unknown] hydrocodone-acetaminophen 5-325mg 5mg-325mg 1 tab PO Q6H PRN PRN Pain 3 days #10 TABLETS 06/16/23 [Rx Last Taken Unknown] Allergy/AdvReac Type Severity Reaction Status Date / Time No Known Allergies Allergy Verified 06/24/23 02:52 Family History Mother Diabetes Father Diabetes CAD (coronary artery disease) Sister Diabetes Surgical History History of cystoscopy (2004) Social History household members: children Smoking Status: Former smoker how long ago did patient quit smokin alcohol intake: never substance use type: does not use caffeine: Yes Type: carbonated beverages Number of servings: 1 ROS ROS ED Constitutional Constitutional ED: Denies chills or fever(s) Eyes Eyes: Denies change in vision ENT ENT ED: Denies sore throat Cardiovascular Cardiovascular: Denies chest pain Respiratory/Chest Respiratory/Chest: Denies cough or dyspnea Gastrointestinal Gastrointestinal: Denies abdominal pain, diarrhea, nausea or vomiting Genitourinary Genitourinary ED: Denies dysuria Musculoskeletal Musculoskeletal: Reports arthralgias, back pain and other Details: Positive right hip and right knee pain Integumentary Denies rash Neurologic Neurologic: Reports weakness; Denies headache(s) Hematologic/Lymphatic Hematologic/Lymphatic: Reports easy bleeding and easy bruising EXAM Physical Exam Const Vital Signs: 06/24/23 02:46 06/24/23 03:45 Temperature 96.5 F L Temperature Source Temporal Pulse Rate 73 Respiratory Rate 18 Respiratory Effort Normal Respiratory Depth Normal Respiratory Pattern Normal Blood Pressure 153/57 H Blood Pressure Mean 89 Pulse Ox 100 Oxygen Delivery Method Room Air Positive well nourished, well developed and obese General Appearance ED: well developed Nutritional Appearance: obese HEENT HEENT Narrative: No signs of depressed or basilar skull fracture Mucous membranes are dry and tacky without secondary changes to suggest infection Eyes PERRL and EOMs intact bilaterally Neck supple Neck Narrative: No bony deformity or step-off of the cervical spine Patient is able to move her neck in all directions without pain Chest Wall palpation of chest normal Chest Narrative: No bony deformity or crepitus noted Resp normal respiratory effort and clear to auscultation bilaterally Resp Narrative: Breath sounds are diminished throughout but overall clear to auscultation without signs of respiratory distress Cardio regular rate and regular rhythm Rate: other Other Details: Radial and carotid pulses are equal and symmetric GI normal to inspection, nondistended, normoactive bowel sounds, non-tender, non- distended and no masses GI Narrative: No voluntary guarding or rigidity No pulsatile mass or fluid wave Auscultation: normoactive bowel sounds Palpation: soft Back/Spine Back/Spine Narrative: No bony deformity or step-off of the thoracic or lumbar spine but there is upper midline thoracic pain with palpation Extremity Extremity Narrative: Pelvis is stable there is no shortening or external rotation of either lower extremity There is pain on palpation of the right hip near the greater trochanter. There is also pain on palpation of the right knee. However there is no obvious bony deformity or joint effusion and the patellar tendon is intact and knee ligaments are stable. Neuro oriented x3 and CN's II-XII intact bilaterally Sensorium / Orientation: alert Psych mental status grossly normal Skin no rashes or lesions noted MDM MDM MDM Narrative Medical decision making narrative: Patient reported a mechanical fall so I felt no need for cardiac or syncope work-up. She also reported she had outpatient labs done June 23 and as these were done in the last 24 hours I felt no need for repeat laboratory studies. Imaging studies were obtained secondary to report of fall. As she is on a blood thinner and there is concern for potential subdural or epidural hematoma. There is also concern for hip fracture versus contusion versus thoracic spine fracture. X-rays revealed no clinically significant findings and CT scan revealed no underlying trauma or bleed. Reviewing her outpatient laboratory value shows acute on chronic kidney injury with a creatinine elevated from 1.37- 2.3. Secondary to this she was given 500 mL of normal saline. She was given fentanyl for pain and had improvement of her pain but is still not ambulate in the ER. Secondary to this medicine was contacted who does agree to accept the patient for further work-up and potential long-term placement. Patient states she is agreeable to placement if it is necessary. History & Record Review Discussion w/independent historian: Patient and Family Radiography Diagnostic Testing: Clinical Impression(s) from Imaging Studies Brain CT 06/24/23 03:21 IMPRESSION: No acute intracranial finding. Electronically Signed: Raymond Ray MD at 4:36 EDT , Hip/Pelvis X-Ray 06/24/23 03:21 IMPRESSION: No evidence of displaced pelvic or hip fracture. Mild degenerative changes. Electronically Signed: Raymond Ray MD at 4:16 EDT , Knee X-Ray 06/24/23 03:21 IMPRESSION: No fracture or malalignment. Moderate tricompartmental degenerative changes. Electronically Signed: Raymond Ray MD at 4:15 EDT , Thoracic Spine X-Ray 06/24/23 03:55 IMPRESSION: No evidence of thoracic spinal fracture or spondylolisthesis. Mild to moderate degenerative change throughout the thoracic spine, similar to prior CT . Electronically Signed: Raymond Ray MD at 4:24 EDT , X-ray of the right hip with 1 view pelvis as interpreted by the emergency medicine physician reveals osteoarthritic/degenerative changes without acute fracture or dislocation X-ray of the right knee as interpreted by the emergency medicine physician reveals osteoarthritic changes without fracture dislocation or joint effusion X-ray of the thoracic spine as interpreted by the emergency medicine physician reveals no acute fracture or spondylolisthesis Management Discussion w/another healthcare provider: Hospitalist Discharge Plan Dx/Rx/DC Orders Clinical Impression: Chronic kidney disease, stage 3, Generalized weakness, Current use of correction anticoagulation, Essential (primary) hypertension, Paroxysmal atrial fibrillation, Inability to walk Disposition Disposition: [facility]
[2023-06-24 05:47] LABS: Absolute Lymphocyte Count 2.46 X10^3/uL (0.83-4.51); Absolute Neutrophil Count 9.1 X10^3/uL (2.0-7.7); Basophil# 0.05 X10^3/uL; Basophil% 0.4 % (0-1); Eosinophil# 0.15 X10^3/uL; Eosinophils% 1.2 % (0-5); Hematocrit 31.3 % (37-47); Hemoglobin 10.1 g/dL (12.0-15.0); Lymphocyte # 2.46 X10^3/ul (0.83-4.51); Lymphocyte % 19.6 % (19-41); Mean Corp Hgb Conc 32.3 g/dL (32-36); Mean Corpuscular Hgb 30.3 pg (27.0-32.0); Monocyte# 0.77 X10^3/uL; Monocyte% 6.1 % (0-10); NRBC Flagged by Analyzer 0 % (0-5); Neutrophil # 9.05 X10^3/uL (2.7-7.7); Neutrophil % 72.2 % (47-70); Platelet Count 331 K/mm3 (150-450); RBC Distribution Width SD 50.6 fl (35.1-43.9); Red Blood Count 3.33 M/mm3 (4.2-5.4); White Blood Count 12.5 K/mm3 (4.4-11.0)
--- NOTE | 2023-06-24 05:53 | PCM.HP.STD ---
HPI - General General Date of Admission: 06/24/23 Date of Service: 06/24/23 Chief Complaint: Lost balance and fell down on wheeled walker. HPI Narrative ANKUR AN, is a 82 F with history of severe degenerative arthritis and restricted mobility on wheeled walker was brought to ED by EMS after she had fall in the bathroom. She said she got out of the bed to go to bathroom on wheeled walker in clinical trial head today. As she was walking, wheeled walker went off and she forgot to put brake thereafter she lost balance and fell down. She states she landed on her left side but has more severe right hip to right knee pain. She also had left hip pain as per EMS but has improved probably after fentanyl given in the ED. No loss of consciousness. Fall seems mechanical. Denies chest pain shortness of breath or arrhythmia. She went to see her PCP for arthritis and joint pain and had labs which shows increased creatinine, 2.3 from her baseline 1.37. Patient had normal send 500 mL in ED. [facility] Medical History Anemia Atrial fibrillation with rapid ventricular response (09/04/21) Chronic kidney disease, stage 3 Debility Diabetes Diastolic congestive heart failure Hyperlipidemia Hypertension Morbid obesity Osteoarthritis Paroxysmal atrial fibrillation Secondary pulmonary arterial hypertension Weakness Home Medications albuterol sulfate 90 mcg/actuation aerosol inhaler (Ventolin HFA) 2 puff inhalation Q6H PRN PRN Wheezing 30 days #16 grams 09/17/21 [Rx Last Taken Unknown] atorvastatin 40 mg tablet 40 mg PO QHS Cholesterol 30 days #30 tabs 09/17/21 [Rx Last Taken Unknown] metoprolol tartrate 25 mg tablet 12.5 mg (1/2 x 25 mg) PO BID blood pressure 30 days #60 tabs 09/17/21 [Rx Last Taken Unknown] multivitamin 1 tab PO DAILY 12/09/21 [History Last Taken Unknown] polysaccharide iron complex 150 mg iron capsule (iFerex 150) 150 mg PO DAILY 12/09/21 [History Last Taken Unknown] tamsulosin 0.4 mg capsule 0.4 mg PO DAILY 12/09/21 [History Last Taken Unknown] apixaban 2.5 mg tablet (Eliquis) 2.5 mg PO BID #180 tabs 12/19/22 [Rx Last Taken Unknown] furosemide 40 mg tablet 40 mg PO DAILY #90 tabs 12/19/22 [Rx Last Taken Unknown] hydrocodone-acetaminophen 5-325mg 5mg-325mg 1 tab PO Q6H PRN PRN Pain 3 days #10 TABLETS 06/16/23 [Rx Last Taken Unknown] Allergy/AdvReac Type Severity Reaction Status Date / Time No Known Allergies Allergy Verified 06/24/23 02:52 Family History Mother Diabetes Father Diabetes CAD (coronary artery disease) Sister Diabetes Surgical History History of cystoscopy (2004) Social History household members: children Smoking Status: Former smoker how long ago did patient quit smokin alcohol intake: never substance use type: does not use caffeine: Yes Type: carbonated beverages Number of servings: 1 ROS ROS Narrative Constitutional: Reports fatigue and weakness. No fever. HEENT: Reports systems reviewed and no addt'l complaints, except as documented Respiratory/Chest: No acute shortness of breath or respiratory distress or wheezing. CVS: No chest pressure or tightness. Gastrointestinal: Not taking [place] as this makes her nauseous. Denies coffee ground emesis, hematemesis or vomiting Genitourinary: Denies burning urination or new urinary tract symptoms Musculoskeletal: As described in HPI. Neurologic: Denies seizure-like symptoms. No strokelike symptoms. skin: No ulcer. No rash Endocrinology: Reports systems reviewed and no addt'l complaints, except as documented Hematologic/Lymphatic: Reports systems reviewed and no addt'l complaints, except as documented Rest 14 ROS are negative except as mentioned in HPI Vital Signs Vital Signs Vital Signs: 06/24/23 02:46 06/24/23 03:45 Temperature 96.5 F L Temperature Source Temporal Pulse Rate 73 Respiratory Rate 18 Respiratory Effort Normal Respiratory Depth Normal Respiratory Pattern Normal Blood Pressure 153/57 H Blood Pressure Mean 89 Pulse Ox 100 Oxygen Delivery Method Room Air Weight Weight: 212 lb 11.937 oz Body Mass Index (BMI) 36.5 Physical Exam Narrative General: Alert, Oriented x3, Cooperative HEENT: Atraumatic, PERRLA, EOMI, Normocephalic Oral: Oral mucosa dry. No Gingival or Mucosal Lesions/ Ulcerations Neck: Supple, No JVD, Negative Carotid Bruits Lungs: Air entry equal in bilateral lung bases. No crepitation/rhonchi. No hypoxia or tachypnea. Cardiovascular: Regular rate, Regular Rhythm, Normal S1, Normal S2, No murmurs Abdomen: Bowel Sounds Present, Soft, Non Tender, Non-Distended : No renal angle tenderness. No suprapubic tenderness. Extremities: No edema, Capillary Refill Less than 3 Seconds Skin: No rashes, No breakdown Musculoskeletal: Tenderness over right hip more than left hip. Bilateral degenerative hips and knee arthritis with restricted ROM hip joints. Neurological: Cranial nerves II-XII grossly intact, DTR 2+/4. No acute focal neurological deficit. Muscle strength 4+/5 at hips, right worse than left hip due to arthritis Psych/Mental Status: Normal Affect, Appropriate. Results Lab / Micro Data 06/24/23 05:42 06/24/23 05:42 Labs: Laboratory Results - last 24 hr 06/24/23 05:42: WBC 12.5 H, RBC 3.33 L, Hgb 10.1 L, Hct 31.3 L, MCV 94.0, MCH 30.3, MCHC 32.3, RDW Std Deviation 50.6 H, RDW Coeff of Karen 15.0 H, Plt Count 331, MPV 10.0, Immature Gran % (Auto) 0.500, Neut % (Auto) 72.2 H, Lymph % (Auto) 19.6, [place] % (Auto) 6.1, Eos % (Auto) 1.2, Baso % (Auto) 0.4, Absolute Neuts (auto) 9.1 H, Absolute Lymphs (auto) 2.46, Nucleated RBC % [address] 06/24/23 03:21 IMPRESSION: No acute intracranial finding. Electronically Signed: Raymond Ray MD at 4:36 EDT , Hip/Pelvis X-Ray 06/24/23 03:21 IMPRESSION: No evidence of displaced pelvic or hip fracture. Mild degenerative changes. Electronically Signed: Raymond Ray MD at 4:16 EDT , Knee X-Ray 06/24/23 03:21 IMPRESSION: No fracture or malalignment. Moderate tricompartmental degenerative changes. Electronically Signed: Raymond Ray MD at 4:15 EDT , Thoracic Spine X-Ray 06/24/23 03:55 IMPRESSION: No evidence of thoracic spinal fracture or spondylolisthesis. Mild to moderate degenerative change throughout the thoracic spine, similar to prior CT . Electronically Signed: Raymond Ray MD at 4:24 EDT , Assessment & Plan Assessment/Plan (1) Fall: QUALIFIERS: Encounter type: initial encounter Qualified Code(s): W19.XXXA - Unspecified fall, initial encounter PLAN: Plan 1. Fall mainly mechanical due to loss of balance and impaired ADL, failure to thrive: Patient is being admitted to [facility] floor. PT and OT ordered. Pain has improved after fentanyl given in ED. Patient also has constipation therefore we will try to avoid opioids. Ice bag and nonpharmacological measures for pain control. Patient also given gabapentin by PCP yesterday. Patient had multiple x-rays including hip and pelvis x-ray knee x-ray which did not show fracture or dislocation or malalignment but degenerative arthritis more severe on the right hip. CT brain showed no acute intracranial finding. 2. URMILA on CKD stage IIIb mainly prerenal: Patient baseline creatinine about 1.37 with BUN 21. It is increased to 48/2.3 on 06/23/2023. Repeat lab today ordered. IV fluid Ringer lactate 100 mL/h for 2 L. Low bicarb 20, anion gap 14 with normal sodium and potassium. Hold Lasix. Patient was not taking Lasix at home as she felt it was too many medications for her. 3. Chronic cardiac conditions: Chronic HFpEF, paroxysmal A-fib: Patient had last echo on 09/04/2021 reported EF 55% with normal atrial size. Currently in regular rhythm on the monitor. She had last office visit on 05/03/2023. [id number] score is 5. Heart rate is controlled on metoprolol 12.5 mg daily, continue Eliquis 2.5 mg daily. 4. Hypertension, dyslipidemia and chronic fatigue: Fasting profile on 02/04/2023 shows HDL 74 LDL 11 triglycerides 106. Continue atorvastatin 40 mg daily. 5. Diabetes mellitus type 2: Last A1c 5.4 on 06/23/2023. Glucose 101 and 120. She is not on oral hypoglycemic agent or metformin. 1800 ADA diet recommended. Living will/advanced directive/end of life care: Patient does have living will or advanced directive. Her daughter next to her ED is the power of tool profiling machine set up operator for health. Patient lives with her daughter in the same house. After discussion of benefits/risks procedures involved with full code, DNR CC arrest and DNR CC, the patient and her daughter opted for DNRCC arrest with no intubation . Patient doesn't want artificial life support including intubation, tube feed, ventilator and/chest compression, central venous catheter, vasopressor and DC shock if needed Total time spent in [id number] encounter in discussion of advanced directive 17 minutes. Clinical Impression(s) from Imaging Studies Brain CT 06/24/23 03:21 IMPRESSION: No acute intracranial finding. Hip/Pelvis X-Ray 06/24/23 03:21 IMPRESSION: No evidence of displaced pelvic or hip fracture. Mild degenerative changes. Knee X-Ray 06/24/23 03:21 IMPRESSION: No fracture or malalignment. Moderate tricompartmental degenerative changes. Thoracic Spine X-Ray 06/24/23 03:55 IMPRESSION: No evidence of thoracic spinal fracture or spondylolisthesis. Mild to moderate degenerative change throughout the thoracic spine, similar to prior CT . Charges/Coding Visit Charges Inpatient E&M: 34680 Init Hosp L3 Procedures Hospitalists Procedures: 18010 Advncd Care Plan 30 Min
[2023-06-24 06:05] LABS: Anion Gap 10 (5-15); BUN 49 mg/dL (7-18); BUN/Creat Ratio 23.9 RATIO (10-20); Calcium,Total 9.3 mg/dL (8.5-10.1); Chloride 109 mmol/L (98-107); Creatinine, Serum 2.05 mg/dL (0.55-1.02); EST Glomerular Filtration Rate 25 mL/min (>60); Est Glom Filt Rate - Afr Amer 30 mL/min (>60); Estimated Creatinine Clearance 18.59 ml/min; Glucose 120 mg/dL (74-106); Magnesium 2.3 mg/dL (1.6-2.6); Potassium 3.7 mmol/L (3.5-5.1); Sodium Level 142 mmol/L (136-145)
[2023-06-24] MEDS: Lactated Ringers 1,000 ML 100 ML IV ×2 (08:37→17:42)
[2023-06-24] MEDS: Senna/Docusate Sodium 1 Tablet 2 TABLET PO ×2 (10:21→23:02)
[2023-06-24] MEDS: Multivitamins,Therapeutic Tablet 1 TABLET PO (10:21)
[2023-06-24] MEDS: APIXABAN 2.5 MG TABLET (WCH) PO ×2 (10:24→23:01)
[2023-06-24] MEDS: Tamsulosin HCl 0.4 MG Capsule PO (10:24)
[2023-06-24] MEDS: Metoprolol Tartrate 25 MG Tablet 12.5 MG PO ×2 (10:24→23:01)
--- NOTE | 2023-06-24 11:06 | PCM.HOSP.N ---
Hospitalist Note Seen and examined briefly today, I talked with her and her daughter about discharge planning, she stated that she would not be against going to an extended care facility for short-term rehab services if she needed to. Patient was placed in observation status today for acute on chronic debility. Patient's chronic medical problems include essential hypertension, paroxysmal atrial fibrillation, and stage IIIb chronic kidney disease. Patient will be seen by PT and OT.
--- NOTE | 2023-06-24 14:22 | CASEMGMT ---
JUDAH CM in to discuss CURTIS form with patient. RN CM explained CURTIS form, patient voiced understanding. Pt signed form and filed in chart. Pt provided with a copy of signed CURTIS form. Patient had no further questions or concerns at this time.
--- NOTE | 2023-06-24 14:23 | CASEMGMT ---
JUDAH CASTELLANO into pt room, pt states she lives with her dtr but her dtr lives upstairs. She states her dtr works and is unable to really assist taking care of. She states she is active with [facility]. She ambulates with a walker but states she is too weak to do so now. Pt states she feels she will likely need to go to a SNF. Therapy evals pending at this time. JUDAH CASTELLANO to follow.
[2023-06-24] MEDS: Acetaminophen 325 MG Tablet 650 MG PO (15:02)
[2023-06-24] MEDS: oxyCODONE 5 MG Tablet PO (23:00)
[2023-06-24] MEDS: Atorvastatin Calcium 40 MG Tablet PO (23:01)
[2023-06-25] VITALS (7 sets, daily range): BP systolic 128–146; BP diastolic 56–93; PULSE 75–83; RESP 16–18; TEMP 36.7–36.8; O2SAT 95–98
[2023-06-25] MEDS: oxyCODONE 5 MG Tablet PO ×3 (07:38→20:22)
--- NOTE | 2023-06-25 08:41 | PCM.PN.HOSP ---
Reason for Visit Reason for Visit: Diagnoses Unspecified fall, initial encounter (06/24/23) Subjective Subjective Patient was seen and examined today, I talked with her about discharge planning today, she has agreed that it is probably a good idea for her to go to TCU for short-term rehab services. PT and OT will continue for now here Objective Data Objective Data Vital Signs: Vital Signs Temp Pulse Resp BP Pulse Ox O2 Del Method 98.2 F 81 16 128/62 H 96 Room Air 06/25/23 03:00 06/25/23 03:00 06/25/23 03:00 06/25/23 03:00 06/25/23 08:09 06/25/23 08:09 Oxygen Delivery Method Room Air Weight: 85 kg Body Mass Index (BMI) 32.1 Intake & Output: Intake and Output for Last 24 Hours 06/23/23 06/24/23 06/25/23 23:59 23:59 23:59 Intake Total 2208.33 / 2458.33 1203.33 / 1203.33 Output Total 300 / 300 100 / 100 Balance 1908.33 / 2158.33 1103.33 / 1103.33 Lab / Micro Data 06/24/23 05:42 06/24/23 05:42 Physical Exam Const alert, oriented x3 and no apparent distress General Appearance: cooperative, well kempt and well developed Orientation / Consciousness: awake, oriented to person, oriented to place and oriented to time HEENT normocephalic and moist oral mucous membranes Eyes PERRL, EOMs intact bilaterally and conjunctivae normal Neck supple, no JVD, thyroid normal and no carotid bruits General: trachea midline Resp normal respiratory effort and clear to auscultation bilaterally Auscultation: Negative for rales, rhonchi or wheezes Cardio regular rate, regular rhythm, S1 normal heart sound, S2 normal heart sound, no murmurs, no rub and no gallops GI normal to inspection, nondistended, normoactive bowel sounds, soft to palpation, non-tender and non-distended Extremity no clubbing, cyanosis or edema Skin no rashes or lesions noted General Skin Exam: no breakdown Neuro oriented x3, CN's II-XII intact bilaterally, moves all extremities, no focal motor deficits and no sensory deficits noted Sensorium / Orientation: awake and alert Speech: speech normal Psych affect normal Assessment & Plan Assessment/Plan (1) Inability to walk: PLAN: Plan 1. Acute on chronic debility-patient will continue to see PT and OT, she will need temporary placement in TCU for short-term prison services #2 paroxysmal [id number] will remain on her current medications for rate control-metoprolol, she will remain on Eliquis for anticoagulation #3 hypercoagulable state secondary to paroxysmal I-dii-[id number] is on Eliquis #4 essential hypertension-patient will remain on metoprolol #5 type 2 diabetes-patient is diet controlled #6 hyperlipidemia-patient is on Lipitor #7 chronic iron deficiency anemia-patient is on oral iron #8 acute kidney injury on a backdrop of chronic kidney disease stage IIIb-patient's renal functions will be rechecked today Total clinical time spent by myself addressing the patient's medical issues, reviewing all of her data, and collaborating with patient's care team: 25 minutes Charges/Coding Visit Charges Inpatient E&M: 73481 Subs Hosp L1
[2023-06-25] MEDS: Tamsulosin HCl 0.4 MG Capsule PO (08:52)
[2023-06-25] MEDS: Metoprolol Tartrate 25 MG Tablet 12.5 MG PO ×2 (08:52→21:32)
[2023-06-25] MEDS: APIXABAN 2.5 MG TABLET (WCH) PO ×2 (08:52→21:32)
[2023-06-25] MEDS: Multivitamins,Therapeutic Tablet 1 TABLET PO (08:52)
[2023-06-25] MEDS: Senna/Docusate Sodium 1 Tablet 2 TABLET PO ×2 (08:52→21:32)
[2023-06-25 09:51] LABS: Anion Gap 6 (5-15); BUN 46 mg/dL (7-18); BUN/Creat Ratio 31.9 RATIO (10-20); Chloride 110 mmol/L (98-107); Creatinine, Serum 1.44 mg/dL (0.55-1.02); EST Glomerular Filtration Rate 37 mL/min (>60); Est Glom Filt Rate - Afr Amer 45 mL/min (>60); Estimated Creatinine Clearance 26.46 ml/min; Glucose 176 mg/dL (74-106); Potassium 3.5 mmol/L (3.5-5.1); Sodium Level 141 mmol/L (136-145)
[2023-06-25] MEDS: Acetaminophen 325 MG Tablet 650 MG PO (12:00)
[2023-06-25] MEDS: Atorvastatin Calcium 40 MG Tablet PO (21:32)
[2023-06-26] VITALS (9 sets, daily range): BP systolic 142–174; BP diastolic 44–65; PULSE 75–92; RESP 16–18; TEMP 36.7–36.9; O2SAT 96–98
[2023-06-26] MEDS: oxyCODONE 5 MG Tablet PO (07:46)
[2023-06-26] MEDS: Multivitamins,Therapeutic Tablet 1 TABLET PO (07:47)
[2023-06-26] MEDS: Tamsulosin HCl 0.4 MG Capsule PO (07:47)
[2023-06-26] MEDS: APIXABAN 2.5 MG TABLET (WCH) PO ×2 (07:47→21:55)
[2023-06-26] MEDS: Metoprolol Tartrate 25 MG Tablet 12.5 MG PO ×2 (07:47→21:55)
[2023-06-26] MEDS: Acetaminophen 325 MG Tablet 650 MG PO ×2 (07:47→21:56)
[2023-06-26] MEDS: Senna/Docusate Sodium 1 Tablet 2 TABLET PO ×2 (07:48→21:56)
--- NOTE | 2023-06-26 08:54 | PCM.PN.HOSP ---
Reason for Visit Reason for Visit: Diagnoses Difficulty in walking, not elsewhere classified (06/24/23) Unspecified fall, initial encounter (06/24/23) Subjective Subjective Denies complaints. Objective Data Objective Data Vital Signs: Vital Signs Temp Pulse Resp BP Pulse Ox O2 Del Method 36.7 C 75 18 150/65 H 98 Room Air 06/26/23 07:45 06/26/23 07:47 06/26/23 07:45 06/26/23 07:47 06/26/23 07:45 06/26/23 07:45 Oxygen Delivery Method Room Air Weight: 85 kg Body Mass Index (BMI) 32.1 Intake & Output: Intake and Output for Last 24 Hours 06/24/23 06/25/23 06/26/23 23:59 23:59 23:59 Intake Total 2208.33 / 2458.33 2002.33 / 3.33 60 / 60 Output Total 300 / 300 700 / 850 450 / 450 Balance 1908.33 / 2158.33 1303.33 / 1213.33 -390 / -390 Lab / Micro Data 06/24/23 05:42 06/25/23 09:23 Labs: Laboratory Results - last 24 hr 06/25/23 09:23: Sodium 141, Potassium 3.5, Chloride 110 H, Carbon Dioxide 25.0, Anion Gap 6, BUN 46 H, Creatinine 1.44 H, Estim Creat Clear Calc 26.46, Est GFR (MDRD) Af Amer 45 L, Est GFR (MDRD) Non-Af 37 L, BUN/Creatinine Ratio 31.9 H, Glucose 176 H, Calcium 9.0 Physical Exam Const alert and no apparent distress HEENT head/scalp atraumatic and moist oral mucous membranes Resp normal respiratory effort, no retractions, no use of accessory muscles and clear to auscultation bilaterally Cardio regular rate, regular rhythm, S1 normal heart sound and S2 normal heart sound GI normal to inspection, nondistended, normoactive bowel sounds, soft to palpation, non-tender and non-distended Extremity normal to inspection and full ROM Neuro Sensorium / Orientation: awake and alert Assessment & Plan Assessment/Plan (1) Inability to walk: PLAN: Acute on chronic debility-patient will continue to see PT and OT, she will need temporary placement in TCU for short-term alf services (2) URMILA (acute kidney injury): PLAN: POA. Creatinine was 2.3 on admission, improved to 1.44 on 06/25. Furosemide held. (3) Confusion: PLAN: reported. dc oxycodone PLAN: Plan Chronic conditions: paroxysmal [id number] will remain on her current medications for rate control-metoprolol, she will remain on Eliquis for anticoagulation essential hypertension-patient will remain on metoprolol type 2 diabetes-patient is diet controlled hyperlipidemia-patient is on Lipitor chronic iron deficiency anemia-patient is on oral iron VTE prophylaxis: not indicated as already on apixaban. Disposition: plan for TCU. Charges/Coding Visit Charges Inpatient E&M: 22970 Subs Hosp L2
--- NOTE | 2023-06-26 09:02 | CASEMGMT ---
SW reviewed chart and noted patient needs SNF placement per therapy's recommendations. SW also noted physician's noted mentioned patient is interested in TCU. SW met with patient. Introduced self and role at [facility]. Patient confirmed she was interested in TCU. Patient declined a list of facilities. Patient seemed somewhat confused. Patient showed SW a text message patient was trying to type. Text message was gibberish with a few actual words. SW will check in with patient's daughter on d/c plan just to make sure another family member is aware of plan. SW made a referral to [facility] in TCU and they can accept patient. Triny Du AIR TRAFFIC SUPERVISOR JOSE
--- NOTE | 2023-06-26 09:53 | CASEMGMT ---
SW called patient's daughter, Sharon and she was in agreement with patient going to TCU for rehab. SW explained situation with cell phone and text message. Sharon said that is not normal for patient. SW will say something to the physician. Triny Du MSW JOSE
[2023-06-26] MEDS: Atorvastatin Calcium 40 MG Tablet PO (21:56)
[2023-06-27] VITALS (9 sets, daily range): BP systolic 141–154; BP diastolic 55–69; PULSE 76–88; RESP 16–18; TEMP 36.6–36.9; O2SAT 97–100
[2023-06-27] MEDS: Acetaminophen 325 MG Tablet 650 MG PO (03:56)
--- NOTE | 2023-06-27 08:11 | PN.HOSP_ITS ---
Reason for Visit Reason for Visit: Diagnoses Acute kidney failure, unspecified (06/24/23) Difficulty in walking, not elsewhere classified (06/24/23) Disorientation, unspecified (06/24/23) Unspecified fall, initial encounter (06/24/23) Subjective Subjective Denies complaints. Objective Data Objective Data Vital Signs: Vital Signs Temp Pulse Resp BP Pulse Ox O2 Del Method O2 Flow Rate 36.9 C 84 18 153/62 H 98 Room Air 98 06/27/23 03:51 06/27/23 03:51 06/27/23 03:51 06/27/23 03:51 06/27/23 03:51 06/27/23 07:50 06/26/23 10:29 Oxygen Flow Rate (L/min) 98 Oxygen Delivery Method Room Air Weight: 85 kg Body Mass Index (BMI) 32.1 Intake & Output: Intake and Output for Last 24 Hours 06/25/23 06/26/23 06/27/23 23:59 23:59 23:59 Intake Total 2002.33 / 2062.33 300 / 300 60 / 60 Output Total 700 / 850 850 / 850 100 / 100 Balance 1303.33 / 1213.33 -550 / -550 -40 / -40 Lab / Micro Data 06/24/23 05:42 06/25/23 09:23 Physical Exam Const alert and no apparent distress HEENT head/scalp atraumatic and moist oral mucous membranes Resp normal respiratory effort, no retractions, no use of accessory muscles and clear to auscultation bilaterally Cardio regular rate, regular rhythm, S1 normal heart sound, S2 normal heart sound and no murmurs GI normal to inspection, nondistended, normoactive bowel sounds, soft to palpation, non-tender and non-distended Assessment & Plan Assessment/Plan (1) Inability to walk: PLAN: Acute on chronic debility-patient will continue to see PT and OT, she will need temporary placement in TCU for short-term residential services (2) URMILA (acute kidney injury): PLAN: POA. Creatinine was 2.3 on admission, improved to 1.44 on 06/25. Furosemide held. (3) Confusion: PLAN: reported. dc oxycodone PLAN: Plan Chronic conditions: * paroxysmal [id number]-[id number] will remain on her current medications for rate control-metoprolol, she will remain on Eliquis for anticoagulation * essential hypertension-patient will remain on metoprolol * type 2 diabetes-patient is diet controlled * hyperlipidemia-patient is on Lipitor * chronic iron deficiency anemia-patient is on oral iron VTE prophylaxis: not indicated as already on apixaban. Disposition: plan for TCU. Charges/Coding Visit Charges Inpatient E&M: 27420 Subs Hosp L2
[2023-06-27] MEDS: Senna/Docusate Sodium 1 Tablet 2 TABLET PO ×2 (08:32→20:27)
[2023-06-27] MEDS: Metoprolol Tartrate 25 MG Tablet 12.5 MG PO ×2 (08:32→20:27)
[2023-06-27] MEDS: Multivitamins,Therapeutic Tablet 1 TABLET PO (08:32)
[2023-06-27] MEDS: Tamsulosin HCl 0.4 MG Capsule PO (08:32)
[2023-06-27] MEDS: APIXABAN 2.5 MG TABLET (WCH) PO ×2 (08:32→20:27)
--- NOTE | 2023-06-27 14:26 | TREXTCAR_ITS ---
Diet Diet Order/Speech Therapy: 06/24/23 06:09 Diet: Cardiac: Calorie-Controlled Food consistency:: Regular Liquid Consistency:: Regular/Thin Dietary Modifications:: Consistent Carbohydrate Sodium Restricted Diet Comments: 4oz vanilla milk shake BID with lunch and dinner How many daily calories?: 1800 calorie Routine Orders/Code Status Code Status: Full Code Therapies Weight Bearing: Full weight bearing Physical Therapy: Eval and Treat Occupational Therapy: Eval and Treat Problem/Diagnosis (1) Inability to walk: Status: Acute Code(s): R26.2 - Difficulty in walking, not elsewhere classified Plan: Acute on chronic debility-patient will continue to see PT and OT, she will need temporary placement in TCU for short-term intermediate services (2) URMILA (acute kidney injury): Status: Acute Code(s): N17.9 - Acute kidney failure, unspecified Plan: POA. Creatinine was 2.3 on admission, improved to 1.44 on 06/25. Furosemide held. (3) Confusion: Status: Acute Code(s): R41.0 - Disorientation, unspecified Plan: reported. dc oxycodone Plan Chronic conditions: * paroxysmal Z-oln-vuzpstf will remain on her current medications for rate control-metoprolol, she will remain on Eliquis for anticoagulation * essential hypertension-patient will remain on metoprolol * type 2 diabetes-patient is diet controlled * hyperlipidemia-patient is on Lipitor * chronic iron deficiency anemia-patient is on oral iron VTE prophylaxis: not indicated as already on apixaban. Disposition: plan for TCU. Allergies/Procedures Done in Hospital Allergies No Known Allergies Allergy (Verified 06/24/23 02:52) Procedures: None Type of Care/Length of Stay Estimated LOS: Convalescent Care Less Than 30 days Type of Care Needed: Skilled Rehab Potential: Fair Prognosis: Good Additional Orders/Day of Discharge Day of Discharge: 06/27/23 Dietary and Speech Recommendations Dietitian Recommendations/Changes: Will continue 1800 calorie/consistent carbohydrate; cardiac/sodium-restricted diet. Fluid restriction as indicated per physician. Will d/c glucena shake w/ medpass due to pt refusal. Will add 4oz vanilla milkshake BID w/ lunch and dinner per pt request. Discharge Plan Admission Admit Date/Time: 06/24/23 05:26 Primary Reason for Your Visit: Debility Attending Provider: Nicolás Nixon Primary Care Provider: Diann Bethea Consulting Providers: Tony Terry; Tomás Cantu Discharge Orders/Prescriptions Prescriptions: New acetaminophen 325 mg Tablet 650 mg PO Q6H PRN PRN (Reason: Pain 1-10 Or Fever >100.7) Qty: 0 0RF polysaccharide iron complex [Ferrex 150] 150 mg iron Capsule 150 mg PO DAILY Qty: 30 0RF Continued tamsulosin 0.4 mg capsule 0.4 mg PO DAILY multivitamin Tablet 1 tab PO DAILY albuterol sulfate [Ventolin HFA] 90 mcg/actuation Hfa Aerosol Inhaler 2 puff inhalation Q6H PRN PRN (Reason: Wheezing) 30 Days Qty: 16 0RF atorvastatin 40 mg tablet 40 mg PO QHS 30 Days Qty: 30 0RF metoprolol tartrate 25 mg tablet 12.5 mg PO BID 30 Days Qty: 60 0RF ondansetron HCl 4 mg tablet 4 mg PO TID PRN (Reason: nausea and vomiting) Eliquis 2.5 mg tablet 2.5 mg PO BID Qty: 180 3RF Discontinued gabapentin 100 mg capsule 100 mg PO Q8H furosemide 40 mg tablet 40 mg PO DAILY Qty: 90 3RF Referrals / Follow Up: Diann Bethea, STITCH BONDER MACHINE OPERATOR HELPER-C [Primary Care Provider] - Within 2 Weeks Disposition Disposition (needs filled in before D/C Order can be placed): [facility]
[2023-06-27] MEDS: Atorvastatin Calcium 40 MG Tablet PO (20:27)
[2023-06-28] VITALS (7 sets, daily range): BP systolic 150–159; BP diastolic 61–88; PULSE 63–90; RESP 12–18; TEMP 36.6–36.9; O2SAT 97–100
[2023-06-28] MEDS: Acetaminophen 325 MG Tablet 650 MG PO ×2 (02:38→20:55)
[2023-06-28] MEDS: Lidocaine 5% Patch 1 PATCH TOPICAL (06:31)
--- NOTE | 2023-06-28 08:07 | PN.HOSP_ITS ---
Reason for Visit Reason for Visit: Diagnoses Acute kidney failure, unspecified (06/24/23) Difficulty in walking, not elsewhere classified (06/24/23) Disorientation, unspecified (06/24/23) Unspecified fall, initial encounter (06/24/23) Subjective Subjective No new events. Objective Data Objective Data Vital Signs: Vital Signs Temp Pulse Resp BP Pulse Ox O2 Del Method O2 Flow Rate 36.8 C 63 18 159/77 H 99 Room Air 98 06/28/23 02:43 06/28/23 02:43 06/28/23 02:43 06/28/23 02:43 06/28/23 02:43 06/28/23 02:43 06/26/23 10:29 Oxygen Flow Rate (L/min) 98 Oxygen Delivery Method Room Air Weight: 85 kg Body Mass Index (BMI) 32.1 Intake & Output: Intake and Output for Last 24 Hours 06/26/23 06/27/23 06/28/23 23:59 23:59 23:59 Intake Total 300 / 300 910 / 1150 240 / 240 Output Total 850 / 850 650 / 650 300 / 300 Balance -550 / -550 260 / 500 -60 / -60 Lab / Micro Data 06/24/23 05:42 06/25/23 09:23 Physical Exam Const alert and no apparent distress HEENT head/scalp atraumatic and moist oral mucous membranes Extremity normal to inspection Neuro oriented x3 Assessment & Plan Assessment/Plan (1) Inability to walk: PLAN: Acute on chronic debility-patient will continue to see PT and OT, she will need temporary placement in TCU for short-term fpc services (2) URMILA (acute kidney injury): PLAN: POA. Creatinine was 2.3 on admission, improved to 1.44 on 06/25. Furosemide held. (3) Confusion: PLAN: reported. dc oxycodone PLAN: Plan Chronic conditions: * paroxysmal O-jqr-njicnlb will remain on her current medications for rate control-metoprolol, she will remain on Eliquis for anticoagulation * essential hypertension-patient will remain on metoprolol * type 2 diabetes-patient is diet controlled * hyperlipidemia-patient is on Lipitor * chronic iron deficiency anemia-patient is on oral iron VTE prophylaxis: not indicated as already on apixaban. Disposition: plan for [place] pending insurance authorization. Charges/Coding Visit Charges Inpatient E&M: 33189 Subs Hosp L1
[2023-06-28] MEDS: Multivitamins,Therapeutic Tablet 1 TABLET PO (08:31)
[2023-06-28] MEDS: Tamsulosin HCl 0.4 MG Capsule PO (08:31)
[2023-06-28] MEDS: Metoprolol Tartrate 25 MG Tablet 12.5 MG PO ×2 (08:32→21:01)
[2023-06-28] MEDS: Senna/Docusate Sodium 1 Tablet 2 TABLET PO ×2 (08:32→22:42)
[2023-06-28] MEDS: APIXABAN 2.5 MG TABLET (WCH) PO ×2 (08:32→21:01)
[2023-06-28] MEDS: 0.9% Saline Lock 10 ML Syringe IV (08:34)
--- NOTE | 2023-06-28 13:24 | CASEMGMT ---
Discharge Planning A list of SNF providers including quality and resource use data and consistent with the patient's preferred geographic region, medical needs, and insurance network was created in [facility] Guide.? This list was provided to the SW. Cindy Spencer Discharge Planning Asst.
--- NOTE | 2023-06-28 13:38 | CASEMGMT ---
TCU is not going to have a bed for patient. SW went to patient's room and talked with patient letting her know TCU will not have a bed. SW had a list of care home facility providers including quality and resource use data and consistent with patient?s preferred geographic region, medical needs, and insurance network were provided from the [facility] Guide. SW attempted to go over the list with patient, however patient said she does not know. Patient was okay with social work talking to her daughter. SW called patient's daughter Sharon and explained situation. SW went over the nursing homes on the list and patient's daughter's choice was [facility]. REESE asked Cindy d/c director of planning to please send a referral to [facility]. Triny Du PRECISION DANCER JOSE
--- NOTE | 2023-06-28 14:24 | CASEMGMT ---
[facility] is able to take patient and will start the pre-cert process. Plan: d/c to [facility] pending insurance approval. Triny GARCIA
[2023-06-28] MEDS: Atorvastatin Calcium 40 MG Tablet PO (21:01)
[2023-06-29 03:00] VITALS: BP 135/55; PULSE 85; RESP 16; TEMP 36.8; O2SAT 100
[2023-06-29 08:21] VITALS: BP 147/63; PULSE 90; RESP 16; TEMP 36.8; O2SAT 100
[2023-06-29] MEDS: Iron Polysaccharide Complex 150 MG CAPSULE PO (08:24)
[2023-06-29] MEDS: APIXABAN 2.5 MG TABLET (WCH) PO (08:24)
[2023-06-29 08:25] VITALS: PULSE 90
[2023-06-29] MEDS: Metoprolol Tartrate 25 MG Tablet 12.5 MG PO (08:25)
[2023-06-29] MEDS: Multivitamins,Therapeutic Tablet 1 TABLET PO (08:25)
[2023-06-29] MEDS: Tamsulosin HCl 0.4 MG Capsule PO (08:25)
[2023-06-29] MEDS: Lidocaine 5% Patch 1 PATCH TOPICAL (08:30)
[2023-06-29] MEDS: Acetaminophen 325 MG Tablet 650 MG PO (08:31)
[2023-06-29] MEDS: 0.9% Saline Lock 10 ML Syringe IV (08:31)
--- NOTE | 2023-06-29 10:26 | PCM.PN.HOSP ---
Reason for Visit Reason for Visit: Diagnoses Acute kidney failure, unspecified (06/24/23) Difficulty in walking, not elsewhere classified (06/24/23) Disorientation, unspecified (06/24/23) Unspecified fall, initial encounter (06/24/23) Subjective Subjective Feels well. No events. Objective Data Objective Data Vital Signs: Vital Signs Temp Pulse Resp BP Pulse Ox O2 Del Method O2 Flow Rate 36.8 C 90 16 147/63 H 100 Room Air 98 06/29/23 08:21 06/29/23 08:25 06/29/23 08:21 06/29/23 08:21 06/29/23 08:21 06/29/23 08:21 06/26/23 10:29 Oxygen Flow Rate (L/min) 98 Oxygen Delivery Method Room Air Weight: 85 kg Body Mass Index (BMI) 32.1 Intake & Output: Intake and Output for Last 24 Hours 06/27/23 06/28/23 06/29/23 23:59 23:59 23:59 Intake Total 910 / 1150 360 / 360 120 / 120 Output Total 650 / 650 300 / 300 150 / 150 Balance 260 / 500 60 / 60 -30 / -30 Lab / Micro Data 06/24/23 05:42 06/25/23 09:23 Physical Exam Const alert and no apparent distress HEENT head/scalp atraumatic and moist oral mucous membranes Neuro Sensorium / Orientation: awake and alert Psych affect normal Assessment & Plan Assessment/Plan (1) Inability to walk: PLAN: Acute on chronic debility-patient will continue to see PT and OT, she will need temporary placement in TCU for short-term alf services (2) URMILA (acute kidney injury): PLAN: POA. Creatinine was 2.3 on admission, improved to 1.44 on 06/25. Furosemide held. (3) Confusion: PLAN: reported. dc oxycodone PLAN: Plan Chronic conditions: paroxysmal Y-imv-fpdrslf will remain on her current medications for rate control-metoprolol, she will remain on Eliquis for anticoagulation essential hypertension-patient will remain on metoprolol type 2 diabetes-patient is diet controlled hyperlipidemia-patient is on Lipitor chronic iron deficiency anemia-patient is on oral iron VTE prophylaxis: not indicated as already on apixaban. Disposition: plan for [place] pending insurance authorization.
--- NOTE | 2023-06-29 11:10 | CASEMGMT ---
Patient was approved for [facility]. SW notified physician and patient will go today. SW completed a PASRR in [facility] as patient is observation status. Plan: d/c to [facility] under skilled level of care. Physicians will transport patient via wheelchair. Triny GARCIA
--- NOTE | 2023-06-29 11:12 | PCM.DC.SUM ---
Providers Date of Admission: 06/24/23 Primary Care Physician: KIYA Martínez Reason For Visit: FALL, COULDNT AMBULATE Diagnosis Discharge Diagnosis (1) Inability to walk: Status: Acute Code(s): R26.2 - Difficulty in walking, not elsewhere classified Plan: Acute on chronic debility-patient will continue to see PT and OT, she will need temporary placement in TCU for short-term group home services (2) URMILA (acute kidney injury): Status: Acute Code(s): N17.9 - Acute kidney failure, unspecified Plan: POA. Creatinine was 2.3 on admission, improved to 1.44 on 06/25. Furosemide held. (3) Confusion: Status: Acute Code(s): R41.0 - Disorientation, unspecified Plan: reported. dc oxycodone Plan Chronic conditions: paroxysmal A-mya-dwjcbat will remain on her current medications for rate control-metoprolol, she will remain on Eliquis for anticoagulation essential hypertension-patient will remain on metoprolol type 2 diabetes-patient is diet controlled hyperlipidemia-patient is on Lipitor chronic iron deficiency anemia-patient is on oral iron VTE prophylaxis: not indicated as already on apixaban. Disposition: plan for [place] pending insurance authorization. Medications at Discharge Home Medications albuterol sulfate 90 mcg/actuation aerosol inhaler (Ventolin HFA) 2 puff inhalation Q6H PRN PRN Wheezing 30 days #16 grams 09/17/21 atorvastatin 40 mg tablet 40 mg PO QHS Cholesterol 30 days #30 tabs 09/17/21 metoprolol tartrate 25 mg tablet 12.5 mg (1/2 x 25 mg) PO BID blood pressure 30 days #60 tabs 09/17/21 multivitamin 1 tab PO DAILY 12/09/21 tamsulosin 0.4 mg capsule 0.4 mg PO DAILY 12/09/21 apixaban 2.5 mg tablet (Eliquis) 2.5 mg PO BID #180 tabs 12/19/22 ondansetron HCl 4 mg tablet 4 mg PO TID PRN nausea and vomiting 06/24/23 acetaminophen 325 mg tablet 650 mg (2 x 325 mg) PO Q6H PRN PRN Pain 1-10 Or Fever >100.7 #0 tabs 06/27/23 polysaccharide iron complex 150 mg iron capsule (Ferrex) 150 mg PO DAILY #30 caps 06/27/23 Hospital Course Operations None Procedures None Summary of Care Provided Minutes Spent on Discharge: 28 Weight / BMI Weight Weight: 85 kg Body Mass Index (BMI) 32.1 ABG / Lab / Microbiology Data 06/24/23 05:42 06/25/23 09:23 D/C Instructions Discharge Diet: No restrictions Meaningful Use Info Meaningful Use Diagnoses (Choose all that apply): None applicable Discharge Plan Admission Admit Date/Time: 06/24/23 05:26 Primary Reason for Your Visit: Debility Attending Provider: Nicolás Nixon Primary Care Provider: Diann Bethea Consulting Providers: Tony Terry; Tomás Cantu Discharge Orders/Prescriptions Prescriptions: New acetaminophen 325 mg Tablet 650 mg PO Q6H PRN PRN (Reason: Pain 1-10 Or Fever >100.7) Qty: 0 0RF polysaccharide iron complex [Ferrex 150] 150 mg iron Capsule 150 mg PO DAILY Qty: 30 0RF Continued tamsulosin 0.4 mg capsule 0.4 mg PO DAILY multivitamin Tablet 1 tab PO DAILY albuterol sulfate [Ventolin HFA] 90 mcg/actuation Hfa Aerosol Inhaler 2 puff inhalation Q6H PRN PRN (Reason: Wheezing) 30 Days Qty: 16 0RF atorvastatin 40 mg tablet 40 mg PO QHS 30 Days Qty: 30 0RF metoprolol tartrate 25 mg tablet 12.5 mg PO BID 30 Days Qty: 60 0RF ondansetron HCl 4 mg tablet 4 mg PO TID PRN (Reason: nausea and vomiting) Eliquis 2.5 mg tablet 2.5 mg PO BID Qty: 180 3RF Discontinued gabapentin 100 mg capsule 100 mg PO Q8H furosemide 40 mg tablet 40 mg PO DAILY Qty: 90 3RF Referrals / Follow Up: Diann Bethea, CHECKER-C [Primary Care Provider] - Within 2 Weeks Disposition Disposition (needs filled in before D/C Order can be placed): Residential Facility Charges/Coding Visit Charges Inpatient E&M: 18222 Disch Hosp
--- NOTE | 2023-06-29 11:28 | CASEMGMT ---
Discharge Planning Discharge orders, signed med list, and transport time sent to [facility] via [facility]. [facility] will transport patient by wheelchair at 12:30. Nursing, SW, and patient updated. left for patients daughter. Cindy Spencer, Discharge Planning Asst.
--- NOTE | 2023-06-29 12:29 | CASEMGMT ---
Discharge Planning Covid results sent to [facility] via [employer]. Cindy Spencer, Discharge Planning Asst.
== END 2023-06-29 11:12 | disposition skilled nursing facility (03) ==
LOC: ED 05:27 → PCU 05:40
PROVIDERS: Internal Medicine; Admitting Provider Internal Medicine; Emergency Provider Emergency Medicine; PCP Nurse Practitioner Family
DX: R26.2 Difficulty in walking, not elsewhere classified (principal); N17.9 Acute kidney failure, unspecified; I13.0 Hypertensive heart and chronic kidney disease with heart failure and stage 1 through stage 4 chronic kidney disease, or unspecified chronic kidney disease; I50.32 Chronic diastolic (congestive) heart failure; I27.21 Secondary pulmonary arterial hypertension; E11.22 Type 2 diabetes mellitus with diabetic chronic kidney disease; I48.0 Paroxysmal atrial fibrillation; E66.01 Morbid (severe) obesity due to excess calories; D68.69 Other thrombophilia; N18.32 Chronic kidney disease, stage 3b; E78.5 Hyperlipidemia, unspecified; Z87.891 Personal history of nicotine dependence; M25.552 Pain in left hip; Z79.01 Long term (current) use of anticoagulants; R53.1 Weakness; Z79.899 Other long term (current) drug therapy; Z68.36 Body mass index [BMI] 36.0-36.9, adult; R41.0 Disorientation, unspecified; D50.9 Iron deficiency anemia, unspecified
CPT/HCPCS: 36415; 70450; 72072; 73502; 73562; 80048; 83735; 85025; 87426; 94668; 96360; 96361; 96372; 97110; 97162; 97166; 97530; 97535; 97802; 99221; 99252; 99285; J7040; J7120; A4216; G0378; G0463

== ENCOUNTER 2023-08-02 11:21 | Emergency (ER) | payer MEDICARE, SELFPAY ==
[2023-08-02 11:22] VITALS: BP 123/93; PULSE 90; RESP 16; TEMP 36.2; O2SAT 99; BMI 36.3
[2023-08-02 11:26] VITALS: O2SAT 97
--- NOTE | 2023-08-02 11:53 | EKG12_ITS ---
Test Reason : FALL Blood Pressure : / mmHG Vent. Rate : 098 BPM Atrial Rate : 000 BPM P-R Int : 000 ms QRS Dur : 086 ms QT Int : 350 ms P-R-T Axes : 000 -76 081 degrees QTc Int : 446 ms Atrial fibrillation Left axis deviation Septal infarct , age undetermined Inferior infarct , age undetermined Abnormal ECG Confirmed by VAIBHAV OSWALD, TANGELA ([id number]), food expeditor DELVIS CASTLE ([id number]) on 08/03/2023 10:48:41 AM Referred By: ISABEL Confirmed By:TANGELA ESPOSITO MD
--- NOTE | 2023-08-02 11:58 | EX.ED.DYSGE1 ---
HPI <KIYA Limon - Last Filed: 08/02/23 15:37> History of Present Illness Chief Complaint: Fall Narrative Narrative: Patient is an 82-year-old female with history of obesity, atrial fibrillation on Eliquis, hypertension, diabetes who presents to the emergency department after mechanical fall. Patient was trying to open the door for the physical therapist who comes in to help her walk. She turned wrong fell and heard a loud pop in her leg. She could not get up and EMS had to be called. She denies any head or neck injury. Most of patient's pain is throughout the right leg. She does have deformity to the lower right leg just below the knee. She has significant pain, is here for evaluation. Patient is alert and orient x4. Per the family, she is acting appropriate. [facility] <KIYA Limon - Last Filed: 08/02/23 15:37> [facility] Medical History Anemia Atrial fibrillation with rapid ventricular response (09/04/21) Chronic kidney disease, stage 3 Debility Diabetes Diastolic congestive heart failure Hyperlipidemia Hypertension Morbid obesity Osteoarthritis Paroxysmal atrial fibrillation Secondary pulmonary arterial hypertension Weakness Home Medications albuterol sulfate 90 mcg/actuation aerosol inhaler (Ventolin HFA) 2 puff inhalation Q6H PRN PRN Wheezing 30 days #16 grams 09/17/21 [Rx Last Taken Unknown] atorvastatin 40 mg tablet 40 mg PO QHS Cholesterol 30 days #30 tabs 09/17/21 [Rx Last Taken Unknown] metoprolol tartrate 25 mg tablet 12.5 mg (1/2 x 25 mg) PO BID blood pressure 30 days #60 tabs 09/17/21 [Rx Last Taken Unknown] multivitamin 1 tab PO DAILY 12/09/21 [History Last Taken Unknown] tamsulosin 0.4 mg capsule 0.4 mg PO DAILY 12/09/21 [History Last Taken Unknown] apixaban 2.5 mg tablet (Eliquis) 2.5 mg PO BID #180 tabs 12/19/22 [Rx Last Taken Unknown] ondansetron HCl 4 mg tablet 4 mg PO TID PRN nausea and vomiting 06/24/23 [History Last Taken Unknown] acetaminophen 325 mg tablet 650 mg (2 x 325 mg) PO Q6H PRN PRN Pain 1-10 Or Fever >100.7 #0 tabs 06/27/23 [Rx Last Taken Unknown] polysaccharide iron complex 150 mg iron capsule (Ferrex) 150 mg PO DAILY #30 caps 06/27/23 [Rx Last Taken Unknown] tramadol 50 mg tablet 50 mg PO Q6H PRN pain #14 tabs 07/11/23 [Rx Last Taken Unknown] Allergy/AdvReac Type Severity Reaction Status Date / Time No Known Allergies Allergy Verified 08/02/23 11:25 Family History Mother Diabetes Father Diabetes CAD (coronary artery disease) Sister Diabetes Surgical History History of cystoscopy (2004) Social History household members: children Smoking Status: Former smoker how long ago did patient quit smokin alcohol intake: never substance use type: does not use caffeine: Yes Type: carbonated beverages Number of servings: 1 ROS <KIYA Limon - Last Filed: 08/02/23 15:37> ROS ED ROS Narrative Constitutional: Negative for fever, chills, weight loss, weakness Eyes: Negative for vision loss, vision change, double vision ENT: Negative for any sore throat, ear pain, congestion Cardiovascular: Negative for any chest pain, tightness, palpitations Respiratory: Negative for any cough, sputum production, hemoptysis, dyspnea, dyspnea on exertion, orthopnea Gastrointestinal: Negative for any abdominal pain, nausea, vomiting, diarrhea, constipation, blood in stool, blood in vomit : Negative for any urinary frequency, dysuria, retention, blood in urine Muscle skeletal: Negative for any myalgias, arthralgias, neck pain, back pain. Positive for right hip, right lower extremity pain Neurological: Negative for any headache, syncope, numbness or tingling, dizziness Skin: Negative for any rashes, lumps, itching, abrasions, lacerations Psychiatric: Negative for any depression, anxiety, stress, suicidal ideation, homicidal ideation Hematologic: Negative for any easy bruising, excessive bruising, easy bleeding Allergies: Negative for any eczema, hives, rash EXAM <KIYA Limon - Last Filed: 08/02/23 15:37> Physical Exam Narrative Exam Narrative: Vital signs reviewed. HEET: Head normocephalic atraumatic, TMs clear bilaterally. Posterior pharynx is clear, moist mucous membranes. Nares clear bilaterally. Pupils are equal round reactive to light. Negative for any hemotympanum, never septal hematoma. Neck: Supple with no lymphadenopathy or tenderness. No signs of meningismus. Cardiac: Regular rate and rhythm no murmurs gallops or rubs, equal peripheral pulses bilaterally. Respiratory: Lungs clear to auscultation bilaterally. No chest tenderness. Abdomen: Soft, nontender, nondistended. No abdominal bruit or pulsatile masses. No hepatosplenomegaly Extremities: Patient's pain is mostly located into the right lower extremity. Patient's pain on palpation of the lateral hip. Patient's knee has pain on palpation, patient does have deformity, significant edema inferiorly to the proximal tibia-fibula area. +2 pedal pulse. Patient is able to dorsiflex, plantarflex the right foot. I was unable to perform any flexion or extension of the right hip secondary to significant pain to the lower right extremity. Neuro: Cranial nerves II through XII intact, no focal neurological deficits. Skin: Clean dry and intact with no rash, purpura, petechiae, vesicles or pustules. Backs/flank: No CVA tenderness, no midline spinal tenderness, no deformity. Psych: Normal mood and affect. No SI, HI or acute psychosis. Const Vital Signs: 08/02/23 11:22 08/02/23 11:08/02/23 14:42 Temperature 97.1 F L Temperature Source Temporal Pulse Rate 90 Respiratory Rate 16 18 Respiratory Effort Normal Non-Labored Respiratory Depth Normal Respiratory Pattern Normal Blood Pressure 123/93 H Blood Pressure Mean 103 Pulse Ox 99 97 Oxygen Delivery Method Room Air Nasal Cannula Room Air <Dr. Miquel lBankenship DO - Last Filed: 08/07/23 23:27> Physical Exam Const Vital Signs: 08/02/23 11:22 08/02/23 11:26 08/02/23 14:42 Temperature 97.1 F L Temperature Source Temporal Pulse Rate 90 Respiratory Rate 16 18 Respiratory Effort Normal Non-Labored Respiratory Depth Normal Respiratory Pattern Normal Blood Pressure 123/93 H Blood Pressure Mean 103 Pulse Ox 99 97 Oxygen Delivery Method Room Air Nasal Cannula Room Air [facility] <Pipo CooperKIYA camara - Last Filed: 08/02/23 15:37> [facility] Lab Data Labs: Laboratory Results - last 24 hr 08/02/23 08/02/23 08/02/23 11:33 12:07 12:56 WBC 11.9 H RBC 3.18 L Hgb 9.9 L Hct 31.9 L MCV 100.3 H MCH 31.1 MCHC 31.0 L RDW Std Deviation 63.3 H RDW Coeff of Karen 17.2 H Plt Count 315 MPV 10.3 Immature Gran % (Auto) 0.500 Neut % (Auto) 64.0 Lymph % (Auto) 26.2 Kimball % (Auto) 5.3 Eos % (Auto) 3.6 Baso % (Auto) 0.4 Absolute Neuts (auto) 7.6 Absolute Lymphs (auto) 3.12 Nucleated RBC % 0 PT 16.3 H INR 1.3 Sodium 141 Potassium 4.1 Chloride 111 H Carbon Dioxide 25.0 Anion Gap 5 BUN 30 H Creatinine 1.65 H Estim Creat Clear Calc 23.09 Est GFR (MDRD) Af Amer 38 L Est GFR (MDRD) Non-Af 32 L BUN/Creatinine Ratio 18.2 Glucose 102 Calcium 9.3 Urine Color Yellow Urine Clarity Sl. Cloudy Urine pH 7.0 Ur Specific [place] 1.010 Urine Protein 30 H Urine Glucose (UA) Normal Urine Ketones Negative Urine Occult Blood 50 H Urine Nitrite Negative Urine Bilirubin Negative Urine Urobilinogen Normal Ur Leukocyte Esterase 500 H Urine RBC 0-5 SEEN Urine WBC 25-50 SEEN Ur Squamous Epith Cells 0-5 SEEN Urine Bacteria 3+ Urine Mucus 0 SEEN Blood Type O NEGATIVE Antibody Screen NEGATIVE Radiography Diagnostic Testing: Clinical Impression(s) from Imaging Studies Chest X-Ray 08/02/23 12:30 IMPRESSION: Stable chest with no acute or active cardiopulmonary disease. Electronically Signed: Kaleb Bruner MD at 12:56 EST , Femur X-Ray 08/02/23 12:30 IMPRESSION: Osteopenia with moderate tricompartmental arthrosis of the knee. No other abnormality. Electronically Signed: Kaleb Bruner MD at 13:09 EST , Pelvis X-Ray 08/02/23 12:30 IMPRESSION: Osteopenia with mild arthrosis of both hips. No other abnormality. Electronically Signed: Kaleb Bruner MD at 13:07 EST , Tibia/Fibula X-Ray 08/02/23 12:30 IMPRESSION: Osteopenia with proximal tibial and fibular fractures with marked focal soft tissue swelling at the fracture sites as described. Electronically Signed: Kaleb Bruner MD at 13:10 EST , EKG A-fib: Comments: Atrial fibrillation, rate 98 bpm, QRS duration 86 ms, no acute ST elevation, no acute infarct noted. Treatment and Re-Evaluation :: Patient appears generally well, patient appears nontoxic, vital signs are stable. Presenting to the emergency department after mechanical fall and was brought in by EMS. Differential diagnosis includes right hip fracture, right hip contusion, tibia-fibula fracture, knee strain. Upon initial evaluation, I am concerned for fracture, deformity of the tibia and fibula. Patient received multiple x-rays of the right hip, femur, knee, tibia-fibula as well as ankle. All radiologic examinations were read, reviewed by the emergency department attending. From these reads, a plan of care will be put in place. Patient has no headache, no evidence of any head trauma, patient not think she hit her head, CT scan of brain will not be added at this time. Basic laboratory values will be drawn as well as type and screen concerning for possible surgery. Upon initial evaluation, I do believe patient needs to be admitted to the hospital, we did discuss this. Patient be given IV Zofran, IV morphine. Patient's laboratory values showed a slight leukocytosis white blood count 11.9, hemoglobin is 9.9, this seems baseline for the patient over the last 2 to 3 months. Patient's chemistries show renal sufficiency with a creatinine of 1.6, this is elevated, patient was 0.94 on 10 July. However patient has been as high as 2.3 in June. Patient's x-rays of the chest were unremarkable, femur, knee, hips were grossly unremarkable, did show chronic changes, arthritis. Tibia-fibula showed osteopenia with proximal tibial and fibular fractures with marked focal soft tissue swelling. I will reach out to orthopedics to ensure that this can stay at this facility. Patient was placed in a long knee immobilizer for comfort. Patient responded well to pain medicine. Gutierres was placed. Orthopedics here in [place], declined the patient. Patient will need to be transferred to [facility] as a trauma. I spoke speak to both the transfer line as well as the ER attending. <Dr. Miquel Blankenship, DO - Last Filed: 08/07/23 23:27> [facility] Lab Data Attestation: I reviewed the patient's lab results. Labs: Laboratory Results - last 24 hr 08/02/23 08/02/23 08/02/23 11:33 12:07 12:56 WBC 11.9 H RBC 3.18 L Hgb 9.9 L Hct 31.9 L MCV 100.3 H MCH 31.1 MCHC 31.0 L RDW Std Deviation 63.3 H RDW Coeff of Karen 17.2 H Plt Count 315 MPV 10.3 Immature Gran % (Auto) 0.500 Neut % (Auto) 64.0 Lymph % (Auto) 26.2 Kimball % (Auto) 5.3 Eos % (Auto) 3.6 Baso % (Auto) 0.4 Absolute Neuts (auto) 7.6 Absolute Lymphs (auto) 3.12 Nucleated RBC % 0 PT 16.3 H INR 1.3 Sodium 141 Potassium 4.1 Chloride 111 H Carbon Dioxide 25.0 Anion Gap 5 BUN 30 H Creatinine 1.65 H Estim Creat Clear Calc 23.09 Est GFR (MDRD) Af Amer 38 L Est GFR (MDRD) Non-Af 32 L BUN/Creatinine Ratio 18.2 Glucose 102 Calcium 9.3 Urine Color Yellow Urine Clarity Sl. Cloudy Urine pH 7.0 Ur Specific [place] 1.010 Urine Protein 30 H Urine Glucose (UA) Normal Urine Ketones Negative Urine Occult Blood 50 H Urine Nitrite Negative Urine Bilirubin Negative Urine Urobilinogen Normal Ur Leukocyte Esterase 500 H Urine RBC 0-5 SEEN Urine WBC 25-50 SEEN Ur Squamous Epith Cells 0-5 SEEN Urine Bacteria 3+ Urine Mucus 0 SEEN Blood Type O NEGATIVE Antibody Screen NEGATIVE Radiography Diagnostic Testing: Clinical Impression(s) from Imaging Studies Chest X-Ray 08/02/23 12:30 IMPRESSION: Stable chest with no acute or active cardiopulmonary disease. Electronically Signed: Kaleb Bruner MD at 12:56 EST , Femur X-Ray 08/02/23 12:30 IMPRESSION: Osteopenia with moderate tricompartmental arthrosis of the knee. No other abnormality. Electronically Signed: Kaleb Bruner MD at 13:09 EST , Pelvis X-Ray 08/02/23 12:30 IMPRESSION: Osteopenia with mild arthrosis of both hips. No other abnormality. Electronically Signed: Kaleb Bruner MD at 13:07 EST , Tibia/Fibula X-Ray 08/02/23 12:30 IMPRESSION: Osteopenia with proximal tibial and fibular fractures with marked focal soft tissue swelling at the fracture sites as described. Electronically Signed: Kaleb Bruner MD at 13:10 EST , Treatment and Re-Evaluation :: Patient appears generally well, patient appears nontoxic, vital signs are stable. Presenting to the emergency department after mechanical fall and was brought in by EMS. Differential diagnosis includes right hip fracture, right hip contusion, tibia-fibula fracture, knee strain. Upon initial evaluation, I am concerned for fracture, deformity of the tibia and fibula. Patient received multiple x-rays of the right hip, femur, knee, tibia-fibula as well as ankle. All radiologic examinations were read, reviewed by the emergency department attending. From these reads, a plan of care will be put in place. Patient has no headache, no evidence of any head trauma, patient not think she hit her head, CT scan of brain will not be added at this time. Basic laboratory values will be drawn as well as type and screen concerning for possible surgery. Upon initial evaluation, I do believe patient needs to be admitted to the hospital, we did discuss this. Patient be given IV Zofran, IV morphine. Patient's laboratory values showed a slight leukocytosis white blood count 11.9, hemoglobin is 9.9, this seems baseline for the patient over the last 2 to 3 months. Patient's chemistries show renal sufficiency with a creatinine of 1.6, this is elevated, patient was 0.94 on 10 July. However patient has been as high as 2.3 in June. Patient's x-rays of the chest were unremarkable, femur, knee, hips were grossly unremarkable, did show chronic changes, arthritis. Tibia-fibula showed osteopenia with proximal tibial and fibular fractures with marked focal soft tissue swelling. I will reach out to orthopedics to ensure that this can stay at this facility. Patient was placed in a long knee immobilizer for comfort. Patient responded well to pain medicine. Gutierres was placed. Attending note: Patient seen and evaluated with operating room nurse. I perform my own lqnt-hy-rlic evaluation. I agree with the plan of work-up. Mechanical fall at home brought by EMS in a vacuum splint. No head injuries. Patient on Eliquis for history of atrial fibrillation. No headaches. Pain in right lower leg. Patient does not follow an orthopedist. Pain in upper leg primary lower leg on the right side. No chest or back pain. Exam in a vacuum splint, mild pain of the distal femur however or pain proximal tib-fib with swelling. Skin is intact. Soft compartments. Neuro vas intact. Patient treated for pain medicines, x-ray 1 view pelvis, 2 views femur, 2 views tib-fib,Interpreted by myself and read by radiology proximal tib-fib fracture. She is placed in a knee immobilizer. 1 view preop chest x-ray interpreted myself shows no acute process. EKG with rate controlled A-fib. We discussed with on-call orthopedist Dr. Meléndez who recommended transfer to a trauma center with her age and comorbidities. In addition did speak with additional orthopedic group who has the same recommendations at this time. Discussed with family. Will work on transferring to a larger hospital for further management. Patient's pain controlled with immobilizer at this time. Discharge Plan Triage Chief Complaint: Fall ED Midlevel Provider: Pipo Prabhakar ED Provider: Miquel Blankenship Dx/Rx/DC Orders Clinical Impression: Closed fracture of right lower leg, A-fib, Chronic anticoagulation, Fall, Fracture of proximal end of right tibia, Fracture of fibula, proximal Prescriptions: No Action tamsulosin 0.4 mg capsule 0.4 mg PO DAILY multivitamin Tablet 1 tab PO DAILY albuterol sulfate [Ventolin HFA] 90 mcg/actuation Hfa Aerosol Inhaler 2 puff inhalation Q6H PRN PRN (Reason: Wheezing) 30 Days Qty: 16 0RF atorvastatin 40 mg tablet 40 mg PO QHS 30 Days Qty: 30 0RF metoprolol tartrate 25 mg tablet 12.5 mg PO BID 30 Days Qty: 60 0RF ondansetron HCl 4 mg tablet 4 mg PO TID PRN (Reason: nausea and vomiting) acetaminophen 325 mg Tablet 650 mg PO Q6H PRN PRN (Reason: Pain 1-10 Or Fever >100.7) Qty: 0 0RF polysaccharide iron complex [Ferrex 150] 150 mg iron Capsule 150 mg PO DAILY Qty: 30 0RF Eliquis 2.5 mg tablet 2.5 mg PO BID Qty: 180 3RF tramadol 50 mg tablet 50 mg PO Q6H PRN (Reason: pain) Qty: 14 0RF Primary Care Provider: Diann Bethea Referrals: Diann Bethea, MEDICAL CHIEF TECHNICIAN-C [Primary Care Provider] - Disposition Disposition: Acute Care Hospital Discharge Location: [facility] Discharge Date/Time: 08/02/23 16:35
[2023-08-02 12:01] LABS: Absolute Lymphocyte Count 3.12 X10^3/uL (0.83-4.51); Absolute Neutrophil Count 7.6 X10^3/uL (2.0-7.7); Basophil# 0.05 X10^3/uL; Basophil% 0.4 % (0-1); Eosinophil# 0.43 X10^3/uL; Eosinophils% 3.6 % (0-5); Hematocrit 31.9 % (37-47); Hemoglobin 9.9 g/dL (12.0-15.0); Lymphocyte # 3.12 X10^3/ul (0.83-4.51); Lymphocyte % 26.2 % (19-41); Mean Corpuscular Hgb 31.1 pg (27.0-32.0); Mean Corpuscular Volume 100.3 fL (81-99); Mean Platelet Vol. 10.3 fl (6.2-12.0); Monocyte# 0.63 X10^3/uL; Monocyte% 5.3 % (0-10); NRBC Flagged by Analyzer 0 % (0-5); Platelet Count 315 K/mm3 (150-450); RBC Distribution Width CV 17.2 % (11.6-14.6); RBC Distribution Width SD 63.3 fl (35.1-43.9); Red Blood Count 3.18 M/mm3 (4.2-5.4); White Blood Count 11.9 K/mm3 (4.4-11.0)
[2023-08-02 12:10] LABS: International Normalized Ratio 1.3; Prothrombin Time (Protime)PT. 16.3 SECONDS (11.7-14.9)
[2023-08-02 12:11] LABS: Mucous, Urine 0 SEEN /hpf (<or=2+)
[2023-08-02] MEDS: Ondansetron 4 MG/2 ML Vial IV ×2 (12:11→16:18)
[2023-08-02] MEDS: Morphine 4 MG/ML Syringe IV ×2 (12:11→16:18)
[2023-08-02 12:13] LABS: Color, Urine Yellow (Yellow); Glucose, Dipstick Normal (Normal); Ketone-Dipstick Negative (Negative); Leukocyte Esterase-Dipstick 500 /ul (Negative); Nitrite-Dipstick Negative (Negative); Occult Blood-Urine 50 /ul (Negative); Protein-Dipstick 30 mg/dl (Negative); Urine Bilirubin Dipstick Negative (Negative); Urine Clarity Sl. Cloudy (Clear); Urine Urobilinogen Normal (Normal)
[2023-08-02 12:16] LABS: Anion Gap 5 (5-15); BUN 30 mg/dL (7-18); BUN/Creat Ratio 18.2 RATIO (10-20); Calcium,Total 9.3 mg/dL (8.5-10.1); Chloride 111 mmol/L (98-107); Creatinine, Serum 1.65 mg/dL (0.55-1.02); EST Glomerular Filtration Rate 32 mL/min (>60); Est Glom Filt Rate - Afr Amer 38 mL/min (>60); Estimated Creatinine Clearance 23.09 ml/min; Glucose 102 mg/dL (74-106); Potassium 4.1 mmol/L (3.5-5.1); Sodium Level 141 mmol/L (136-145)
--- NOTE | 2023-08-02 12:30 | RAD_ITS ---
STUDY: X-RAY CHEST REASON FOR EXAM: Female, 82 years old. Cough. TECHNIQUE: Single frontal view of the chest. COMPARISON: September 2021 FINDINGS: Cardiomegaly, aortic tortuosity, prominent central pulmonary arteries, elevation of both hemidiaphragms and bibasilar atelectasis, right greater than left, with mild diffuse interstitial pattern, unchanged. No abnormality of the visualized soft tissue structures of the upper abdomen. RAD/Chest 1 View (Portable) IMPRESSION: Stable chest with no acute or active cardiopulmonary disease. Electronically Signed: Kaleb Bruner MD at 12:56 EST ,
--- NOTE | 2023-08-02 12:30 | RAD_ITS ---
STUDY: X-RAY - RIGHT TIBIA AND FIBULA REASON FOR EXAM: Female, 82 years old. Fall. Pain. TECHNIQUE: 2 view(s) of the tibia and fibula were obtained on 4 images. COMPARISON: None. FINDINGS: Osteopenia. Comminuted oblique fractures of the proximal tibial and proximal fibula with slight impaction at the fracture site and slight anterior displacement of both distal fragments. Marked soft tissue swelling about the fracture site. Arthrosis of the ankle. RAD/Tibia & Fibula 2 Views IMPRESSION: Osteopenia with proximal tibial and fibular fractures with marked focal soft tissue swelling at the fracture sites as described. Electronically Signed: Kaleb Bruner MD at 13:10 EST ,
--- NOTE | 2023-08-02 12:30 | RAD_ITS ---
STUDY: X-RAY - RIGHT FEMUR REASON FOR STUDY: Female, 82 years old. Fall. Pain. TECHNIQUE: 4 view(s) of the femur. COMPARISON: None. FINDINGS: Osteopenia. Moderate tricompartmental arthrosis of the knee. Normal visualized femur. Normal soft tissues. RAD/Femur Min 2 Views IMPRESSION: Osteopenia with moderate tricompartmental arthrosis of the knee. No other abnormality. Electronically Signed: Kaleb Bruner MD at 13:09 EST ,
--- NOTE | 2023-08-02 12:30 | RAD_ITS ---
STUDY: X-RAY - PELVIS REASON FOR EXAM: Female, 82 years old. Fall. Pain. TECHNIQUE: One view of the pelvis was obtained. COMPARISON: None. FINDINGS: There is a non-specific bowel gas pattern phleboliths.. Normal visualized soft tissue structures. Osteopenia. Normal bilateral iliac wings, sacroiliac joints and visualized sacrum. Normal visualized bilateral superior and inferior pubic rami. Normal pubic symphysis. Normal ischial tuberosities. Mild arthrosis of both hips. RAD/Pelvis 1 or 2 Views IMPRESSION: Osteopenia with mild arthrosis of both hips. No other abnormality. Electronically Signed: Kaleb Bruner MD at 13:07 EST ,
[2023-08-02 12:31] LABS: Bacteria 3+ /hpf (None Seen); Red Blood Cells-Urine 0-5 SEEN /hpf (0-5); Squamous Epithelial Cells - UA 0-5 SEEN /hpf (5-10); White Blood Cells 25-50 SEEN /hpf (0-5)
[2023-08-02] MEDS: Ceftriaxone 1 GM/50 ML BAG IV (13:46)
[2023-08-02 14:42] VITALS: RESP 18
--- NOTE | 2023-08-02 15:16 | NURSING ---
CALLED [facility]ASHA[facility] KEENAN FOR TRANSFER
[2023-08-02 16:24] VITALS: BP 139/95; PULSE 87; RESP 18; TEMP 36.2; O2SAT 94
== END 2023-08-02 16:35 | disposition short-term general hospital (02) ==
PROVIDERS: Nurse Practitioner; Emergency Provider Emergency Medicine; PCP Nurse Practitioner Family; Visit Provider Emergency Medicine
DX: S82.101A Unspecified fracture of upper end of right tibia, initial encounter for closed fracture (principal); I50.32 Chronic diastolic (congestive) heart failure; I13.0 Hypertensive heart and chronic kidney disease with heart failure and stage 1 through stage 4 chronic kidney disease, or unspecified chronic kidney disease; E11.22 Type 2 diabetes mellitus with diabetic chronic kidney disease; I48.0 Paroxysmal atrial fibrillation; N18.30 Chronic kidney disease, stage 3 unspecified; Z79.01 Long term (current) use of anticoagulants; E66.9 Obesity, unspecified; Z87.891 Personal history of nicotine dependence; E78.5 Hyperlipidemia, unspecified; W18.39XA Other fall on same level, initial encounter; Y93.89 Activity, other specified; Z79.899 Other long term (current) drug therapy; S82.839A Other fracture of upper and lower end of unspecified fibula, initial encounter for closed fracture
CPT/HCPCS: 51702; 71045; 72170; 73552; 73590; 80048; 81001; 85025; 85610; 86850; 86900; 86901; 87086; 87088; 87186; 93005; 96365; 96366; 96375; 96376; 99285; A4216; J2405

== ENCOUNTER 2023-08-18 13:28 | Inpatient (IN) | payer MEDICARE, SELFPAY ==
[2023-08-18] VITALS (9 sets, daily range): BP systolic 106–129; BP diastolic 44–71; PULSE 74–89; RESP 12–18; TEMP 36.1–37.1; O2SAT 94–100; BMI 32.9; BMI 31.7
[2023-08-18] MEDS: 0.9% Normal Saline (1000mL) 1,000 ML 1000 ML IV (14:00)
[2023-08-18 14:02] LABS: Absolute Lymphocyte Count 2.57 X10^3/uL (0.83-4.51); Absolute Neutrophil Count 41.5 X10^3/uL (2.0-7.7); Basophil# 0.02 X10^3/uL; Eosinophil# 0.06 X10^3/uL; Eosinophils% 0.1 % (0-5); Hematocrit 31.6 % (37-47); Hemoglobin 10.4 g/dL (12.0-15.0); Lymphocyte # 2.57 X10^3/ul (0.83-4.51); Lymphocyte % 5.4 % (19-41); Mean Corp Hgb Conc 32.9 g/dL (32-36); Mean Corpuscular Hgb 31.3 pg (27.0-32.0); Mean Corpuscular Volume 95.2 fL (81-99); Mean Platelet Vol. 9.1 fl (6.2-12.0); Monocyte# 1.68 X10^3/uL; Monocyte% 3.5 % (0-10); NRBC Flagged by Analyzer 0 % (0-5); Neutrophil # 41.48 X10^3/uL (2.7-7.7); Neutrophil % 87.2 % (47-70); POSITIVE COUNT YES; POSITIVE DIFFERENTIAL YES; POSITIVE MORPHOLOGY YES; Platelet Count 676 K/mm3 (150-450); RBC Distribution Width CV 15.9 % (11.6-14.6); RBC Distribution Width SD 55.5 fl (35.1-43.9); Red Blood Count 3.32 M/mm3 (4.2-5.4); White Blood Count 47.6 K/mm3 (4.4-11.0)
[2023-08-18 14:05] LABS: Differential Indicated SCAN CRITERIA MET
[2023-08-18 14:16] LABS: AST(SGOT) 23 U/L (15-37); Alanine Aminotransfer ALT/SGPT 14 U/L (13-56); Albumin, Serum 1.9 g/dL (3.2-5.0); Alkaline Phosphatase 190 U/L (45-117); Anion Gap 8 (5-15); BUN 100 mg/dL (7-18); BUN/Creat Ratio 37.2 RATIO (10-20); Bilirubin, Direct 0.54 mg/dL (0.00-0.30); Calcium,Total 8.6 mg/dL (8.5-10.1); Chloride 105 mmol/L (98-107); Creatinine, Serum 2.69 mg/dL (0.55-1.02); EST Glomerular Filtration Rate 18 mL/min (>60); Est Glom Filt Rate - Afr Amer 22 mL/min (>60); Estimated Creatinine Clearance 14.16 ml/min; Globulin 3.8 g/dL (2.2-4.2); Glucose 117 mg/dL (74-106); Potassium 4.1 mmol/L (3.5-5.1); Protein, Total 5.7 g/dL (6.4-8.2); Sodium Level 137 mmol/L (136-145)
--- NOTE | 2023-08-18 15:18 | CT_ITS ---
EXAM: CT ABDOMEN AND PELVIS WITHOUT INTRAVENOUS CONTRAST CLINICAL INDICATION: abdominal pain with diarrhea TECHNIQUE: Helically acquired images were obtained of the abdomen and pelvis without intravenous contrast. This CT exam was performed using one or more of the following dose reduction techniques: automated exposure control, adjustment of the mA and/or kV according to patient size, and/or use of iterative reconstruction technique. RADIATION DOSE: CTDIvol = 15.47 mGy, DLP = 857.82 mGy-cm COMPARISON: No relevant prior studies available. FINDINGS: LOWER THORAX: Coronary artery calcifications. Subsegmental atelectasis right lung base. No cardiomegaly. No significant pericardial effusion. ABDOMEN: LIVER: Unremarkable. Homogeneous. GALLBLADDER AND BILE DUCTS: Gallbladder is distended measuring 4.5 cm in diameter. No radiopaque stones identified. No intra- or extrahepatic biliary ductal dilation. PANCREAS: Unremarkable. No focal cystic mass. SPLEEN: Calcified granulomas in the spleen. ADRENALS: Unremarkable. No nodules. KIDNEYS AND URETERS: Unremarkable. Normal renal size and position. No hydronephrosis. STOMACH AND BOWEL: Wall thickening of the sigmoid and rectum with moderate perirectal fat stranding. Rectal wall is indistinct. No stomach or bowel distention. PELVIS: APPENDIX: Normal appendix. BLADDER: Unremarkable. REPRODUCTIVE: Unremarkable as visualized. No mass. ABDOMEN and PELVIS: INTRAPERITONEAL SPACE: Unremarkable. No ascites or other fluid collection. No free air. BONES/JOINTS: Unremarkable. No suspicious lytic or blastic abnormality. SOFT TISSUES: See above. VASCULATURE: See above. LYMPH NODES: Unremarkable. No enlarged lymph nodes. CT/Abdomen/Pelvis without Cont IMPRESSION: 1. Proctocolitis involving the sigmoid and rectum. Recommend follow-up to exclude rectal mass. 2. Coronary artery disease. 3. Gallbladder is distended measuring 4.5 cm in diameter. No radiopaque stones identified. Consider ultrasound for further evaluation if clinically indicated. Electronically Signed: Philippe Fields MD at 16:52 EST ,
[2023-08-18] MEDS: 0.9% Normal Saline (1000mL) 1,000 ML 250 ML IV (15:25)
--- NOTE | 2023-08-18 16:42 | EX.ED.GENINJ ---
HPI History of Present Illness Chief Complaint: Other, Pain/Inj Informant: patient and family Narrative Narrative: 82-year-old female presenting to the emergency room with chief complaints. Dehydration. On 02 August the patient was transferred to [facility] with a right leg fracture. She underwent surgery and was subsequently discharged to rehab facility. 2 days ago developed diarrhea and tested positive for C. difficile. She is on oral vancomycin. Blood work today shows acute renal failure and significantly elevated BUN. White count around 44,000. The patient was noted to have some confusion. long term unable to start an IV for IV fluids. Family notes that change in mental status. She has not had fever. [facility] Medical History Anemia Atrial fibrillation with rapid ventricular response (09/04/21) Chronic kidney disease, stage 3 Current use of [employer] anticoagulation Debility Diabetes Diastolic congestive heart failure Essential (primary) hypertension Hyperlipidemia Hypertension Morbid obesity Osteoarthritis Paroxysmal atrial fibrillation Secondary pulmonary arterial hypertension Weakness Home Medications albuterol sulfate 90 mcg/actuation aerosol inhaler (Ventolin HFA) 2 puff inhalation Q6H PRN PRN Wheezing 30 days #16 grams 09/17/21 [Rx Last Taken Unknown] atorvastatin 40 mg tablet 40 mg PO QHS Cholesterol 30 days #30 tabs 09/17/21 [Rx Last Taken Unknown] metoprolol tartrate 25 mg tablet 12.5 mg (1/2 x 25 mg) PO BID blood pressure 30 days #60 tabs 09/17/21 [Rx Last Taken Unknown] multivitamin 1 tab PO DAILY 12/09/21 [History Last Taken Unknown] tamsulosin 0.4 mg capsule 0.4 mg PO DAILY 12/09/21 [History Last Taken Unknown] apixaban 2.5 mg tablet (Eliquis) 2.5 mg PO BID #180 tabs 12/19/22 [Rx Last Taken Unknown] ondansetron HCl 4 mg tablet 4 mg PO TID PRN nausea and vomiting 06/24/23 [History Last Taken Unknown] acetaminophen 325 mg tablet 650 mg (2 x 325 mg) PO Q6H PRN PRN Pain 1-10 Or Fever >100.7 #0 tabs 06/27/23 [Rx Last Taken Unknown] polysaccharide iron complex 150 mg iron capsule (Ferrex) 150 mg PO DAILY #30 caps 06/27/23 [Rx Last Taken Unknown] tramadol 50 mg tablet 50 mg PO Q6H PRN pain #14 tabs 07/11/23 [Rx Last Taken Unknown] Allergy/AdvReac Type Severity Reaction Status Date / Time No Known Allergies Allergy Verified 08/02/23 11:25 Family History Mother Diabetes Father Diabetes CAD (coronary artery disease) Sister Diabetes Surgical History History of cystoscopy (2004) Social History household members: children Smoking Status: Former smoker how long ago did patient quit smokin alcohol intake: never substance use type: does not use caffeine: Yes Type: carbonated beverages Number of servings: 1 ROS ROS ED ROS Narrative Altered mental status Generalized weakness Constitutional Constitutional ED: Denies chills or weight loss Eyes Eyes: Denies change in vision or diplopia ENT ENT ED: Denies ear pain, rhinorrhea or sore throat Cardiovascular Cardiovascular: Denies chest pain, orthopnea, palpitations or racing heartbeat Respiratory/Chest Respiratory/Chest: Denies cough, dyspnea or orthopnea Gastrointestinal Gastrointestinal: Reports diarrhea; Denies abdominal pain, nausea or vomiting Genitourinary Genitourinary ED: Denies dysuria, hematuria or urinary frequency Musculoskeletal Musculoskeletal: Reports other Details: Status post right leg surgery ; Denies arthralgias or myalgias Integumentary Denies abscess or rash Neurologic Neurologic: Denies headache(s) or weakness Psychiatric Psychiatric: Denies anxiety, depression, suicidal ideation or suicidal thoughts Endocrine Endocrinology: Denies polydipsia, polyphagia or polyuria Allergic/Immunologic Allergic/Immunologic ED: Denies mouth swelling, tongue swelling or urticaria EXAM Physical Exam Const Vital Signs: 08/18/23 13:31 08/18/23 13:34 08/18/23 13:37 Temperature 97.3 F L 97.3 F L Temperature Source Temporal Temporal Pulse Rate 86 89 Respiratory Rate 15 16 Respiratory Effort Normal Non-Labored Respiratory Pattern Normal Blood Pressure 106/71 106/71 Blood Pressure Mean 82 82 Pulse Ox 100 100 Oxygen Delivery Method Room Air Room Air 08/18/23 15:03 Temperature 97 F L Temperature Source Temporal Pulse Rate 79 Respiratory Rate 16 Respiratory Effort Respiratory Pattern Blood Pressure 115/59 L Blood Pressure Mean 77 Pulse Ox 99 Oxygen Delivery Method Room Air Positive well nourished and well developed General Appearance ED: well developed HEENT Reports normocephalic and head/scalp atraumatic HEENT Narrative: Dry mucous membranes Eyes PERRL and EOMs intact bilaterally Neck no lymphadenopathy, supple and no JVD Resp normal respiratory effort and clear to auscultation bilaterally Cardio S1 normal heart sound and no murmurs Rhythm: abnormal rhythm irregularly irregular GI normal to inspection, nondistended, normoactive bowel sounds and non-tender Palpation: soft Back/Spine no CVA tenderness and normal ROM Extremity Extremity Narrative: Right leg postop changes/surgical dressing swelling distally. Nontender calf. General Extremety ED: Yes other findings General Extremity: other findings Neuro CN's II-XII intact bilaterally Delgado Coma Scale: document GCS findings Spontaneous Obeys Commands Confused 14 Sensorium / Orientation: alert Motor Exam: strength 5/5 throughout Psych mental status grossly normal Mood & Affect: Negative for depressed or tearful Skin no rashes or lesions noted and no wounds MDM MDM MDM Narrative Medical decision making narrative: IV was established and the patient received hydration. White count 47.6. Platelet count of 676 and hemoglobin 10.4. Creatinine 2.69 with a BUN of 100. Sodium potassium negative. Glucose 117. CO2 was 24 and anion gap of 8. CT of the abdomen pelvis was obtained. This demonstrated some inflammatory changes in the rectosigmoid region. Distended gallbladder but the patient's not tender in the right upper quadrant. At this point plan will be admission for IV hydration. I think the elevated white count is a result of dehydration and the C. difficile. History & Record Review Discussion w/independent historian: Patient and Family Additional record(s) reviewed:: Prior ED visit and Prior labs Lab Data Attestation: I reviewed the patient's lab results. Labs: Laboratory Results - last 24 hr 08/18/23 13:35 WBC 47.6 H* RBC 3.32 L Hgb 10.4 L Hct 31.6 L MCV 95.2 MCH 31.3 MCHC 32.9 RDW Std Deviation 55.5 H RDW Coeff of Karen 15.9 H Plt Count 676 H MPV 9.1 Immature Gran % (Auto) 3.800 H Neut % (Auto) 87.2 H Lymph % (Auto) 5.4 L [place] % (Auto) 3.5 Eos % (Auto) 0.1 Baso % (Auto) 0.0 Absolute Neuts (auto) 41.5 H Absolute Lymphs (auto) 2.57 Nucleated RBC % 0 Diff Path Review May foll Sodium 137 Potassium 4.1 Chloride 105 Carbon Dioxide 24.0 Anion Gap 8 BUN 100 H Creatinine 2.69 H Estim Creat Clear Calc 14.16 Est GFR (MDRD) Af Amer 22 L Est GFR (MDRD) Non-Af 18 L BUN/Creatinine Ratio 37.2 H Glucose 117 H Calcium 8.6 Total Bilirubin 0.90 Direct Bilirubin 0.54 H AST 23 ALT 14 Alkaline Phosphatase 190 H Total Protein 5.7 L Albumin 1.9 L Globulin 3.8 Radiography Diagnostic Testing: Clinical Impression(s) from Imaging Studies Abdomen/Pelvis CT 08/18/23 15:18 IMPRESSION: 1. Proctocolitis involving the sigmoid and rectum. Recommend follow-up to exclude rectal mass. 2. Coronary artery disease. 3. Gallbladder is distended measuring 4.5 cm in diameter. No radiopaque stones identified. Consider ultrasound for further evaluation if clinically indicated. Electronically Signed: Philippe Fields MD at 16:52 EST , Management Discussion w/another healthcare provider: Hospitalist Discharge Plan Dx/Rx/DC Orders Clinical Impression: C. difficile diarrhea, Diastolic congestive heart failure, Acute uremia, Acute renal failure, Anticoagulated Disposition Disposition: Acute Care Hospital [facility]
--- NOTE | 2023-08-18 17:02 | PCM.HP.STD ---
HPI - General General Date of Admission: 08/18/23 Date of Service: 08/18/23 Chief Complaint: Cdiff colitis and dehydration HPI Narrative ANKUR AN, is an 82 y/o female w/ hx HFpEF, DM, afib, HTN who presented to ED 08/18/23 from [facility] for IV access for IV access for fluids and antibiotics. Patient reportedly broke her right leg 2 weeks ago and went to [facility] for surgery and was discharged. Developed diarrhea and tested positive for C. difficile 2 days ago and has been on vancomycin however has been confused and doing poorly overall. They were unable to get IV access at outlying facility prompting patient to come to the ED. In the ED patient pleasantly confused, vitally stable but white blood cell count found to be 47.6 patient with a BUN of 100 and a creatinine of 2.69 up from 1.65 2 weeks ago. Reviewing records it appears patient also had UA suggestive of UTI and urine culture grew pansensitive E. coli. Given the above hospitalist contacted for admission. Patient evaluated at bedside with daughter present however patient unable to contribute any meaningful history and will answer questions confidently but often within appropriate context. History available as above. [facility] Medical History (Updated 08/18/23 @ 17:[address] Ro Hoang MD) Anemia Atrial fibrillation with rapid ventricular response (09/04/21) Chronic kidney disease, stage 3 Current use of senior living anticoagulation Debility Diabetes Diastolic congestive heart failure Essential (primary) hypertension Hyperlipidemia Hypertension Morbid obesity Osteoarthritis Paroxysmal atrial fibrillation Secondary pulmonary arterial hypertension Weakness Home Medications albuterol sulfate 90 mcg/actuation aerosol inhaler (Ventolin HFA) 2 puff inhalation Q6H PRN PRN Wheezing 30 days #16 grams 09/17/21 [Rx Last Taken Unknown] atorvastatin 40 mg tablet 40 mg PO QHS Cholesterol 30 days #30 tabs 09/17/21 [Rx Last Taken Unknown] metoprolol tartrate 25 mg tablet 12.5 mg (1/2 x 25 mg) PO BID blood pressure 30 days #60 tabs 09/17/21 [Rx Last Taken Unknown] multivitamin 1 tab PO DAILY 12/09/21 [History Last Taken Unknown] tamsulosin 0.4 mg capsule 0.4 mg PO DAILY 12/09/21 [History Last Taken Unknown] apixaban 2.5 mg tablet (Eliquis) 2.5 mg PO BID #180 tabs 12/19/22 [Rx Last Taken Unknown] ondansetron HCl 4 mg tablet 4 mg PO TID PRN nausea and vomiting 06/24/23 [History Last Taken Unknown] acetaminophen 325 mg tablet 650 mg (2 x 325 mg) PO Q6H PRN PRN Pain 1-10 Or Fever >100.7 #0 tabs 06/27/23 [Rx Last Taken Unknown] polysaccharide iron complex 150 mg iron capsule (Ferrex) 150 mg PO DAILY #30 caps 06/27/23 [Rx Last Taken Unknown] tramadol 50 mg tablet 50 mg PO Q6H PRN pain #14 tabs 07/11/23 [Rx Last Taken Unknown] Allergy/AdvReac Type Severity Reaction Status Date / Time No Known Allergies Allergy Verified 08/02/23 11:25 Family History Mother Diabetes Father Diabetes CAD (coronary artery disease) Sister Diabetes Surgical History History of cystoscopy (2004) Social History household members: children Smoking Status: Former smoker how long ago did patient quit smokin alcohol intake: never substance use type: does not use caffeine: Yes Type: carbonated beverages Number of servings: 1 ROS ROS Narrative Unable to obtain ROS secondary to mental status Vital Signs Vital Signs Vital Signs: 08/18/23 13:31 08/18/23 13:34 08/18/23 13:37 Temperature 97.3 F L 97.3 F L Temperature Source Temporal Temporal Pulse Rate 86 89 Respiratory Rate 15 16 Respiratory Effort Normal Non-Labored Respiratory Pattern Normal Blood Pressure 106/71 106/71 Blood Pressure Mean 82 82 Pulse Ox 100 100 Oxygen Delivery Method Room Air Room Air 08/18/23 15:03 Temperature 97 F L Temperature Source Temporal Pulse Rate 79 Respiratory Rate 16 Respiratory Effort Respiratory Pattern Blood Pressure 115/59 L Blood Pressure Mean 77 Pulse Ox 99 Oxygen Delivery Method Room Air Weight Weight: 87.1 kg Body Mass Index (BMI) 32.9 Physical Exam Narrative General: Alert, no apparent distress HEENT: Atraumatic, normocephalic Eyes: Anicteric Neck: Supple Respiratory: Clear to auscultation bilaterally, normal respiratory effort Cardiovascular: Regular rate GI: Soft, no significant tenderness, no rebound, guarding, rigidity, nondistended Extremities: No edema Musculoskeletal: Moving all extremities however right lower extremity status post surgery and left ankle with bruising Neuro: No overt focal neurological deficits Psych: Cooperative Results Lab / Micro Data 08/18/23 13:35 08/18/23 13:35 Labs: Laboratory Results - last 24 hr 08/18/23 13:35: WBC 47.6 H*, RBC 3.32 L, Hgb 10.4 L, Hct 31.6 L, MCV 95.2, MCH 31.3, MCHC 32.9, RDW Std Deviation 55.5 H, RDW Coeff of Karen 15.9 H, Plt Count 676 H, MPV 9.1, Immature Gran % (Auto) 3.800 H, Neut % (Auto) 87.2 H, Lymph % (Auto) 5.4 L, [place] % (Auto) 3.5, Eos % (Auto) 0.1, Baso % (Auto) 0.0, Absolute Neuts (auto) 41.5 H, Absolute Lymphs (auto) 2.57, Nucleated RBC % 0, Diff Path Review May , Sodium 137, Potassium 4.1, Chloride 105, Carbon Dioxide 24.0, Anion Gap 8, BUN 100 H, Creatinine 2.69 H, Estim Creat Clear Calc 14.16, Est GFR (MDRD) Af Amer 22 L, Est GFR (MDRD) Non-Af 18 L, BUN/Creatinine Ratio 37.2 H, Glucose 117 H, Calcium 8.6, Total Bilirubin 0.90, Direct Bilirubin 0.54 H, AST 23, ALT 14, Alkaline Phosphatase 190 H, Total Protein 5.7 L, Albumin 1.9 L, Globulin 3.8 Imagaing Radiology Impression Abdomen/Pelvis CT 08/18/23 15:18 IMPRESSION: 1. Proctocolitis involving the sigmoid and rectum. Recommend follow-up to exclude rectal mass. 2. Coronary artery disease. 3. Gallbladder is distended measuring 4.5 cm in diameter. No radiopaque stones identified. Consider ultrasound for further evaluation if clinically indicated. Electronically Signed: Philippe Fields MD at 16:52 EST , Assessment & Plan Assessment/Plan (1) Acute renal failure: (2) Acute uremia: (3) C. difficile diarrhea: (4) Diabetes mellitus: (5) Diastolic congestive heart failure: (6) Right leg injury: (7) Paroxysmal atrial fibrillation: PLAN: Plan #Acute cdiff infection -Positive on 08/16/2023 at [facility] -CT abdomen in ED with proctocolitis involving sigmoid and rectum, no megacolon noted -White blood cell count 47 but patient hemodynamically stable -Given this in addition to her kidney failure do feel it is reasonable to treat patient aggressively and will give her vancomycin 500 4 times daily as well as metronidazole IV -Suspect presentation is C. difficile related however will treat underlying UTI and also obtain blood cultures # Acute metabolic encephalopathy -Likely multifactorial due to uremia in addition to active infection -Treat underlying etiologies #Concern for UTI -Reviewing records it appears patient also had UA suggestive of UTI and urine culture grew pansensitive E. coli so Rocephin will be added to regimen -Gallbladder was distended with no stones identified, will obtain ultrasound especially when slight increase in bili and alk phos -Cultures obtained #Acute Kidney Failure on suspected CKD -Secondary to underlying illness and possibly component of dehydration given her diarrhea -Will start fluids but given her history of heart failure with preserved ejection fraction will do so with caution, recieved fluids in ED and on floor will have 75cc/hr for 1.5 L and can reevaluate #Recent R leg break -s/p surgery at [place] [facility] -PT/OT consulted -Also has swelling and bruising of left ankle which daughter reports was noted after her hospitalization, will obtain x-ray #hx afib -Continue eliquis and metoprolol #Hx HFpEF -Daily weights, I's and O's -Monitor carefully while on IV fluids #DVT ppx: Shimon Hoang MD Time spent in the patient's overall evaluation,decision-making process, review of diagnostic data, adjustment of management, discussion with other providers, nursing nursing and ancillary staff involved in patient's care documentation, 55 minutes Charges/Coding Visit Charges Inpatient E&M: 79041 Init Hosp L2
--- NOTE | 2023-08-18 17:41 | RAD_ITS ---
EXAM: XR LEFT ANKLE COMPLETE, 3 OR MORE VIEWS CLINICAL INDICATION: left ankle bruising TECHNIQUE: Frontal, lateral and oblique views of the left ankle. COMPARISON: No relevant prior studies available. FINDINGS: BONES/JOINTS: The bones are diffusely osteopenic. No acute fracture. No subluxation. Normal alignment. Preservation of the joint space. No sclerotic or destructive changes observed. SOFT TISSUES: Diffuse soft tissue swelling. No radiopaque foreign body. VASCULATURE: Diffuse vascular calcifications. RAD/Ankle min 3 Views IMPRESSION: 1. Diffuse soft tissue swelling. 2. The bones are diffusely osteopenic. No acute fracture. 3. Diffuse vascular calcifications. Electronically Signed: Philippe Fields MD at 17:53 EST ,
[2023-08-18] MEDS: 0.9% Saline Lock 10 ML Syringe IV (19:48)
[2023-08-18] MEDS: 0.9% Normal Saline (1000mL) 1,000 ML 75 ML IV (19:48)
[2023-08-18] MEDS: Ceftriaxone 1 GM/50 ML BAG IV (21:30)
[2023-08-18] MEDS: Vancomycin HCl 250 MG Capsule 500 MG PO (21:30)
[2023-08-18] MEDS: APIXABAN 2.5 MG TABLET (WCH) PO (21:30)
[2023-08-18] MEDS: Metoprolol Tartrate 25 MG Tablet 12.5 MG PO (21:30)
[2023-08-18] MEDS: Atorvastatin Calcium 40 MG Tablet PO (21:30)
[2023-08-18 21:59] LABS: Bedside Glucose 113 mg/dL (74-106)
[2023-08-18] MEDS: MELATONIN 3 MG TABLET PO (22:12)
[2023-08-18] MEDS: Mirtazapine 15 MG Tablet 7.5 MG PO (22:12)
[2023-08-18 23:57] LABS: Bacteria 0 SEEN /hpf (None Seen); Mucous, Urine 0 SEEN /hpf (<or=2+); Red Blood Cells-Urine 0 SEEN /hpf (0-5); White Blood Cells 0 SEEN /hpf (0-5)
[2023-08-18 23:58] LABS: Color, Urine Yellow (Yellow); Glucose, Dipstick Normal (Normal); Ketone-Dipstick Negative (Negative); Leukocyte Esterase-Dipstick Negative /ul (Negative); Nitrite-Dipstick Negative (Negative); Occult Blood-Urine Negative /ul (Negative); Protein-Dipstick Negative (Negative); Specific Gravity, Urine 1.015 (1.002-1.030); Urine Bilirubin Dipstick Negative (Negative); Urine Clarity Clear (Clear); Urine Urobilinogen Normal (Normal)
[2023-08-19] VITALS (7 sets, daily range): BP systolic 125–148; BP diastolic 48–88; PULSE 79–92; RESP 16–18; TEMP 36.3–37.1; O2SAT 98–100; BMI 32.3
[2023-08-19 00:05] LABS: Squamous Epithelial Cells - UA 0-5 SEEN /hpf (5-10)
[2023-08-19] MEDS: Vancomycin HCl 250 MG Capsule 500 MG PO ×5 (01:01→23:12)
--- NOTE | 2023-08-19 07:00 | US_ITS ---
PROCEDURE: ABDOMINAL ULTRASOUND, RIGHT UPPER QUADRANT COMPARISONS: CT abdomen and pelvis 08/18/2023. CLINICAL INDICATION: Distended gallbladder TECHNIQUE: Real-time greene-scale abdominal ultrasound. Limited color Doppler evaluation is performed. FINDINGS: Liver: Normal in size and echogenicity. Appropriate hepatopetal flow is present in the main portal vein. Gallbladder: Normal wall thickness. No gallstones. Sonographic Garay''s sign is absent. No pericholecystic fluid is present. Biliary Tree: Nondilated. Common bile duct measures 5 mm. Pancreas: Limited evaluation of the head and body is unremarkable. Right kidney: Normal in size and echogenicity. No hydronephrosis or stones. The right kidney measures 9.6 cm in long axis. No free fluid. Inferior vena cava: Unremarkable. US/Liver IMPRESSION: No acute findings in the right upper quadrant. Electronically Signed: Sedrick León MD at 16:03 EST ,
[2023-08-19 07:15] LABS: Bedside Glucose 85 mg/dL (74-106)
[2023-08-19 08:36] LABS: Absolute Lymphocyte Count 2.52 X10^3/uL (0.83-4.51); Absolute Neutrophil Count 26.8 X10^3/uL (2.0-7.7); Basophil% 0.3 % (0-1); Eosinophil# 0.24 X10^3/uL; Eosinophils% 0.7 % (0-5); Hematocrit 26.1 % (37-47); Hemoglobin 8.4 g/dL (12.0-15.0); Lymphocyte # 2.52 X10^3/ul (0.83-4.51); Lymphocyte % 7.8 % (19-41); Mean Corp Hgb Conc 32.2 g/dL (32-36); Mean Corpuscular Hgb 30.9 pg (27.0-32.0); Mean Platelet Vol. 9.3 fl (6.2-12.0); NRBC Flagged by Analyzer 0 % (0-5); Neutrophil % 82.8 % (47-70); POSITIVE COUNT YES; POSITIVE DIFFERENTIAL YES; Platelet Count 563 K/mm3 (150-450); RBC Distribution Width CV 15.9 % (11.6-14.6); RBC Distribution Width SD 55.4 fl (35.1-43.9); Red Blood Count 2.72 M/mm3 (4.2-5.4)
[2023-08-19 08:58] LABS: Differential Indicated SCAN CRITERIA MET; White Blood Count 32.4 K/mm3 (4.4-11.0)
[2023-08-19 09:09] LABS: ALB/GLOB Ratio 0.5 RATIO (0.9-2.4); AST(SGOT) 40 U/L (15-37); Alanine Aminotransfer ALT/SGPT 13 U/L (13-56); Albumin, Serum 1.5 g/dL (3.2-5.0); Alkaline Phosphatase 149 U/L (45-117); Anion Gap 9 (5-15); BUN 85 mg/dL (7-18); BUN/Creat Ratio 44.5 RATIO (10-20); Calcium,Total 7.9 mg/dL (8.5-10.1); Chloride 112 mmol/L (98-107); Creatinine, Serum 1.91 mg/dL (0.55-1.02); EST Glomerular Filtration Rate 27 mL/min (>60); Est Glom Filt Rate - Afr Amer 32 mL/min (>60); Estimated Creatinine Clearance 19.95 ml/min; Globulin 3.2 g/dL (2.2-4.2); Glucose 81 mg/dL (74-106); Potassium 3.8 mmol/L (3.5-5.1); Protein, Total 4.7 g/dL (6.4-8.2); Sodium Level 141 mmol/L (136-145); Thyroid Stim Hormone (TSH) 1.79 uIU/mL (0.358-3.74)
[2023-08-19] MEDS: 0.9% Normal Saline (1000mL) 1,000 ML 75 ML IV ×3 (09:42→21:01)
[2023-08-19] MEDS: Ceftriaxone 1 GM/50 ML BAG IV (09:43)
[2023-08-19] MEDS: Metoprolol Tartrate 25 MG Tablet 12.5 MG PO ×2 (09:44→21:02)
[2023-08-19] MEDS: APIXABAN 2.5 MG TABLET (WCH) PO ×2 (09:44→21:02)
--- NOTE | 2023-08-19 11:36 | CASEMGMT ---
Social Work SW reviewed chart, pt is here from [facility]. SW called daughter, message left to call SW back. SW called [facility], spoke w/Neris. She looked up pt's information, it seems the goal is for pt to return home from there and pt is there under [employer]--so will need a precert to return. SW will continue to follow. CHARLES Elizalde
[2023-08-19] MEDS: Menthol/Lanolin/Calamine/Znox 113 GM Tube 1 APPLIC TOPICAL ×2 (11:52→21:03)
[2023-08-19 11:57] LABS: Differential Comment SCANNED
[2023-08-19 12:38] LABS: Bedside Glucose 99 mg/dL (74-106)
--- NOTE | 2023-08-19 13:56 | PCM.PN.HOSP ---
Reason for Visit Reason for Visit: C. difficile colitis/dehydration Subjective Subjective Ms. Amaral is an 82-year-old female who presented from [facility] on 08/18/2023 due to difficult IV access for IV fluids and antibiotics. She developed diarrhea after hospitalization where she was admitted at [facility] due to a broken right leg. She was discharged about 2 weeks ago and developed diarrhea. She tested for C. difficile colitis 2 days ago and had been started on oral vancomycin however she was confused and doing poorly overall. They felt she needed IV fluids and sent her to the emergency department as they were unable to get IV access there. The plan was to bring her in the emergency department to obtain IV access and start IV fluids and continue her oral vancomycin at the nursing facility. Her daughter was at the bedside upon evaluation of the hospitalist however she was really unable to confidently contribute to any history. Evidently she had been more confused at the longterm. The patient was unable to contribute to her history at all at this time. Vital signs were overtly unremarkable in the emergency department however her CBC revealed a markedly elevated white count of 47.6 and a left shift as well as a BUN of 100 and a serum creatinine of 2.69 up from 1.652 weeks ago. It also appears that she had a UA that was suggestive of a urinary tract infection and her urine culture grew pansensitive E. coli. We are unclear if this was treated or not. She was admitted to the telemetry floor and placed on IV fluids, given oral vancomycin 504 times daily for now and IV metronidazole until we can get her infection under control and dosed with IV Rocephin for urinary tract infection. States she is feeling much better overall. Was alert and oriented x 3 at the time of my exam. Plan is to now transition to the deep TCU at discharge rather than back to the skilled facility at which she was residing. I told her that I thought she would probably be ready early to mid of next week. Objective Data Objective Data Vital Signs: Vital Signs Temp Pulse Resp BP Pulse Ox O2 Del Method 97.4 F L 90 16 127/85 H 98 Room Air 08/19/23 09:38 08/19/23 09:44 08/19/23 09:38 08/19/23 09:44 08/19/23 09:38 08/19/23 09:38 Oxygen Delivery Method Room Air Weight: 85.3 kg Body Mass Index (BMI) 32.3 Intake & Output: Intake and Output for Last 24 Hours 08/17/23 08/18/23 08/19/23 23:59 23:59 23:59 Intake Total 2200 / 2250 1350 / 1350 Output Total 200 / 200 Balance 2200 / 2250 1150 / 1150 Lab / Micro Data 08/19/23 08:08 08/19/23 08:08 Labs: Laboratory Results - last 24 hr 08/18/23 13:35: WBC 47.6 H*, RBC 3.32 L, Hgb 10.4 L, Hct 31.6 L, MCV 95.2, MCH 31.3, MCHC 32.9, RDW Std Deviation 55.5 H, RDW Coeff of Karen 15.9 H, Plt Count 676 H, MPV 9.1, Immature Gran % (Auto) 3.800 H, Neut % (Auto) 87.2 H, Lymph % (Auto) 5.4 L, Kingfisher % (Auto) 3.5, Eos % (Auto) 0.1, Baso % (Auto) 0.0, Absolute Neuts (auto) 41.5 H, Absolute Lymphs (auto) 2.57, Nucleated RBC % 0, Diff Path Review January, Sodium 137, Potassium 4.1, Chloride 105, Carbon Dioxide 24.0, Anion Gap 8, BUN 100 H, Creatinine 2.69 H, Estim Creat Clear Calc 14.16, Est GFR (MDRD) Af Amer 22 L, Est GFR (MDRD) Non-Af 18 L, BUN/Creatinine Ratio 37.2 H, Glucose 117 H, Calcium 8.6, Total Bilirubin 0.90, Direct Bilirubin 0.54 H, AST 23, ALT 14, Alkaline Phosphatase 190 H, Total Protein 5.7 L, Albumin 1.9 L, Globulin 3.8 08/18/23 18:00: Urine Color Yellow, Urine Clarity Clear, Urine pH 5.0, Ur Specific Nancy 1.015, Urine Protein Negative, Urine Glucose (UA) Normal, Urine Ketones Negative, Urine Occult Blood Negative, Urine Nitrite Negative, Urine Bilirubin Negative, Urine Urobilinogen Normal, Ur Leukocyte Esterase Negative, Urine RBC 0 SEEN, Urine WBC 0 SEEN, Ur Squamous Epith Cells 0-5 SEEN, Urine Bacteria 0 SEEN, Urine Mucus 0 SEEN 08/18/23 21:29: POC Glucose 113 H 08/19/23 06:56: POC Glucose 85 08/19/23 08:08: WBC 32.4 H*, RBC 2.72 L, Hgb 8.4 L, Hct 26.1 L, MCV 96.0, MCH 30.9, MCHC 32.2, RDW Std Deviation 55.4 H, RDW Coeff of Karen 15.9 H, Plt Count 563 H, MPV 9.3, Immature Gran % (Auto) 4.400 H, Neut % (Auto) 82.8 H, Lymph % (Auto) 7.8 L, Kingfisher % (Auto) 4.0, Eos % (Auto) 0.7, Baso % (Auto) 0.3, Absolute Neuts (auto) 26.8 H, Absolute Lymphs (auto) 2.52, Nucleated RBC % 0, Differential Comment SCANNED, Diff Path Review January, Sodium 141, Potassium 3.8, Chloride 112 H, Carbon Dioxide 20.0 L, Anion Gap 9, BUN 85 H, Creatinine 1.91 H, Estim Creat Clear Calc 19.95, Est GFR (MDRD) Af Amer 32 L, Est GFR (MDRD) Non-Af 27 L, BUN/Creatinine Ratio 44.5 H, Glucose 81, Calcium 7.9 L, Total Bilirubin 0.60, AST 40 H, ALT 13, Alkaline Phosphatase 149 H, Total Protein 4.7 L, Albumin 1.5 L, Globulin 3.2, Albumin/Globulin Ratio 0.5 L, TSH 1.79 08/19/23 11:50: POC Glucose 99 Micro: Microbiology 08/18/23 18:00 Urine, Catheterized Urine Culture - Preliminary Culture exhibits no growth. Radiography Diagnostic Testing: Radiology Impression Abdomen/Pelvis CT 08/18/23 15:18 IMPRESSION: 1. Proctocolitis involving the sigmoid and rectum. Recommend follow-up to exclude rectal mass. 2. Coronary artery disease. 3. Gallbladder is distended measuring 4.5 cm in diameter. No radiopaque stones identified. Consider ultrasound for further evaluation if clinically indicated. Electronically Signed: Philippe Fields MD at 16:52 EST , Ankle X-Ray 08/18/23 17:41 IMPRESSION: 1. Diffuse soft tissue swelling. 2. The bones are diffusely osteopenic. No acute fracture. 3. Diffuse vascular calcifications. Electronically Signed: Philippe Fields MD at 17:53 EST Reading Location ID and State: [id number] Tel , Service support , Physical Exam Const alert, oriented x3 and no apparent distress Constitutional Narrative: Obese, elderly, white female, sitting up in bed reading on her cell phone and watching television, appears comfortable and nontoxic, looks chronically ill HEENT head/scalp atraumatic and moist oral mucous membranes HEENT Narrative: Dentition is fair, Mallampati is 2, no thrush Head and Scalp: normocephalic Resp normal respiratory effort, no retractions, no use of accessory muscles and clear to auscultation bilaterally Auscultation: Negative for rales, rhonchi or wheezes Cardio regular rate, regular rhythm, S1 normal heart sound, S2 normal heart sound, no murmurs, no rub, no gallops and no clicks GI normal to inspection, nondistended, normoactive bowel sounds, soft to palpation and non-tender Extremity no clubbing, cyanosis or edema Extremity Narrative: 1+ bilateral lower extremity pitting edema comment decreased lean muscle mass Skin Skin Narrative: Right lower extremity dressing is clean dry and intact on lateral distal right upper leg Neuro oriented x3 and no focal motor deficits Neuro Narrative: Limited movement of right lower extremity due to pain with recent fracture but no focal deficits Speech: speech normal Psych affect normal Psych Narrative: Very pleasant, eye contact is good, patient interacts appropriately Assessment & Plan Assessment/Plan (1) Acute renal failure: (2) Acute uremia: (3) C. difficile diarrhea: (4) Leukocytosis: (5) Right leg injury: (6) Toxic metabolic encephalopathy: (7) Inability to walk: (8) Severe malnutrition: (9) Thrombocytosis: PLAN: Plan Acute C. difficile colitis -Positive on 08/16/2023 at [facility] -CT of the abdomen pelvis in the emergency department with proctocolitis involving the sigmoid colon and rectum but no megacolon identified -Leukocytosis is improving and I suspect the marked elevation was due to acute dehydration in conjunction with her C. difficile infection/UTI -Continue oral vancomycin as ordered with plans to taper to 125 mg 4 times daily for total of 14 days treatment at discharge -Continue IV metronidazole for now URMILA on CKD stage IIIb -Baseline serum creatinine appears to run around 1.65 -On presentation serum creatinine was 2.69 and now down to 1.91 today -Will continue the fluids and restart at 75 cc/h and repeat lab in a.m. -Avoid nephro to oxygen as -Hold home Lasix -Appears markedly dehydrated Possible urinary tract infection -Recent culture positive for E. coli at the end of July -Blood and urine cultures are currently pending -Current urine culture is exhibiting no growth -Await blood cultures to discontinue ceftriaxone Anemia -Baseline hemoglobin appears to be running between 9 and 10 -Hemoglobin 8.4 this morning -Suspect dilutional with IV fluids -Repeat lab in a.m. -No signs of obvious bleeding Thrombocytosis -Likely acute phase reactant -Would expect to trend down with treatment of infections -Continue to monitor Toxic/metabolic encephalopathy -Anticipate due to uremia and acute colitis -Continue to monitor clinically Distended gallbladder on CT -Right upper quadrant ultrasound is pending -Alk phos is still mildly elevated but trending down -Bilirubin normal -Do not anticipate that this is any acute problem Recent right leg fracture -Status post surgical intervention [facility] -X-ray was unremarkable -PT/OT consulted -Suspect lower extremity is swollen due to third spacing as albumin is extremely low -Pain medication as ordered Suspect severe malnutrition -Add supplements -Dietitian consultation -Add Estuardo to assist with wound healing -Continue mirtazapine for appetite similar History of atrial fibrillation -Continue Eliquis at 2.5 mg p.o. twice daily -Continue home metoprolol History of heart failure with preserved ejection fraction -Currently compensated and actually dehydrated -Continue daily weights -Continue I's and O's -On IV fluids for dehydration but will monitor closely Hypertension -Continue home metoprolol 12.5 mg p.o. twice daily DVT prophylaxis -Continue full anticoagulation with Eliquis CODE STATUS -DNR CCA with no intubation as verified on admission Charges/Coding Visit Charges Inpatient E&M: 16035 Subs Hosp L2
--- NOTE | 2023-08-19 15:10 | CASEMGMT ---
Social Work Daughter and son in law here, SW spoke w/them in room in regard to discharge plan. Daughter confirmed pt is skilled at [facility], but they don't really want pt to return there. They would prefer pt go to TCU here. Daughter is also looking ahead to possible skilled nursing care, [facility] at [facility]. SW did provide to daughter a list of detention facilities via [employer] in network w/pt's insurance, in pt's preferred geographic area and complete w/quality and resource use data, in the event TCU cannot take pt. SW then spoke w/daughter outside of the room. She states pt has been having memory issues since she fell 2 weeks ago. She states today pt is better than she's been in two weeks, but this SW did note some confusion still. Daughter is hopeful that her mom will be able to return home, but is trying to prepare if she is not. Support given to daughter. SW left a message for Liseth in TCU with referral. SW to follow up on Monday. CHARLES Elizalde
--- NOTE | 2023-08-19 15:16 | CASEMGMT ---
Social Work Daughter brought in LW/POA, SW copied and placed copies on chart, gave originals back to daughter. Daughter Sharon is is Healthcare POA. CHARLES Elizalde
[2023-08-19] MEDS: Ondansetron 4 MG/2 ML Vial IV (16:09)
[2023-08-19 16:36] LABS: Bedside Glucose 165 mg/dL (74-106)
[2023-08-19] MEDS: Atorvastatin Calcium 40 MG Tablet PO (21:02)
[2023-08-19] MEDS: MELATONIN 3 MG TABLET PO (21:02)
[2023-08-19] MEDS: Mirtazapine 15 MG Tablet 7.5 MG PO (21:02)
[2023-08-19 22:32] LABS: Bedside Glucose 186 mg/dL (74-106)
[2023-08-20] VITALS (8 sets, daily range): BP systolic 125–139; BP diastolic 42–68; PULSE 74–117; RESP 18; TEMP 36.4–36.6; O2SAT 96–99; BMI 32.1
--- NOTE | 2023-08-20 00:06 | PCM.HOSP.N ---
Hospitalist Note Patient with stool with occasional bright blood streaked in the stool with hemorrhoids of note. She is on eliquis for PAF. She currently has cdiff. Will monitor Hgb and if decreases further would hold eliquis.
[2023-08-20 04:55] LABS: Hematocrit 31.7 % (37-47); Hemoglobin 9.4 g/dL (12.0-15.0); Mean Corp Hgb Conc 29.7 g/dL (32-36); Mean Corpuscular Hgb 29.9 pg (27.0-32.0); Mean Platelet Vol. 8.9 fl (6.2-12.0); POSITIVE COUNT YES; POSITIVE MORPHOLOGY YES; Platelet Count 505 K/mm3 (150-450); RBC Distribution Width CV 16.1 % (11.6-14.6); RBC Distribution Width SD 59.5 fl (35.1-43.9); Red Blood Count 3.14 M/mm3 (4.2-5.4); White Blood Count 22.6 K/mm3 (4.4-11.0)
[2023-08-20 05:23] LABS: Anion Gap 9 (5-15); BUN 72 mg/dL (7-18); BUN/Creat Ratio 45.9 RATIO (10-20); Calcium,Total 7.9 mg/dL (8.5-10.1); Chloride 114 mmol/L (98-107); Creatinine, Serum 1.57 mg/dL (0.55-1.02); EST Glomerular Filtration Rate 34 mL/min (>60); Est Glom Filt Rate - Afr Amer 41 mL/min (>60); Estimated Creatinine Clearance 24.27 ml/min; Glucose 142 mg/dL (74-106); Magnesium 2.2 mg/dL (1.6-2.6); Sodium Level 142 mmol/L (136-145)
[2023-08-20 05:32] LABS: Differential Indicated MANUAL DIFF
[2023-08-20] MEDS: Vancomycin HCl 250 MG Capsule 500 MG PO ×4 (06:18→22:47)
[2023-08-20 08:52] LABS: Eosinophil 1 % (0-5); Lymphocyte 7 % (19-41); Metamyelocyte 2 % (0-1); Monocyte 3 % (0-10); Myelocyte 1 % (0-0); Neutrophil-Band 2 % (0-5); Neutrophil-Segmented 84 % (47-70); Total Cells Counted 100 (MANUAL DIFF)
[2023-08-20 08:53] LABS: Absolute Neutrophil Count 19.4 X10^3/uL (2.0-7.7); Platelet Estimate ADEQUATE (ADEQ); Red Cell Morphology NORM C+C NORMAL (NORM C&C)
[2023-08-20 08:54] LABS: Absolute Lymphocyte Count 1.58 X10^3/uL (0.83-4.51)
[2023-08-20] MEDS: Ceftriaxone 1 GM/50 ML BAG IV (09:48)
[2023-08-20] MEDS: Metoprolol Tartrate 25 MG Tablet 12.5 MG PO ×2 (09:48→21:31)
[2023-08-20] MEDS: APIXABAN 2.5 MG TABLET (WCH) PO ×2 (09:49→21:30)
[2023-08-20] MEDS: Menthol/Lanolin/Calamine/Znox 113 GM Tube 1 APPLIC TOPICAL ×2 (09:49→21:31)
--- NOTE | 2023-08-20 10:52 | PCM.PN.HOSP ---
Reason for Visit Reason for Visit: C. difficile colitis/dehydration Subjective Subjective No significant issues overnight other than some blood-streaked stool was noted. She is on Eliquis but hemoglobin is stable. Patient states she is just from fatigued from all the diarrhea. Patient with 3 bowel movements yesterday and 2 overnight. Stool output seems to be slowing but still present. Patient states she has not intermittent bowel cramping with her bowel movements but no specific pain and overall abdomen is benign. Objective Data Objective Data Vital Signs: Vital Signs Temp Pulse Resp BP Pulse Ox O2 Del Method 97.9 F 74 18 139/62 H 99 Room Air 08/20/23 09:45 08/20/23 09:48 08/20/23 09:45 08/20/23 09:48 08/20/23 09:50 08/20/23 09:50 Oxygen Delivery Method Room Air Weight: 85 kg Body Mass Index (BMI) 32.1 Intake & Output: Intake and Output for Last 24 Hours 08/18/23 08/19/23 08/20/23 23:59 23:59 23:59 Intake Total 2200 / 2250 3107.50 / 3107.50 1077.50 / 1077.50 Output Total 200 / 200 Balance 2200 / 2250 2907.50 / 2907.50 1077.50 / 1077.50 Lab / Micro Data 08/20/23 04:10 08/20/23 04:10 Labs: Laboratory Results - last 24 hr 08/19/23 08:08: Differential Comment SCANNED, Diff Path Review January08/19/23 11:50: POC Glucose 99 08/19/23 16:08: POC Glucose 165 H 08/19/23 20:58: POC Glucose 186 H 08/20/23 04:10: WBC 22.6 H, RBC 3.14 L, Hgb 9.4 L, Hct 31.7 L, MCV 101.0 H D, MCH 29.9, MCHC 29.7 L D, RDW Std Deviation 59.5 H, RDW Coeff of Karen 16.1 H, Plt Count 505 H, MPV 8.9, Neut % (Auto) Not Reportable, Absolute Neuts (auto) 19.4 H, Absolute Lymphs (auto) 1.58, Total Counted 100, Neutrophils % (Manual) 84 H, Band Neutrophils % 2, Lymphocytes % (Manual) 7 L, Monocytes % (Manual) 3, Eosinophils % (Manual) 1, Metamyelocytes % 2 H, Myelocytes % 1 H, Diff Path Review May foll, Platelet Estimate ADEQUATE, RBC Morphology NORM C+C, Sodium 142, Potassium 3.0 L, Chloride 114 H, Carbon Dioxide 19.0 L, Anion Gap 9, BUN 72 H, Creatinine 1.57 H, Estim Creat Clear Calc 24.27, Est GFR (MDRD) Af Amer 41 L, Est GFR (MDRD) Non-Af 34 L, BUN/Creatinine Ratio 45.9 H, Glucose 142 H, Calcium 7.9 L, Phosphorus 2.0 L, Magnesium 2.2 Micro: Microbiology 08/18/23 18:00 Urine, Catheterized Urine Culture - Preliminary Culture exhibits no growth. Radiography Diagnostic Testing: Radiology Impression Liver Ultrasound 08/19/23 07:00 IMPRESSION: No acute findings in the right upper quadrant. Electronically Signed: Sedrick León MD at 16:03 EST , Physical Exam Const alert, oriented x3 and no apparent distress Constitutional Narrative: Obese, elderly, white female, lying in bed sleeping but awakens easily and appropriate upon awakening, appears comfortable and nontoxic, looks chronically ill HEENT head/scalp atraumatic and moist oral mucous membranes HEENT Narrative: Mallampati is 2-3, no thrush Resp normal respiratory effort, no retractions, no use of accessory muscles and clear to auscultation bilaterally Auscultation: Negative for rales, rhonchi or wheezes Cardio regular rate, regular rhythm, S1 normal heart sound, S2 normal heart sound, no murmurs, no rub, no gallops and no clicks GI soft to palpation and non-tender GI Narrative: Bowel sounds are hyperactive with no specific abdominal tenderness Extremity no clubbing, cyanosis or edema Extremity Narrative: 1+ bilateral lower extremity pitting edema comment decreased lean muscle mass Skin Skin Narrative: Right lower extremity dressing is clean dry and intact on lateral distal right upper leg Neuro oriented x3 and no focal motor deficits Neuro Narrative: Limited movement of right lower extremity due to pain with recent fracture but no focal deficits Speech: speech normal Psych affect normal Psych Narrative: Very pleasant, eye contact is good, patient interacts appropriately Assessment & Plan Assessment/Plan (1) Acute renal failure: (2) Acute uremia: (3) C. difficile diarrhea: (4) Leukocytosis: (5) Right leg injury: (6) Toxic metabolic encephalopathy: (7) Inability to walk: (8) Severe malnutrition: (9) Thrombocytosis: (10) Hypophosphatemia: (11) Hypokalemia: (12) Hematochezia: PLAN: Plan Acute C. difficile colitis -Positive on 08/16/2023 at [facility] -CT of the abdomen pelvis in the emergency department with proctocolitis involving the sigmoid colon and rectum but no megacolon identified -Leukocytosis is improving and I suspect the marked elevation was due to acute dehydration in conjunction with her C. difficile infection/UTI -Continue oral vancomycin as ordered with plans to taper to 125 mg 4 times daily for total of 14 days treatment at discharge -Continue IV metronidazole for now and plan to discontinue at discharge -P.o. intake has been good so we will discontinue IV fluids URMILA on CKD stage IIIb -Baseline serum creatinine appears to run around 1.65 -On presentation serum creatinine was 2.69 and now down to 1.57 -Discontinue IV fluids and continue to monitor renal function with improving creatinine -Patient states she is taking p.o. liquids without any difficulty -Avoid nephro to oxygen as -Will continue to hold home Lasix for now and monitor renal function as well as volume status -Appears markedly dehydrated Blood in stool -Likely related to irritation as it was only strict -Hemoglobin is stable -Still on Eliquis -Continue to monitor Hypokalemia -P.o. potassium supplementation -Repeat in a.m. Hypophosphatemia -IV sodium Phos supplementation -Repeat in a.m. Possible urinary tract infection -Urine culture is negative and my suspicion for systemic infection is low -Discontinue IV antibiotics Anemia -Baseline hemoglobin appears to be running between 9 and 10 -Hemoglobin 8.4 this morning -Suspect dilutional with IV fluids -Repeat lab in a.m. -No signs of obvious bleeding Thrombocytosis -Likely acute phase reactant -Trending down Toxic/metabolic encephalopathy -Resolved -Patient is now alert and oriented x [address] -Ultrasound is unremarkable -Acute gallbladder pathology ruled out at this time Recent right leg fracture -Status post surgical intervention [facility] -X-ray was unremarkable -PT/OT following -Suspect lower extremity is swollen due to third spacing as albumin is extremely low -Pain medication as ordered -Plan for discharge as TCU per discussion with correctional case records supervisor/social work yesterday Suspect severe malnutrition -Per documentation from dietitian no evidence of malnutrition exists -Continue oral diet as ordered and p.o. supplements History of atrial fibrillation -Continue Eliquis at 2.5 mg p.o. twice daily -Continue home metoprolol History of heart failure with preserved ejection fraction -Currently compensated and actually dehydrated -Continue daily weights -Continue I's and O's -Discontinue IV fluids but still hold home Lasix and reevaluate fluid status tomorrow Hypertension -Continue home metoprolol 12.5 mg p.o. twice daily DVT prophylaxis -Continue full anticoagulation with Eliquis CODE STATUS -DNR CCA with no intubation as verified on admission Charges/Coding Visit Charges Inpatient E&M: 01544 Subs Hosp L2
[2023-08-20] MEDS: 0.9% Saline Lock 10 ML Syringe IV ×3 (11:12→21:31)
[2023-08-20] MEDS: Potassium Chloride Oral Tablet 20 MEQ 40 MEQ PO ×2 (11:12→16:29)
[2023-08-20] MEDS: Sodium Phosphate/Na Biphos 30 MMOL in 0.9% Normal Saline (250mL Bag) 250 ML 62.5 MMOL IV (11:16)
[2023-08-20] MEDS: Insulin Lispro 100 UNIT/ML INSULN.PEN SC ×2 (11:25→16:22)
[2023-08-20 12:05] LABS: Bedside Glucose 176 mg/dL (74-106)
[2023-08-20] MEDS: Juven (unflavored) Packet 1 PACKET PO (16:28)
[2023-08-20 16:40] LABS: Bedside Glucose 150 mg/dL (74-106)
[2023-08-20] MEDS: MELATONIN 3 MG TABLET PO (21:31)
[2023-08-20] MEDS: Atorvastatin Calcium 40 MG Tablet PO (21:31)
[2023-08-20] MEDS: Mirtazapine 15 MG Tablet 7.5 MG PO (21:31)
[2023-08-20 22:41] LABS: Bedside Glucose 157 mg/dL (74-106)
[2023-08-21 01:47] VITALS: BMI 33.5
[2023-08-21 03:15] VITALS: BP 124/56; PULSE 84; RESP 18; TEMP 36.6; O2SAT 99
[2023-08-21 05:35] LABS: Hematocrit 26.9 % (37-47); Hemoglobin 8.3 g/dL (12.0-15.0); Mean Corp Hgb Conc 30.9 g/dL (32-36); Mean Corpuscular Volume 97.1 fL (81-99); POSITIVE COUNT YES; POSITIVE MORPHOLOGY YES; Platelet Count 445 K/mm3 (150-450); RBC Distribution Width CV 16.1 % (11.6-14.6); RBC Distribution Width SD 57.8 fl (35.1-43.9); Red Blood Count 2.77 M/mm3 (4.2-5.4); White Blood Count 17.3 K/mm3 (4.4-11.0)
[2023-08-21] MEDS: 0.9% Saline Lock 10 ML Syringe IV ×3 (05:50→22:19)
[2023-08-21] MEDS: Vancomycin HCl 250 MG Capsule 500 MG PO ×4 (05:50→22:12)
[2023-08-21 05:54] LABS: Anion Gap 9 (5-15); BUN 58 mg/dL (7-18); BUN/Creat Ratio 47.5 RATIO (10-20); Calcium,Total 7.6 mg/dL (8.5-10.1); Chloride 116 mmol/L (98-107); Creatinine, Serum 1.22 mg/dL (0.55-1.02); EST Glomerular Filtration Rate 45 mL/min (>60); Est Glom Filt Rate - Afr Amer 54 mL/min (>60); Estimated Creatinine Clearance 31.23 ml/min; Glucose 155 mg/dL (74-106); Phosphorus 2.9 mg/dL (2.5-4.9); Potassium 3.3 mmol/L (3.5-5.1); Sodium Level 143 mmol/L (136-145)
[2023-08-21 06:15] LABS: Differential Indicated MANUAL DIFF
[2023-08-21 09:45] VITALS: BP 136/79; PULSE 103; RESP 18; TEMP 36.4; O2SAT 97
[2023-08-21 09:54] VITALS: BP 136/79; PULSE 103
[2023-08-21] MEDS: Menthol/Lanolin/Calamine/Znox 113 GM Tube 1 APPLIC TOPICAL ×2 (09:54→22:10)
[2023-08-21] MEDS: Metoprolol Tartrate 25 MG Tablet 12.5 MG PO ×2 (09:54→22:11)
[2023-08-21] MEDS: APIXABAN 2.5 MG TABLET (WCH) PO ×2 (09:54→22:11)
[2023-08-21 10:59] LABS: Eosinophil 3 % (0-5); Lymphocyte 14 % (19-41); Monocyte 8 % (0-10); Myelocyte 3 % (0-0); Neutrophil-Band 2 % (0-5); Neutrophil-Segmented 70 % (47-70); Platelet Estimate ADEQUATE (ADEQ); Red Cell Morphology NORM C+C NORMAL (NORM C&C); Total Cells Counted 100 (MANUAL DIFF)
[2023-08-21 11:01] LABS: Absolute Lymphocyte Count 2.42 X10^3/uL (0.83-4.51); Absolute Neutrophil Count 12.5 X10^3/uL (2.0-7.7)
[2023-08-21] MEDS: Insulin Lispro 100 UNIT/ML INSULN.PEN SC ×3 (11:48→22:09)
[2023-08-21 12:10] LABS: Bedside Glucose 161 mg/dL (74-106)
--- NOTE | 2023-08-21 12:24 | CASEMGMT ---
TCU can take patient when ready. REESE called patient's daughter Sharon and let her know this information. REESE called [facility] and left a voice mail for Chelsea in admissions letting her know patient will not be returning at d/c. Plan: d/c to [facility] TCU pending insurance approval. Triny GARCIA
[2023-08-21 13:21] LABS: Pathologist Review Reviewed
[2023-08-21 13:25] LABS: Pathologist Review Reviewed
[2023-08-21 13:29] LABS: Pathologist Review Reviewed
[2023-08-21 13:45] LABS: Pathologist Review Reviewed
--- NOTE | 2023-08-21 14:14 | PCM.PN.HOSP ---
Subjective Subjective Doing well, no abdominal pain and diarrhea appears to be improving. White count is also improving. Objective Data Objective Data Vital Signs: Vital Signs Temp Pulse Resp BP Pulse Ox O2 Del Method 97.5 F L 103 H 18 136/79 H 97 Room Air 08/21/23 09:45 08/21/23 09:54 08/21/23 09:45 08/21/23 09:54 08/21/23 09:45 08/21/23 09:45 Oxygen Delivery Method Room Air Weight: 195 lb 12.328 oz Body Mass Index (BMI) 33.5 Intake & Output: Intake and Output for Last 24 Hours 08/20/23 08/21/23 08/22/23 03:59 03:59 03:59 Intake Total 3057.50 / 3057.50 2457.50 / 2457.50 150 / 150 Output Total 200 / 200 Balance 2857.50 / 2857.50 2457.50 / 2457.50 150 / 150 Lab / Micro Data 08/22/23 06:20 08/22/23 06:20 Labs: Laboratory Results - last 24 hr 08/18/23 13:35: Diff Path Review Reviewed 08/19/23 08:08: Diff Path Review Reviewed 08/20/23 04:10: Diff Path Review Reviewed 08/20/23 16:20: POC Glucose 150 H 08/20/23 21:26: POC Glucose 157 H 08/21/23 04:15: WBC 17.3 H, RBC 2.77 L, Hgb 8.3 L, Hct 26.9 L, MCV 97.1, MCH 30.0, MCHC 30.9 L, RDW Std Deviation 57.8 H, RDW Coeff of Karen 16.1 H, Plt Count 445, MPV 9.0, Neut % (Auto) Not Reportable, Absolute Neuts (auto) 12.5 H, Absolute Lymphs (auto) 2.42, Total Counted 100, Neutrophils % (Manual) 70, Band Neutrophils % 2, Lymphocytes % (Manual) 14 L, Monocytes % (Manual) 8, Eosinophils % (Manual) 3, Myelocytes % 3 H, Diff Path Review Reviewed, Platelet Estimate ADEQUATE, RBC Morphology NORM C+C, Sodium 143, Potassium 3.3 L, Chloride 116 H, Carbon Dioxide 18.0 L, Anion Gap 9, BUN 58 H, Creatinine 1.22 H, Estim Creat Clear Calc 31.23, Est GFR (MDRD) Af Amer 54 L, Est GFR (MDRD) Non-Af 45 L, BUN/Creatinine Ratio 47.5 H, Glucose 155 H, Calcium 7.6 L, Phosphorus 2.9 08/21/23 11:47: POC Glucose 161 H Micro: Microbiology 08/18/23 18:10 Blood Culture (Wb) - Anticubital Right Blood Culture - Preliminary No growth in 48 hours. 08/18/23 17:45 Blood Culture (Wb) - Anticubital Right Blood Culture - Preliminary No growth in 48 hours. 08/18/23 18:00 Urine, Catheterized Urine Culture - Final Culture exhibits no growth. Physical Exam Narrative General: Alert, Oriented x3, Cooperative, No apparent distress HEENT: Atraumatic, PERRLA, EOMI, Normocephalic Oral: Moist Mucosa Neck: Supple, No JVD Lungs: Diminished, Normal air movement, No rhonchi, No wheeze, No rales Cardiovascular: Regular rate, Regular Rhythm, Normal S1, Normal S2, No murmurs Abdomen: Soft, Non Tender, Non-Distended, No Hepato-splenomegaly Extremities: Edema, Capillary Refill Less than 3 Seconds Skin: No rashes, No breakdown Musculoskeletal: No Tenderness to Palpation of Joints or Extremities Neurological: Cranial nerves II-XII grossly intact, Motor Exam 5/5 strength throughout, Sensory exam intact to light touch and pain Psych/Mental Status: Normal Affect, Appropriate Assessment & Plan Assessment/Plan (1) Acute renal failure: (2) C. difficile diarrhea: (3) Right leg injury: (4) Toxic metabolic encephalopathy: (5) Hematochezia: PLAN: Plan Acute C. difficile colitis with metabolic encephalopathy -Positive on 08/16/2023 at [facility] -CT of the abdomen pelvis in the emergency department with proctocolitis involving the sigmoid colon and rectum but no megacolon identified -Leukocytosis is improving and I suspect the marked elevation was due to acute dehydration in conjunction with her C. difficile infection/UTI -Continue oral vancomycin as ordered with plans to taper to 125 mg 4 times daily for total of 14 days treatment at discharge -Continue IV metronidazole for now and plan to discontinue at discharge -P.o. intake has been good so we will discontinue IV fluids 08/21/2023: Feeling much better today, diarrhea has essentially resolved pre-CERT is pending for transitional care unit URMILA on CKD stage IIIb -Baseline serum creatinine appears to run around 1.65 -On presentation serum creatinine was 2.69 and now down to 1.57 -Discontinue IV fluids and continue to monitor renal function with improving creatinine -Patient states she is taking p.o. liquids without any difficulty -Avoid nephro to oxygen as -Will continue to hold home Lasix for now and monitor renal function as well as volume status -Appears markedly dehydrated 08/21/2023: Renal function is improving, will continue to hold her Lasix while inpatient as well as likely on discharge Blood in stool -Likely related to irritation as it was only strict -Hemoglobin is stable -Still on Eliquis -Continue to monitor 08/21/2023: Hemoglobin is 8.3, will recheck in the morning Anemia -Baseline hemoglobin appears to be running between 9 and 10 -Hemoglobin 8.4 this morning -Suspect dilutional with IV fluids -Repeat lab in a.m. -No signs of obvious bleeding Distended gallbladder on CT -Ultrasound is unremarkable -Acute gallbladder pathology ruled out at this time Recent right leg fracture -Status post surgical intervention [facility] -X-ray was unremarkable -PT/OT following -Suspect lower extremity is swollen due to third spacing as albumin is extremely low -Pain medication as ordered -Plan for discharge as TCU per discussion with case packer and sealer/social work yesterday Suspect severe malnutrition -Per documentation from dietitian no evidence of malnutrition exists -Continue oral diet as ordered and p.o. supplements History of atrial fibrillation -Continue Eliquis at 2.5 mg p.o. twice daily -Continue home metoprolol History of heart failure with preserved ejection fraction -Currently compensated and actually dehydrated -Continue daily weights -Continue I's and O's -Discontinue IV fluids but still hold home Lasix and reevaluate fluid status tomorrow Hypertension -Continue home metoprolol 12.5 mg p.o. twice daily DVT prophylaxis -Continue full anticoagulation with Eliquis Charges/Coding Visit Charges Inpatient E&M: 67001 Subs Hosp L2
[2023-08-21 15:00] VITALS: BP 111/94; PULSE 86; RESP 18; TEMP 36.3; O2SAT 100
[2023-08-21 17:43] LABS: Bedside Glucose 157 mg/dL (74-106)
[2023-08-21 22:10] VITALS: BP 131/58; PULSE 92; RESP 16; TEMP 36.7; O2SAT 99
[2023-08-21] MEDS: MELATONIN 3 MG TABLET PO (22:10)
[2023-08-21 22:11] VITALS: BP 131/58; PULSE 92
[2023-08-21] MEDS: Atorvastatin Calcium 40 MG Tablet PO (22:11)
[2023-08-21] MEDS: Mirtazapine 15 MG Tablet 7.5 MG PO (22:12)
[2023-08-22 01:15] LABS: Bedside Glucose 255 mg/dL (74-106)
[2023-08-22 01:43] VITALS: BMI 34.4
[2023-08-22] MEDS: 0.9% Saline Lock 10 ML Syringe IV ×2 (05:27→06:39)
[2023-08-22 05:34] VITALS: BP 128/75; PULSE 87; RESP 16; TEMP 36.8; O2SAT 100
[2023-08-22] MEDS: Vancomycin HCl 250 MG Capsule 500 MG PO ×2 (06:38→11:20)
[2023-08-22 06:50] LABS: Hematocrit 26.5 % (37-47); Hemoglobin 8.3 g/dL (12.0-15.0); Mean Corp Hgb Conc 31.3 g/dL (32-36); Mean Corpuscular Hgb 30.5 pg (27.0-32.0); Mean Corpuscular Volume 97.4 fL (81-99); Mean Platelet Vol. 8.8 fl (6.2-12.0); POSITIVE COUNT YES; POSITIVE MORPHOLOGY YES; Platelet Count 357 K/mm3 (150-450); RBC Distribution Width CV 16.4 % (11.6-14.6); RBC Distribution Width SD 58.4 fl (35.1-43.9); Red Blood Count 2.72 M/mm3 (4.2-5.4); White Blood Count 15.1 K/mm3 (4.4-11.0)
[2023-08-22 07:02] LABS: Bedside Glucose 86 mg/dL (74-106)
[2023-08-22 07:15] LABS: Anion Gap 6 (5-15); BUN 50 mg/dL (7-18); BUN/Creat Ratio 43.5 RATIO (10-20); Calcium,Total 8.1 mg/dL (8.5-10.1); Chloride 115 mmol/L (98-107); Creatinine, Serum 1.15 mg/dL (0.55-1.02); EST Glomerular Filtration Rate 48 mL/min (>60); Est Glom Filt Rate - Afr Amer 58 mL/min (>60); Estimated Creatinine Clearance 33.13 ml/min; Glucose 99 mg/dL (74-106); Potassium 3.5 mmol/L (3.5-5.1); Sodium Level 139 mmol/L (136-145)
[2023-08-22 07:29] LABS: Eosinophil 6 % (0-5); Lymphocyte 7 % (19-41); Metamyelocyte 5 % (0-1); Monocyte 6 % (0-10); Neutrophil-Segmented 76 % (47-70); Total Cells Counted 100 (MANUAL DIFF)
[2023-08-22 07:30] LABS: Differential Indicated MANUAL DIFF; Neutrophil # 12.21 X10^3/uL (2.7-7.7)
[2023-08-22 07:31] LABS: Absolute Lymphocyte Count 1.06 X10^3/uL (0.83-4.51); Absolute Neutrophil Count 12.2 X10^3/uL (2.0-7.7); Lymphocyte # 1.06 X10^3/ul (0.83-4.51); Platelet Estimate ADEQUATE (ADEQ)
[2023-08-22 07:32] LABS: Anisocytosis 2+; Macrocytosis 1+; Microcytosis 1+; Schistocytes RARE
[2023-08-22 07:33] LABS: Ovalocyte RARE
[2023-08-22 09:16] VITALS: O2SAT 100
[2023-08-22 10:31] VITALS: BP 130/58; PULSE 93; RESP 16; TEMP 36.4; O2SAT 100
[2023-08-22 10:34] VITALS: BP 130/58; PULSE 93
[2023-08-22] MEDS: Metoprolol Tartrate 25 MG Tablet 12.5 MG PO (10:34)
[2023-08-22] MEDS: Menthol/Lanolin/Calamine/Znox 113 GM Tube 1 APPLIC TOPICAL (10:34)
[2023-08-22] MEDS: APIXABAN 2.5 MG TABLET (WCH) PO (10:34)
[2023-08-22] MEDS: Insulin Lispro 100 UNIT/ML INSULN.PEN SC (11:19)
[2023-08-22 11:42] LABS: Bedside Glucose 189 mg/dL (74-106)
--- NOTE | 2023-08-22 12:51 | PCM.TXEXTCAR ---
Diet Diet Order/Speech Therapy: 08/19/23 17:00 Diet: Sodium Restricted (MOD) Food consistency:: Regular Liquid Consistency:: Regular/Thin Type of Dietary Supplement:: Ensure Compact Is pt able to select menu?: No Diet Comments: ensure compact BID w/ breakfast and dinner meal trays Routine Orders/Code Status Routine Lab Work: CBC and BMP Code Status: DNRCC-A Wound(s) right leg: Wound Type: Surgical Incision Therapies Physical Therapy: Eval and Treat Occupational Therapy: Eval and Treat Problem/Diagnosis (1) Acute renal failure: Status: Acute Code(s): N17.9 - Acute kidney failure, unspecified (2) C. difficile diarrhea: Status: Acute Code(s): A04.72 - Enterocolitis due to Clostridium difficile, not specified as recurrent (3) Right leg injury: Status: Acute Code(s): S89.91XA - Unspecified injury of right lower leg, initial encounter (4) Toxic metabolic encephalopathy: Status: Acute Code(s): G92.8 - Other toxic encephalopathy (5) Hematochezia: Status: Acute Code(s): K92.1 - Melena Plan 1. C. difficile Acute C. difficile colitis -Positive on 08/16/[address] [facility] -CT of the abdomen pelvis in the emergency department with proctocolitis involving the sigmoid colon and rectum but no megacolon identified -Leukocytosis is improving and I suspect the marked elevation was due to acute dehydration in conjunction with her C. difficile infection/UTI -Continue oral vancomycin as ordered with plans to taper to 125 mg 4 times daily for total of 14 days treatment at discharge -Continue IV metronidazole for now and plan to discontinue at discharge -P.o. intake has been good so we will discontinue IV fluids URMILA on CKD stage IIIb -Baseline serum creatinine appears to run around 1.65 -On presentation serum creatinine was 2.69 and now down to 1.57 -Discontinue IV fluids and continue to monitor renal function with improving creatinine -Patient states she is taking p.o. liquids without any difficulty -Avoid nephro to oxygen as -Will continue to hold home Lasix for now and monitor renal function as well as volume status -Appears markedly dehydrated Blood in stool -Likely related to irritation as it was only strict -Hemoglobin is stable -Still on Eliquis -Continue to monitor Hypokalemia -P.o. potassium supplementation -Repeat in a.m. Hypophosphatemia -IV sodium Phos supplementation -Repeat in a.m. Possible urinary tract infection -Urine culture is negative and my suspicion for systemic infection is low -Discontinue IV antibiotics Anemia -Baseline hemoglobin appears to be running between 9 and 10 -Hemoglobin 8.4 this morning -Suspect dilutional with IV fluids -Repeat lab in a.m. -No signs of obvious bleeding Thrombocytosis -Likely acute phase reactant -Trending down Toxic/metabolic encephalopathy -Resolved -Patient is now alert and oriented x [address] -Ultrasound is unremarkable -Acute gallbladder pathology ruled out at this time Recent right leg fracture -Status post surgical intervention [facility] -X-ray was unremarkable -PT/OT following -Suspect lower extremity is swollen due to third spacing as albumin is extremely low -Pain medication as ordered -Plan for discharge as TCU per discussion with disease case manager rn/social work yesterday Suspect severe malnutrition -Per documentation from dietitian no evidence of malnutrition exists -Continue oral diet as ordered and p.o. supplements History of atrial fibrillation -Continue Eliquis at 2.5 mg p.o. twice daily -Continue home metoprolol History of heart failure with preserved ejection fraction -Currently compensated and actually dehydrated -Continue daily weights -Continue I's and O's -Discontinue IV fluids but still hold home Lasix and reevaluate fluid status tomorrow Hypertension -Continue home metoprolol 12.5 mg p.o. twice daily DVT prophylaxis -Continue full anticoagulation with Eliquis CODE STATUS -DNR CCA with no intubation as verified on admission Allergies/Procedures Done in Hospital Allergies No Known Allergies Allergy (Verified 08/02/23 11:25) Procedures: None Type of Care/Length of Stay Estimated LOS: Convalescent Care Less Than 30 days Type of Care Needed: Skilled Rehab Potential: Good Prognosis: Good Additional Orders/Day of Discharge Day of Discharge: 08/22/23 Dietary and Speech Recommendations Dietitian Recommendations/Changes: Will change diet to sodium-restricted; renal diet restrictions not indicated. Will d/c 120mL ensure plus 4 times per day w/ medpass and add ensure compact BID to meal trays. Will continue Estuardo BID to support wound healing of R leg surgical incision. Discharge Plan Admission Admit Date/Time: 08/18/23 17:04 Attending Provider: Alfonzo Rangel Primary Care Provider: Diann Bethea Consulting Providers: Reynaldo Min; Dary Monahan Discharge Orders/Prescriptions Prescriptions: New vancomycin [Firvanq] 25 mg/mL Recon Soln 125 mg PO Q6 11 Days Qty: 0 0RF Rx Instructions: Or tablets if liquid is not formulary at same dose and interval Continued multivitamin Tablet 1 tab PO DAILY albuterol sulfate [Ventolin HFA] 90 mcg/actuation Hfa Aerosol Inhaler 2 puff inhalation Q6H PRN PRN (Reason: Wheezing) 30 Days Qty: 16 0RF Hold Instructions: Order Changed atorvastatin 40 mg tablet 40 mg PO QHS 30 Days Qty: 30 0RF metoprolol tartrate 25 mg tablet 12.5 mg PO BID 30 Days Qty: 60 0RF ondansetron HCl 4 mg tablet 4 mg PO Q4H PRN (Reason: nausea and vomiting) acetaminophen 325 mg Tablet 650 mg PO Q6H PRN PRN (Reason: Pain 1-10 Or Fever >100.7) Qty: 0 0RF mirtazapine [Remeron] 15 mg tablet 7.5 mg PO QHS Eliquis 2.5 mg tablet 2.5 mg PO BID Qty: 180 3RF tramadol 50 mg tablet 50 mg PO Q6H PRN (Reason: pain) Qty: 14 0RF Held furosemide 40 mg tablet 40 mg PO DAILY Hold Instructions: Resume on 08/28/23. Discontinued vancomycin 125 mg capsule 125 mg PO Q6H Rx Instructions: Starting 08/27/23, take 125 mg every 6 hours for 10 days Referrals / Follow Up: Diann Bethea, VENEER TAPING MACHINE OPERATOR-C [Primary Care Provider] - Disposition Disposition (needs filled in before D/C Order can be placed[facility]
--- NOTE | 2023-08-22 13:23 | PCM.DC.SUM ---
Providers Date of Admission: 08/18/23 Primary Care Physician: KIYA Martínez Reason For Visit: URMILA, CDIFF COLITIS Diagnosis Discharge Diagnosis (1) Acute renal failure: Status: Acute Code(s): N17.9 - Acute kidney failure, unspecified (2) C. difficile diarrhea: Status: Acute Code(s): A04.72 - Enterocolitis due to Clostridium difficile, not specified as recurrent (3) Right leg injury: Status: Acute Code(s): S89.91XA - Unspecified injury of right lower leg, initial encounter (4) Toxic metabolic encephalopathy: Status: Acute Code(s): G92.8 - Other toxic encephalopathy (5) Hematochezia: Status: Acute Code(s): K92.1 - Melena Plan Acute C. difficile colitis with metabolic encephalopathy -Positive on 08/16/2023 at [facility] -CT of the abdomen pelvis in the emergency department with proctocolitis involving the sigmoid colon and rectum but no megacolon identified -Leukocytosis is improving and I suspect the marked elevation was due to acute dehydration in conjunction with her C. difficile infection/UTI -Continue oral vancomycin as ordered with plans to taper to 125 mg 4 times daily for total of 14 days treatment at discharge -Continue IV metronidazole for now and plan to discontinue at discharge -P.o. intake has been good so we will discontinue IV fluids 08/21/2023: Feeling much better today, diarrhea has essentially resolved pre-CERT is pending for transitional care unit URMILA on CKD stage IIIb -Baseline serum creatinine appears to run around 1.65 -On presentation serum creatinine was 2.69 and now down to 1.57 -Discontinue IV fluids and continue to monitor renal function with improving creatinine -Patient states she is taking p.o. liquids without any difficulty -Avoid nephro to oxygen as -Will continue to hold home Lasix for now and monitor renal function as well as volume status -Appears markedly dehydrated 08/21/2023: Renal function is improving, will continue to hold her Lasix while inpatient as well as likely on discharge Blood in stool -Likely related to irritation as it was only strict -Hemoglobin is stable -Still on Eliquis -Continue to monitor 08/21/2023: Hemoglobin is 8.3, will recheck in the morning Anemia -Baseline hemoglobin appears to be running between 9 and 10 -Hemoglobin 8.4 this morning -Suspect dilutional with IV fluids -Repeat lab in a.m. -No signs of obvious bleeding Distended gallbladder on CT -Ultrasound is unremarkable -Acute gallbladder pathology ruled out at this time Recent right leg fracture -Status post surgical intervention [facility] -X-ray was unremarkable -PT/OT following -Suspect lower extremity is swollen due to third spacing as albumin is extremely low -Pain medication as ordered -Plan for discharge as TCU per discussion with case folder/social work yesterday Suspect severe malnutrition -Per documentation from dietitian no evidence of malnutrition exists -Continue oral diet as ordered and p.o. supplements History of atrial fibrillation -Continue Eliquis at 2.5 mg p.o. twice daily -Continue home metoprolol History of heart failure with preserved ejection fraction -Currently compensated and actually dehydrated -Continue daily weights -Continue I's and O's -Discontinue IV fluids but still hold home Lasix and reevaluate fluid status tomorrow Hypertension -Continue home metoprolol 12.5 mg p.o. twice daily DVT prophylaxis -Continue full anticoagulation with Eliquis Medications at Discharge Home Medications albuterol sulfate 90 mcg/actuation aerosol inhaler (Ventolin HFA) 2 puff inhalation Q6H PRN PRN Wheezing 30 days #16 grams 09/17/21 atorvastatin 40 mg tablet 40 mg PO QHS Cholesterol 30 days #30 tabs 09/17/21 metoprolol tartrate 25 mg tablet 12.5 mg (1/2 x 25 mg) PO BID blood pressure 30 days #60 tabs 09/17/21 multivitamin 1 tab PO DAILY dietary supplement 12/09/21 apixaban 2.5 mg tablet (Eliquis) 2.5 mg PO BID #180 tabs 12/19/22 ondansetron HCl 4 mg tablet 4 mg PO Q4H PRN nausea and vomiting 06/24/23 acetaminophen 325 mg tablet 650 mg (2 x 325 mg) PO Q6H PRN PRN Pain 1-10 Or Fever >100.7 #0 tabs 06/27/23 tramadol 50 mg tablet 50 mg PO Q6H PRN pain #14 tabs 07/11/23 furosemide 40 mg tablet 40 mg PO DAILY heart failure 08/18/23 mirtazapine 15 mg tablet (Remeron) 7.5 mg PO QHS appetite stimulant 08/18/23 vancomycin 25 mg/mL oral solution (Firvanq) 125 mg (5 mL) PO Q6 11 days #0 mL 08/22/23 Hospital Course Operations None Procedures None Summary of Care Provided Minutes Spent on Discharge: 37 Hospital Course: Per HPI: ANKUR AN, is an 82 y/o female w/ hx HFpEF, DM, afib, HTN who presented to ED 08/18/23 from [facility] for IV access for IV access for fluids and antibiotics. Patient reportedly broke her right leg 2 weeks ago and went to [facility] for surgery and was discharged. Developed diarrhea and tested positive for C. difficile 2 days ago and has been on vancomycin however has been confused and doing poorly overall. They were unable to get IV access at outlying facility prompting patient to come to the ED. In the ED patient pleasantly confused, vitally stable but white blood cell count found to be 47.6 patient with a BUN of 100 and a creatinine of 2.69 up from 1.65 2 weeks ago. Reviewing records it appears patient also had UA suggestive of UTI and urine culture grew pansensitive E. coli. Given the above hospitalist contacted for admission. Patient evaluated at bedside with daughter present however patient unable to contribute any meaningful history and will answer questions confidently but often within appropriate context. History available as above. Hospital Course: 1. Acute C. difficile colitis with metabolic encephalopathy and URMILA on CKD 3B/hematochezia with anemia of chronic disease complicated by slight GI bleeding?82-year-old female presenting from the assisted with significant dehydration and diarrhea consistent with C. difficile colitis. She has had significant improvement with p.o. vancomycin and IV Flagyl and her creatinine has essentially returned to baseline and her hemoglobin is stabilized at 8.3 despite being on Eliquis. She needs to be on Eliquis secondary to her A-fib history. She is tolerating a diet and she discontinued IV fluids on Monday and she is managing with her p.o. vancomycin. She received pre-CERT today to go to the transitional care unit for rehab, I discussed with her the plan for discharge today she expressed understanding of the risks and benefits of going to the assisted today and she would like to go today to start her rehab. Will plan to discharge on vancomycin 125 mg p.o. every 6 for another 11 days and will discontinue her Flagyl. We will also hold her Lasix for few days to allow her renal function to stabilize. 2. Recent right leg fracture, severe protein calorie malnutrition, A-fib, chronic diastolic CHF, hypertension all chronic medical conditions which complicate her care. Her home medications were continued where appropriate Physical Exam Narrative General: Alert, Oriented x3, Cooperative, No apparent distress HEENT: Atraumatic, PERRLA, EOMI, Normocephalic Oral: Moist Mucosa Neck: Supple, No JVD Lungs: Diminished, Normal air movement, No rhonchi, No wheeze, No rales Cardiovascular: Regular rate, Regular Rhythm, Normal S1, Normal S2, No murmurs Abdomen: Soft, Non Tender, Non-Distended, No Hepato-splenomegaly Extremities: Edema, Capillary Refill Less than 3 Seconds Skin: No rashes, No breakdown Musculoskeletal: No Tenderness to Palpation of Joints or Extremities Neurological: Cranial nerves II-XII grossly intact, Motor Exam 5/5 strength throughout, Sensory exam intact to light touch and pain Psych/Mental Status: Normal Affect, Appropriate Weight / BMI Weight Weight: 200 lb 9.93 oz Body Mass Index (BMI) 34.4 ABG / Lab / Microbiology Data 08/22/23 06:20 08/22/23 06:20 Laboratory: Laboratory Results - last 24 hr 08/19/23 08:08: Diff Path Review Reviewed 08/20/23 04:10: Diff Path Review Reviewed 08/21/23 04:15: Diff Path Review Reviewed 08/21/23 17:19: POC Glucose 157 H 08/21/23 22:08: POC Glucose 255 H 08/22/23 06:20: WBC 15.1 H, RBC 2.72 L, Hgb 8.3 L, Hct 26.5 L, MCV 97.4, MCH 30.5, MCHC 31.3 L, RDW Std Deviation 58.4 H, RDW Coeff of Karen 16.4 H, Plt Count 357, MPV 8.8, Neut % (Auto) Not Reportable, Absolute Neuts (auto) 12.2 H, Absolute Lymphs (auto) 1.06, Total Counted 100, Neutrophils % (Manual) 76 H, Lymphocytes % (Manual) 7 L, Monocytes % (Manual) 6, Eosinophils % (Manual) 6 H, Metamyelocytes % 5 H, Diff Path Review May foll, Platelet Estimate ADEQUATE, Anisocytosis 2+, Microcytosis 1+, Macrocytosis 1+, Ovalocytes RARE, Schistocytes RARE, Sodium 139, Potassium 3.5, Chloride 115 H, Carbon Dioxide 18.0 L, Anion Gap 6, BUN 50 H, Creatinine 1.15 H, Estim Creat Clear Calc 33.13, Est GFR (MDRD) Af Amer 58 L, Est GFR (MDRD) Non-Af 48 L, BUN/Creatinine Ratio 43.5 H, Glucose 99, Calcium 8.1 L 08/22/23 06:37: POC Glucose 86 08/22/23 11:18: POC Glucose 189 H Microbiology: Microbiology 08/18/23 18:10 Blood Culture (Wb) - Anticubital Right Blood Culture - Preliminary No growth in 48 hours. 08/18/23 17:45 Blood Culture (Wb) - Anticubital Right Blood Culture - Preliminary No growth in 48 hours. 08/18/23 18:00 Urine, Catheterized Urine Culture - Final Culture exhibits no growth. Meaningful Use Info Meaningful Use Diagnoses (Choose all that apply): None applicable Discharge Plan Admission Admit Date/Time: 08/18/23 17:04 Attending Provider: Alfonzo Rangel Primary Care Provider: Diann Bethea Consulting Providers: Reynaldo Min; Dary Monahan Discharge Orders/Prescriptions Prescriptions: New vancomycin [Firvanq] 25 mg/mL Recon Soln 125 mg PO Q6 11 Days Qty: 0 0RF Rx Instructions: Or tablets if liquid is not formulary at same dose and interval Continued multivitamin Tablet 1 tab PO DAILY albuterol sulfate [Ventolin HFA] 90 mcg/actuation Hfa Aerosol Inhaler 2 puff inhalation Q6H PRN PRN (Reason: Wheezing) 30 Days Qty: 16 0RF Hold Instructions: Order Changed atorvastatin 40 mg tablet 40 mg PO QHS 30 Days Qty: 30 0RF metoprolol tartrate 25 mg tablet 12.5 mg PO BID 30 Days Qty: 60 0RF ondansetron HCl 4 mg tablet 4 mg PO Q4H PRN (Reason: nausea and vomiting) acetaminophen 325 mg Tablet 650 mg PO Q6H PRN PRN (Reason: Pain 1-10 Or Fever >100.7) Qty: 0 0RF mirtazapine [Remeron] 15 mg tablet 7.5 mg PO QHS Eliquis 2.5 mg tablet 2.5 mg PO BID Qty: 180 3RF tramadol 50 mg tablet 50 mg PO Q6H PRN (Reason: pain) Qty: 14 0RF Held furosemide 40 mg tablet 40 mg PO DAILY Hold Instructions: Resume on 08/28/23. Discontinued vancomycin 125 mg capsule 125 mg PO Q6H Rx Instructions: Starting 08/27/23, take 125 mg every 6 hours for 10 days Referrals / Follow Up: Diann Bethea, PHLEBOTOMY LAB ASSISTANT-C [Primary Care Provider] - Disposition Disposition (needs filled in before D/C Order can be placed): [facility] Charges/Coding Visit Charges Inpatient E&M: 70291 Disch Hosp >30min
--- NOTE | 2023-08-22 13:23 | CASEMGMT ---
Patient was approved and will go to TCU today. SW notified Liseth in TCU. Plan: [facility] TCU Triny GARCIA
--- NOTE | 2023-08-22 13:34 | CASEMGMT ---
SW called patient's daughter Sharon and let her know patient will be going to TCU today. She thanked REESE. Triny Du SUPERVISOR COLOR MAKINGMary GARCIA
[2023-08-22 14:10] VITALS: BP 123/57; PULSE 96; RESP 16; TEMP 36.5; O2SAT 99
--- NOTE | 2023-08-22 14:59 | PHA.DC.MR.R ---
Pharmacy [place] Med Reconciliation Pharmacy Service has performed discharge medication reconciliation for this patient. The patient's discharge medication list was reviewed for discrepancies and discrepancies were resolved. Medications at Discharge Home Medications albuterol sulfate 90 mcg/actuation aerosol inhaler (Ventolin HFA) 2 puff inhalation Q6H PRN PRN Wheezing 30 days #16 grams 09/17/21 atorvastatin 40 mg tablet 40 mg PO QHS Cholesterol 30 days #30 tabs 09/17/21 metoprolol tartrate 25 mg tablet 12.5 mg (1/2 x 25 mg) PO BID blood pressure 30 days #60 tabs 09/17/21 multivitamin 1 tab PO DAILY dietary supplement 12/09/21 apixaban 2.5 mg tablet (Eliquis) 2.5 mg PO BID #180 tabs 12/19/22 ondansetron HCl 4 mg tablet 4 mg PO Q4H PRN nausea and vomiting 06/24/23 acetaminophen 325 mg tablet 650 mg (2 x 325 mg) PO Q6H PRN PRN Pain 1-10 Or Fever >100.7 #0 tabs 06/27/23 tramadol 50 mg tablet 50 mg PO Q6H PRN pain #14 tabs 07/11/23 furosemide 40 mg tablet 40 mg PO DAILY heart failure 08/18/23 mirtazapine 15 mg tablet (Remeron) 7.5 mg PO QHS appetite stimulant 08/18/23 vancomycin 25 mg/mL oral solution (Firvanq) 125 mg (5 mL) PO Q6 11 days #0 mL 08/22/23
--- NOTE | 2023-08-22 15:04 | NURSING ---
Report called to JUDAH GARCIA on TCU at [phone].
--- NOTE | 2023-08-22 15:10 | CASEMGMT ---
REESE called patient's daughter Aisha letting her know patient is going to TCU bed 4 right now. Aisha thanked REESE for letting her know. Triny GARCIA
[2023-08-23 11:02] LABS: Pathologist Review Reviewed
== END 2023-08-22 15:10 | disposition skilled nursing facility (03) | DRG 371 ==
LOC: ED 14:58 → MS3 17:18 → PCU 17:55
PROVIDERS: Internal Medicine; Admitting Provider Internal Medicine; Emergency Provider Emergency Medicine; PCP Nurse Practitioner Family; Visit Provider Family Medicine
DX: A04.72 Enterocolitis due to Clostridium difficile, not specified as recurrent (principal); G92.8 Other toxic encephalopathy; E43 Unspecified severe protein-calorie malnutrition; N17.9 Acute kidney failure, unspecified; I13.0 Hypertensive heart and chronic kidney disease with heart failure and stage 1 through stage 4 chronic kidney disease, or unspecified chronic kidney disease; I50.32 Chronic diastolic (congestive) heart failure; K92.1 Melena; N39.0 Urinary tract infection, site not specified; D63.1 Anemia in chronic kidney disease; E83.39 Other disorders of phosphorus metabolism; E11.22 Type 2 diabetes mellitus with diabetic chronic kidney disease; E86.0 Dehydration; N18.32 Chronic kidney disease, stage 3b; I48.0 Paroxysmal atrial fibrillation; E87.6 Hypokalemia; R26.2 Difficulty in walking, not elsewhere classified; E78.5 Hyperlipidemia, unspecified; K82.8 Other specified diseases of gallbladder; S89.91XA Unspecified injury of right lower leg, initial encounter; D75.839 Thrombocytosis, unspecified; D64.9 Anemia, unspecified; Z68.33 Body mass index [BMI] 33.0-33.9, adult; B96.20 Unspecified Escherichia coli [E. coli] as the cause of diseases classified elsewhere; Z87.891 Personal history of nicotine dependence; Z66 Do not resuscitate; Z79.01 Long term (current) use of anticoagulants
CPT/HCPCS: 36415; 73610; 74176; 76705; 80048; 80053; 80076; 81001; 82962; 83735; 84100; 84443; 85025; 87040; 87086; 94668; 97110; 97162; 97166; 97530; 97535; 97802; 99284; J7030; J7050; A4216; J2405

== ENCOUNTER 2023-08-22 15:28 | Inpatient (IN) | payer MEDICARE, SELFPAY ==
[2023-08-22 15:42] VITALS: BMI 34.2
[2023-08-22 15:50] VITALS: BP 131/58; PULSE 79; RESP 18; TEMP 36.2; O2SAT 95; BMI 34.2
[2023-08-22] MEDS: Vancomycin 125 MG/5 ML Susp PO.SYRINGE PO ×2 (17:41→23:32)
[2023-08-22 17:55] VITALS: PULSE 79; RESP 18; O2SAT 95
--- NOTE | 2023-08-22 20:21 | PCM.HP.STD ---
[facility] Date of Admission: 08/22/23 Date of Service: 08/22/23 Chief Complaint: Here for rehabilitation. [facility] Narrative 08/18/2023 ANKUR AN, is a 82 Female who presents with dehydration, abnormal labs, change in mental status. 08/02/2023 Transferred to [facility] for right leg fracture, surgically corrected, discharged to rehab. 2 days ago, diarrhea positive for c. diff, on oral Vancomycin. Acute kidney injury, elevated BUN, WBC 44,000, dehydration, change in mental status. IV fluids given. WBC 47.6, Hemoglobin 10.4, Creatinine 2.69, BUN 100. CT A/P showed inflammation rectosigmoid region. 08/18/2023 Admit to Hospital. Vancomycin 500mg qid, Flagyl IV for c. diff colitis. Rocephin IV for E. Coli UTI. IV fluids for acute kidney injury, careful with HFpEF. PT/OT right leg fracture. 08/19/2023 Feeling better. Vancomycin, Flagyl for c. diff colitis. Creatinine 1.91, baseline 1.65. Urine culture negative, blood culture pending, continue Rocephin for now. PT/OT for debility. 08/20/2023 Monitor H&H for blood in stool. Stool output slowing. Good PO intake, stop IV fluids. Creatinine 1.57, back to baseline. Hold Lasix, replete Potassium. Stop Rocephin. PT/OT TCU. 08/21/2023 Doing well, no abdominal pain. Diarrhea resolved. Hold Lasix. Hemoglobin 8.3. 08/22/2023 Admit to TCU with debility, here for rehabilitation, strengthening, prior to discharge home with family. [facility] Medical History (Updated 08/22/23 @ 20:[address] Erasmo El MD) Anemia Atrial fibrillation with rapid ventricular response (09/04/21) Chronic kidney disease, stage 3 Current use of terminal superintendent anticoagulation Debility Diabetes Diastolic congestive heart failure Essential (primary) hypertension Hyperlipidemia Hypertension Morbid obesity Osteoarthritis Paroxysmal atrial fibrillation Secondary pulmonary arterial hypertension Weakness Home Medications albuterol sulfate 90 mcg/actuation aerosol inhaler (Ventolin HFA) 2 puff inhalation Q6H PRN PRN Wheezing 30 days #16 grams 09/17/21 [Rx Last Taken Unknown] atorvastatin 40 mg tablet 40 mg PO QHS Cholesterol 30 days #30 tabs 09/17/21 [Rx Last Taken 08/21/23] metoprolol tartrate 25 mg tablet 12.5 mg (1/2 x 25 mg) PO BID blood pressure 30 days #60 tabs 09/17/21 [Rx Last Taken 08/22/23 10:30] multivitamin 1 tab PO DAILY dietary supplement 12/09/21 [History Last Taken Unknown] apixaban 2.5 mg tablet (Eliquis) 2.5 mg PO BID blood thinner #180 tabs 12/19/22 [Rx Last Taken 08/22/23 10:30] ondansetron HCl 4 mg tablet 4 mg PO Q4H PRN nausea and vomiting 06/24/23 [History Last Taken Unknown] acetaminophen 325 mg tablet 650 mg (2 x 325 mg) PO Q6H PRN PRN Pain 1-10 Or Fever >100.7 #0 tabs 06/27/23 [Rx Last Taken Unknown] tramadol 50 mg tablet 50 mg PO Q6H PRN pain #14 tabs 07/11/23 [Rx Last Taken Unknown] furosemide 40 mg tablet 40 mg PO DAILY heart failure 08/18/23 [History Last Taken Unknown] mirtazapine 15 mg tablet (Remeron) 7.5 mg PO QHS appetite stimulant 08/18/23 [History Last Taken 08/21/23] vancomycin 25 mg/mL oral solution (Firvanq) 125 mg (5 mL) PO Q6 c-diff 11 days #0 mL 08/22/23 [Rx Last Taken Unknown] Allergy/AdvReac Type Severity Reaction Status Date / Time No Known Allergies Allergy Verified 08/02/23 11:25 Family History Mother Diabetes Father Diabetes CAD (coronary artery disease) Sister Diabetes Surgical History History of cystoscopy (2004) Social History household members: children Smoking Status: Former smoker how long ago did patient quit smokin alcohol intake: never substance use type: does not use caffeine: Yes Type: carbonated beverages Number of servings: 1 ROS Constitutional Constitutional: Denies chills, fever(s) or weight gain ENT HEENT: Denies headache(s), nasal congestion or nasal discharge Cardiovascular Cardiovascular: Denies chest pain or palpitations Respiratory/Chest Respiratory/Chest: Denies cough, excessive phlegm production or shortness of breath with exertion Gastrointestinal Gastrointestinal: Denies abdominal pain, nausea or vomiting Genitourinary Genitourinary: Denies dysuria Musculoskeletal Musculoskeletal: Denies joint pain or joint swelling Integumentary Integumentary: Denies rash or wounds Neurologic Neurologic: Denies focal weakness, numbness or tingling Psychiatric Psychiatric: Denies anxiety, auditory hallucinations, depression, homicidal ideation or suicidal ideation Vital Signs Vital Signs Vital Signs: 08/22/23 15:50 08/22/23 17:55 Temperature 97.2 F L Temperature Source Temporal Pulse Rate 79 79 Pulse Rhythm Irregular Pulse Strength Normal (2+) Respiratory Rate 18 18 Respiratory Effort Normal Respiratory Depth Normal Respiratory Pattern Normal Blood Pressure 131/58 H Blood Pressure Mean 82 Blood Pressure Source Monitor Blood Pressure Position Semi-Fowlers Blood Pressure Location Left Arm Pulse Ox 95 95 Oxygen Delivery Method Room Air Room Air Weight Weight: 90.492 kg Body Mass Index (BMI) 34.2 Physical Exam Const alert General Appearance: cooperative HEENT normocephalic Eyes PERRL and EOMs intact bilaterally Neck supple, no JVD and no carotid bruits Resp normal respiratory effort, normal air movement and clear to auscultation bilaterally Cardio regular rate and regular rhythm GI normal to inspection, nondistended, normoactive bowel sounds, non-tender and non-distended Extremity normal capillary refill Extremity Narrative: Right lower extremity dressing. General Extremity: Negative for edema Skin no rashes or lesions noted General Skin Exam: no breakdown Psych affect normal Appearance: appropriate Assessment & Plan Assessment/Plan (1) Debility: (2) Clostridium difficile colitis: (3) Dehydration: (4) URMILA (acute kidney injury): (5) Leg fracture, right: (6) Metabolic encephalopathy: (7) Urinary tract infection: (8) (HFpEF) heart failure with preserved ejection fraction: PLAN: Plan 82 year old female with below past medical history hospitalized for clostridium difficile colitis, acute kidney injury, dehydration, metabolic encephalopathy, urinary tract infection ruled out, anemia, admitted to TCU with debility, here for rehabilitation, strengthening, prior to discharge home with family. Debility - PT/OT. Pain - Tylenol 1000mg q6 prn pain (1-5), Tramadol 50mg q6 prn pain (6-10). Bowel - monitor. Adult immunization - Administer pneumonia vaccine, covid vaccine, flu vaccine as appropriate. DVT prophylaxis - on Eliquis. Shortness of breath - Albuterol mdi 2 puffs q6h prn. Atrial fibrillation - Metoprolol 12.5mg bid, Eliquis 2.5mg bid. Hyperlipidemia - Atorvastatin 40mg qhs. Heart failure preserved ejection fraction - Metoprolol 12.5mg bid, Furosemide 40mg daily. Depression/insomnia/appetite loss - Mirtazapine 7.5mg qhs, stable chronic terminal superintendent use, GDR not recommended. Nutrition - MVI daily. Nausea - Zofran odt 4mg q4h prn. C. difficile - Vancomycin 125mg q6 thru 09/02/2023.
[2023-08-22 21:26] VITALS: BP 124/55; PULSE 90
[2023-08-22] MEDS: Mirtazapine 15 MG Tablet 7.5 MG PO (21:26)
[2023-08-22] MEDS: Metoprolol Tartrate 25 MG Tablet 12.5 MG PO (21:26)
[2023-08-22] MEDS: Atorvastatin Calcium 40 MG Tablet PO (21:27)
[2023-08-22] MEDS: APIXABAN 2.5 MG TABLET (WCH) PO (21:27)
[2023-08-23] MEDS: Vancomycin 125 MG/5 ML Susp PO.SYRINGE PO ×4 (05:15→23:50)
[2023-08-23 05:40] LABS: Absolute Lymphocyte Count 2.54 X10^3/uL (0.83-4.51); Absolute Neutrophil Count 8.9 X10^3/uL (2.0-7.7); Basophil# 0.07 X10^3/uL; Basophil% 0.5 % (0-1); Eosinophils% 4.4 % (0-5); Lymphocyte # 2.54 X10^3/ul (0.83-4.51); Lymphocyte % 18.8 % (19-41); Mean Corp Hgb Conc 30.8 g/dL (32-36); Mean Corpuscular Hgb 29.9 pg (27.0-32.0); Mean Platelet Vol. 8.8 fl (6.2-12.0); Monocyte# 0.93 X10^3/uL; Monocyte% 6.9 % (0-10); NRBC Flagged by Analyzer 0 % (0-5); Neutrophil # 8.88 X10^3/uL (2.7-7.7); Neutrophil % 65.9 % (47-70); Platelet Count 316 K/mm3 (150-450); RBC Distribution Width CV 16.6 % (11.6-14.6); RBC Distribution Width SD 59.1 fl (35.1-43.9); Red Blood Count 2.68 M/mm3 (4.2-5.4); White Blood Count 13.5 K/mm3 (4.4-11.0)
[2023-08-23 05:53] LABS: Anion Gap 6 (5-15); BUN 54 mg/dL (7-18); Calcium,Total 7.9 mg/dL (8.5-10.1); Chloride 116 mmol/L (98-107); EST Glomerular Filtration Rate 35 mL/min (>60); Est Glom Filt Rate - Afr Amer 43 mL/min (>60); Glucose 177 mg/dL (74-106); Potassium 3.6 mmol/L (3.5-5.1); Sodium Level 142 mmol/L (136-145)
[2023-08-23] MEDS: Iron Polysaccharide Complex 150 MG CAPSULE PO (08:36)
[2023-08-23] MEDS: Tuberculin,Purif.prot.deriv. 50 TU/ML Vial 0.100000000000000006 ML ID (08:37)
--- NOTE | 2023-08-23 10:14 | NURSING ---
Addendum entered by Camila Dominguez 08/24/23 08:49: Per call back from surgeon's office Dr. Blanco would like to see patient in office to remove sutures. Updated them that patient needs a melani for transfers and is c-diff positive. Asked it Dr. Blanco would allow TCU staff to remove sutures. Await return call. Addendum entered by Camila Dominguez 08/23/23 10:50: Xray orders received via fax. Spoke with medical records and orders faxed to them to have disc with images sent to office when completed. Addendum entered by Camila Dominguez 08/23/23 10:36: Dr. Blanco's Office direct #[phone] Original Note: Spoke with patient who says her ortho surgeon is Dr. Neris Blanco. Patient said she was supposed to have follow-up appt but she doesn't want one scheduled as she's worried about weather. This RN spoke with Thelma at Dr. Blanco's office. Received order for patient to be WBAT RLE, and she will fax order for xray to be done. Scans to be send to office then they will reach out to set-up a follow-up. Per Thelma, it will probably be a virtual visit.
[2023-08-23 10:31] VITALS: PULSE 72
[2023-08-23] MEDS: Metoprolol Tartrate 25 MG Tablet 12.5 MG PO ×2 (10:31→22:09)
[2023-08-23] MEDS: Menthol/Lanolin/Calamine/Znox 113 GM Tube 1 APPLIC TOPICAL ×2 (10:32→22:12)
[2023-08-23] MEDS: Miconazole Nitrate 43 GM Bottle 1 APPLIC TOPICAL ×2 (10:32→22:12)
[2023-08-23] MEDS: APIXABAN 2.5 MG TABLET (WCH) PO ×2 (10:32→22:08)
[2023-08-23] MEDS: Multivitamins,Therapeutic Tablet 1 TABLET PO (10:32)
[2023-08-23] MEDS: Acetaminophen 500 MG Tablet 1000 MG PO (10:36)
--- NOTE | 2023-08-23 12:21 | NURSING ---
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 She remains independent in her choice of daily activities. Marilu has a table and smartphone she will use along with watching tv, reading and working on word puzzles. She will have visits from her family and the father along with welcoming visits from the mold maker plaster and therapy dog. Sarah enjoys bingo and talking w/others. Staff will remind her of daily in room and group activities and respect her right to say no.
[2023-08-23 13:22] VITALS: BP 148/71; PULSE 80; RESP 16; TEMP 36.2; O2SAT 98
--- NOTE | 2023-08-23 14:00 | RAD_ITS ---
EXAM: XR RIGHT TIBIA AND FIBULA, 2 VIEWS CLINICAL INDICATION: closed fracture of right tibia and fibula -- 2V AP lat. Images need send to MD office TECHNIQUE: Frontal and lateral views of the right tibia and fibula. COMPARISON: No relevant prior studies available. FINDINGS: Recent metaphyseal fracture of the proximal tibia and fibula. The tibial fracture is surgically fixated with intramedullary marcelo and interlocking screws. No gross complications. Diffuse osteopenia. Diffuse soft tissue swelling involving the extremity/foot/ankle. Prominent posterior calcaneal enthesophyte. RAD/Tibia & Fibula 2 Views IMPRESSION: Recent metaphyseal fracture of the proximal tibia and fibula. The tibial fracture is surgically fixated with intramedullary marcelo and interlocking screws. No gross complications. Electronically Signed: Nima Davis MD at 18:24 EST ,
--- NOTE | 2023-08-23 16:06 | PCM.PN.DRR ---
Documented by User: Alanis Reno 08/23/23 16:19 TCU RX Drug Regimen Review Subjective/Objective Subjective/Objective: Subjective: TCU Admission. 82 YOF hospitalized for clostridium difficile colitis, acute kidney injury, dehydration, metabolic encephalopathy, urinary tract infection ruled out, anemia. Admitted to TCU with debility for strengthening and rehabilitation. Objective: Allergies No Known Allergies Allergy (Verified 08/02/23 11:25) Current Medications Generic Name Dose Route Start Last Admin Trade Name Freq PRN Reason Stop Dose Admin Acetaminophen 1,000 mg 08/22/23 20:52 08/23/23 10:36 Acetaminophen 500 Mg Tablet PO 1,000 mg Q6H PRN PRN Administration Pain Score 1-5 Albuterol Sulfate 2 puff 08/22/23 15:47 Albuterol Ih (6.7 Gm) 1 Puff Inhaler INHALATION Q6H PRN PRN Wheezing Apixaban 2.5 mg 08/22/23 22:00 08/23/23 10:32 Apixaban 2.5 Mg Tablet (Wc) PO 2.5 mg BID JOAN Administration Atorvastatin Calcium 40 mg 08/22/23 22:00 08/22/23 21:27 Atorvastatin Calcium 40 Mg Tablet PO 40 mg QHS JOAN Administration Calamine/Phenol 1 applic 08/23/23 10:00 08/23/23 10:32 Menthol/Lanolin/Calamine/Znox 113 Gm Tube TOPICAL 1 applic BID JOAN Administration Protocol Furosemide 40 mg 08/28/23 10:00 Furosemide 40 Mg Tablet PO DAILY JOAN Protocol Metoprolol Tartrate 12.5 mg 08/22/23 22:00 08/23/23 10:31 Metoprolol Tartrate 25 Mg Tablet PO 12.5 mg BID JOAN Administration Protocol Miconazole Nitrate 1 applic 08/23/23 10:00 08/23/23 10:32 Miconazole Nitrate 43 Gm Bottle TOPICAL 1 applic BID JOAN Administration Protocol Mirtazapine 7.5 mg 08/22/23 22:00 08/22/23 21:26 Mirtazapine 15 Mg Tablet PO 7.5 mg QHS JOAN Administration Multivitamins 1 tablet 08/23/23 08:00 08/23/23 10:32 Multivitamins,Therapeutic Tablet PO 1 tablet DAILYCM JOAN Administration Ondansetron HCl 4 mg 08/22/23 15:48 Ondansetron Odt 4 Mg Tablet PO Q4H PRN nausea and vomiting Polysaccharide Iron Complex 150 mg 08/23/23 08:00 08/23/23 08:36 Iron Polysaccharide Complex 150 Mg Capsule PO 150 mg DAILYCM JOAN Administration Sodium Chloride 10 - 40 ml 08/22/23 16:21 0.9% Saline Lock 10 Ml Syringe IV UD PRN SALINE FLUSH Tramadol HCl 50 mg 08/22/23 20:47 Tramadol 50 Mg Tablet PO Q6H PRN Pain Score 6-10 Tuberculin PPD 0.1 ml 08/30/23 10:00 Tuberculin,Purif.Prot.Deriv. 50 Tu/Ml Vial ID 08/30/23 10:01 X1 ONE Vancomycin HCl 125 mg 08/22/23 18:00 08/23/23 11:45 Vancomycin 125 Mg/5 Ml Susp Po.Syringe PO 09/02/23 18:01 125 mg Q6 JOAN Administration Problem List (Updated 08/22/23 @ 20:[address] Erasmo El MD) (HFpEF) heart failure with preserved ejection fraction (Acute) Urinary tract infection (Acute) Metabolic encephalopathy (Acute) Leg fracture, right (Acute) Dehydration (Acute) Clostridium difficile colitis (Acute) Debility (Acute) Vital Signs Temp Pulse Resp BP Pulse Ox O2 Del Method 97.2 F L 80 16 148/71 H 98 Room Air 08/23/23 13:22 08/23/23 13:22 08/23/23 13:22 08/23/23 13:22 08/23/23 13:22 08/23/23 13:22 Oxygen Delivery Method Room Air Weight: 90.492 kg Body Mass Index (BMI) 34.2 Sodium 142 mmol/L (136-145) 08/23/23 05:13 Potassium 3.6 mmol/L (3.5-5.1) 08/23/23 05:13 Chloride 116 mmol/L (98-107) H 08/23/23 05:13 Carbon Dioxide 20.0 mmol/L (21.0-32.0) L 08/23/23 05:13 Anion Gap 6 (5-15) 08/23/23 05:13 BUN 54 mg/dL (7-18) H 08/23/23 05:13 Creatinine 1.50 mg/dL (0.55-1.02) H 08/23/23 05:13 Est GFR (MDRD) Af Amer 43 mL/min (>60) L 08/23/23 05:13 Est GFR (MDRD) Non-Af 35 mL/min (>60) L 08/23/23 05:13 BUN/Creatinine Ratio 36.0 RATIO (10-20) H 08/23/23 05:13 Glucose 177 mg/dL (74-106) H 08/23/23 05:13 Assessment/Plan: 1. Pain: acetaminophen 1000mg PO Q6H PRN pain 1-5 and tramadol 50mg PO Q6H PRN pain 6-10. Resident has received 1 dose of acetaminophen for pain of 5 in the knee and no doses of tramadol. Please continue to monitor for increased pain and PRN usage. 2. C. difficile: vancomycin 125mg PO Q6H thru 09/02/23. Please continue to monitor for S/S of infection and diarrhea. 3. Atrial fibrillation/HFpEF: metoprolol tartrate 12.5mg PO BID, apixaban 2.5mg PO BID and furosemide 40mg PO daily. Please continue to monitor for S/S of bleeding/bruising, hemoglobin (last 8g/dL), HR (last 80), BP (last 148/71), renal function, swelling and potassium (last 3.6mmol/L). Apixaban dose appropriate at this time as the SCr is 1.5mg/dL and age >80. 4. Hyperlipidemia: atorvastatin 40mg PO QHS. Please continue to monitor LFTs (last 08/19/23), lipid panel (last 07/03/23) and muscle pain. 5. Shortness of breath: albuterol MDI 2puffs Q6H PRN wheezing. Resident has not had any doses so far. Please continue to monitor for S/S of wheezing and PRN usage. 6. Nausea: ondansetron ODT 4mg PO Q4H PRN nausea and vomiting. Resident has not had any doses so far. Please continue to monitor for S/S of nausea, vomiting and PRN usage. 7. Nutrition: multivitamin 1T PO daily. Please continue to monitor. 8. Iron deficiency (based on hemoglobin of 8g/dL): Ferrex 150mg PO daily. Please continue to monitor hemoglobin, dark stools and constipation. Assessment/Plan for indications treated with psychotropic medications: 1. Depression/insomnia/appetite loss: mirtazapine 7.5mg PO QHS. Please see physician note regarding GDR. Please continue to monitor appetite, suicidal ideation (black box warning) and sodium (last 142mmol/L). Medical chart and medication regimen reviewed. The following medication irregularities or issues were identified: None Date Date of Note:: 08/23/23 Documented by User: Dr. Erasmo El MD 08/23/23 17:37 TCU RX Drug Regimen Review Provider Comments Provider responsibility Provider Comments to Recommendations by Pharmacy: Agree
[2023-08-23] MEDS: Mirtazapine 15 MG Tablet 7.5 MG PO (22:07)
[2023-08-23] MEDS: Atorvastatin Calcium 40 MG Tablet PO (22:08)
[2023-08-23 22:09] VITALS: BP 134/62; PULSE 92
[2023-08-24] MEDS: Vancomycin 125 MG/5 ML Susp PO.SYRINGE PO ×4 (05:31→23:12)
[2023-08-24 05:51] LABS: Hematocrit 25.6 % (37-47)
[2023-08-24] MEDS: Multivitamins,Therapeutic Tablet 1 TABLET PO (08:52)
[2023-08-24] MEDS: Iron Polysaccharide Complex 150 MG CAPSULE PO (08:52)
[2023-08-24] MEDS: Menthol/Lanolin/Calamine/Znox 113 GM Tube 1 APPLIC TOPICAL ×2 (08:53→20:50)
[2023-08-24] MEDS: APIXABAN 2.5 MG TABLET (WCH) PO ×2 (08:53→20:48)
[2023-08-24] MEDS: Miconazole Nitrate 43 GM Bottle 1 APPLIC TOPICAL ×2 (08:53→20:50)
[2023-08-24 08:56] VITALS: BP 134/63; PULSE 88
[2023-08-24] MEDS: Metoprolol Tartrate 25 MG Tablet 12.5 MG PO ×2 (08:56→21:01)
[2023-08-24 14:48] VITALS: BP 120/68; PULSE 90; RESP 16; TEMP 36.4; O2SAT 95
--- NOTE | 2023-08-24 15:47 | CASEMGMT ---
Social Work Met with patient to complete initial assessment. Pt known to this worker from previous stay. Verified contacts. Confirmed code status as DNR-CCA, no intubation. [facility] 08/24 and continued stay is not guaranteed with review. Pt's goal is to return home with dtr. Pt reports to only be at [facility] for a couple weeks for therapy. 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 Noted for pt to return home safely, for pt be a minimal one person assist. Pt agrees. SW will continue to follow for DC planning. Silvia Lizama, TARIK SWEENEYW
[2023-08-24] MEDS: Mirtazapine 15 MG Tablet 7.5 MG PO (20:49)
[2023-08-24] MEDS: Atorvastatin Calcium 40 MG Tablet PO (20:49)
[2023-08-24 21:01] VITALS: BP 126/68; PULSE 78
[2023-08-25] MEDS: Vancomycin 125 MG/5 ML Susp PO.SYRINGE PO ×3 (04:49→17:46)
[2023-08-25 05:43] LABS: Hematocrit 25.5 % (37-47); Hemoglobin 7.7 g/dL (12.0-15.0)
[2023-08-25] MEDS: Iron Polysaccharide Complex 150 MG CAPSULE PO (09:10)
[2023-08-25] MEDS: Multivitamins,Therapeutic Tablet 1 TABLET PO (09:10)
[2023-08-25 09:11] VITALS: BP 115/51; PULSE 85
[2023-08-25] MEDS: APIXABAN 2.5 MG TABLET (WCH) PO ×2 (09:11→21:32)
[2023-08-25] MEDS: Metoprolol Tartrate 25 MG Tablet 12.5 MG PO ×2 (09:11→21:35)
[2023-08-25] MEDS: Miconazole Nitrate 43 GM Bottle 1 APPLIC TOPICAL ×2 (09:15→21:39)
[2023-08-25] MEDS: Menthol/Lanolin/Calamine/Znox 113 GM Tube 1 APPLIC TOPICAL ×2 (09:16→21:39)
--- NOTE | 2023-08-25 10:43 | NURSING ---
CONSULT PUT IN FOR PER FOR BLOOD IN PT STOOL PER STOOL SAMPLE RESULTS. THIS NURSE CALLED OFFICE AND SPOKE WITH A STAFF MEMBER. RN AWARE
--- NOTE | 2023-08-25 10:56 | NURSING ---
Per infusion center they can't do blood transfusion today. Updated picking supervisor Bernardino, he wants staff to call him 08/26/23 AM and he'll take care of finding her a bed to get transfusion.
--- NOTE | 2023-08-25 10:57 | NURSING ---
Addendum entered by Titi Thomas 08/25/23 11:03: DAUGHTER CALLED THIS NURSE BACK. UPDATED DAUGHTER ON HER MOTHER. DAUGHTER STATED THANK YOU AND WILL BE IN TO SEE HER SOME TIME TODAY. Original Note: CALLED TO UPDATE PT DAUGHTER. GOT VOICE MAIL,LEFT MESSAGE FOR HER TO CALL BACK. RN AWARE
[2023-08-25] MEDS: 0.9% Saline Lock 10 ML Syringe IV (11:28)
--- NOTE | 2023-08-25 14:42 | NURSING ---
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 PATIENT TOLERATED WELL NO COMPLAINTS. WOUND APPROXIMATED WELL, WILL MONITOR. RN AWARE
--- NOTE | 2023-08-25 15:43 | CON.PCM.GI_ITS ---
HPI Consult Data Date of Consult: 08/25/23 HPI Narrative Reason for Consultation: Anemia HPI Narrative: ANKUR AN, is a 82 y/o female w/ hx HFpEF, DM, afib, HTN who presented to ED 08/18/23 from [facility] for IV access for IV access for fluids and antibiotics. Patient reportedly broke her right leg 2 weeks ago and went to [facility] for surgery and was discharged. She then developed diarrhea and tested positive for C. difficile 2 days ago and has been on vancomycin and flagyl. Her stools are getting a lot better. She describes her stools as soft and about 2-3 times a day. She denies any tenesmus or lower GI bleeding. She has been on Eliquis for DVT prophylaxis, CHF and pulmonary pretension. Patient reports that she thinks that she has a history of paroxysmal A-fib but she is not sure. I was called to see her due to a decrease in hemoglobin and Hemoccult positive stools while on anticoagulation. She says that she had a colonoscopy but has been over 10 years. REPLACED BY [facility] Medical History (Updated 08/25/23 @ 15:[address] Marmolejo Friend, DO) Anemia Atrial fibrillation with rapid ventricular response (09/04/21) Chronic kidney disease, stage 3 Current use of supervisor intermediates anticoagulation Debility Diabetes Diastolic congestive heart failure Essential (primary) hypertension Hyperlipidemia Hypertension Morbid obesity Osteoarthritis Paroxysmal atrial fibrillation Secondary pulmonary arterial hypertension Weakness Home Medications albuterol sulfate 90 mcg/actuation aerosol inhaler (Ventolin HFA) 2 puff inhalation Q6H PRN PRN Wheezing 30 days #16 grams 09/17/21 [Rx Last Taken Unknown] atorvastatin 40 mg tablet 40 mg PO QHS Cholesterol 30 days #30 tabs 09/17/21 [Rx Last Taken 08/21/23] metoprolol tartrate 25 mg tablet 12.5 mg (1/2 x 25 mg) PO BID blood pressure 30 days #60 tabs 09/17/21 [Rx Last Taken 08/22/23 10:30] multivitamin 1 tab PO DAILY dietary supplement 12/09/21 [History Last Taken Unknown] apixaban 2.5 mg tablet (Eliquis) 2.5 mg PO BID blood thinner #180 tabs 12/19/22 [Rx Last Taken 08/22/23 10:30] ondansetron HCl 4 mg tablet 4 mg PO Q4H PRN nausea and vomiting 06/24/23 [History Last Taken Unknown] acetaminophen 325 mg tablet 650 mg (2 x 325 mg) PO Q6H PRN PRN Pain 1-10 Or Fever >100.7 #0 tabs 06/27/23 [Rx Last Taken Unknown] tramadol 50 mg tablet 50 mg PO Q6H PRN pain #14 tabs 07/11/23 [Rx Last Taken Unknown] furosemide 40 mg tablet 40 mg PO DAILY heart failure 08/18/23 [History Last Taken Unknown] mirtazapine 15 mg tablet (Remeron) 7.5 mg PO QHS appetite stimulant 08/18/23 [History Last Taken 08/21/23] vancomycin 25 mg/mL oral solution (Firvanq) 125 mg (5 mL) PO Q6 c-diff 11 days #0 mL 08/22/23 [Rx Last Taken Unknown] Allergy/AdvReac Type Severity Reaction Status Date / Time No Known Allergies Allergy Verified 08/02/23 11:25 Family History Mother Diabetes Father Diabetes CAD (coronary artery disease) Sister Diabetes Surgical History History of cystoscopy (2004) Social History household members: children Smoking Status: Former smoker how long ago did patient quit smokin alcohol intake: never substance use type: does not use caffeine: Yes Type: carbonated beverages Number of servings: 1 ROS Constitutional Constitutional: Denies chills, fever(s) or weight gain ENT HEENT: Denies headache(s), nasal congestion or nasal discharge Cardiovascular Cardiovascular: Denies chest pain or palpitations Respiratory/Chest Respiratory/Chest: Denies cough, excessive phlegm production or shortness of breath with exertion Gastrointestinal Gastrointestinal: Denies abdominal pain, nausea or vomiting Genitourinary Genitourinary: Denies dysuria Musculoskeletal Musculoskeletal: Denies joint pain or joint swelling Integumentary Integumentary: Denies rash or wounds Neurologic Neurologic: Denies focal weakness, numbness or tingling Psychiatric Psychiatric: Denies anxiety, auditory hallucinations, depression, homicidal ideation or suicidal ideation Physical Exam Const alert General Appearance: cooperative HEENT normocephalic Eyes PERRL and EOMs intact bilaterally Neck supple, no JVD and no carotid bruits Resp normal respiratory effort, normal air movement and clear to auscultation bilaterally Cardio regular rate and regular rhythm GI normal to inspection, nondistended, normoactive bowel sounds, non-tender and non-distended Extremity normal capillary refill Extremity Narrative: Right lower extremity dressing. General Extremity: Negative for edema Skin no rashes or lesions noted General Skin Exam: no breakdown Psych affect normal Appearance: appropriate Lab / Micro Data 08/25/23 05:15 08/23/23 05:13 Labs: Laboratory Results - last 24 hr 08/25/23 05:15: Hgb 7.7 L, Hct 25.5 L 08/25/23 08:25: Blood Type O NEGATIVE, Antibody Screen NEGATIVE, Crossmatch See Detail Micro: Microbiology 08/25/23 09:24 Stool Stool Occult Blood (ANGELICA) - Final Occult Blood Positive Assessment & Plan Assessment/Plan (1) Acute renal failure: (2) C. difficile diarrhea: (3) Right leg injury: QUALIFIERS: Encounter type: initial encounter Qualified Code(s): S89.91XA - Unspecified injury of right lower leg, initial encounter (4) Toxic metabolic encephalopathy: (5) Hematochezia: PLAN: Plan Acute C. difficile colitis with metabolic encephalopathy -Positive on 08/16/2023 at [facility] -CT of the abdomen pelvis in the emergency department with proctocolitis involving the sigmoid colon and rectum but no megacolon identified -Radiologist recommend direct endoscopic evaluation. I asked her if she would like to have a colonoscopy while she is in the transitional care unit, but she says that she did not think she can tolerate a prep right now after recently undergoing surgery and has been C. difficile colitis. Blood in stool -Possibly secondary to ischemic colitis with associated C. difficile colitis. I would recommend colonoscopy. However we will wait until after she recovers from her infection and she feels strong enough to tolerate prep. -Hemoglobin is 7.6 and she is going to get back with blood cells, Anemia -Baseline hemoglobin appears to be running between 10 1/2-11-09/05 -She has agreed to undergo an upper endoscopy. That would hopefully we can rule out an upper GI source that would be safe for her to be on Eliquis. Charges/Coding Visit Charges Inpatient E&M: 34791 SNF Init L2
[2023-08-25 16:00] VITALS: BP 131/62; PULSE 90; RESP 16; O2SAT 98
--- NOTE | 2023-08-25 16:42 | NURSING ---
DR. GOULD IN TO SEE PATIENT PER CONVERSATION WITH DR. GOULD POSSIBLE UPPER SCOPE ON Monday08/29/23, BUT WILL WAIT TO SEE WHAT HGB IS FOLLOWING BLOOD TRANSFUSION ON 08/26/23, [employer] AND RN AWARE
[2023-08-25] MEDS: Atorvastatin Calcium 40 MG Tablet PO (21:31)
[2023-08-25] MEDS: Mirtazapine 15 MG Tablet 7.5 MG PO (21:32)
[2023-08-25 21:35] VITALS: BP 152/81; PULSE 86
[2023-08-26] MEDS: Vancomycin 125 MG/5 ML Susp PO.SYRINGE PO ×4 (00:05→17:57)
[2023-08-26 08:05] VITALS: BP 144/61; PULSE 82
[2023-08-26] MEDS: Metoprolol Tartrate 25 MG Tablet 12.5 MG PO ×2 (08:05→21:53)
[2023-08-26] MEDS: APIXABAN 2.5 MG TABLET (WCH) PO ×2 (08:06→21:44)
[2023-08-26] MEDS: Multivitamins,Therapeutic Tablet 1 TABLET PO (08:06)
[2023-08-26] MEDS: Miconazole Nitrate 43 GM Bottle 1 APPLIC TOPICAL ×2 (08:07→21:55)
[2023-08-26] MEDS: Menthol/Lanolin/Calamine/Znox 113 GM Tube 1 APPLIC TOPICAL ×2 (08:07→21:54)
[2023-08-26] MEDS: Iron Polysaccharide Complex 150 MG CAPSULE PO (08:07)
[2023-08-26] MEDS: Acetaminophen 500 MG Tablet 1000 MG PO (08:19)
[2023-08-26] MEDS: 0.9% Saline Lock 10 ML Syringe IV (08:20)
[2023-08-26 08:33] VITALS: RESP 18; TEMP 36.6; O2SAT 95
--- NOTE | 2023-08-26 08:40 | NURSING ---
Staff transports pt to med-surg unit to receive blood transfusion.
--- NOTE | 2023-08-26 18:19 | NURSING ---
Pt returns to unit. Blood noted to left saline lock (dressing); NS flush unsuccessful. Discontinued IV. Lung sounds clear, pt denies dyspnea. Bp-146/78, p-85, r-16, sp02-97% on room air. Pt sitting up in bed eating supper. States that she has kept family updated throughout the day, refused when I offered to call and update. No complaints at this time.
[2023-08-26] MEDS: Mirtazapine 15 MG Tablet 7.5 MG PO (21:45)
[2023-08-26] MEDS: Atorvastatin Calcium 40 MG Tablet PO (21:45)
[2023-08-26 21:53] VITALS: BP 126/55; PULSE 85
[2023-08-27] MEDS: Vancomycin 125 MG/5 ML Susp PO.SYRINGE PO ×5 (05:15→23:19)
[2023-08-27 06:51] LABS: Absolute Lymphocyte Count 2.14 X10^3/uL (0.83-4.51); Absolute Neutrophil Count 5.3 X10^3/uL (2.0-7.7); Basophil# 0.09 X10^3/uL; Basophil% 1.1 % (0-1); Eosinophil# 0.26 X10^3/uL; Eosinophils% 3.1 % (0-5); Hematocrit 29.2 % (37-47); Hemoglobin 9.2 g/dL (12.0-15.0); Lymphocyte # 2.14 X10^3/ul (0.83-4.51); Lymphocyte % 25.3 % (19-41); Mean Corp Hgb Conc 31.5 g/dL (32-36); Mean Corpuscular Hgb 31.1 pg (27.0-32.0); Mean Corpuscular Volume 98.6 fL (81-99); Mean Platelet Vol. 9.2 fl (6.2-12.0); Monocyte# 0.57 X10^3/uL; Monocyte% 6.7 % (0-10); NRBC Flagged by Analyzer 0 % (0-5); Neutrophil # 5.31 X10^3/uL (2.7-7.7); Neutrophil % 62.7 % (47-70); Platelet Count 274 K/mm3 (150-450); RBC Distribution Width CV 16.8 % (11.6-14.6); RBC Distribution Width SD 60.5 fl (35.1-43.9); Red Blood Count 2.96 M/mm3 (4.2-5.4); White Blood Count 8.5 K/mm3 (4.4-11.0)
[2023-08-27] MEDS: Multivitamins,Therapeutic Tablet 1 TABLET PO (08:15)
[2023-08-27] MEDS: Iron Polysaccharide Complex 150 MG CAPSULE PO (08:15)
[2023-08-27] MEDS: Menthol/Lanolin/Calamine/Znox 113 GM Tube 1 APPLIC TOPICAL ×2 (08:16→21:34)
[2023-08-27] MEDS: Miconazole Nitrate 43 GM Bottle 1 APPLIC TOPICAL ×2 (08:16→21:34)
[2023-08-27 08:17] VITALS: BP 144/60; PULSE 89
[2023-08-27] MEDS: APIXABAN 2.5 MG TABLET (WCH) PO ×2 (08:17→21:33)
[2023-08-27] MEDS: Metoprolol Tartrate 25 MG Tablet 12.5 MG PO ×2 (08:17→21:34)
[2023-08-27 08:56] VITALS: BP 144/60; PULSE 89; RESP 16; O2SAT 97
[2023-08-27 14:19] VITALS: TEMP 36.2
[2023-08-27 16:53] LABS: Hemoglobin A1c 5.5 % (3.8-5.6)
[2023-08-27] MEDS: Mirtazapine 15 MG Tablet 7.5 MG PO (21:33)
[2023-08-27] MEDS: Atorvastatin Calcium 40 MG Tablet PO (21:33)
[2023-08-27 21:34] VITALS: BP 127/61; PULSE 79
[2023-08-27 23:08] VITALS: O2SAT 96
[2023-08-28] MEDS: Vancomycin 125 MG/5 ML Susp PO.SYRINGE PO ×4 (05:47→23:35)
[2023-08-28] MEDS: Iron Polysaccharide Complex 150 MG CAPSULE PO (08:41)
[2023-08-28] MEDS: Furosemide 40 MG Tablet PO (08:41)
[2023-08-28] MEDS: Multivitamins,Therapeutic Tablet 1 TABLET PO (08:41)
[2023-08-28] MEDS: APIXABAN 2.5 MG TABLET (WCH) PO ×2 (08:42→20:56)
[2023-08-28] MEDS: Miconazole Nitrate 43 GM Bottle 1 APPLIC TOPICAL ×2 (08:42→20:59)
[2023-08-28] MEDS: Menthol/Lanolin/Calamine/Znox 113 GM Tube 1 APPLIC TOPICAL ×2 (08:42→20:59)
[2023-08-28 08:43] VITALS: BP 140/66; PULSE 96
[2023-08-28] MEDS: Metoprolol Tartrate 25 MG Tablet 12.5 MG PO ×2 (08:43→21:00)
[2023-08-28 08:54] VITALS: BP 140/66; PULSE 96; RESP 16; O2SAT 96
[2023-08-28 14:16] VITALS: TEMP 36.4
--- NOTE | 2023-08-28 17:14 | NURSING ---
Pt continues asymotmatic after blood transfusion on 08/26, Hgb yesterday was 9.2. Staff reports pt continues with loose stools; is continent. No complaints at this time.
[2023-08-28] MEDS: Atorvastatin Calcium 40 MG Tablet PO (20:58)
[2023-08-28] MEDS: Mirtazapine 15 MG Tablet 7.5 MG PO (20:58)
[2023-08-28 21:00] VITALS: BP 127/51; PULSE 88
[2023-08-29] MEDS: Vancomycin 125 MG/5 ML Susp PO.SYRINGE PO ×4 (05:42→23:02)
--- NOTE | 2023-08-29 07:58 | NURSING ---
CALLED AND STATED HE WAS GOING TO DO A SCOPE TODAY ON PT. PT AND FAMILY UPDATED. RN AWARE
--- NOTE | 2023-08-29 09:28 | NURSING ---
Addendum entered by Camila Dominguez 08/29/23 11:43: Dtr at bedside when this RN entered room. This RN asked about scope procedure decision. Patient adamant she does not want it done. Re-educated about importance of having done to rule out/address any issues or causes of bleeding. She continued to refuse. Told her staff would update Dr. Tello and have procedure cancelled. Discussed with ABDULLAHI Walls. Original Note: UPDATED PT ON PROCEDURE TIME OF 1415. PT STATED I DONT WANT TO DO IT, JAD 82 YEARS OLD. EDUCATED PT ON REASON IS DOING SCOPE AND IF NOT DONE THE POSSIBLE OUT COMES. PT STILL STATED NO. THIS NURSE CALLED PT DAUGHTER AND UPDATED HER. DAUGHTER STATED SHE WOULD BE IN TO TALK TO HER MOM AND STATED SHE IS STUBBORN AND HAS DONE THIS BEFORE AND JUST WANTS TO GIVE UP AND THEN CHANGES HER MIND. THIS NURSE STATED SHE WOULD WAIT TO CALL AFTER SHE TALKS TO HER MOM.
[2023-08-29 10:49] VITALS: BP 119/56; PULSE 81
[2023-08-29] MEDS: Metoprolol Tartrate 25 MG Tablet 12.5 MG PO ×2 (10:49→20:38)
[2023-08-29] MEDS: Furosemide 40 MG Tablet PO (10:49)
[2023-08-29] MEDS: Multivitamins,Therapeutic Tablet 1 TABLET PO ×2 (10:50→10:51)
[2023-08-29] MEDS: Iron Polysaccharide Complex 150 MG CAPSULE PO (10:51)
[2023-08-29] MEDS: APIXABAN 2.5 MG TABLET (WCH) PO ×2 (10:52→20:37)
[2023-08-29] MEDS: Miconazole Nitrate 43 GM Bottle 1 APPLIC TOPICAL ×2 (10:56→20:38)
[2023-08-29] MEDS: Menthol/Lanolin/Calamine/Znox 113 GM Tube 1 APPLIC TOPICAL ×2 (10:56→20:38)
[2023-08-29 10:58] VITALS: BP 119/56; PULSE 81
--- NOTE | 2023-08-29 11:33 | NURSING ---
Offered covid vaccine, VIS provided. Patient refuses at this time.
--- NOTE | 2023-08-29 14:58 | NURSING ---
AT 11;45 AM THIS NURSE CALLED OFFICE AND SURGERY TO LET THEM KNOW PT REFUSED SCOPE TODAY.
[2023-08-29 15:25] VITALS: BMI 36.3
[2023-08-29 15:39] VITALS: BP 151/61; PULSE 71; RESP 16; TEMP 36.8; O2SAT 98
--- NOTE | 2023-08-29 16:54 | CASEMGMT ---
BIMS () and PHQ9 () interviews completed on this date for MDS assessment. GRACE Mendez
--- NOTE | 2023-08-29 16:57 | NURSING ---
ALL CARE GIVEN IN ROOM DUE TO PT IN PRECAUTIONS FOR C/DIFF.
[2023-08-29] MEDS: Mirtazapine 15 MG Tablet 7.5 MG PO (20:37)
[2023-08-29] MEDS: Atorvastatin Calcium 40 MG Tablet PO (20:37)
[2023-08-29 20:38] VITALS: BP 141/85; PULSE 90
[2023-08-30] MEDS: Vancomycin 125 MG/5 ML Susp PO.SYRINGE PO ×4 (05:09→23:39)
[2023-08-30 07:38] LABS: Absolute Lymphocyte Count 1.87 X10^3/uL (0.83-4.51); Absolute Neutrophil Count 4.8 X10^3/uL (2.0-7.7); Basophil# 0.11 X10^3/uL; Basophil% 1.5 % (0-1); Eosinophil# 0.29 X10^3/uL; Eosinophils% 3.8 % (0-5); Hematocrit 29.3 % (37-47); Hemoglobin 9.2 g/dL (12.0-15.0); Lymphocyte # 1.87 X10^3/ul (0.83-4.51); Lymphocyte % 24.7 % (19-41); Mean Corp Hgb Conc 31.4 g/dL (32-36); Mean Corpuscular Hgb 30.9 pg (27.0-32.0); Mean Corpuscular Volume 98.3 fL (81-99); Mean Platelet Vol. 9.1 fl (6.2-12.0); Monocyte# 0.48 X10^3/uL; Monocyte% 6.3 % (0-10); NRBC Flagged by Analyzer 0 % (0-5); Neutrophil # 4.78 X10^3/uL (2.7-7.7); Platelet Count 357 K/mm3 (150-450); RBC Distribution Width CV 16.9 % (11.6-14.6); RBC Distribution Width SD 61.1 fl (35.1-43.9); Red Blood Count 2.98 M/mm3 (4.2-5.4); White Blood Count 7.6 K/mm3 (4.4-11.0)
[2023-08-30 08:04] LABS: Anion Gap 2 (5-15); BUN 27 mg/dL (7-18); BUN/Creat Ratio 31.2 RATIO (10-20); Chloride 116 mmol/L (98-107); Creatinine, Serum 0.87 mg/dL (0.55-1.02); EST Glomerular Filtration Rate 67 mL/min (>60); Est Glom Filt Rate - Afr Amer 81 mL/min (>60); Estimated Creatinine Clearance 43.79 ml/min; Glucose 124 mg/dL (74-106); Potassium 4.3 mmol/L (3.5-5.1); Sodium Level 140 mmol/L (136-145)
--- NOTE | 2023-08-30 08:30 | NURSING ---
Decision Analyst note; MDS for 08/29/2023 Complete
[2023-08-30 10:02] VITALS: BP 129/51; PULSE 78
[2023-08-30] MEDS: Metoprolol Tartrate 25 MG Tablet 12.5 MG PO ×2 (10:02→21:08)
[2023-08-30] MEDS: Iron Polysaccharide Complex 150 MG CAPSULE PO (10:02)
[2023-08-30] MEDS: APIXABAN 2.5 MG TABLET (WCH) PO ×2 (10:02→21:08)
[2023-08-30] MEDS: Furosemide 40 MG Tablet PO (10:02)
[2023-08-30] MEDS: Tuberculin,Purif.prot.deriv. 50 TU/ML Vial 0.100000000000000006 ML ID (10:08)
[2023-08-30] MEDS: Menthol/Lanolin/Calamine/Znox 113 GM Tube 1 APPLIC TOPICAL ×2 (10:11→21:11)
[2023-08-30] MEDS: Miconazole Nitrate 43 GM Bottle 1 APPLIC TOPICAL ×2 (10:11→21:12)
[2023-08-30 10:13] VITALS: BP 129/51; PULSE 78
--- NOTE | 2023-08-30 10:20 | CASEMGMT ---
Addendum entered by Silvia Lizama 08/30/23 16:05: [facility] accepted pt either [facility]CD[facility] or private pay. PASRR completed. Scheduled cot transport for 1100. Plan: DC 09/02, [facility], intermediate Original Note: Social Work IDT met with patient and dtr for care plan meeting. Discussed patient's progress in PT/OT/SN. Educated to [facility] insurance with NRD 08/30 and continued stay is not guaranteed with each review, EDC 09/08. Pt's goal is to return home living with dtr. However, discussed pt will need to be a min x1 assist to safely return home and dtr to assist. SW educated to PATIENT SAFETY OFFICER and [place] options, in addition to SNF stay, if needed. Pt/dtr stated they decided on a SNF stay until home and prefer [facility]. SW educated to financial liability. Both were unaware. Pt states she has limited funds in her savings account that is allocated for medical bills. SW educated to [facility] not taking into account the medical bills at the time of the application, but offered to still refer to [facility] for screening. Both agreeable. REESE will continue to follow for DC planning. REESE sent referral to [facility] via email. Sent referral to [facility] ([facility]) via [employer]. TARIK Maher
--- NOTE | 2023-08-30 11:56 | NURSING ---
ALL CARE GIVEN IN ROOM DUE TO PT IN PRECAUTIONS FOR C/DIFF.
--- NOTE | 2023-08-30 12:02 | NURSING ---
PT AND DAUGHTER UPDATED ON A PT BEING POSITIVE COVID.
[2023-08-30 14:42] VITALS: BMI 35.8
[2023-08-30 16:00] VITALS: BP 151/59; PULSE 20; RESP 89; TEMP 37.1; O2SAT 99
[2023-08-30] MEDS: Mirtazapine 15 MG Tablet 7.5 MG PO (21:07)
[2023-08-30 21:08] VITALS: BP 147/68; PULSE 82
[2023-08-30] MEDS: Atorvastatin Calcium 40 MG Tablet PO (21:08)
[2023-08-31] MEDS: Vancomycin 125 MG/5 ML Susp PO.SYRINGE PO ×3 (05:23→17:17)
[2023-08-31] MEDS: Multivitamins,Therapeutic Tablet 1 TABLET PO (08:25)
[2023-08-31] MEDS: APIXABAN 2.5 MG TABLET (WCH) PO ×2 (08:25→21:41)
[2023-08-31] MEDS: Iron Polysaccharide Complex 150 MG CAPSULE PO (08:25)
[2023-08-31 08:26] VITALS: PULSE 72
[2023-08-31] MEDS: Furosemide 40 MG Tablet PO (08:26)
[2023-08-31] MEDS: Metoprolol Tartrate 25 MG Tablet 12.5 MG PO ×2 (08:26→21:43)
[2023-08-31] MEDS: Miconazole Nitrate 43 GM Bottle 1 APPLIC TOPICAL ×2 (08:30→21:48)
[2023-08-31] MEDS: Menthol/Lanolin/Calamine/Znox 113 GM Tube 1 APPLIC TOPICAL ×2 (08:31→21:41)
[2023-08-31 13:53] VITALS: BP 119/54; PULSE 74; RESP 16; TEMP 36.3; O2SAT 96
[2023-08-31] MEDS: Atorvastatin Calcium 40 MG Tablet PO (21:41)
[2023-08-31] MEDS: Mirtazapine 15 MG Tablet 7.5 MG PO (21:42)
[2023-08-31 21:43] VITALS: BP 95/58; PULSE 85
[2023-09-01] MEDS: Vancomycin 125 MG/5 ML Susp PO.SYRINGE PO ×5 (01:10→23:40)
--- NOTE | 2023-09-01 08:25 | MDS.RN ---
Information for the mds was obtained from review of the clinical record, interview of resident, staff, and direct observation of resident's care.
[2023-09-01] MEDS: Iron Polysaccharide Complex 150 MG CAPSULE PO (09:28)
[2023-09-01] MEDS: Multivitamins,Therapeutic Tablet 1 TABLET PO (09:28)
[2023-09-01] MEDS: Furosemide 40 MG Tablet PO (09:29)
[2023-09-01] MEDS: Miconazole Nitrate 43 GM Bottle 1 APPLIC TOPICAL ×2 (09:29→21:15)
[2023-09-01] MEDS: Menthol/Lanolin/Calamine/Znox 113 GM Tube 1 APPLIC TOPICAL ×2 (09:29→21:15)
[2023-09-01] MEDS: APIXABAN 2.5 MG TABLET (WCH) PO ×2 (09:29→21:13)
[2023-09-01 09:30] VITALS: BP 111/55; PULSE 66
[2023-09-01] MEDS: Metoprolol Tartrate 25 MG Tablet 12.5 MG PO ×2 (09:30→21:13)
[2023-09-01 13:29] VITALS: BP 123/59; PULSE 76; RESP 18; TEMP 36.3; O2SAT 98
--- NOTE | 2023-09-01 17:16 | PCM.TXEXTCAR ---
Diet Diet Order/Speech Therapy: 08/22/23 15:46 Diet: Regular - General Food consistency:: Regular Liquid Consistency:: Regular/Thin Dietary Modifications:: No Added Salt Diet Comments: CHOCOLATE Ensure compact BID w/ breakfast and dinner Routine Orders/Code Status Enema Type: Fleetz Enema Frequency: Daily PRN Suppository Type: Dulcolax 10mg Suppository Frequency: Daily PRN O2 Liters per Minute: 1-2 O2 Frequency: PRN Keep PO Greater than or Equal to (%): 90 Code Status: DNRCC-A (No intubation) Wound(s) LLE: Wound Type: Abrasion RT INNER ANKLE: Wound Type: Surgical Incision ABOVE RT KNEE: Wound Type: Surgical Incision Dressing Change: SILVER SURGICAL MEPILEX OUTTER RT KNEE: Wound Type: Surgical Incision RT KNEE SITE 1: Wound Type: Surgical Incision RT KNEE SITE 2: Wound Type: Surgical Incision RT KNEE SITE 3: Wound Type: Surgical Incision INNER RT KNEE: Wound Type: Surgical Incision Therapies Weight Bearing: Weight bearing as tolerated Physical Therapy: Eval and Treat Occupational Therapy: Eval and Treat Problem/Diagnosis (1) Debility: Status: Acute Code(s): R53.81 - Other malaise (2) Fall: Status: Acute Code(s): W19.XXXA - Unspecified fall, initial encounter (3) Clostridium difficile colitis: Status: Acute Code(s): A04.72 - Enterocolitis due to Clostridium difficile, not specified as recurrent (4) Acute renal failure: Status: Acute Code(s): N17.9 - Acute kidney failure, unspecified (5) Chronic renal failure, stage 3b: Status: Acute Code(s): N18.32 - Chronic kidney disease, stage 3b (6) Dehydration: Status: Acute Code(s): E86.0 - Dehydration (7) Heme positive stool: Status: Acute Code(s): R19.5 - Other fecal abnormalities (8) Leg fracture, right: Status: Acute Code(s): S82.91XA - Unspecified fracture of right lower leg, initial encounter for closed fracture (9) Acute on chronic blood loss anemia: Status: Chronic Code(s): D62 - Acute posthemorrhagic anemia (10) Right leg injury: Status: Acute Code(s): S89.91XA - Unspecified injury of right lower leg, initial encounter (11) Toxic metabolic encephalopathy: Status: Resolved Code(s): G92.8 - Other toxic encephalopathy (12) Hematochezia: Status: Acute Code(s): K92.1 - Melena (13) Paroxysmal atrial fibrillation: Status: Acute Code(s): I48.0 - Paroxysmal atrial fibrillation (14) Diabetes: Status: Acute Code(s): E11.9 - Type 2 diabetes mellitus without complications (15) Generalized weakness: Status: Acute Code(s): R53.1 - Weakness (16) Secondary pulmonary arterial hypertension: Status: Acute Code(s): I27.21 - Secondary pulmonary arterial hypertension Plan 1. DC to [facility] on 09/02/23 2. HGB is stable 3. diarrhea has resolved 4. CREAT has improved with hydration. Creatinine at discharge from TCU is 0.87, down from 1.5 on 08/23/2023. Allergies/Procedures Done in Hospital Allergies No Known Allergies Allergy (Verified 08/02/23 11:25) Procedures: None and - Type of Care/Length of Stay Estimated LOS: More Than 30 Days Type of Care Needed: Intermediate Rehab Potential: Good Prognosis: Good Additional Orders/Day of Discharge Additional Orders: part B therapies H&P will serve as current which was dated: 08/18/23 Day of Discharge: 09/02/23 Dietary and Speech Recommendations Dietitian Recommendations/Changes: Continue liberal Regular No Added Salt diet - consider addition of cho restriction if gluc elevated Continue Ensure Compact bid - chocolate per res request Monitor for wt trends - res to be reweighed this week for accuracy. Follow Up Care Please Follow Up With: Neris Blanco MD Discharge Plan Admission Admit Date/Time: 08/22/23 15:28 Primary Reason for Your Visit: Debility due to C.DIFF enterocolitis with ARF/dehydration and encephalopath Attending Provider: Erasmo El Chi Primary Care Provider: Diann Bethea Discharge Orders/Prescriptions Prescriptions: New tramadol 50 mg Tablet 50 mg PO Q12H PRN PRN (Reason: Pain Score 6-10) 7 Days Qty: 8 0RF polysaccharide iron complex [Ferrex 150] 150 mg iron Capsule 150 mg PO DAILYCM Qty: 1 0RF vancomycin [Firvanq] 25 mg/mL Recon Soln 125 mg PO Q6 Qty: 15 0RF Rx Instructions: DC after the last dose on 08/23/23 menthol-zinc oxide [Calmoseptine] 0.44-20.6 % Ointment 1 applic topical BID Qty: 113 0RF Protocol: *Topical Application Instructions APPLICATION INSTRUCTIONS: Apply to bilateral buttocks miconazole nitrate [Desenex] 2 % Powder 1 applic topical BID Qty: 85 0RF Protocol: *Topical Application Instructions APPLICATION INSTRUCTIONS: Apply to groin and abdominal folds. Continued multivitamin Tablet 1 tab PO DAILY albuterol sulfate [Ventolin HFA] 90 mcg/actuation Hfa Aerosol Inhaler 2 puff inhalation Q6H PRN PRN (Reason: Wheezing) 30 Days Qty: 16 0RF Hold Instructions: Order Changed atorvastatin 40 mg tablet 40 mg PO QHS 30 Days Qty: 30 0RF metoprolol tartrate 25 mg tablet 12.5 mg PO BID 30 Days Qty: 60 0RF ondansetron HCl 4 mg tablet 4 mg PO Q4H PRN (Reason: nausea and vomiting) acetaminophen 325 mg Tablet 650 mg PO Q6H PRN PRN (Reason: Pain 1-10 Or Fever >100.7) Qty: 0 0RF furosemide 40 mg tablet 40 mg PO DAILY Hold Instructions: Resume on 08/28/23. mirtazapine [Remeron] 15 mg tablet 7.5 mg PO QHS Eliquis 2.5 mg tablet 2.5 mg PO BID Qty: 180 3RF Discontinued tramadol 50 mg tablet 50 mg PO Q6H PRN (Reason: pain) Qty: 14 0RF No Action vancomycin [Firvanq] 25 mg/mL Recon Soln 125 mg PO Q6 11 Days Qty: 0 0RF Rx Instructions: Or tablets if liquid is not formulary at same dose and interval Referrals / Follow Up: Neris Blanco [Other] - 09/21/23 11:15 am (Per office, please arrive @10:45) Diann Bethea NP-C [Primary Care Provider] - Disposition Disposition (needs filled in before D/C Order can be placed): NonSkilled NH/Intermed Care (2) Fall Qualifiers: Encounter type: initial encounter Qualified Code(s): W19.XXXA - Unspecified fall, initial encounter (10) Right leg injury Qualifiers: Encounter type: initial encounter Qualified Code(s): S89.91XA - Unspecified injury of right lower leg, initial encounter
--- NOTE | 2023-09-01 17:35 | CASEMGMT ---
Social Work BIMS () and PHQ-2 () completed for MDS assessment. Silvia Lizama MSW [employer]
--- NOTE | 2023-09-01 17:48 | PCM.DC.SUM ---
Providers Date of Admission: 08/22/23 Date of Discharge: 09/02/23 Primary Care Physician: KIYA Martínez Consultations 08/25/23 10:34 Consult: Gastroenterology Routine Consulting Provider: Melody Gastro[facility] Reason for Consult: blood in stool EMERGENT Consult: Yes MD Notified: Yes Date Notified: 08/25/23 Time Notified: 10:35 Method of Notification: Verbal Reason For Visit: C DIFF/ COLITIS Diagnosis Discharge Diagnosis (1) Debility: Status: Acute Code(s): R53.81 - Other malaise (2) Fall: Status: Inactive Code(s): W19.XXXA - Unspecified fall, initial encounter Qualifiers: Encounter type: initial encounter Qualified Code(s): W19.XXXA - Unspecified fall, initial encounter (3) Clostridium difficile colitis: Status: Resolved Code(s): A04.72 - Enterocolitis due to Clostridium difficile, not specified as recurrent (4) Acute renal failure: Status: Resolved Code(s): N17.9 - Acute kidney failure, unspecified Qualifiers: Acute renal failure type: unspecified Qualified Code(s): N17.9 - Acute kidney failure, unspecified (5) Chronic renal failure, stage 3b: Status: Inactive Code(s): N18.32 - Chronic kidney disease, stage 3b (6) Dehydration: Status: Resolved Code(s): E86.0 - Dehydration (7) Heme positive stool: Status: Acute Code(s): R19.5 - Other fecal abnormalities (8) Leg fracture, right: Status: Inactive Code(s): S82.91XA - Unspecified fracture of right lower leg, initial encounter for closed fracture Qualifiers: Encounter type: subsequent encounter Fracture type: closed (9) Acute on chronic blood loss anemia: Status: Chronic Code(s): D62 - Acute posthemorrhagic anemia (10) Toxic metabolic encephalopathy: Status: Resolved Code(s): G92.8 - Other toxic encephalopathy (11) Hematochezia: Status: Acute Code(s): K92.1 - Melena (12) Paroxysmal atrial fibrillation: Status: Inactive Code(s): I48.0 - Paroxysmal atrial fibrillation (13) Diabetes: Status: Inactive Code(s): E11.9 - Type 2 diabetes mellitus without complications (14) Generalized weakness: Status: Acute Code(s): R53.1 - Weakness (15) Secondary pulmonary arterial hypertension: Status: Inactive Code(s): I27.21 - Secondary pulmonary arterial hypertension Plan 1. DC to [facility] on 09/02/23 2. HGB is stable 3. diarrhea has resolved 4. CREAT has improved with hydration. Creatinine at discharge from TCU is 0.87, down from 1.5 on 08/23/2023. Medications at Discharge Home Medications albuterol sulfate 90 mcg/actuation aerosol inhaler (Ventolin HFA) 2 puff inhalation Q6H PRN PRN Wheezing 30 days #16 grams 09/17/21 atorvastatin 40 mg tablet 40 mg PO QHS Cholesterol 30 days #30 tabs 09/17/21 metoprolol tartrate 25 mg tablet 12.5 mg (1/2 x 25 mg) PO BID blood pressure 30 days #60 tabs 09/17/21 multivitamin 1 tab PO DAILY dietary supplement 12/09/21 apixaban 2.5 mg tablet (Eliquis) 2.5 mg PO BID blood thinner #180 tabs 12/19/22 ondansetron HCl 4 mg tablet 4 mg PO Q4H PRN nausea and vomiting 06/24/23 acetaminophen 325 mg tablet 650 mg (2 x 325 mg) PO Q6H PRN PRN Pain 1-10 Or Fever >100.7 #0 tabs 06/27/23 furosemide 40 mg tablet 40 mg PO DAILY heart failure 08/18/23 mirtazapine 15 mg tablet (Remeron) 7.5 mg PO QHS appetite stimulant 08/18/23 vancomycin 25 mg/mL oral solution (Firvanq) 125 mg (5 mL) PO Q6 c-diff 11 days #0 mL 08/22/23 menthol 0.44 %-zinc oxide 20.6 % topical ointment (Calmoseptine) 1 applic topical BID #113 grams 09/01/23 miconazole nitrate 2 % topical powder (Desenex) 1 applic topical BID #85 grams 09/01/23 polysaccharide iron complex 150 mg iron capsule (Ferrex) 150 mg PO DAILYCM #1 cap 09/01/23 tramadol 50 mg tablet 50 mg PO Q12H PRN PRN Pain Score 6-10 7 days #8 tabs 09/01/23 vancomycin 25 mg/mL oral solution (Firvanq) 125 mg (5 mL) PO Q6 #15 mL 09/01/23 Hospital Course Operations None Procedures None Summary of Care Provided Minutes Spent on Discharge: 40 Hospital Course: Sarah Fields is a 82-year-old female with a past medical history of diabetes mellitus type 2, paroxysmal atrial fibrillation, morbid obesity, hypertension, congestive heart failure with preserved ejection fraction, chronic renal failure stage III, hypertension, hyperlipidemia, secondary pulmonary arterial hypertension and a recent fall resulting in a leg fracture which was repaired at [facility]. She was discharged to [facility]. She developed diarrhea and tested + for C.DIFF. She became confused and dehydrated and presented to the ED at [facility]. The WBC was increased at 47.6 with a BUN of 100 and a creat of 2.69 up from 1.[address] scan of the abdomen in the emergency department showed proctocolitis involving the sigmoid and rectum. There was no toxic megacolon present. She was admitted to the hospitalist service for C DIFF enterocolitis, acute on chronic renal failure, dehydration and metabolic encephalopathy. She was started on IV metronidazole and p.o. vancomycin 4 times daily. IV hydration was ordered. She was also given IV Rocephin for a possible UTI diagnosed at [facility] with a culture that grew a pansensitive E. coli. The hospitalist was unsure if this had already been treated. With hydration and antibiotics the diarrhea resolved. She had a Hemoccult stool during this episode that was positive. The hemoglobin at admission to the hospital was 10.4 but this was likely falsely elevated secondary to severe dehydration. At the time of discharge hemoglobin is stable at 9.2. She was transferred to the Transitional Care Unit at [facility] for strengthening/rehabilitation prior to discharging home with family. A consult was obtained with Dr. Jaleel Tello for heme positive stool and he felt that this was possibly secondary to the enterocolitis but could not rule out coexisting ischemic colitis. He recommended an EGD but the patient refused. After her colon recovers from C. difficile he recommend she have a colonoscopy. At the time of discharge from the transitional care unit she was supervision/set up for eating and grooming. She requires total assistance for bathing, lower body dressing, toileting, toilet transfer and tub/shower transfer. She is independent with rolling over in bed. She requires a max assist of 2 people to go from supine to sitting. She requires assist of 2 to go from sitting to standing. She also requires maximal assistance of 2 people with stand pivot and is still requiring a Rayne lift for transfers due to continued inability to do static standing longer than 15 seconds. She is requiring more assistance than family is capable of providing and a decision was made to transfer to [facility] for intermediate care. Physical Exam Const alert and no apparent distress Constitutional Narrative: Pleasant. Making good eye contact. General Appearance: cooperative HEENT HEENT Narrative: No evidence of thrush Mouth: dry mucous membranes Eyes PERRL and EOMs intact bilaterally Neck No nuchal rigidity General: trachea midline Resp normal respiratory effort, normal air movement and clear to auscultation bilaterally Resp Narrative: No conversational dyspnea. Effort and Inspection: Negative for tachypneic Cardio regular rate, regular rhythm and no gallops GI normal to inspection, nondistended, normoactive bowel sounds, soft to palpation and non-tender GI Narrative: No guarding with palpation. Extremity no calf tenderness General Extremity: Negative for edema Skin Rashes: no rashes Neuro CN's II-XII intact bilaterally and no focal motor deficits Psych affect normal Psych Narrative: Making good eye contact. Appearance: appropriate Attitude: No agitated Activity / Motor Behavior: Negative for restless Weight / BMI Weight Weight: 210 lb Body Mass Index (BMI) 35.8 ABG / Lab / Microbiology Data 08/30/23 07:20 08/30/23 07:20 Microbiology: Microbiology 08/30/23 12:00 Nasal Secretion SARS-CoV-2 Antigen (Rapid) - Final 08/25/23 09:24 Stool Stool Occult Blood (ANGELICA) - Final Occult Blood Positive D/C Instructions Please Follow Up With: Neris Blanco MD Meaningful Use Info Meaningful Use Diagnoses (Choose all that apply): None applicable Discharge Plan Admission Admit Date/Time: 08/22/23 15:28 Primary Reason for Your Visit: Debility due to C.DIFF enterocolitis with ARF/dehydration and encephalopath Attending Provider: Erasmo El Chi Primary Care Provider: Diann Bethea Discharge Orders/Prescriptions Prescriptions: New tramadol 50 mg Tablet 50 mg PO Q12H PRN PRN (Reason: Pain Score 6-10) 7 Days Qty: 8 0RF polysaccharide iron complex [Ferrex 150] 150 mg iron Capsule 150 mg PO DAILYCM Qty: 1 0RF vancomycin [Firvanq] 25 mg/mL Recon Soln 125 mg PO Q6 Qty: 15 0RF Rx Instructions: DC after the last dose on 08/23/23 menthol-zinc oxide [Calmoseptine] 0.44-20.6 % Ointment 1 applic topical BID Qty: 113 0RF Protocol: *Topical Application Instructions APPLICATION INSTRUCTIONS: Apply to bilateral buttocks miconazole nitrate [Desenex] 2 % Powder 1 applic topical BID Qty: 85 0RF Protocol: *Topical Application Instructions APPLICATION INSTRUCTIONS: Apply to groin and abdominal folds. Continued multivitamin Tablet 1 tab PO DAILY albuterol sulfate [Ventolin HFA] 90 mcg/actuation Hfa Aerosol Inhaler 2 puff inhalation Q6H PRN PRN (Reason: Wheezing) 30 Days Qty: 16 0RF Hold Instructions: Order Changed atorvastatin 40 mg tablet 40 mg PO QHS 30 Days Qty: 30 0RF metoprolol tartrate 25 mg tablet 12.5 mg PO BID 30 Days Qty: 60 0RF ondansetron HCl 4 mg tablet 4 mg PO Q4H PRN (Reason: nausea and vomiting) acetaminophen 325 mg Tablet 650 mg PO Q6H PRN PRN (Reason: Pain 1-10 Or Fever >100.7) Qty: 0 0RF furosemide 40 mg tablet 40 mg PO DAILY Hold Instructions: Resume on 08/28/23. mirtazapine [Remeron] 15 mg tablet 7.5 mg PO QHS Eliquis 2.5 mg tablet 2.5 mg PO BID Qty: 180 3RF Discontinued tramadol 50 mg tablet 50 mg PO Q6H PRN (Reason: pain) Qty: 14 0RF No Action vancomycin [Firvanq] 25 mg/mL Recon Soln 125 mg PO Q6 11 Days Qty: 0 0RF Rx Instructions: Or tablets if liquid is not formulary at same dose and interval Referrals / Follow Up: Neris Blanco [Other] - 09/21/23 11:15 am (Per office, please arrive @10:45) Dinan Bethea NP-C [Primary Care Provider] - Disposition Disposition (needs filled in before D/C Order can be placed): NonSkilled NH/Intermed Care Charges/Coding Visit Charges Inpatient E&M: 60668 SNF Disch >30 Min
[2023-09-01] MEDS: Mirtazapine 15 MG Tablet 7.5 MG PO (21:12)
[2023-09-01 21:13] VITALS: BP 143/68; PULSE 81
[2023-09-01] MEDS: Atorvastatin Calcium 40 MG Tablet PO (21:13)
[2023-09-02] MEDS: Vancomycin 125 MG/5 ML Susp PO.SYRINGE PO (05:30)
[2023-09-02 09:14] VITALS: BP 122/55; PULSE 88
[2023-09-02] MEDS: Iron Polysaccharide Complex 150 MG CAPSULE PO (09:14)
[2023-09-02] MEDS: Metoprolol Tartrate 25 MG Tablet 12.5 MG PO (09:14)
[2023-09-02] MEDS: Multivitamins,Therapeutic Tablet 1 TABLET PO (09:21)
[2023-09-02] MEDS: Menthol/Lanolin/Calamine/Znox 113 GM Tube 1 APPLIC TOPICAL (09:21)
[2023-09-02] MEDS: Furosemide 40 MG Tablet PO (09:21)
[2023-09-02] MEDS: APIXABAN 2.5 MG TABLET (WCH) PO (09:21)
[2023-09-02] MEDS: Miconazole Nitrate 43 GM Bottle 1 APPLIC TOPICAL (09:22)
[2023-09-02 09:23] VITALS: BP 122/55; PULSE 88; RESP 18; TEMP 37.1; O2SAT 96
[2023-09-02 11:12] VITALS: BP 122/55; PULSE 88; RESP 18; TEMP 37.1; O2SAT 96
--- NOTE | 2023-09-02 11:20 | NURSING ---
All care given in room due to pt. in precautions for c-diff.
== END 2023-09-02 11:10 | disposition intermediate care facility (04) | DRG 371 ==
PROVIDERS: Internal Medicine; Admitting Provider Family Medicine Geriatric Medicine; PCP Nurse Practitioner Family; Referring Provider Family Medicine Geriatric Medicine; Visit Provider Family Medicine Geriatric Medicine
DX: A04.72 Enterocolitis due to Clostridium difficile, not specified as recurrent (principal); G92.8 Other toxic encephalopathy; I13.0 Hypertensive heart and chronic kidney disease with heart failure and stage 1 through stage 4 chronic kidney disease, or unspecified chronic kidney disease; D62 Acute posthemorrhagic anemia; N39.0 Urinary tract infection, site not specified; I50.32 Chronic diastolic (congestive) heart failure; E11.22 Type 2 diabetes mellitus with diabetic chronic kidney disease; F32.A Depression, unspecified; E78.5 Hyperlipidemia, unspecified; B96.20 Unspecified Escherichia coli [E. coli] as the cause of diseases classified elsewhere; N18.32 Chronic kidney disease, stage 3b; I48.0 Paroxysmal atrial fibrillation; Z87.891 Personal history of nicotine dependence; G47.00 Insomnia, unspecified; S82.91XD Unspecified fracture of right lower leg, subsequent encounter for closed fracture with routine healing; X58.XXXD Exposure to other specified factors, subsequent encounter; Z79.899 Other long term (current) drug therapy; Z79.01 Long term (current) use of anticoagulants
CPT/HCPCS: 36415; 36430; 73590; 80048; 82274; 83036; 85014; 85018; 85025; 86850; 86900; 86901; 86920; 86922; 87811; 97110; 97162; 97166; 97530; 97535; 97537; 97802; J7040; P9016; A4216; J1940

== ENCOUNTER 2023-08-26 08:48 | Outpatient (CLI) | payer MEDICARE, SELFPAY ==
[2023-08-26] VITALS (8 sets, daily range): BP systolic 116–138; BP diastolic 48–66; PULSE 72–83; RESP 16–18; TEMP 36.7; O2SAT 95–98
--- NOTE | 2023-08-26 10:16 | NURSING ---
pt a&o x3-3+ pedal edema-lungs dim but clear at this time pt to get iv lasix between units
[2023-08-26] MEDS: Furosemide 20 MG/2 ML VIAL IV (12:13)
--- NOTE | 2023-08-26 17:12 | NURSING ---
report given to TCU staff
== END 2023-08-26 17:50 | disposition home or self-care (01) ==
LOC: MS3OUT 08:53 → MS3 08:54
PROVIDERS: PCP Nurse Practitioner Family; Referring Provider Family Medicine Geriatric Medicine; Visit Provider Family Medicine Geriatric Medicine
DX: D50.9 Iron deficiency anemia, unspecified (principal)
CPT/HCPCS: 36415; 36430; 86850; 86900; 86901; 86920; 86922; J7040; P9016; J1940